=== PATIENT | male | born 1945 | race Caucasian/White ===

== ENCOUNTER 2016-06-24 14:18 | Inpatient (IN) | payer OTHER ==
[~2016-06-24] VITALS: Ht 185.4 cm; Wt 94.3 kg
[~2016-06-24 14:18] MED LIST: ACIDOPHILUS1 CAP PO; ALPRAZOLAM0.25 M1 PO; ALPRAZOLAM0.25 MG PO; ALTACE10 M2 PO; ALTACE10 MG PO; ASPIRIN EC325 M2 PO; AUGMENTIN 875 M1 TAB PO; AUGMENTIN 875875 MG PO; BENTYL 10 MG CA10 MG PO; BUSPIRONE HCL5 M1 PO; CEPHALEXIN500 M1 PO; CHOLESTYRAMINE1 POW PO; CRESTOR40 M2 PO; DUONEB 3 MG/3 ML3 ML INH; FLAG500 PO; FLAGYL 25O MG250 M1 PO; FLORASTOR250 MG PO; FOSAMAX70 M1 PO; GABAPENTIN300 MG PO; HYDRODIURIL 2525 MG PO; HYDROXYZINE HCL25 MG PO; LASIX20 M1 PO; LASIX20 MG PO; LEVOTHROID0.05 MG PO; LEVOTHYROXIN0.025 MG PO; LEVOTHYROXINE50 MCG PO; LIDODERM 5% PAT1 PAT EXT; LIDODERM1 EACH TOP; LOSARTAN POTASS50 MG PO; MORPHINE SULFAT15 M2 PO; MS CONTIN15 MG PO; MULTIPLE VITAM1 EAC2 PO; NEURONTIN300 M1 PO; PEDI-DRI 20Z60 GM; PLAVIX75 M1 PO; POTASSIUM CHLO10 ME5 PO; PREDNISONE20 M1 PO; PREVACID30 M2 PO; PRILOSEC 20MG C20 MG PO; PROAIR HFA0.09 MG/Ac INH; PROBIOTIC FORMU1 CA1 PO; PROVENTIL0.09 MG/A1 PO; REMICADE I100 MG/10 IV; SALINE NASAL SPRAY NASB; SERTRALINE HCL50 MG PO; SIMVASTATIN40 MG PO; TENORMIN25 M1 PO; TORADOL10 MG PO; TRAMADOL HCL50 MG PO; TYLENOL500 MG PO; VITAMIN B-121000 MC3 PO; XELJANZ5 MG PO
--- NOTE | 2016-06-24 14:34 | NUR ---
PT TO ED C/O COUGH, CHEST CONGESTION SINCE YESTERDAY. C/O PRODUCTIVE COUGH WITH YELLOW SPUTUM. PT TEMP 101.5.
--- NOTE | 2016-06-24 15:27 | ED DYSPNEA/ASTHMA COMPLAINT ---
History of Present Illness General Chief Complaint: Upper Respiratory Sx/Fever Stated Complaint: SORE THROAT, COUGH, CONGESTION Source: patient Exam Limitations: no limitations Vital Signs & Intake/Output Vital Signs & Intake/Output Vital Signs Date Time Temp Pulse Resp B/P Pulse O2 O2 Flow FiO2 Ox Delivery Rate 06/24 2023 100.5 105 16 133/76 91 Room Air 06/24 2001 100.0 06/24 1728 100.0 105 16 129/78 98 Room Air 06/24 1545 Room Air 06/24 1429 101.5 120 20 114/77 96 Room Air Allergies Coded Allergies: hydrocodone (From VICODIN) (Intermediate, SEVERE HALLUCINATIONS 08/16/15) hydromorphone (From DILAUDID) (Intermediate, SEVERE HALLUCINATIONS 08/16/15) morphine (Intermediate, WILD DREAMS, GI UPSET, SEVERE HALLUCINATIONS 08/16/15) oxycodone (From PERCOCET) (Intermediate, SEVERE HALLUCINATIONS 08/16/15) lactose (DIARRHEA 08/16/15) Reconcile Medications Albuterol Sulfate (Proventil Hfa) 0.09 MG/Actuation ZEESHAN 2 PUFF PO Q4 PRN SHORTNESS OF BREATH Alendronate Sodium (Fosamax) 70 MG TABLET 1 TAB PO QTHURS OSTEOPOROSIS ( Reported) in the morning, at least 30 minutes before the first food, beverage, or medication of the day Alprazolam 0.25 MG TABLET 1 TAB PO Q12H PRN ANXIETY (Reported) Aspirin E.c. (Ecotrin) 325 MG TAB 1 TAB PO DAILY HEART HEALTH (Reported) Atenolol 25 MG TABLET 1 TAB PO DAILY HTN (Reported) Atorvastatin Calcium 20 MG TABLET 1 TAB PO DAILY CHOLESTEROL (Reported) Buspirone HCl 5 MG TABLET 1 TAB PO TID ANXIETY (Reported) CLOPIDOGREL BISULFATE (Clopidogrel) 75 MG TABLET 1 TAB PO DAILY BLOOD THINNER (Reported) Cyanocobalamin (Vitamin B-12) 1,000 MCG TAB 1 TAB PO DAILY SUPPLEMENT ( Reported) Furosemide (Lasix) 20 MG TABLET 1 TAB PO DAILY DIURETIC (Reported) Gabapentin (Neurontin) 300 MG CAP 1 CAP PO TID NERVE PAIN (Reported) Lansoprazole (Prevacid) 30 MG CAP 1 CAP PO DAILY GI (Reported) Levothyroxine Sodium 50 MCG TABLET 1 TAB PO DAILY THYROID (Reported) Lidocaine (Lidoderm) 1 EACH ADH..PATCH 1 PAT TOP DAILY PAIN (Reported) may wear up to 12 hours Multivitamin (Multiple Vitamins) 1 TAB TAB 1 TAB PO DAILY SUPPLEMENT ( Reported) Potassium Chloride [address] 1 TAB PO DAILY SUPPLEMENT (Reported) Prednisone 5 MG TAB 20 MG PO DAILY RA (Reported) Ramipril (Altace) 10 MG CAPSULE 1 TAB PO DAILY HTN (Reported) Rosuvastatin Calcium (Crestor) 40 MG TAB 40 MG PO DAILY CHOLESTEROL (Reported ) SERTRALINE HCL (Sertraline Hydrochloride) 50 MG TABLET 1 TAB PO DAILY DEPRESSION (Reported) Triage Note: PT TO ED C/O COUGH, CHEST CONGESTION SINCE YESTERDAY. C/O PRODUCTIVE COUGH WITH YELLOW SPUTUM. PT TEMP 101.5. Triage Nurses Notes Reviewed? yes Onset: Abrupt Duration: day(s):, constant, getting worse Timing: recent history Severity: moderate, severe HPI: 71-year-old male comes into emergency room with complaints of fever chills body aches cough with mucus production and shortness of breath. Symptoms began going on for the past few days getting progressively worse. Denies any vomiting. Denies any other associated symptoms. History of pneumonia. (NORBERT NIETO,KIAH) Past History Travel History Traveled to [place] past 21 day No Medical History Any Pertinent Medical History? see below for history Neurological: NONE EENT: cataracts Cardiovascular: CAD (s/p ST elevation ND), hypertension, hyperlipidemia, myocardial infarction, non-ST patient [place], status post angioplasty in 2006, Respiratory: bronchitis, pneumonia, history of bronchospasm and hypercarbia Gastrointestinal: GERD, lactose intolerance, CHOLANGITIS Hepatic: NONE Renal: ACUTE RENAL FAILURE Musculoskeletal: fracture (right humerus ), osteoarthritis, rheumatoid arthritis , R hip fracture S/P ORIF R COMMUTED HUMERUS FX rheumatoid arthritis Psychiatric: anxiety, depression, insomnia Endocrine: adrenal insufficiency, hypothyroidism, obesity, elevated blood sugars Blood Disorders: anemia Cancer(s): NONE 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 SISTER ( of multiple sclerosis). Hx Contributory? No (KIAH EDWARD) Review of Systems Review of Systems Constitutional: Reports: see HPI. EENTM: Reports: no symptoms. Respiratory: Reports: see HPI. Cardiovascular: Reports: see HPI. GI: Reports: no symptoms. Genitourinary: Reports: no symptoms. Musculoskeletal: Reports: no symptoms. Skin: Reports: no symptoms. Neurological/Psychological: Reports: no symptoms. Hematologic/Endocrine: Reports: no symptoms. Immunologic/Allergic: Reports: no symptoms. All Other Systems: Reviewed and Negative (KIAH EDWARD) Physical Exam Physical Exam General Appearance: well developed/nourished, alert, awake Head: atraumatic, normal appearance Eyes: Bilateral: normal appearance, EOMI. Ears, Nose, Throat: normal pharynx, normal ENT inspection, hearing grossly normal Neck: normal inspection, full range of motion Respiratory: normal breath sounds, no respiratory distress Cardiovascular: regular rate/rhythm Extremities: normal inspection, normal range of motion Neurologic/Psych: awake, alert, oriented x 3, normal gait, normal mood/affect Skin: intact, normal color Core Measures ACS in differential dx? No Severe Sepsis Present: No Septic Shock Present: No (KIAH EDWARD) ED Sepsis Exam Date of Focused Sepsis Exam: 06/24/16 Time of Focused Sepsis Exam: 1707 Sepsis Cardiac Exam: Tachycardia Sepsis Resp Exam: CTA Sepsis Cap Refill Exam: <2 Sec Sepsis Peripheral Pulse Exam: Normal Sepsis Peripheral Pulse Location: Radial Sepsis Skin Color Exam: Normal for Ethnicity Skin Temp/Moisture Exam: Warm/Dry (KIAH EDWARD) Progress Differential Diagnosis: asthma, AMI, bronchitis, costochondritis, CHF, COPD, musculoskeletal pain, pericarditis, pulmonary embolism, pneumonia, pneumothorax, rib fracture, unstable angina Plan of Care: Orders Procedure Date/time Status EKG 06/24 2037 Active LOWER RESPIRATORY CULTURE 06/24 192 Active Code Status 06/24 1917 Active Admit to inpatient 06/24 1755 Active Patient Data 06/24 1727 Active BLOOD CULTURE 06/24 1642 Active Intake & Output 06/24 1600 Active TROPONIN LEVEL 06/24 1521 Complete COMPREHENSIVE METABOLIC PANEL 06/24 1521 Complete CBC WITHOUT DIFFERENTIAL 06/24 1521 Complete EKG 06/24 152 Active RAPID VIRAL INFLUENZA A 06/24 1454 Complete Current Medications Sig/Luis Start time Last Medication Dose Stop Time Status Admin Alprazolam 0.25 MG Q12H PRN 06/24 2044 UNVr (Xanax) 07/01 2043 Hydrocortisone 100 MG Q8 06/24 2044 UNVr Sodium Succinate (Solucortef) Sodium Chloride 1,000 ML Q13H 06/24 2044 UNVr (Normal Saline 0.9%) 06/25 943 Aspirin Buffered 325 MG DAILY 06/24 2038 UNVr (Ecotrin) Atenolol 25 MG DAILY 06/24 2038 UNVr (Tenormin) Laboratory Tests 06/24/16 1557: CBC w Diff NO MAN DIFF REQ, RBC 4.62 L, MCV 73.2 L, MCH 23.1 L, RDW 21.5 H, MPV 7.3 L, Gran % 78.4 H, Lymphocytes % 12.7 L, Monocytes % 7.1, Eosinophils % 1.5, Basophils % 0.3, Absolute Granulocytes 11.7 H, Absolute Lymphocytes 1.9, Absolute Monocytes 1.1 H, Absolute Eosinophils 0.2, Absolute Basophils 0.1, PUBS MCHC 31.5 L 06/24/16 1547: Anion Gap 7, Estimated GFR > 60, BUN/Creatinine Ratio 37.5 H, Glucose 116 H, Calcium 8.4, Total Bilirubin 0.5, AST 27, ALT 32, Alkaline Phosphatase 66, Troponin I < 0.01, Total Protein 6.2 L, Albumin 3.1 L, Globulin 3.1, Albumin/ Globulin Ratio 1.0 L Microbiology 06/24 1921 LOWER RESP: Respiratory Culture - ORD 06/24 1921 LOWER RESP: Gram Stain - ORD 06/24 1805 BLOOD: Blood Culture - RECD 06/24 1755 BLOOD: Blood Culture - RECD Diagnostic Imaging: Viewed by Me: Radiology Read. Discussed w/RAD: Radiology Read. Radiology Impression: SERVICE DATE: 06/24/16152 EXAM TYPE: RAD - XRY-CHEST XRAY, PA AND LATERAL EXAMINATION: XR CHEST CLINICAL INFORMATION: Cough and shortness of breath. COMPARISON: CT chest 01/05/2016. TECHNIQUE: PA and lateral views of the chest were obtained. FINDINGS: The lungs are hypoinflated. There are streaky airspace opacities within the bilateral lung bases which could reflect atelectasis given low lung volumes although superimposed infection cannot be excluded.. No pleural effusions or pneumothoraces are identified. Cardiomediastinal contours are stable. No overt pulmonary edema. Soft tissues are unremarkable. No acute osseous abnormality is identified. IMPRESSION: Pulmonary hypoinflation. Bibasilar airspace opacities are nonspecific and could reflect atelectasis although superimposed infection cannot be excluded in the appropriate clinical setting. DICTATED BY: SOWMYA VALLEJO MD DATE/TIME DICTATED :06/24/161631 [employer] OPERATIONS:ОЛЬГА DATE/TIME TRANSCRIBED:06/24/161631 Initial ED EKG: normal intervals, normal p-waves, normal sinus rhythm, rate (109 ), nonspecific ST T wave chg (KIAH EDWARD) Departure Departure Disposition: STILL A PATIENT Condition: Stable Clinical Impression Primary Impression: Pneumonia Referrals: JOHNY MARQUES,CLIFF Mckinney (PCP/Family) Referred to [facility] as new patient No Departure Forms: Customer Survey General Discharge Information Admission Note Spoke With: WILD AQUINO MD Documentation of Exam: Documentation of any treatments & extenuating circumstances including Concerns Regarding Discharge (functional status, medication knowledge or non-compliance, living conditions, etc.) that warrant an admission rather than observation: IV antibiotics. Gentle hydration. Repeat labs. Supplemental oxygen. High risk. Patient would do poorly as an outpatient. Multiple comorbidities (KIAH EDWARD) PA/DIRECTOR MEETINGS Co-Sign Statement Statement: ED Attending supervision documentation- [x] I saw and evaluated the patient. I have also reviewed all the pertinent lab results and diagnostic results. I agree with the findings and the plan of care as documented in the PA's/DIRECTOR MEETINGS's documentation. [] I have reviewed the ED Record and agree with the PA's/DIRECTOR MEETINGS's documentation. [] Additions or exceptions (if any) to the PAs/DIRECTOR MEETINGS's note and plan are summarized below: [] (KITA SOOD DO) Critical Care Note Critical Care Note Critical Care Time: 30-74 min (KIAH EDWARD)
[2016-06-24] MEDS ORDERED: ATORVASTATIN CA20 M1 PO (15:50)
--- NOTE | 2016-06-24 16:07 | NUR ---
PT 88% ON RA. SPEAKING IN FULL LONG SENTENCES WITH NO DIFFICULTY. PLACED ON 2LNC.
[2016-06-24 16:09] LABS: ABSOLUTE BASOPHIL COUNT 0.1 /CUMM (0.0-0.2); ABSOLUTE EOSINOPHIL COUNT 0.2 /CUMM (0.0-0.7); ABSOLUTE GRANULOCYTE CT 11.7 /CUMM (1.4-6.5); ABSOLUTE LYMPH COUNT 1.9 /CUMM (1.2-3.4); ABSOLUTE MONOCYTE COUNT 1.1 /CUMM (0.10-0.60); BASOPHIL % 0.3 % (0.0-2.0); EOSINOPHIL % 1.5 % (0-5); GRANULOCYTE % 78.4 % (42.2-75.2); HEMATOCRIT 33.8 % (42-52); MEAN CORPUSCULAR HGB 23.1 PG (27.0-31.0); MEAN CORPUSCULAR HGB CONC 31.5 G/DL (33.0-37.0); MEAN CORPUSCULAR VOLUME 73.2 FL (80.0-94.0); MEAN PLATELET VOLUME 7.3 FL (7.4-10.4); PLATELET COUNT 257 /CUMM (130-400); RBC DISTRIBUTION WIDTH 21.5 % (11.5-14.5); RED BLOOD CELL CT 4.62 /CUMM (4.70-6.10)
--- NOTE | 2016-06-24 16:23 | NUR ---
PT TO AND FROM RADIOLOGY
--- NOTE | 2016-06-24 16:36 | RADIOLOGY REPORT ---
EXAMINATION: XR CHEST CLINICAL INFORMATION: Cough and shortness of breath. COMPARISON: CT chest 01/05/2016. TECHNIQUE: PA and lateral views of the chest were obtained. FINDINGS: The lungs are hypoinflated. There are streaky airspace opacities within the bilateral lung bases which could reflect atelectasis given low lung volumes although superimposed infection cannot be excluded.. No pleural effusions or pneumothoraces are identified. Cardiomediastinal contours are stable. No overt pulmonary edema. Soft tissues are unremarkable. No acute osseous abnormality is identified. IMPRESSION: Pulmonary hypoinflation. Bibasilar airspace opacities are nonspecific and could reflect atelectasis although superimposed infection cannot be excluded in the appropriate clinical setting.
--- NOTE | 2016-06-24 19:57 | NUR ---
PT'S RM ASSIGNMENT 219 BED 1
--- NOTE | 2016-06-24 20:25 | NUR ---
VSS. 02 91% ON RA. PLACED ON 2LNC
--- NOTE | 2016-06-24 21:00 | NUR ---
PT FELT INCREASING BODY ACHES AND HEADACHE. 650MG PO TYLENOL ADMINISTERED. 30MG IV TORADOL ADMINSTERED. PT NOW FEELS MUCH BETTER AND NO LONGER HAS CHILLS/ACHES
--- NOTE | 2016-06-24 21:09 | NUR ---
EKG NOT NEEDED. UNABLE TO CANCEL EKG IN [facility]
--- NOTE | 2016-06-24 21:21 | PN- Att Addend ---
Attending Addendum Attending Brief Note 71 year old male with PMH adrenal insufficiency on chronic steroids with previous cholecystectomy (complicated by pneumonia at [facility]), Cdiff colitis, HTN on beta radha, hyperlipidemia on a statin and on asa and plavix here with fever, cough with purulent sputum, leukocytosis and bibasial pneumonia on chest xray. Alex c/s, start IV ceftriaxone and azithro, stress dose steroids today and back to usual prednisone in am. Gently hydrate, DVT prophylaxis and f/ u. Low threshold for CT chest if no clinical improvement to look at extent of disease.
--- NOTE | 2016-06-24 21:21 | Admission Certification ---
Admission Certification Certification Statement - As attending physician, I certify that at the time of - admission, based on clinical presentation, severity of - symptoms, need for further diagnostic testing and - therapeutic interventions, and risk of adverse outcomes - without in-hospital treatment, in my clinical assessment, - this patient requires an acute hospital stay for a minimum - of two nights or longer. I have also considered psychsocial - factors such as support system, advanced age, financial - issues, cognitive issues, and failed out-patient treatments, - past re-admission history, safety of patient, and lack of - compliance as applicable. Specific rationale supporting this admission is: CAP in pt on chronic prednisone, needs IV abx
--- NOTE | 2016-06-24 21:32 | NUR ---
PT'S ASSIGNMENT 217
[2016-06-24 21:55] VITALS: BP 110/60
--- NOTE | 2016-06-24 23:20 | History & Physical ---
SHANON ESTES 06/24/16 5995: General Information and HPI MD Statement: I have seen and personally examined SHAKIR KELLEY III and documented this H&P. The patient is a 71 year old M who presented with a patient stated chief complaint of [cough and shortness of breath]. Source of Information: patient History of Present Illness: 71 -year-old gentleman with past medical history of CAD, DC, angioplasty, back surgeries, adrenal insufficiency, depression, hypothyroidism,sepsis due to already section and cholecystectomy, hypertension, hyperlipidemia came with chief complaint of shortness of breath and coughing. Patient reports that he was been having cough(yellowish productive) for about 2 weeks however his shortness of breasts getting worse on exertion during this past one week with feeling feverish and some chills. Patient denies any nausea, vomiting but he has chronic abdominal pain. He denies any chest pain, changes in urinary or bowel habits. Vital signs on admission temperature 101.5, CA 105, blood pressure 122/77, O2 saturation 91% on room air,RR 20 CXR IMPRESSION: Pulmonary hypoinflation. Bibasilar airspace opacities are nonspecific and could reflect atelectasis although superimposed infection cannot be excluded in the appropriate clinical setting. Allergies/Medications Allergies: Coded Allergies: hydrocodone (From VICODIN) (Intermediate, SEVERE HALLUCINATIONS 08/16/15) hydromorphone (From DILAUDID) (Intermediate, SEVERE HALLUCINATIONS 08/16/15) morphine (Intermediate, WILD DREAMS, GI UPSET, SEVERE HALLUCINATIONS 08/16/15) oxycodone (From PERCOCET) (Intermediate, SEVERE HALLUCINATIONS 08/16/15) lactose (DIARRHEA 08/16/15) Home Med list Albuterol Sulfate (Proventil Hfa) 0.09 MG/Actuation ZEESHAN 2 PUFF PO Q4 PRN SHORTNESS OF BREATH Alendronate Sodium (Fosamax) 70 MG TABLET 1 TAB PO QTHURS OSTEOPOROSIS ( Reported) in the morning, at least 30 minutes before the first food, beverage, or medication of the day Alprazolam 0.25 MG TABLET 1 TAB PO Q12H PRN ANXIETY (Reported) Aspirin E.c. (Ecotrin) 325 MG TAB 1 TAB PO DAILY HEART HEALTH (Reported) Atenolol 25 MG TABLET 1 TAB PO DAILY HTN (Reported) Atorvastatin Calcium 20 MG TABLET 1 TAB PO DAILY CHOLESTEROL (Reported) Buspirone HCl 5 MG TABLET 1 TAB PO TID ANXIETY (Reported) CLOPIDOGREL BISULFATE (Clopidogrel) 75 MG TABLET 1 TAB PO DAILY BLOOD THINNER (Reported) Cyanocobalamin (Vitamin B-12) 1,000 MCG TAB 1 TAB PO DAILY SUPPLEMENT ( Reported) Furosemide (Lasix) 20 MG TABLET 1 TAB PO DAILY DIURETIC (Reported) Gabapentin (Neurontin) 300 MG CAP 1 CAP PO TID NERVE PAIN (Reported) Lansoprazole (Prevacid) 30 MG CAP 1 CAP PO DAILY GI (Reported) Levothyroxine Sodium 50 MCG TABLET 1 TAB PO DAILY THYROID (Reported) Lidocaine (Lidoderm) 1 EACH ADH..PATCH 1 PAT TOP DAILY PAIN (Reported) may wear up to 12 hours Multivitamin (Multiple Vitamins) 1 TAB TAB 1 TAB PO DAILY SUPPLEMENT ( Reported) Potassium Chloride [address] TAB PO DAILY SUPPLEMENT (Reported) Prednisone 5 MG TAB 20 MG PO DAILY RA (Reported) Ramipril (Altace) 10 MG CAPSULE 1 TAB PO DAILY HTN (Reported) Rosuvastatin Calcium (Crestor) 40 MG TAB 40 MG PO DAILY CHOLESTEROL (Reported ) SERTRALINE HCL (Sertraline Hydrochloride) 50 MG TABLET 1 TAB PO DAILY DEPRESSION (Reported) Past History Travel History Traveled to [place] past 21 day No Medical History Blood Transfusion Hx: No Neurological: NONE EENT: cataracts Cardiovascular: CAD (s/p ST elevation [place]), hypertension, hyperlipidemia, myocardial infarction, non-ST patient [place], status post angioplasty in 2006, Respiratory: bronchitis, pneumonia, history of bronchospasm and hypercarbia Gastrointestinal: GERD, lactose intolerance, CHOLANGITIS Hepatic: NONE Renal: ACUTE RENAL FAILURE Musculoskeletal: fracture (right humerus ), osteoarthritis, rheumatoid arthritis , R hip fracture S/P ORIF R COMMUTED HUMERUS FX rheumatoid arthritis Psychiatric: anxiety, depression, insomnia Endocrine: adrenal insufficiency, hypothyroidism, obesity, elevated blood sugars Blood Disorders: anemia Cancer(s): NONE 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 SISTER ( of multiple sclerosis). Psychosocial History Where do you live? Home Who Do You Live With? self Services at Home: Home Health Aide Smoking Status: Never Smoked ETOH Use: denies use Illicit Drug Use: denies illicit drug use Functional Ability ADLs Independent: dressing, eating, toileting, bathing. Ambulation: independent IADLs Independent: shopping, medication admin. Needs Assist: housework, finances, food prep, telephone, transportation. Review of Systems Review of Systems Constitutional: Reports: see HPI. Exam & Diagnostic Data Last 24 Hrs of Vital Signs/I&O Vital Signs Date Time Temp Pulse Resp B/P Pulse O2 O2 Flow FiO2 Ox Delivery Rate 06/24 2148 106 16 127/64 90 Room Air 06/24 2023 100.5 105 16 133/76 91 Room Air 06/24 2001 100.0 06/24 1728 100.0 105 16 129/78 98 Room Air 06/24 1545 Room Air 06/24 1429 101.5 120 20 114/77 96 Room Air Intake & Output 06/24 1600 06/24 0800 06/24 0000 Intake Total Output Total Balance Patient 208 lb Weight Physical Exam General Appearance Alert, Oriented X3, Cooperative, No Acute Distress Cardiovascular Regular Rate, Normal S1, Normal S2 Lungs mild right sided crackles Abdomen Normal Bowel Sounds, Soft, mild generalised tenderness Extremities bilateral trace edema Assessment/Plan Assessment: 71 -year-old gentleman with past medical history of CAD, DC, angioplasty, back surgeries, adrenal insufficiency, depression, hypothyroidism,sepsis due to already section and cholecystectomy, hypertension, hyperlipidemia came with chief complaint of shortness of breath and coughing. Patient reports that he was been having cough(yellowish productive) for about 2 weeks however his shortness of breasts getting worse on exertion during this past one week with feeling feverish and some chills. Patient denies any nausea, vomiting but he has chronic abdominal pain. He denies any chest pain, changes in urinary or bowel habits. Vital signs on admission temperature 101.5, CA 105, blood pressure 122/77, O2 saturation 91% on room air,RR 20 CXR IMPRESSION: Pulmonary hypoinflation. Bibasilar airspace opacities are nonspecific and could reflect atelectasis although superimposed infection cannot be excluded in the appropriate clinical setting. EKG showed tachycardia 109, PVCs, QTC 431 mL no acute ECG changes WBC is 15.9, hemoglobin 10, MCV 73 Assessment and Plan: #Multilobar pneumonia -Continue ceftriaxone and azithromycin -Blood cultures, sputum cultures, urine Legionella and strep -Give Tylenol for fever -Stress dose of the steroids hydrocortisone 100 mg every 8 -IV hydration with one bag #Adrenal insufficiency -give stress dose today and continue home dosage tomorrow #HTN,CAD,HLP -continue atenolol, aspirin, Plavix, lisinopril, statin #Hypothyroidism/depression, back pain -Continue levothyroxine, SSRI, gabapentin, Lidoderm patch,Xanax #micorocytic anemia -Check guaiac stools #DVT prophylaxis is Alps and Lovenox, heart healthy diet, Tylenol for pain,full code Core Measures/Miscellaneous Acute Coronary Syndrome ACS Diagnosis: No Cerebrovascular Accident CVA/TIA Diagnosis: No Congestive Heart Failure CHF Diagnosis: No Venous Thromboembolism VTE Risk Factors: Age > 40 VTE Prophylaxis Ordered Inpt: Mech & Pharm No Mech VTE prophylaxis d/t: No contraindications No VTE Pharm Prophylaxis d/t: No contraindications VTE Diagnosis: No VTE Type: NONE VTE Confirmed by (Test): NONE Severe Sepsis Severe Sepsis Present: No Septic Shock Septic Shock Present: No Miscellaneous Documentation Attending Case Discussed With: MILES MARQUES,WILD Peterson Primary Care Physician: CLIFF MCCLAIN MD Patient sees these Specialists NA Level of Patient Care: General Medicine MILES MARQUES,WILD 06/25/16 0750: Assessment/Plan As Ranked By This Provider Problem List: 1. Leucocytosis 2. CAD (coronary artery disease) 3. HTN (hypertension) Attending MD Review Statement Attending Statement Attending MD Statement: examined this patient, discuss w/resident/PA/URGENT CARE NURSE PRACTITIONER, agreed w/resident/PA/URGENT CARE NURSE PRACTITIONER, reviewed EMR data (avail), discussed with nursing Attending Assessment/Plan: See medical brief addendum note dated 06/24/16
--- NOTE | 2016-06-25 00:18 | NUR ---
NURSING NOTE; LATE ENTRY; PT ADMITTED TO ROOM 217-01 FROM THE ER AT 2155 VIA WHEELCHAIR. PT AMBULATED TO BED WITH SUPERVISION. PT ALERT AND ORIENTEDX3, C/O WEAKNESS BECUASE OF THE PNEUMONIA. PT VSS, DENIES CP, ON RA, EXPIRATORY WHEEZES AND NONPRODUCTIVE COUGH. PT HAS A DISTENDED ABDOMEN BUT +BOWEL SOUNDS IN ALL FOUR QUADRANTS. PT SKIN IS INTACT AND BLE HAS +4 EDEMA. PT COMPLAINING OF 5 OUT OF 10 PAIN AT THIS TIME BUT DOES NOT WANT A PRN PAIN MED. IVF RUNNING PER EMAR. PT ORIENTED TO ROOM AND CALL ORTEGA. WILL CONTINUE TO MONITOR.
[2016-06-25 08:21] VITALS: BP 125/61
[2016-06-25 09:24] LABS: ABSOLUTE BASOPHIL COUNT 0 /CUMM (0.0-0.2); ABSOLUTE EOSINOPHIL COUNT 0 /CUMM (0.0-0.7); ABSOLUTE GRANULOCYTE CT 12.3 /CUMM (1.4-6.5); ABSOLUTE LYMPH COUNT 0.7 /CUMM (1.2-3.4); ABSOLUTE MONOCYTE COUNT 0.6 /CUMM (0.10-0.60); BASOPHIL % 0 % (0.0-2.0); EOSINOPHIL % 0 % (0-5); GRANULOCYTE % 90.7 % (42.2-75.2); HEMATOCRIT 31.5 % (42-52); MEAN CORPUSCULAR HGB 23.3 PG (27.0-31.0); MEAN CORPUSCULAR HGB CONC 31.5 G/DL (33.0-37.0); MEAN CORPUSCULAR VOLUME 73.9 FL (80.0-94.0); MEAN PLATELET VOLUME 7.9 FL (7.4-10.4); PLATELET COUNT 230 /CUMM (130-400); RED BLOOD CELL CT 4.26 /CUMM (4.70-6.10); WHITE BLOOD CELL COUNT 13.6 /CUMM (4.8-10.8)
--- NOTE | 2016-06-25 10:11 | PN- Housestaff ---
SONAL MARQUES,OSMAN 06/25/16 1011: Subjective Follow-up For: Community-acquired pneumonia Complaints: persistent productive cough associated with shortness of breath and lower abdominal pain Subjective: Patient feels his shortness of breath has marginally improved but continues to have productive cough. He remains afebrile overnight. He complains of lower abdominal pain after food ingestion, crampy in nature. He denies any chest pain , nausea, vomiting, palpitation, lightheadedness, dizziness or urinary symptoms. Review of Systems Constitutional: Reports: see HPI. Objective Last 24 Hrs of Vital Signs/I&O Vital Signs Date Time Temp Pulse Resp B/P Pulse O2 O2 Flow FiO2 Ox Delivery Rate 06/25 1109 Nasal 1.0L Cannula 06/25 1008 110/68 06/25 1007 110/68 06/25 0821 98.0 95 20 125/61 92 Nasal 2.0L Cannula 06/25 0046 98.9 06/24 215 98.9 90 18 110/60 90 Room Air 06/24 2155 90 Room Air 06/24 2148 106 16 127/64 90 Room Air 06/24 2024 100.5 105 16 133/76 91 Room Air 06/24 2002 100.0 06/24 1728 100.0 105 16 129/78 98 Room Air 06/24 1545 Room Air 06/24 1429 101.5 120 20 114/77 96 Room Air Intake & Output 06/25 1600 06/25 0800 06/25 0000 Intake Total 720 275 Output Total 200 Balance 520 275 Intake, IV 600 75 Intake, Oral 120 200 Output, Urine 200 Patient 208 lb Weight Physical Exam General Appearance: Alert, Oriented X3, Cooperative, Mild Distress Skin: No Rashes HEENT: Atraumatic, PERRLA, EOMI, Mucous Membr. moist/pink Neck: Supple Cardiovascular: Regular Rate, Normal S1, Normal S2, No Murmurs Lungs: bibasilar rhonchi rt > lt with occasional wheeze Abdomen: Normal Bowel Sounds, Soft, left lower quadrant tenderness Neurological: Normal Speech, Normal Tone, Sensation Intact, Cranial Nerves 3-12 NL Extremities: No Edema Vascular: Normal Pulses, Pulses Symmetrical Current Medications: Current Medications Sig/Luis Start time Last Medication Dose Route Stop Time Status Admin Acetaminophen 650 MG ONCE ONE 06/24 2314 DC PO 06/24 2315 Acetaminophen 0 .STK-MED ONE 06/24 1956 DC PO Acetaminophen 650 MG Q4P PRN 06/24 1930 AC 06/24 PO 2002 Albuterol Sulfate 3 ML BID 06/25 1130 AC 06/25 INH 1117 Alprazolam 0.25 MG Q12H PRN 06/24 2045 AC PO 07/01 204 Aspirin Buffered 325 MG DAILY 06/25 1000 AC 06/25 PO 1008 Atenolol 25 MG DAILY 06/25 1000 AC 06/25 PO 1007 Atorvastatin Calcium 80 MG 1700 06/25 1700 AC PO Azithromycin 500 MG 1800 06/25 1800 AC Sodium Chloride 250 ML IV Azithromycin 500 MG ONCE ONE 06/24 1645 DC 06/24 Sodium Chloride 250 ML IV 06/24 1744 1847 Buspirone HCl 5 MG TID 06/24 2200 AC 06/25 PO 1008 Ceftriaxone Sodium 1,000 MG 1800 06/25 1800 AC IV Ceftriaxone Sodium 0 .STK-MED ONE 06/24 1816 DC .ROUTE Ceftriaxone Sodium 1,000 MG ONCE ONE 06/24 1645 DC 06/24 IV 06/24 1646 1820 Clopidogrel Bisulfate 75 MG DAILY 06/25 1000 AC 06/25 PO 1008 Cyanocobalamin 1,000 MCG DAILY 06/25 1000 AC 06/25 PO 1008 Enoxaparin Sodium 40 MG DAILY 06/25 1000 AC 06/25 SC 1009 Gabapentin 300 MG Q8 06/24 2200 AC 06/25 PO 0601 Guaifenesin 600 MG Q12 06/25 1000 AC 06/25 PO 1011 Hydrocortisone 100 MG Q8 06/24 2200 AC 06/25 Sodium Succinate IV 0602 Influenza Virus 0.5 ML 1000 06/25 1000 DC Vaccine IM 06/25 1001 Ketorolac 0 .STK-MED ONE 06/24 2045 DC Tromethamine .ROUTE Ketorolac 30 MG ONCE ONE 06/24 2044 DC 06/24 Tromethamine IV 06/24 Levothyroxine Sodium 0.05 MG DAILY 06/25 1000 AC 06/25 PO 1007 Lidocaine 1 PAT DAILY 06/25 1000 AC 06/25 EXT 1009 Lisinopril 10 MG DAILY 06/25 1000 AC 06/25 PO 1008 Omeprazole 40 MG DAILY AC 06/25 0700 AC 06/25 PO 0602 Pneumococcal 0.5 ML 1000 06/25 1000 DC Polyvalent Vaccine IM 06/25 1001 Potassium Chloride 10 MEQ DAILY 06/24 2039 AC 06/25 PO 1008 Sertraline HCl 50 MG DAILY 06/25 1000 AC 06/25 PO 1007 Sodium Chloride 1,000 ML Q13H 06/24 2044 DC 06/24 IV 06/25 0944 2308 Sodium Chloride 1,000 ML ONCE ONE 06/24 1645 DC 06/24 IV 06/24 2324 1820 Last 24 Hrs of Lab/Kain Results Last 24 Hrs of Labs/Mics: Laboratory Tests 06/25/16 0820: Anion Gap 9, Estimated GFR > 60, BUN/Creatinine Ratio 35.0 H, CBC w Diff MAN DIFF ORDERED, RBC 4.26 L, MCV 73.9 L, MCH 23.3 L, RDW 21.0 H, MPV 7.9, Gran % 90.7 H, Lymphocytes % 5.2 L, Monocytes % 4.1, Eosinophils % 0, Basophils % 0 L, Absolute Granulocytes 12.3 H, Segmented Neutrophils 88 H, Band Neutrophils 6 H, Absolute Lymphocytes 0.7 L, Lymphocytes 4 L, Monocytes 2, Absolute Monocytes 0.6, Absolute Eosinophils 0, Absolute Basophils 0, Platelet Estimate VERIFIED BY SMEAR, Polychromasia 1+, Hypochromic-Microcytic 1+, Poikilocytosis 1 +, Anisocytosis 1+, Microcytic Cells 1+, Ovalocytes 1+, PUBS MCHC 31.5 L 06/24/16 1557: CBC w Diff NO MAN DIFF REQ, RBC 4.62 L, MCV 73.2 L, MCH 23.1 L, RDW 21.5 H, MPV 7.3 L, Gran % 78.4 H, Lymphocytes % 12.7 L, Monocytes % 7.1, Eosinophils % 1.5, Basophils % 0.3, Absolute Granulocytes 11.7 H, Absolute Lymphocytes 1.9, Absolute Monocytes 1.1 H, Absolute Eosinophils 0.2, Absolute Basophils 0.1, PUBS MCHC 31.5 L, Virus Culture Pending 06/24/16 1547: Anion Gap 7, Estimated GFR > 60, BUN/Creatinine Ratio 37.5 H, Glucose 116 H, Calcium 8.4, Total Bilirubin 0.5, AST 27, ALT 32, Alkaline Phosphatase 66, Troponin I < 0.01, Total Protein 6.2 L, Albumin 3.1 L, Globulin 3.1, Albumin/ Globulin Ratio 1.0 L Microbiology 06/25 06 URINE ROUT: Legionella Antigen - COMP 06/25 609 URINE ROUT: Streptococcus pneumoniae Antigen (M - COMP 06/24 1921 LOWER RESP: Respiratory Culture - COLB 06/24 192 LOWER RESP: Gram Stain - COLB 06/24 1805 BLOOD: Blood Culture - RECD 06/24 1755 BLOOD: Blood Culture - RECD Assessment/Plan Assessment: #Community-acquired pneumonia -Continue ceftriaxone and azithromycin -Follow-up Blood cultures, sputum cultures, - urine Legionella and strep antigen noted negative -Give Tylenol for fever -Stress dose of the steroids hydrocortisone 100 mg every 8 -IV hydration with one bag #Left lower abdominal pain #Adrenal insufficiency -give stress dose given yesterday and will restart home dosage steroid today # rheumatoid arthritis - Continue home dose steroids #HTN,CAD,HLP -continue atenolol, aspirin, Plavix, lisinopril, statin #Hypothyroidism, back pain -Continue levothyroxine # depression Continue SSRI and Xanax #Back pain Continue gabapentin and Lidoderm patch #micorocytic anemia -Check guaiac stools Problem List: 1. Rheumatoid arthritis 2. HTN (hypertension) 3. Anemia Pain Ratin Pain Location: LLQ abd. pain Pain Goal: Pain 4 or less Pain Plan: tylenol, morphine as needed Tomorrow's Labs & Rationales: cbc bep DVT/Prophylaxis: pharmacological LUCI MARQUES,KIKA 06/25/16 1254: Attending MD Review Statement Attending Statement Attending MD Statement: examined this patient, discuss w/resident/PA/JEWEL LATHE OPERATOR, agreed w/resident/PA/JEWEL LATHE OPERATOR, reviewed EMR data (avail), discussed with nursing, discussed with case mgmt, reviewed images, amended to note Attending Assessment/Plan: Patient seen and examined, breathing is improved but continues to complain of this intermittent abdominal pain. It is mostly located in the left lower quadrant and left side of the abdomen. Patient also complains of early satiety. He claims that he had colonoscopy in 3 years ago which was normal. Denies constipation. Denies any melanotic stool or bright red blood per rectum. Vital Signs Date Time Temp Pulse Resp B/P Pulse O2 O2 Flow FiO2 Ox Delivery Rate 06/25 1109 Nasal 1.0L Cannula 06/25 1008 110/68 06/25 1007 110/68 06/25 0821 98.0 95 20 125/61 92 Nasal 2.0L Cannula 06/25 0046 98.9 06/24 2154 98.9 90 18 110/60 90 Room Air 06/24 2154 90 Room Air 06/248 106 16 127/64 90 Room Air 06/24 2023 100.5 105 16 133/76 91 Room Air 06/24 2001 100.0 06/24 1728 100.0 105 16 129/78 98 Room Air 06/24 1545 Room Air 06/24 1429 101.5 120 20 114/77 96 Room Air on exam; aox3, nad. cv; s1,s2, rrr. resp; clear. abd; soft, tender in llq, bs+ ext; no edema. Laboratory Tests 06/25 06/24 0820 1557 Chemistry Sodium (137 - 145 mmol/L) 139 Potassium (3.5 - 5.1 mmol/L) 4.2 Chloride (98 - 107 mmol/L) 99 Carbon Dioxide (22 - 30 mmol/L) 30 Anion Gap (5 - 16) 9 BUN (9 - 20 mg/dL) 28 H Creatinine (0.7 - 1.2 mg/dL) 0.8 Estimated GFR (>60 ml/min) > 60 BUN/Creatinine Ratio (7 - 25 %) 35.0 H Hematology CBC w Diff MAN DIFF ORDERED NO MAN DIFF REQ WBC (4.8 - 10.8 /CUMM) 13.6 H 15.0 H RBC (4.70 - 6.10 /CUMM) 4.26 L 4.62 L Hgb (14.0 - 18.0 G/DL) 9.9 L 10.7 L Hct (42 - 52 %) 31.5 L 33.8 L MCV (80.0 - 94.0 FL) 73.9 L 73.2 L MCH (27.0 - 31.0 PG) 23.3 L 23.1 L RDW (11.5 - 14.5 %) 21.0 H 21.5 H Plt Count (130 - 400 /CUMM) 230 257 MPV (7.4 - 10.4 FL) 7.9 7.3 L Gran % (42.2 - 75.2 %) 90.7 H 78.4 H Lymphocytes % (20.5 - 51.1 %) 5.2 L 12.7 L Monocytes % (1.7 - 9.3 %) 4.1 7.1 Eosinophils % (0 - 5 %) 0 1.5 Basophils % (0.0 - 2.0 %) 0 L 0.3 Absolute Granulocytes (1.4 - 6.5 /CUMM) 12.3 H 11.7 H Segmented Neutrophils (42.2 - 75.2 %) 88 H Band Neutrophils (0.0 - 5.0 %) 6 H Absolute Lymphocytes (1.2 - 3.4 /CUMM) 0.7 L 1.9 Lymphocytes (20.5 - 51.1 %) 4 L Monocytes (1.7 - 9.3 %) 2 Absolute Monocytes (0.10 - 0.60 /CUMM) 0.6 1.1 H Absolute Eosinophils (0.0 - 0.7 /CUMM) 0 0.2 Absolute Basophils (0.0 - 0.2 /CUMM) 0 0.1 Platelet Estimate (ADEQUATE) VERIFIED BY SMEAR Polychromasia 1+ Hypochromic-Microcytic 1+ Poikilocytosis 1+ Anisocytosis 1+ Microcytic Cells 1+ Ovalocytes 1+ PUBS MCHC (33.0 - 37.0 G/DL) 31.5 L 31.5 L Serology Virus Culture Pending 06/24 1547 Chemistry Sodium (137 - 145 mmol/L) 140 Potassium (3.5 - 5.1 mmol/L) 3.6 Chloride (98 - 107 mmol/L) 101 Carbon Dioxide (22 - 30 mmol/L) 32 H Anion Gap (5 - 16) 7 BUN (9 - 20 mg/dL) 30 H Creatinine (0.7 - 1.2 mg/dL) 0.8 Estimated GFR (>60 ml/min) > 60 BUN/Creatinine Ratio (7 - 25 %) 37.5 H Glucose (65 - 99 mg/dL) 116 H Calcium (8.4 - 10.2 mg/dL) 8.4 Total Bilirubin (0.2 - 1.3 mg/dL) 0.5 AST (17 - 59 U/L) 27 ALT (21 - 72 U/L) 32 Alkaline Phosphatase (< 127 U/L) 66 Troponin I (<0.11 ng/ml) < 0.01 Total Protein (6.3 - 8.2 g/dL) 6.2 L Albumin (3.5 - 5.0 g/dL) 3.1 L Globulin (1.9 - 4.2 gm/dL) 3.1 Albumin/Globulin Ratio (1.1 - 2.2 %) 1.0 L A/P; 71 y/o M with pmh sig for CAD, RI, angioplasty, back surgeries, adrenal insufficiency, depression, hypothyroidism, cholecystectomy, hypertension, hyperlipidemia admitted with sepsis secondary to community acquired pneumonia. Patient also has this chronic, intermittent abdominal pain with symptoms of early satiety. Patient is currently treated with IV ceftriaxone and azithromycin. Will continue that. Can switch his steroids to oral prednisone. Will obtain a CAT scan of his abdomen and pelvis for this abdominal pain and also will try to get some records about his colonoscopy. Patient has microcytic anemia. He had low iron but normal ferritin about a year ago. Please check stool for guaiac. Continue the current medications. DVT prophylaxis: Lovenox.
[2016-06-25] MEDS ORDERED: XELJANZ5 M1 PO ×2 (14:25→14:26)
--- NOTE | 2016-06-25 15:03 | NUR ---
PT CAME UP FROM CT SCAN WITH IV CONTRAST. DURING CT SCAN, PT ENDURED A SOFT TISSUE EXTRAVASATION. RADIOL[employer] NOTIFED THIS RN PRIOR TO PT'S TRANSFER BACK TO THE FLOOR. UPON ARRIVAL, PT WAS ASSESSED BY THIS RN FOR THE LEFT UPPER ARM EXTRAVASATION. PT C/O OF SOME BURNING AROUND THE SITE. MILD SWELLING NOTED. PULSES POSITIVE, SENSATION INTACT. PT IS ABLE TO MOVE HIS ARM AND FINGERS. TYLENOL GIVEN FOR PAIN RELIEF. PT ADVISED TO LET RN KNOW IF PAIN WORSENS, SWELLING INCREASES, OR IF SENSATION CHANGES TO HIS FINGERS OR ARMS. PT VERBALIZED UNDERSTANDING AND VERBALIZED HIS INJUYR. DR. SONAL BREWER NOTIFIED OF INCIDENT. WILL COME UP TO ASSESS PATIENT. FOR NOW, PATIENT VERBALIZES COMFORT. WILL CONT TO MONITOR
--- NOTE | 2016-06-25 15:10 | CT SCAN REPORT ---
EXAMINATION: CT ABDOMEN AND PELVIS WITH CONTRAST CLINICAL INFORMATION: Left lower quadrant abdominal pain. Evaluate for acute diverticulitis. COMPARISON: CT abdomen and pelvis with contrast 12/04/2015. TECHNIQUE: Multidetector volumetric imaging was performed of the abdomen and pelvis after the IV administration of 94 mL of Optiray 320 intravenous contrast. Prior to this, the patient reportedly had a contrast extravasation of approximately 75 mL of contrast within the left forearm. Sagittal and coronal reformatted images were obtained on the technologist's workstation. DLP: 940 mGy-cm. FINDINGS: LUNG BASES: Evaluation of the included lung bases is again notable for bibasilar subsegmental atelectasis. Of note, in comparison to the prior examination, there has been interval development of peribronchial thickening within the bilateral lower lobes and patchy airspace opacities within the bilateral lung bases. This could reflect an acute infectious or inflammatory bronchiolitis. There is dependent bibasilar atelectasis. LIVER, GALLBLADDER, AND BILIARY TREE: The liver is normal in size, shape, and attenuation. No focal hepatic lesions are identified. The gallbladder is surgically absent. Redemonstrated is pneumobilia, notably within the left hepatic lobe, not unexpected following cholecystectomy. PANCREAS: Unremarkable. SPLEEN: Unremarkable. ADRENAL GLANDS: Unremarkable. KIDNEYS AND URETERS: Limited evaluation of the bilateral kidney secondary to expiratory phase imaging. There are several hypoattenuating lesions within the bilateral kidneys, visualized measuring up to 1.7 cm within the lower pole of the left kidney. These are too small to further characterize but likely reflect multiple bilateral simple renal cortical cysts. No solid parenchymal lesions are identified. There is limited evaluation for renal or ureteral stones given excreted intravenous contrast within the bilateral ureters and renal collecting systems. BLADDER: Unremarkable. GASTROINTESTINAL TRACT: Normal anatomic orientation of the stomach relative to the duodenum. Normal caliber of abdominal and pelvic bowel loops, without evidence of obstruction or ileus. No circumferential bowel wall thickening with surrounding inflammatory changes to suggest an underlying infectious or inflammatory enterocolitis. Nonvisualization of the appendix. No acute inflammatory changes within the right lower quadrant of the abdomen to suggest acute appendicitis. Scattered colonic diverticulosis, without secondary signs of acute diverticulitis. Also noted are tiny diverticula along the distal ileum, without secondary signs of acute diverticulitis. Incidental note is made of rounded radiopaque densities within the right hemiabdomen, new relative to the prior examination and likely representing ingested tablets. No organizing intra-abdominal fluid collections or free intraperitoneal air. ABDOMINAL WALL: Small fat-containing bilateral inguinal hernias. LYMPH NODES: No significant abdominal or pelvic adenopathy. VASCULAR: Limited evaluation of the abdominal vasculature secondary to phase of contrast imaging. The abdominal aorta and its branching vessels are normal in course and caliber, without aneurysmal dilatation. PELVIC VISCERA: Unremarkable. OSSEOUS STRUCTURES: No acute osseous abnormality. Mechanical hardware related to prior open reduction and internal fixation of the proximal right femur. IMPRESSION: 1. No acute findings within the abdomen or pelvis to explain patient symptomatology. Scattered diverticulosis of the colon as well as the distal ileum, without secondary signs of acute diverticulitis. Radiopaque rounded densities within the right hemiabdomen likely corresponding to the ingested tablets. 2. Interval development of diffuse peribronchial thickening within the bilateral lower lobes with associated patchy airspace opacities. This could reflect an infectious or inflammatory bronchitis/bronchiolitis. Correlate with patient symptomatology.
[2016-06-25 16:42] VITALS: BP 132/72
[2016-06-25 23:30] VITALS: BP 109/74
--- NOTE | 2016-06-26 07:24 | PN- Housestaff ---
MARCYPastorLILYJAMIL 06/26/16 0723: Subjective Follow-up For: Community-acquired pneumonia Complaints: no complaints Subjective: I have seen and examined the patient today morning. Vitals stable, afebrile overnight, patient was 94% saturating on 2 L nasal cannula. Review of Systems Constitutional: Reports: see HPI. Objective Last 24 Hrs of Vital Signs/I&O Vital Signs Date Time Temp Pulse Resp B/P Pulse O2 O2 Flow FiO2 Ox Delivery Rate 06/26 0000 Nasal 1.0L Cannula 06/25 2330 98.2 78 20 109/74 92 Nasal Cannula 06/25 2105 92 Nasal 1.0L Cannula 06/25 1642 98.4 63 19 132/72 96 Nasal Cannula 06/25 1600 Room Air 06/25 1600 Room Air 06/25 1109 Nasal 1.0L Cannula 06/25 1008 110/68 06/25 1007 110/68 06/25 0821 98.0 95 20 125/61 92 Nasal 2.0L Cannula 06/25 0800 94 Nasal 1.0L Cannula Intake & Output 06/26 0800 06/26 0000 06/25 1600 Intake Total 520 1800 Output Total 300 650 Balance 220 1150 Intake, IV 280 Intake, Oral 240 1800 Output, Urine 300 650 Physical Exam General Appearance: Alert, Oriented X3, Cooperative, No Acute Distress Skin: No Rashes, No Breakdown HEENT: Atraumatic, PERRLA, EOMI Neck: Supple, No JVD Cardiovascular: Normal S1, Normal S2, No Murmurs Lungs: Clear to Auscultation, Normal Air Movement Abdomen: Normal Bowel Sounds, Soft, No Tenderness, No Hepatospenomegaly Neurological: Strength at 5/5 X4 Ext, Normal Tone, Sensation Intact, Cranial Nerves 3-12 NL Extremities: No Clubbing, No Cyanosis, No Edema, Normal Pulses Vascular: Normal Pulses Current Medications: Current Medications Sig/Luis Start time Last Medication Dose Route Stop Time Status Admin Acetaminophen 650 MG .STK-MED ONE 06/25 1423 DC PO 06/25 1424 Acetaminophen 650 MG Q4P PRN 06/24 1930 AC 06/25 PO 1426 Albuterol Sulfate 3 ML BID 06/25 1130 AC 06/25 INH 2102 Alprazolam 0.25 MG Q12H PRN 06/24 2044 AC PO 07/01 204 Aspirin Buffered 325 MG DAILY 06/25 1000 AC 06/25 PO 1008 Atenolol 25 MG DAILY 06/25 1000 AC 06/25 PO 1007 Atorvastatin Calcium 80 MG 1700 06/25 1700 AC 06/25 PO 1713 Azithromycin 500 MG 1800 06/25 1800 AC 06/25 Sodium Chloride 250 ML IV 2126 Buspirone HCl 5 MG TID 06/24 2200 AC 06/25 PO 2126 Ceftriaxone Sodium 1,000 MG 1800 06/25 1800 AC 06/25 IV 1713 Clopidogrel Bisulfate 75 MG DAILY 06/25 1000 AC 06/25 PO 1008 Cyanocobalamin 1,000 MCG DAILY 06/25 1000 AC 06/25 PO 1008 Enoxaparin Sodium 40 MG DAILY 06/25 1000 AC 06/25 SC 1009 Gabapentin 300 MG Q8 06/24 2200 AC 06/26 PO 0537 Guaifenesin 10 ML Q6P PRN 06/26 0700 UNVr PO Guaifenesin 600 MG Q12 06/25 1000 AC 06/25 PO 2126 Hydrocortisone 100 MG Q8 06/24 2200 DC 06/25 Sodium Succinate IV 0602 Influenza Virus 0.5 ML 1000 06/25 1000 DC Vaccine IM 06/25 1001 Levothyroxine Sodium 0.05 MG DAILY 06/25 1000 AC 06/25 PO 1007 Lidocaine 1 PAT DAILY 06/25 1000 AC 06/25 EXT 1009 Lisinopril 10 MG DAILY 06/25 1000 AC 06/25 PO 1008 Omeprazole 40 MG DAILY AC 06/25 0700 AC 06/26 PO 0537 Pneumococcal 0.5 ML 1000 06/25 1000 DC Polyvalent Vaccine IM 06/25 1001 Potassium Chloride 10 MEQ DAILY 06/24 2040 AC 06/25 PO 1008 Prednisone 20 MG DAILY 06/25 1150 AC 06/25 PO 1422 Sertraline HCl 50 MG DAILY 06/25 1000 AC 06/25 PO 1007 Sodium Chloride 1,000 ML Q13H 06/24 2045 DC 06/24 IV 06/25 0944 2308 Last 24 Hrs of Lab/Kain Results Last 24 Hrs of Labs/Mics: Laboratory Tests 06/26/16 0700: Sodium Pending, Potassium Pending, Chloride Pending, Carbon Dioxide Pending, Anion Gap Pending, BUN Pending, Creatinine Pending, BUN/Creatinine Ratio Pending , CBC w Diff Pending, WBC Pending, RBC Pending, Hgb Pending, Hct Pending, MCV Pending, MCH Pending, RDW Pending, Plt Count Pending, MPV Pending, PUBS MCHC Pending 06/25/16 2240: Urine Color STRAW, Urine Clarity CLEAR, Urine pH 6.0, Ur Specific [place] 1.010, Urine Protein NEG, Urine Ketones NEG, Urine Nitrite NEG, Urine Bilirubin NEG, Urine Urobilinogen 0.2, Ur Leukocyte Esterase NEG, Ur Microscopic EXAM NOT REQUIRED, Urine Hemoglobin NEG, Urine Glucose NEG 06/25/16 0820: Anion Gap 9, Estimated GFR > 60, BUN/Creatinine Ratio 35.0 H, Iron < 10 L, TIBC 345, Ferritin 61.6, Amylase < 30 L, Lipase 75, CBC w Diff MAN DIFF ORDERED , RBC 4.26 L, MCV 73.9 L, MCH 23.3 L, RDW 21.0 H, MPV 7.9, Gran % 90.7 H, Lymphocytes % 5.2 L, Monocytes % 4.1, Eosinophils % 0, Basophils % 0 L, Absolute Granulocytes 12.3 H, Segmented Neutrophils 88 H, Band Neutrophils 6 H, Absolute Lymphocytes 0.7 L, Lymphocytes 4 L, Monocytes 2, Absolute Monocytes 0.6, Absolute Eosinophils 0, Absolute Basophils 0, Platelet Estimate VERIFIED BY SMEAR, Polychromasia 1+, Hypochromic-Microcytic 1+, Poikilocytosis 1 +, Anisocytosis 1+, Microcytic Cells 1+, Ovalocytes 1+, PUBS MCHC 31.5 L Microbiology 06/25 2149 LOWER RESP: Respiratory Culture - CAN Cancelled: POOR QUALITY SPECIMEN, MODERATE EPITHELIAL CELLS OBSERVED, 06/25 2149 LOWER RESP: Gram Stain - CAN Cancelled: POOR QUALITY SPECIMEN, MODERATE EPITHELIAL CELLS OBSERVED, Lines/Diet/Fluids Restraints: none Assessment/Plan Assessment: #Community-acquired pneumonia Continue day 2 IV ceftriaxone and azithromycin. Urine Legionella and strep pneumonia antigen negative. No Growth on blood cultures 2 so far. continue to monitor white count. Patient had wheezing worsening today, and therefore an extra 20 mg of steroid was given today and we will switch to 40 mg by mouth steroids daily. #Left lower abdominal pain CT abdominal and pelvis showed scattered diverticulosis, however no evidence of diverticulitis or any other acute cause. GI consult at, recommendations awaited. Patient is allergic to hydrocodone, morphine, oxycodone, if in pain consider tramadol for pain control. #Adrenal insufficiency. Patient was given stress dose of steroid on admission. We will continue home dosage of steroid. # rheumatoid arthritis Continue home dose steroids #HTN,CAD,HLP continue atenolol, aspirin, Plavix, lisinopril, statin #Hypothyroidism, back pain Continue levothyroxine #Depression Continue SSRI and Xanax #Back pain Continue gabapentin and Lidoderm patch #Microcytic anemia guaiac all stools Problem List: 1. Back pain 2. Respiratory failure 3. HTN (hypertension) 4. HLD (hyperlipidemia) 5. Diabetes 6. GERD (gastroesophageal reflux disease) Pain Ratin Pain Location: llq Pain Goal: Remain pain free Pain Plan: tramdol if worse Tomorrow's Labs & Rationales: cbc, bep LUCI MARQUES,KIKA 06/26/16 1438: Attending MD Review Statement Attending Statement Attending MD Statement: examined this patient, discuss w/resident/PA/CYBER SECURITY SYSTEMS ENGINEER, agreed w/resident/PA/[employer] SYSTEMS ENGINEER, reviewed EMR data (avail), discussed with nursing, discussed with case mgmt, reviewed images, amended to note Attending Assessment/Plan: Patient seen and examined, breathing moyer he is doing better but continues to complain of abdominal pain in the left lower quadrant as well as left upper quadrant. CT scan yesterday did not show anything specific. We have requested a GI consult which is pending. Vital Signs Date Time Temp Pulse Resp B/P Pulse O2 O2 Flow FiO2 Ox Delivery Rate 06/26 0957 71 122/64 06/26 0956 71 122/64 06/26 0841 92 Nasal 1.0L Cannula 06/26 0800 97.4 71 20 122/64 93 Nasal 1.0L Cannula 06/26 0000 Nasal 1.0L Cannula 06/25 2330 98.2 78 20 109/74 92 Nasal Cannula 06/25 2105 92 Nasal 1.0L Cannula 06/25 1642 98.4 63 19 132/72 96 Nasal Cannula 06/25 1600 Room Air 06/25 1600 Room Air on exam; aox3, nad. cv; s1, s2, rrr. resp; clear abd; soft, tender in llq and luq, bs+ ext; trace edema. Laboratory Tests 06/26 06/25 0700 2240 Chemistry Sodium (137 - 145 mmol/L) 141 Potassium (3.5 - 5.1 mmol/L) 3.9 Chloride (98 - 107 mmol/L) 100 Carbon Dioxide (22 - 30 mmol/L) 33 H Anion Gap (5 - 16) 8 BUN (9 - 20 mg/dL) 22 H Creatinine (0.7 - 1.2 mg/dL) 0.8 Estimated GFR (>60 ml/min) > 60 BUN/Creatinine Ratio (7 - 25 %) 27.5 H Hematology CBC w Diff NO MAN DIFF REQ WBC (4.8 - 10.8 /CUMM) 12.0 H RBC (4.70 - 6.10 /CUMM) 4.02 L Hgb (14.0 - 18.0 G/DL) 9.4 L Hct (42 - 52 %) 29.6 L MCV (80.0 - 94.0 FL) 73.6 L MCH (27.0 - 31.0 PG) 23.4 L RDW (11.5 - 14.5 %) 21.5 H Plt Count (130 - 400 /CUMM) 234 MPV (7.4 - 10.4 FL) 8.1 Gran % (42.2 - 75.2 %) 80.5 H Lymphocytes % (20.5 - 51.1 %) 12.2 L Monocytes % (1.7 - 9.3 %) 6.5 Eosinophils % (0 - 5 %) 0.4 Basophils % (0.0 - 2.0 %) 0.4 Absolute Granulocytes (1.4 - 6.5 /CUMM) 9.7 H Absolute Lymphocytes (1.2 - 3.4 /CUMM) 1.5 Absolute Monocytes (0.10 - 0.60 /CUMM) 0.8 H Absolute Eosinophils (0.0 - 0.7 /CUMM) 0.1 Absolute Basophils (0.0 - 0.2 /CUMM) 0 PUBS MCHC (33.0 - 37.0 G/DL) 31.8 L Urines Urine Color (YEL,AMB,STR) STRAW Urine Clarity (CLEAR) CLEAR Urine pH (5.0 - 8.0) 6.0 Ur Specific [place] (1.001 - 1.035) 1.010 Urine Protein (NEG,<30 MG/DL) NEG Urine Ketones (NEG) NEG Urine Nitrite (NEG) NEG Urine Bilirubin (NEG) NEG Urine Urobilinogen (0.1 - 1.0 EU/dl) 0.2 Ur Leukocyte Esterase (NEG) NEG Ur Microscopic EXAM NOT REQUIRED Urine Hemoglobin (NEG) NEG Urine Glucose (N MG/DL) NEG A/P; 71 y/o M with pmh sig for CAD, NV, angioplasty, back surgeries, adrenal insufficiency, depression, hypothyroidism, cholecystectomy, hypertension, hyperlipidemia admitted with sepsis secondary to community acquired pneumonia. Patient also has this acute on chronic, intermittent abdominal pain with symptoms of early satiety. Currently patient getting treated with the IV antibiotics. We'll try to taper his oxygen. Please increase the dose of steroids to 40 mg. Awaiting GI consult. Please add lactate. Patient allergic to a lot of narcotics but Tramadoll would be one option to control the pain. Continue other current medications. DVT prophylaxis: Lovenox.
[2016-06-26 08:00] VITALS: BP 122/64
[2016-06-26 08:07] LABS: ABSOLUTE BASOPHIL COUNT 0 /CUMM (0.0-0.2); ABSOLUTE EOSINOPHIL COUNT 0.1 /CUMM (0.0-0.7); ABSOLUTE GRANULOCYTE CT 9.7 /CUMM (1.4-6.5); ABSOLUTE LYMPH COUNT 1.5 /CUMM (1.2-3.4); ABSOLUTE MONOCYTE COUNT 0.8 /CUMM (0.10-0.60); BASOPHIL % 0.4 % (0.0-2.0); EOSINOPHIL % 0.4 % (0-5); HEMATOCRIT 29.6 % (42-52); MEAN CORPUSCULAR HGB 23.4 PG (27.0-31.0); MEAN CORPUSCULAR HGB CONC 31.8 G/DL (33.0-37.0); MEAN CORPUSCULAR VOLUME 73.6 FL (80.0-94.0); MEAN PLATELET VOLUME 8.1 FL (7.4-10.4); RBC DISTRIBUTION WIDTH 21.5 % (11.5-14.5); RED BLOOD CELL CT 4.02 /CUMM (4.70-6.10)
[2016-06-26 09:10] LABS: GRANULOCYTE % 80.5 % (42.2-75.2); PLATELET COUNT 234 /CUMM (130-400)
[2016-06-26 16:49] VITALS: BP 118/58
--- NOTE | 2016-06-26 17:46 | Cons- Gastroenterology ---
General Information and HPI Consulting Request Date of Consult: 06/26/16 Requested By: KIKA GREEN MD Reason for Consult: Anemia and left-sided abdominal pain Source of Information: patient, old records Exam Limitations: no limitations History of Present Illness: 71-year-old male with multiple comorbidities, including rheumatoid arthritis, currently on Prednisone & Xeljanz (RAIZA inhibitor)- *please note, the Xeljanz was started just after 2015. He was previously on MTX, then "another biologic agent," then on Remicade, which was stopped secondary to infection, hypothyroidism on replacement, adrenal insufficiency on stress dose steroids, hypertension, DM, ASHD, post PR 2006 post three-vessel stent, hyperlipidemia, osteopenia, DJD, multiple fractures, ORIF R hip/right humerus fracture, anxiety, depression, obesity, history of community acquired pneumonia, requiring admission to [facility] in 08/2015, complicated by C. difficile then, treated with 2 weeks of Flagyl, post CCKY 06/28/2015 at [facility], with subsequent fluid collection in biliary fossa during his 08/2015 [facility] admission for PNA & C. difficile (biloma vs. hematoma vs. abscess), treated conservatively as per surgery, with subsequent CTs showing resolution, microcytic anemia dating back to 05/2015 w/o transfusion, history of cholangitis requiring antibiotics & 10/27: ERCP with papillotomy and CBD stone extraction per Dr. Maty Anthony, at which point a large duodenal polyp was seen in the duodenal bulb and left intact , with multiple diverticula in the duodenal sweep. The patient was admitted to [facility] 06/24/2016 with 2 weeks of cough productive of yellowish sputum, shortness of breath, dyspnea on exertion, fevers , and chills. Upon presentation, BP 122/77, PT 105, R 20, T101.5, O2 sat RA 91% . He mentioned chronic abdominal pain upon presentation, which has been going on for a few weeks [employer]. He was felt to have bilateral infiltrates on admission, and started on Ceftriaxone and Azithromycin, plus stress dose steroids. He was guaiac negative. There is no gross hematuria. There is no dysuria or frequency. The LUQ/LLQ pain was intermittent, but becoming more frequent and severe, "9 of 10" without radiation. His left-sided abdominal symptoms are worse with coughing and with eating. There is no change in stool caliber, diarrhea, constipation, obstipation, tenesmus, rectal bleeding, or melena. He denied any nausea or vomiting. There is minimal GERD. He has some mild early satiety and intermittent rare dysphagia to dry solids, which has been partially worked up as an outpatient by his PMD with UGI series that did not show any obstruction. He tolerates liquids and pills uneventfully. There is no hematemesis. He does have some mild left pleuritic pain, without any hemoptysis. The patient claims that when his cough was more severe, productive of brown sputum, his left-sided abdominal symptoms were worse. Now that his cough is improving and is more clear, his left-sided abdominal symptoms seem to be improving. There is no unintentional weight loss or change in appetite. There is no family history of GI disease, GI malignancy, or inherited liver disease. The patient is not on any NSAIDs. He is on Ecotrin 81 mg daily & Plavix. 06/24/2016: Admission labs- WBC 15 (on Prednisone- 78% gran, 12 gran Ab), H/H 10.7/33.8, low MCV 73.2, elevated RDW 21.5, PLT 257, glucose 116, BUN/Cr 30/0.8, GFR > 60, stable electrolytes, calcium 8.4, albumin 3.1, globulin 3.1, T bili 0.5, alk phos 66, AST 27, ALT 32, troponin < .01 06/25/2016: Fe < 10, TIBC 345, Fe sat < 2.89%, ferritin 61.6, amylase < 30, lipase 75 06/25/2016: U/A- clear straw, 1.010. 6.0, micro-negative, w/o RBC, neg nitrite, neg esterase No acute GI pathology was seen on imaging studies on admission via CT with contrast, just diverticulosis without diverticulitis, and small B/L fat- containing inguinal hernias. Please note, the patient had multiple left-sided rib fractures on 04/22/2016: Left rib series, with the left 9th rib fracture acute 04/22/2016: XRY-RIBS UNILATERAL-LEFT- Multiple left-sided rib fractures. The lateral left ninth rib fracture is likely acute. Bibasilar linear opacification likely parts representative of atelectasis or scarring *Outpatient barium studies were obtained per PMD for early satiety and questionable dysphagia. 05/22/2016: UPPER GI SERIES- 1. No evidence of gastric outlet obstruction or gastroparesis. 2. Mild gastroesophageal reflux with no evidence of esophagitis or stricture formation. There is, however, cricopharyngeal hypertrophy seen, which can be associated with chronic gastroesophageal reflux. 3. Two moderate sized duodenal diverticula are noted. 4. Reflux of contrast into the distal common bile duct, consistent with prior papillotomy. Opacified portions of common bile duct unremarkable. 5. Status post cholecystectomy. 6. Osteopenia with compression deformities and multilevel degenerative changes in the thoracolumbar spine. 06/24/2016: EKG- ST @ 109, normal axis, normal intervals, early transition, minimal ST depression laterally, occasional unifocal PVCs. 06/24/2016: CXR,PA AND LATERAL- Pulmonary hypoinflation. Bibasilar airspace opacities are nonspecific and could reflect atelectasis although superimposed infection cannot be excluded in the appropriate clinical setting. 06/25/2016: CT ABD & PELVIS W IV CONTRAST- 1. No acute findings within the abdomen or pelvis to explain patient symptomatology. Scattered diverticulosis of the colon as well as the distal ileum, without secondary signs of acute diverticulitis. Radiopaque rounded densities within the right hemiabdomen likely corresponding to the ingested tablets. 2. Interval development of diffuse peribronchial thickening within the bilateral lower lobes with associated patchy airspace opacities. This could reflect an infectious or inflammatory bronchitis/bronchiolitis. Correlate with patient symptomatology. 3. Post-CCKY with chronic pneumbilia, post ERCP with ES. *Normal gallbladder fossa. 4. Small B/L fat containing IH. 5. Post ORIF right hip. 6. Limited evaluation of abdominal vasculature, however no gross aneurysmal dilatation seen. Allergies/Medications Allergies: Coded Allergies: hydrocodone (From VICODIN) (Intermediate, SEVERE HALLUCINATIONS 08/16/15) hydromorphone (From DILAUDID) (Intermediate, SEVERE HALLUCINATIONS 08/16/15) morphine (Intermediate, WILD DREAMS, GI UPSET, SEVERE HALLUCINATIONS 08/16/15) oxycodone (From PERCOCET) (Intermediate, SEVERE HALLUCINATIONS 08/16/15) lactose (DIARRHEA 08/16/15) Home Med List: Albuterol Sulfate (Proventil Hfa) 0.09 MG/Actuation ZEESHAN 2 PUFF PO Q4 PRN SHORTNESS OF BREATH Alendronate Sodium (Fosamax) 70 MG TABLET 1 TAB PO QTHURS OSTEOPOROSIS ( Reported) in the morning, at least 30 minutes before the first food, beverage, or medication of the day Alprazolam 0.25 MG TABLET 1 TAB PO Q12H PRN ANXIETY (Reported) Aspirin E.c. (Ecotrin) 325 MG TAB 1 TAB PO DAILY HEART HEALTH (Reported) Atenolol 25 MG TABLET 1 TAB PO DAILY HTN (Reported) Atorvastatin Calcium 20 MG TABLET 1 TAB PO DAILY CHOLESTEROL (Reported) Buspirone HCl 5 MG TABLET 1 TAB PO TID ANXIETY (Reported) CLOPIDOGREL BISULFATE (Clopidogrel) 75 MG TABLET 1 TAB PO DAILY BLOOD THINNER (Reported) Cyanocobalamin (Vitamin B-12) 1,000 MCG TAB 1 TAB PO DAILY SUPPLEMENT ( Reported) Furosemide (Lasix) 20 MG TABLET 1 TAB PO DAILY DIURETIC (Reported) Gabapentin (Neurontin) 300 MG CAP 1 CAP PO TID NERVE PAIN (Reported) Lansoprazole (Prevacid) 30 MG CAP 1 CAP PO DAILY GI (Reported) Levothyroxine Sodium 50 MCG TABLET 1 TAB PO DAILY THYROID (Reported) Lidocaine (Lidoderm) 1 EACH ADH..PATCH 1 PAT TOP DAILY PAIN (Reported) may wear up to 12 hours Multivitamin (Multiple Vitamins) 1 TAB TAB 1 TAB PO DAILY SUPPLEMENT ( Reported) Potassium Chloride [address] 1 TAB PO DAILY SUPPLEMENT (Reported) Prednisone 5 MG TAB 20 MG PO DAILY RA (Reported) Ramipril (Altace) 10 MG CAPSULE 1 TAB PO DAILY HTN (Reported) Rosuvastatin Calcium (Crestor) 40 MG TAB 40 MG PO DAILY CHOLESTEROL (Reported ) SERTRALINE HCL (Sertraline Hydrochloride) 50 MG TABLET 1 TAB PO DAILY DEPRESSION (Reported) Tofacitinib Citrate (Xeljanz) 5 MG TABLET 1 TAB PO BID rheumatoid arthritis ( Reported) Current Medications: Current Medications Sig/Luis Start time Last Medication Dose Route Stop Time Status Admin Acetaminophen 650 MG Q4P PRN 06/24 1930 AC 06/25 PO 1426 Albuterol Sulfate 3 ML BID 06/25 1130 AC 06/26 INH 0836 Alprazolam 0.25 MG Q12H PRN 06/24 2045 AC PO 07/01 204 Aspirin Buffered 325 MG DAILY 06/25 1000 AC 06/26 PO 0958 Atenolol 25 MG DAILY 06/25 1000 AC 06/26 PO 0956 Atorvastatin Calcium 80 MG 1700 06/25 1700 AC 06/26 PO 1740 Azithromycin 500 MG 1800 06/25 1800 AC 06/26 Sodium Chloride 250 ML IV 1740 Buspirone HCl 5 MG TID 06/24 2200 AC 06/26 PO 1740 Ceftriaxone Sodium 1,000 MG 1800 06/25 1800 AC 06/26 IV 1740 Clopidogrel Bisulfate 75 MG DAILY 06/25 1000 AC 06/26 PO 0957 Cyanocobalamin 1,000 MCG DAILY 06/25 1000 AC 06/26 PO 0958 Enoxaparin Sodium 40 MG DAILY 06/25 1000 AC 06/26 SC 0957 Gabapentin 300 MG Q8 06/24 2200 AC 06/26 PO 1306 Guaifenesin 10 ML Q6P PRN 06/26 0700 AC PO Guaifenesin 600 MG Q12 06/25 1000 AC 06/26 PO 0958 Levothyroxine Sodium 0.05 MG DAILY 06/25 1000 AC 06/26 PO 0957 Lidocaine 1 PAT DAILY 06/25 1000 AC 06/26 EXT 1300 Lisinopril 10 MG DAILY 06/25 1000 AC 06/26 PO 0957 Omeprazole 40 MG DAILY AC 06/25 0700 AC 06/26 PO 0537 Potassium Chloride 10 MEQ DAILY 06/24 2040 AC 06/26 PO 0957 Prednisone 40 MG DAILY 06/27 1000 AC PO Prednisone 20 MG ONCE ONE 06/26 1500 DC 06/26 PO 06/26 1501 1740 Prednisone 20 MG DAILY 06/25 1150 DC 06/26 PO 0956 Sertraline HCl 50 MG DAILY 06/25 1000 AC 06/26 PO 0958 Past History Travel History Traveled to [place] past 21 day No Medical History Blood Transfusion Hx: No Neurological: NONE, peripheral neuropathy (possible) EENT: cataracts Cardiovascular: CAD (s/p ST elevation PR), hypertension, hyperlipidemia, myocardial infarction, non-ST patient PR, status post angioplasty/stent x 3 in 2006 Respiratory: bronchitis, pneumonia, history of bronchospasm and hypercarbia Gastrointestinal: GERD (minimal), lactose intolerance, 10/27/2014: ERCP WITH ES/ CBD STONE EXTRACTION FOR CHOLANGITIS, incidental duodenal polyp in bulb, seen on 10/27/14: ERCP (left intact), benign colon polyps removed via colonoscopy at [facility] approx 2012 Hepatic: NONE Renal: ACUTE RENAL FAILURE- RESOLVED Musculoskeletal: fracture (R humerus, R hip, L ribs), osteoarthritis, rheumatoid arthritis, R hip fracture S/P ORIF R COMMUTED HUMERUS FX rheumatoid arthritis Psychiatric: anxiety, depression, insomnia Endocrine: adrenal insufficiency, hypothyroidism, obesity, elevated blood sugars Blood Disorders: NONE (Fe def), anemia Cancer(s): NONE TECHNOLOGY COORDINATOR/Reproductive: NONE Surgical History Surgical History: cholecystectomy, cholecystostomy tube, ORIF R hip, back surgery Family History Relations & Conditions If Any: MOTHER, , Age 89; Cause: Old age. FH: CVA (cerebrovascular accident) SISTER, , Age 71; Cause: Multiple sclerosis. FH: brain cancer SISTER, , Age 55; Cause: Brain cancer. FATHER ( of a myocardial infarction in his 60's). , Age 63; Cause: Myocardial infarct. SISTER ( of multiple sclerosis). Psychosocial History Where Do You Live? Home Who Do You Live With? self Services at Home: Home Health Aide Primary Language: Hebrew Smoking Status: Never Smoked ETOH Use: denies use Illicit Drug Use: denies illicit drug use Living Will? no Power of [employer]/HCP? yes Name of POA/HCP: Pt's son, Dandre Leyva Other Social History: x 10 years. Was x 30 years. Lives alone. 2 sons- [employer] (son Dandre Leyva is POA). No cigarettes, drugs, or alcohol. 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 Functional Ability ADLs Independent: dressing, eating, toileting, bathing. Ambulation: independent IADLs Independent: shopping, housework, finances, food prep, telephone, transportation , medication admin. 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 Review of Systems Constitutional: Reports: fever (resolved), weakness. Denies: chills, diaphoresis, malaise, unexplained weight loss. EENTM: Denies: blurred vision, double vision, visual changes, eye pain, eye drainage, eye tearing, icterus, ear discharge, ear pain, ear redness, hearing changes, nasal congestion, epistaxis, nasal pain, throat pain, throat swelling, mouth pain, tooth pain. Cardiovascular: Reports: chest pain (L pleuritic/rib fxs/PNA), orthopena, peripheral edema ( trace). Denies: edema, palpitations, syncope. Respiratory: Reports: cough, short of breath, sputum production. Denies: hemoptysis, orthopnea, stridor, wheezing. GI: Reports: abdominal pain (LUQ/L subcostal). Denies: no symptoms (mild early satiety, rare dysph), bloating, constipation, diarrhea, distention, bowel incontinence, melena, nausea, bloody stool, changes in stool, vomiting, steatorrhea. Genitourinary: Denies: discharge, dysuria, frequency, hematuria, hesitation, nocturia, pain, urgency. Musculoskeletal: Reports: back pain, joint pain, joint swelling (RA/back surgery). Denies: gout, muscle pain, muscle stiffness, neck pain. Skin: Reports: change in skin color (chronic Prednisone), dryness. Denies: cysts, change in hair/nails, erythema, jaundice, lesions, lymphangitis, lumps, moles, rash. Neurological/Psychological: Reports: anxiety, depressed, emotional problems, weakness. Denies: ataxia, cognitive dysfunction, confusion, dementia, headache, numbness, paresthesia, pre -existing deficit, petit mal seizures, tingling, tremors, tonic-clonic seizures, unable to move lower ext, unable to move upper ext. Hematologic/Endocrine: Reports: bruising (from Prednisone & falls). Denies: bleeding, polyuria, polydipsia. Immunologic/Allergic: Denies: splenectomy, HIV/AIDS, lymphadenopathy. All Other Systems: Reviewed and Negative Exam & Diagnostic Data Vital Signs and I&O Vital Signs Date Time Temp Pulse Resp B/P Pulse O2 O2 Flow FiO2 Ox Delivery Rate 06/26 1649 97.6 58 17 118/58 94 Nasal 2.0L Cannula 06/26 0957 71 122/64 06/26 0956 71 12264 06/26 0841 92 Nasal 1.0L Cannula 06/26 0800 97.4 71 20 122/64 93 Nasal 1.0L Cannula 06/26 0000 Nasal 1.0L Cannula 06/25 2330 98.2 78 20 109/74 92 Nasal Cannula 06/25 2105 92 Nasal 1.0L Cannula Intake & Output 06/26 0400 06/25 1600 06/25 0400 06/24 1600 06/24 0400 Intake Total 653 622 9778 275 0 Output Total 600 300 850 Balance 849 900 2562 275 0 Intake, IV 300 280 600 75 Intake, Oral 246 441 9178 200 0 Output, Urine 600 300 850 Patient 208 lb 208 lb Weight Physical Exam: Well-developed, mildly ill-appearing, elderly obese male, in minimal distress. Sclera anicteric. Conjunctiva pink. Appears slightly Cushingoid. Oropharynx clear. No oral thrush. No aphthous ulcers. No stridor. There is no adenopathy, thyromegaly, JVD, or HJR. No peripheral stigmata of inflammatory bowel disease or chronic liver disease on exam. No spiders on the anterior chest wall. Mild gynecomastia B/L secondary to obesity, without masses. No CVA tenderness. Lungs: ccattered B/L rhonchi, without wheezing or rales. Decreased breath sounds at the bases B/L. Heart exam: regular rate rhythm, S1 and S2, without any murmur. Tender over left rib cage, reproducing symptoms 100%. No flail chest. Abdominal exam: normal bowel sounds, soft obese belly, nontender (* aside from just under the left subcostal region), without guarding or rebound. Small B/L reducible IH, otherwise, no mass. No organomegaly. No fluid shift. No pulsatile mass. Hematoma over lower left abdominal wall. Digital rectal exam : done by GI medical student 06/26/2016: brown, OB-negative stool. Extremities: without cyanosis or clubbing. Trace LE edema B/L. Fairly extensive RA. Scattered bruising on skin (chronic Prednisone). No palpable cords. Distal pulses 1+ bilaterally. DTRs 1+ bilaterally. Alert and oriented x 3. Motor 4/5 B/L. Results Pertinent Lab Results: Laboratory Tests 06/26 06/25 0700 2240 Chemistry Sodium (137 - 145 mmol/L) 141 Potassium (3.5 - 5.1 mmol/L) 3.9 Chloride (98 - 107 mmol/L) 100 Carbon Dioxide (22 - 30 mmol/L) 33 H Anion Gap (5 - 16) 8 BUN (9 - 20 mg/dL) 22 H Creatinine (0.7 - 1.2 mg/dL) 0.8 Estimated GFR (>60 ml/min) > 60 BUN/Creatinine Ratio (7 - 25 %) 27.5 H Lactate Dehydrogenase (313 - 618 U/L) 256 L Hematology CBC w Diff NO MAN DIFF REQ WBC (4.8 - 10.8 /CUMM) 12.0 H RBC (4.70 - 6.10 /CUMM) 4.02 L Hgb (14.0 - 18.0 G/DL) 9.4 L Hct (42 - 52 %) 29.6 L MCV (80.0 - 94.0 FL) 73.6 L MCH (27.0 - 31.0 PG) 23.4 L RDW (11.5 - 14.5 %) 21.5 H Plt Count (130 - 400 /CUMM) 234 MPV (7.4 - 10.4 FL) 8.1 Gran % (42.2 - 75.2 %) 80.5 H Lymphocytes % (20.5 - 51.1 %) 12.2 L Monocytes % (1.7 - 9.3 %) 6.5 Eosinophils % (0 - 5 %) 0.4 Basophils % (0.0 - 2.0 %) 0.4 Absolute Granulocytes (1.4 - 6.5 /CUMM) 9.7 H Absolute Lymphocytes (1.2 - 3.4 /CUMM) 1.5 Absolute Monocytes (0.10 - 0.60 /CUMM) 0.8 H Absolute Eosinophils (0.0 - 0.7 /CUMM) 0.1 Absolute Basophils (0.0 - 0.2 /CUMM) 0 PUBS MCHC (33.0 - 37.0 G/DL) 31.8 L Urines Urine Color (YEL,AMB,STR) STRAW Urine Clarity (CLEAR) CLEAR Urine pH (5.0 - 8.0) 6.0 Ur Specific [place] (1.001 - 1.035) 1.010 Urine Protein (NEG,<30 MG/DL) NEG Urine Ketones (NEG) NEG Urine Nitrite (NEG) NEG Urine Bilirubin (NEG) NEG Urine Urobilinogen (0.1 - 1.0 EU/dl) 0.2 Ur Leukocyte Esterase (NEG) NEG Ur Microscopic EXAM NOT REQUIRED Urine Hemoglobin (NEG) NEG Urine Glucose (N MG/DL) NEG 06/25 06/24 0820 1557 Chemistry Sodium (137 - 145 mmol/L) 139 Potassium (3.5 - 5.1 mmol/L) 4.2 Chloride (98 - 107 mmol/L) 99 Carbon Dioxide (22 - 30 mmol/L) 30 Anion Gap (5 - 16) 9 BUN (9 - 20 mg/dL) 28 H Creatinine (0.7 - 1.2 mg/dL) 0.8 Estimated GFR (>60 ml/min) > 60 BUN/Creatinine Ratio (7 - 25 %) 35.0 H Iron (49 - 181 ug/dL) < 10 L TIBC (261 - 462 ug/dL) 345 Ferritin (17.9 - 464 ng/mL) 61.6 Amylase (30 - 110 U/L) < 30 L Lipase (23 - 300 U/L) 75 Hematology CBC w Diff MAN DIFF ORDERED NO MAN DIFF REQ WBC (4.8 - 10.8 /CUMM) 13.6 H 15.0 H RBC (4.70 - 6.10 /CUMM) 4.26 L 4.62 L Hgb (14.0 - 18.0 G/DL) 9.9 L 10.7 L Hct (42 - 52 %) 31.5 L 33.8 L MCV (80.0 - 94.0 FL) 73.9 L 73.2 L MCH (27.0 - 31.0 PG) 23.3 L 23.1 L RDW (11.5 - 14.5 %) 21.0 H 21.5 H Plt Count (130 - 400 /CUMM) 230 257 MPV (7.4 - 10.4 FL) 7.9 7.3 L Gran % (42.2 - 75.2 %) 90.7 H 78.4 H Lymphocytes % (20.5 - 51.1 %) 5.2 L 12.7 L Monocytes % (1.7 - 9.3 %) 4.1 7.1 Eosinophils % (0 - 5 %) 0 1.5 Basophils % (0.0 - 2.0 %) 0 L 0.3 Absolute Granulocytes (1.4 - 6.5 /CUMM) 12.3 H 11.7 H Segmented Neutrophils (42.2 - 75.2 %) 88 H Band Neutrophils (0.0 - 5.0 %) 6 H Absolute Lymphocytes (1.2 - 3.4 /CUMM) 0.7 L 1.9 Lymphocytes (20.5 - 51.1 %) 4 L Monocytes (1.7 - 9.3 %) 2 Absolute Monocytes (0.10 - 0.60 /CUMM) 0.6 1.1 H Absolute Eosinophils (0.0 - 0.7 /CUMM) 0 0.2 Absolute Basophils (0.0 - 0.2 /CUMM) 0 0.1 Platelet Estimate (ADEQUATE) VERIFIED BY SMEAR Polychromasia 1+ Hypochromic-Microcytic 1+ Poikilocytosis 1+ Anisocytosis 1+ Microcytic Cells 1+ Ovalocytes 1+ PUBS MCHC (33.0 - 37.0 G/DL) 31.5 L 31.5 L Serology Virus Culture Pending 06/24 1547 Chemistry Sodium (137 - 145 mmol/L) 140 Potassium (3.5 - 5.1 mmol/L) 3.6 Chloride (98 - 107 mmol/L) 101 Carbon Dioxide (22 - 30 mmol/L) 32 H Anion Gap (5 - 16) 7 BUN (9 - 20 mg/dL) 30 H Creatinine (0.7 - 1.2 mg/dL) 0.8 Estimated GFR (>60 ml/min) > 60 BUN/Creatinine Ratio (7 - 25 %) 37.5 H Glucose (65 - 99 mg/dL) 116 H Calcium (8.4 - 10.2 mg/dL) 8.4 Total Bilirubin (0.2 - 1.3 mg/dL) 0.5 AST (17 - 59 U/L) 27 ALT (21 - 72 U/L) 32 Alkaline Phosphatase (< 127 U/L) 66 Troponin I (<0.11 ng/ml) < 0.01 Total Protein (6.3 - 8.2 g/dL) 6.2 L Albumin (3.5 - 5.0 g/dL) 3.1 L Globulin (1.9 - 4.2 gm/dL) 3.1 Albumin/Globulin Ratio (1.1 - 2.2 %) 1.0 L Imaging/Other Studies: 04/22/2016: *XRY-RIBS UNILATERAL-LEFT- *Multiple left-sided rib fractures. The lateral left ninth rib fracture is likely acute. Bibasilar linear opacification likely parts representative of atelectasis or scarring *Outpatient barium studies were obtained per PMD for early satiety and questionable dysphagia. 05/22/2016: UPPER GI SERIES- 1. No evidence of gastric outlet obstruction or gastroparesis. 2. Mild gastroesophageal reflux with no evidence of esophagitis or stricture formation. There is, however, cricopharyngeal hypertrophy seen, which can be associated with chronic gastroesophageal reflux. 3. Two moderate sized duodenal diverticula are noted. 4. Reflux of contrast into the distal common bile duct, consistent with prior papillotomy. Opacified portions of common bile duct unremarkable. 5. Status post cholecystectomy. 6. Osteopenia with compression deformities and multilevel degenerative changes in the thoracolumbar spine. 06/24/2016: EKG- ST @ 109, normal axis, normal intervals, early transition, minimal ST depression laterally, occasional unifocal PVCs. 06/24/2016: CXR,PA AND LATERAL- Pulmonary hypoinflation. Bibasilar airspace opacities are nonspecific and could reflect atelectasis although superimposed infection cannot be excluded in the appropriate clinical setting. 06/25/2016: CT ABD & PELVIS W IV CONTRAST- 1. No acute findings within the abdomen or pelvis to explain patient symptomatology. Scattered diverticulosis of the colon as well as the distal ileum, without secondary signs of acute diverticulitis. Radiopaque rounded densities within the right hemiabdomen likely corresponding to the ingested tablets. 2. Interval development of diffuse peribronchial thickening within the bilateral lower lobes with associated patchy airspace opacities. This could reflect an infectious or inflammatory bronchitis/bronchiolitis. Correlate with patient symptomatology. 3. Post-CCKY with chronic pneumbilia, post ERCP with ES. *Normal gallbladder fossa. 4. Small B/L fat containing IH. 5. Post ORIF right hip. 6. Limited evaluation of abdominal vasculature, however no gross aneurysmal dilatation seen. Assessment/Plan Assessment/Recommendations: 71-year-old male with multiple comorbidities, including rheumatoid arthritis, currently on Prednisone & Xeljanz (RAIZA inhibitor)- *please note, the Xeljanz was started just after 2015. He was previously on MTX, then "another biologic agent," then on Remicade, which was stopped secondary to infection, hypothyroidism on replacement, adrenal insufficiency on stress dose steroids, hypertension, DM, ASHD, post PR 2006 post three-vessel stent, hyperlipidemia, osteopenia, DJD, multiple fractures, ORIF R hip/right humerus fracture, anxiety, depression, obesity, history of community acquired pneumonia, requiring admission to [facility] in 08/2015, complicated by C. difficile then, treated with 2 weeks of Flagyl, post CCKY 06/28/2015 at [facility], with subsequent fluid collection in biliary fossa during his 08/2015 [facility] admission for PNA & C. difficile (biloma vs. hematoma vs. abscess), treated conservatively as per surgery, with subsequent CTs showing resolution, microcytic anemia dating back to 05/2015 w/o transfusion, history of cholangitis requiring antibiotics & 10/27: ERCP with papillotomy and CBD stone extraction per Dr. Maty Anthony, at which point a large duodenal polyp was seen in the duodenal bulb and left intact , with multiple diverticula in the duodenal sweep. The patient was admitted to [facility] 06/24/2016 with 2 weeks of cough productive of yellowish sputum, shortness of breath, dyspnea on exertion, fevers , and chills. Upon presentation, BP 122/77, PT 105, R 20, T101.5, O2 sat RA 91% . He mentioned chronic abdominal pain upon presentation, which has been going on for a few weeks [employer]. He was felt to have bilateral infiltrates on admission, and started on Ceftriaxone and Azithromycin, plus stress dose steroids. He was guaiac negative. There is no gross hematuria. There is no dysuria or frequency. The LUQ/LLQ pain was intermittent, but becoming more frequent and severe, "9 of 10" without radiation. His left-sided abdominal symptoms are worse with coughing and with eating. There is no change in stool caliber, diarrhea, constipation, obstipation, tenesmus, rectal bleeding, or melena. He denied any nausea or vomiting. There is minimal GERD. He has some mild early satiety and intermittent rare dysphagia to dry solids, which has been partially worked up as an outpatient by his PMD with UGI series that did not show any obstruction. He tolerates liquids and pills uneventfully. There is no hematemesis. He does have some mild left pleuritic pain, without any hemoptysis. The patient claims that when his cough was more severe, productive of brown sputum, his left-sided abdominal symptoms were worse. Now that his cough is improving and is more clear, his left-sided abdominal symptoms seem to be improving. There is no unintentional weight loss or change in appetite. There is no family history of GI disease, GI malignancy, or inherited liver disease. The patient is not on any NSAIDs. He is on Ecotrin 81 mg daily & Plavix. 06/24/2016: Admission labs- WBC 15 (on Prednisone- 78% gran, 12 gran Ab), H/H 10.7/33.8, low MCV 73.2, elevated RDW 21.5, PLT 257, glucose 116, BUN/Cr 30/0.8, GFR > 60, stable electrolytes, calcium 8.4, albumin 3.1, globulin 3.1, T bili 0.5, alk phos 66, AST 27, ALT 32, troponin < .01 06/25/2016: Fe < 10, TIBC 345, Fe sat < 2.89%, ferritin 61.6, amylase < 30, lipase 75 06/25/2016: U/A- clear straw, 1.010. 6.0, micro-negative, w/o RBC, neg nitrite, neg esterase No acute GI pathology was seen on imaging studies on admission via CT with contrast, just diverticulosis without diverticulitis, and small B/L fat- containing inguinal hernias. Please note, the patient had multiple left-sided rib fractures on 04/22/2016: Left rib series, with the left 9th rib fracture acute 04/22/2016: XRY-RIBS UNILATERAL-LEFT- Multiple left-sided rib fractures. The lateral left ninth rib fracture is likely acute. Bibasilar linear opacification likely parts representative of atelectasis or scarring *Outpatient barium studies were obtained per PMD for early satiety and questionable dysphagia. 05/22/2016: UPPER GI SERIES- 1. No evidence of gastric outlet obstruction or gastroparesis. 2. Mild gastroesophageal reflux with no evidence of esophagitis or stricture formation. There is, however, cricopharyngeal hypertrophy seen, which can be associated with chronic gastroesophageal reflux. 3. Two moderate sized duodenal diverticula are noted. 4. Reflux of contrast into the distal common bile duct, consistent with prior papillotomy. Opacified portions of common bile duct unremarkable. 5. Status post cholecystectomy. 6. Osteopenia with compression deformities and multilevel degenerative changes in the thoracolumbar spine. 06/24/2016: EKG- ST @ 109, normal axis, normal intervals, early transition, minimal ST depression laterally, occasional unifocal PVCs. 06/24/2016: CXR,PA AND LATERAL- Pulmonary hypoinflation. Bibasilar airspace opacities are nonspecific and could reflect atelectasis although superimposed infection cannot be excluded in the appropriate clinical setting. 06/25/2016: CT ABD & PELVIS W IV CONTRAST- 1. No acute findings within the abdomen or pelvis to explain patient symptomatology. Scattered diverticulosis of the colon as well as the distal ileum, without secondary signs of acute diverticulitis. Radiopaque rounded densities within the right hemiabdomen likely corresponding to the ingested tablets. 2. Interval development of diffuse peribronchial thickening within the bilateral lower lobes with associated patchy airspace opacities. This could reflect an infectious or inflammatory bronchitis/bronchiolitis. Correlate with patient symptomatology. 3. Post-CCKY with chronic pneumbilia, post ERCP with ES. *Normal gallbladder fossa. 4. Small B/L fat containing IH. 5. Post ORIF right hip. 6. Limited evaluation of abdominal vasculature, however no gross aneurysmal dilatation seen. *The patient's left-sided abdominal symptoms seem to be musculoskeletal nature, keeping in mind the relatively recent left-sided rib fractures (*see X-rays of 04/22/2016). The patient's symptoms are clearly reproducible by touch in the left subcostal region and in the LUQ, just under the left rib cage. It is also possible that some of his upper left discomfort could be referred pain from the pneumonia and/or costochondritis. Having stated that, he is iron deficient, albeit with OB-negative stool. He reportedly had a colonoscopy at [facility] 3-5 years ago that was "negative except for small polyps". He was told to return for repeat colonoscopy in 5-10 years. Please also note, the patient had a duodenal polyp in the duodenal bulb noted on 10/27/2014: ERCP, which was left intact. Although Xeljanx can cause anemia & GI perforation, no acute GI pathology is seen on CT, aside from incidental diverticulosis without diverticulitis and small fat-containing B/L IH. There was no abscess, free air, obstruction, or retroperitoneal hematoma. Additionally, it is possible the patient could have painful diverticular disease. Certainly there is no diverticulitis. In any event, his current symptoms seem musculoskeletal, not GI in nature. SUGGEST: Cough suppressants, analgesics, antibiotics & stress dose steroids per medical team. Eventual iron repletion. Once the pneumonia has cleared & the patient is more stable from a pulmonary perspective, suggest outpatient combined EGD/ colonoscopy to readdress the polyp in the duodenal bulb & clear the colonic mucosa of any pathology, with consideration for small bowel biopsy. Consider checking celiac panel (IgA, tTG Ab, DGP Ab), regarding iron deficiency. If EGD/ colon without significant pathology, consider outpatient PillCam. Add high-fiber diet plus FiberCon 2 tabs daily. Consider antispasmodics. Agree with prophylactic PPI, on chronic steroids. Treatment of other numerous co- morbidities as per medical team. I do not think any further GI workup is needed as an inpatient. The patient normally sees Dr. Jermaine Anthony. He has our office number. A message was left with Dr. Green and Dr. Jermaine Anthony this p.m., regarding the above. Problem List: 1. Left rib fracture 2. LUQ pain 3. Iron deficiency anemia 4. Diverticulosis of colon 5. History of colon polyps 6. Polyp of duodenum Copies To: LUCI MARQUES,KIKA; KIERA MARQUES,SHABANA Peterson; JOHNY MARQUES,CLIFF Mckinney; SHERRELL MARQUES, JUVENAL Macario; JOY MARQUES PhD,ROMERO Barron Consult Acknowledgment - Thank you for your consult request.
[2016-06-27 00:35] VITALS: BP 124/68
--- NOTE | 2016-06-27 06:42 | PN- Housestaff ---
KAUSHAL JIMENEZ 06/27/16 0642: Subjective Follow-up For: Community-acquired pneumonia chronic rib fracture Complaints: no complaints Subjective: I have seen and examined the patient today morning, he has some bruising in the left upper and left lower quadrant, it is tender to touch, this is close to where he caught his heparin shots however it is covering a significant area. Otherwise he is stable, his breathing is improved, he is saturating well on room air , lying comfortable in the bed. His vitals were stable overnight. Review of Systems Constitutional: Denies: chills, diaphoresis, fever, malaise. EENTM: Denies: blurred vision, double vision, visual changes, eye pain. Cardiovascular: Denies: chest pain, edema, orthopena, palpitations. Respiratory: Reports: cough. Denies: hemoptysis, orthopnea, short of breath. Gastrointestinal: Reports: abdominal pain. Denies: bloating, constipation, diarrhea, distention. Genitourinary: Reports: no symptoms. Musculoskeletal: Reports: no symptoms. Skin: Reports: no symptoms. Objective Last 24 Hrs of Vital Signs/I&O Vital Signs Date Time Temp Pulse Resp B/P Pulse O2 O2 Flow FiO2 Ox Delivery Rate 06/27 0521 97 Nasal 2.0L Cannula 06/27 0035 97.9 62 18 124/68 93 Nasal 2.0L Cannula 06/27 0000 Nasal 1.0L Cannula 06/26 2020 92 Room Air 06/26 1649 97.6 58 17 118/58 94 Nasal 2.0L Cannula 06/26 1600 Nasal Cannula 06/26 0957 71 122/64 06/26 0956 71 122/64 06/26 0841 92 Nasal 1.0L Cannula 06/26 0800 Room Air 06/26 0800 97.4 71 20 122/64 93 Nasal 1.0L Cannula Intake & Output 06/27 0800 06/27 0000 06/26 1600 Intake Total 593 535 0127 Output Total 625 600 Balance 216 770 5642 Intake, IV 300 0 Intake, Oral 477 677 5788 Number 0 Bowel Movements Output, Urine 625 600 Physical Exam General Appearance: Alert, Oriented X3, Cooperative, No Acute Distress Skin: bruises present in left lower quadrant and left hypochondriac area HEENT: Atraumatic, PERRLA, EOMI Neck: Supple, No JVD, No thryomegaly Lymphatic: no lad Cardiovascular: Regular Rate, Normal S1, Normal S2, No Murmurs Lungs: Clear to Auscultation, Normal Air Movement Abdomen: Normal Bowel Sounds, Soft, No Tenderness Extremities: No Clubbing, No Cyanosis, Normal Pulses Vascular: Normal Pulses Current Medications: Current Medications Sig/Luis Start time Last Medication Dose Route Stop Time Status Admin Acetaminophen 650 MG Q4P PRN 06/24 1930 AC 06/25 PO 1426 Albuterol Sulfate 3 ML BID 06/25 1130 AC 06/27 INH 0509 Alprazolam 0.25 MG Q12H PRN 06/24 2045 AC PO 07/01 204 Aspirin Buffered 325 MG DAILY 06/25 1000 AC 06/26 PO 0958 Atenolol 25 MG DAILY 06/25 1000 AC 06/26 PO 0956 Atorvastatin Calcium 80 MG 1700 06/25 1700 AC 06/26 PO 1740 Azithromycin 500 MG 1800 06/25 1800 AC 06/26 Sodium Chloride 250 ML IV 1740 Buspirone HCl 5 MG TID 06/24 2200 AC 06/26 PO 2201 Ceftriaxone Sodium 1,000 MG 1800 06/25 1800 AC 06/26 IV 1740 Clopidogrel Bisulfate 75 MG DAILY 06/25 1000 AC 06/26 PO 0957 Cyanocobalamin 1,000 MCG DAILY 06/25 1000 AC 06/26 PO 0958 Enoxaparin Sodium 40 MG DAILY 06/25 1000 AC 06/26 SC 0957 Gabapentin 300 MG Q8 06/24 2200 AC 06/27 PO 0540 Guaifenesin 10 ML Q6P PRN 06/26 0700 AC 06/27 PO 0357 Guaifenesin 600 MG Q12 06/25 1000 AC 06/26 PO 2201 Levothyroxine Sodium 0.05 MG DAILY 06/25 1000 AC 06/26 PO 0957 Lidocaine 1 PAT DAILY 06/25 1000 AC 06/26 EXT 1300 Lisinopril 10 MG DAILY 06/25 1000 AC 06/26 PO 0957 Omeprazole 40 MG DAILY AC 06/25 0700 AC 06/27 PO 0540 Potassium Chloride 10 MEQ DAILY 06/24 2040 AC 06/26 PO 0957 Prednisone 40 MG DAILY 06/27 1000 AC PO Prednisone 20 MG ONCE ONE 06/26 1500 DC 06/26 PO 06/26 1501 1740 Prednisone 20 MG DAILY 06/25 1150 DC 06/26 PO 0956 Sertraline HCl 50 MG DAILY 06/25 1000 AC 06/26 PO 0958 Last 24 Hrs of Lab/Kain Results Last 24 Hrs of Labs/Mics: Laboratory Tests 06/26/16 0700: Anion Gap 8, Estimated GFR > 60, BUN/Creatinine Ratio 27.5 H, Lactate Dehydrogenase 256 L, CBC w Diff NO MAN DIFF REQ, RBC 4.02 L, MCV 73.6 L, MCH 23.4 L, RDW 21.5 H, MPV 8.1, Gran % 80.5 H, Lymphocytes % 12.2 L, Monocytes % 6.5, Eosinophils % 0.4, Basophils % 0.4, Absolute Granulocytes 9.7 H, Absolute Lymphocytes 1.5, Absolute Monocytes 0.8 H, Absolute Eosinophils 0.1, Absolute Basophils 0, PUBS MCHC 31.8 L Microbiology 06/26 1504 LOWER RESP: Respiratory Culture - COLB 06/26 1504 LOWER RESP: Gram Stain - COLB Lines/Diet/Fluids Restraints: none Assessment/Plan Assessment: #Community-acquired pneumonia Continue day 2 IV ceftriaxone and azithromycin. Urine Legionella and strep pneumonia antigen negative. No Growth on blood cultures 2 so far. continue to monitor white count. Patient had wheezing worsening today, and therefore an extra 20 mg of steroid was given today and we will switch to 40 mg by mouth steroids daily. #Left lower abdominal pain CT abdominal and pelvis showed scattered diverticulosis, however no evidence of diverticulitis or any other acute cause. Rib xray today showed Mild contour deformities of multiple ribs as listed above. Review of prior CT demonstrates multiple subacute to chronic appearing, healing rib fractures. No active recommendation as per GI. GI Consult appreciated. Patient is allergic to hydrocodone, morphine, oxycodone, if in pain consider tramadol for pain control. #Adrenal insufficiency. Patient was given stress dose of steroid on admission. Dose of steroid was increased to 40 mg, we will continue the steroid taper, every 3 days and then keep him on his home dose of 20 mg daily on discharge. # Rheumatoid arthritis continue steroid therapy #HTN,CAD,HLP continue atenolol, aspirin, Plavix, lisinopril, statin #Hypothyroidism, back pain Continue levothyroxine #Depression Continue SSRI and Xanax #Back pain Continue gabapentin and Lidoderm patch #Microcytic anemia Guaiac all stools Problem List: 1. Iron deficiency anemia 2. Acute and chronic respiratory failure 3. HLD (hyperlipidemia) 4. HTN (hypertension) Pain Ratin Pain Location: LLQ and left illiac area. Pain Goal: Remain pain free Pain Plan: tylenol and tramdol Tomorrow's Labs & Rationales: cbc/bep DVT/Prophylaxis: pharmacological Discharge Plan Discharge Disposition: home Stable for Discharge? No Anticipated Discharge (Day): tomorrow If Discharged Today/In 24 Hrs: CMR done KIKA VERMA MD 06/27/16 1204: Attending MD Review Statement Attending Statement Attending MD Statement: examined this patient, discuss w/resident/PA/SPECIAL EDUCATOR, agreed w/resident/PA/SPECIAL EDUCATOR, reviewed EMR data (avail), discussed with nursing, discussed with case mgmt, reviewed images, amended to note Attending Assessment/Plan: Patient seen and examined, continues to have cough which is even worsening his abdominal pain. Pneumonia is improving with patient afebrile, leukocytosis improving. Now he is not running any oxygen. Seen by GI yesterday and they recommended outpatient workup. Patient underwent rib x-rays today which showed subacute to chronic appearing multiple rib fractures. This could be the cause of his abdominal pain and also the coughing itself can lead to muscle was currently pain in his abdomen. There is some bruising on the abdominal skin that this could be related to the heparin shots. Will try to control his pain with tramadol and Tylenol together. Please order some Robitussin when necessary for pain. We'll try to get the patient moving today and if things look stable by tomorrow he can be discharged home tomorrow on oral antibiotics to complete a total of 7-10 day course.
[2016-06-27 08:15] LABS: ABSOLUTE BASOPHIL COUNT 0.1 /CUMM (0.0-0.2); ABSOLUTE EOSINOPHIL COUNT 0 /CUMM (0.0-0.7); ABSOLUTE GRANULOCYTE CT 7.8 /CUMM (1.4-6.5); ABSOLUTE LYMPH COUNT 0.9 /CUMM (1.2-3.4); ABSOLUTE MONOCYTE COUNT 0.7 /CUMM (0.10-0.60); BASOPHIL % 0.9 % (0.0-2.0); EOSINOPHIL % 0.1 % (0-5); HEMATOCRIT 29.3 % (42-52); MEAN CORPUSCULAR HGB 23.5 PG (27.0-31.0); MEAN CORPUSCULAR HGB CONC 31.7 G/DL (33.0-37.0); MEAN CORPUSCULAR VOLUME 74.2 FL (80.0-94.0); PLATELET COUNT 253 /CUMM (130-400); RBC DISTRIBUTION WIDTH 21.1 % (11.5-14.5); RED BLOOD CELL CT 3.95 /CUMM (4.70-6.10); WHITE BLOOD CELL COUNT 9.5 /CUMM (4.8-10.8)
[2016-06-27 08:20] VITALS: BP 132/70
[2016-06-27] MEDS ORDERED: AUGMENTIN 875-1 EACH PO (09:44)
--- NOTE | 2016-06-27 09:53 | Patient Discharge Instructions ---
Discharge Instructions General Discharge Information You were seen/treated for: community acquired pnuemonia Special Instructions: please follow up with your PCP and GI doctor upon discharge. Please continue taking the antibiotics as prescribed. Diet Continue normal diet: No Recommended Diet: Heart Healthy Acute Coronary Syndrome Inclusion Criteria At DC or during hospital stay patient has or had the following: ACS DIAGNOSIS No Discharge Core Measures Meds if any: Prescribed or Continued at Discharge Meds if any: NOT Prescribed or Continued at Discharge Congestive Heart Failure Inclusion Criteria At DC or during hospital stay patient has or had the following: CHF DIAGNOSIS No Discharge Core Measures Meds if any: Prescribed or Continued at Discharge Meds if any: NOT Prescribed or Continued at Discharge Cerebrovascular accident Inclusion Criteria At DC or during hospital stay patient has or had the following: CVA/TIA Diagnosis No Discharge Core Measures Meds if any: Prescribed or Continued at Discharge Meds if any: NOT Prescribed or Continued at Discharge Venous thromboembolism Inclusion Criteria VTE Diagnosis No VTE Type NONE VTE Confirmed by (Test) NONE Discharge Core Measures - Per Current guidelines, there needs to be overlap - treatment for the first 5 days of Warfarin therapy. - If discharged on Warfarin prior to 5 days of - overlap therapy, the patient will need to be - assessed for post discharge needs including - *Post discharge parental anticoagulation - *Warfarin and/or parental anticoagulation education - *Follow up date to check INR post discharge At least 5 days overlap therapy as Inpatient No Meds if any: Prescribed or Continued at Discharge Note: Overlap Therapy is Warfarin and Anticoagulant Meds if any: NOT Prescribed or Continued at Discharge
[2016-06-27] MEDS ORDERED: FIBERCON625 M1 PO (09:59)
[2016-06-27] MEDS ORDERED: PREDNISONE10 M2 PO (10:04)
[2016-06-27] MEDS ORDERED: ADULT TUSS100 MG/5 M PO (10:12)
--- NOTE | 2016-06-27 11:19 | RADIOLOGY REPORT ---
EXAMINATION: XR RIGHT RIBS, LEFT RIBS CLINICAL INFORMATION: Abdominal contusion], rib fracture on CT COMPARISON: CT abdomen 06/25/2016 TECHNIQUE: AP chest. AP and oblique views of the right and left ribs. FINDINGS: Right ribs: There are mild contour deformities of multiple lateral and anterior ribs, appearing to involve at least ribs 2-10. Review of recent prior imaging demonstrates multiple subacute to chronic appearing, healing fractures. Left ribs: There are mild contour deformities of multiple lateral ribs, most prominently involving ribs 6-9. Review of recent prior imaging demonstrates multiple subacute to chronic appearing healing fractures. The lungs are hypoinflated. There is linear right basilar opacity in keeping with atelectasis. No additional consolidation is seen. No evidence of pneumothorax, pleural effusion, or pulmonary edema. There are stable prominence of the cardiomediastinal silhouette. IMPRESSION: Mild contour deformities of multiple ribs as listed above. Review of prior CT demonstrates multiple subacute to chronic appearing, healing rib fractures.
--- NOTE | 2016-06-27 15:53 | Discharge Summary ---
See Addendum Visit Information Visit Dates Admission Date: 06/24/16 Discharge Date: 06/28/16 Hospital Course Course Attending Physician: KIKA VERMA MD Primary Care Physician: JOHNY MARQUES,CLIFF Mckinney Hospital Course: This 71-year-old gentleman with past medical history of coronary artery disease, AR, angioplasty, back surgery, adrenal insufficiency, depression, hypothyroidism , sepsis status post cholecystectomy, hypertension, hyperlipidemia came in on with chief complain of worsening shortness of breath and coughing with yellowish productive sputum for 2 weeks prior to admission, associated with fever and chills. Vitals on presentation at the emergency department for temperature of 101.5, pulse of 105, blood pressure 122/75, oxygen saturation 91% on room air, respiratory rate of 20. chest x-ray on admission showed pulmonary hyperinflation, bibasilar airspace opacity. EKG on admission showed tachycardia of 109, PVCs, QTC of 431, no acute ST-T wave changes. Relevant labs white count of 15.9, hemoglobin of 10, MCV of 73. He was admitted to the general medicine floor for the treatment of following problems #1 Multilobar pneumonia. Patient was treated for community acquired pneumonia with IV ceftriaxone and azithromycin. Blood cultures and sputum cultures were sent prior to administration of the antibiotic. Urine Legionella and strep pneumonia antigen were found to be negative. Fever was managed with when necessary Tylenol. Initially on admission patient was given IV hydration, once more stable increase by mouth fluid intake was encouraged. IV antibiotics were changed to by mouth Augmentin and patient was discharged on Augmentin 875 mg every 12 to complete entire course of 10 days. He was also sent out on a prednisone taper 40 mg for 3 days, 30 mg for 3 days and 20 mg then on which is his home dose. Robitussin and Lozenges were added for cough suppression. #2 Adrenal Insufficiency He received stress dose of steroid on admission, during intubation he was continued on home dosage of steroids, day 2 of admission serial it would increase to 40 mg and he was continued on a steroid taper every 3 days for worsening SOB ( above) and then on 20 mg daily was continued. #3 Lower Abdominal Pain Patient complained of left lower abdominal pain while inpatient, CT abdominal and pelvis showed scattered diverticulosis however no evidence of diverticulitis or any other acute cause was found. GI was consult to however there were no active recommendations.Rib x-ray did show mild contour deformities of multiple ribs demonstrative treating multiple subacute to chronic healing rib fractures. Pain was managed with tramadol as this was thought to be the cause of his pain. The patient was allergic to hydrocodone, morphine and oxycodone therefore these were never given. He will follow-up with GI as outpatient.Fibercon BID was added on discharge. #4 History of hypertension. Home Medication of lisinopril 10 mg od and atenolol were continued. #5 history of hyperlipidemia. Lipitor 80 mg daily was continued. #6 history of coronary artery disease. He was continued on her home dosage of aspirin and Plavix. #7 history of hypothyroidism. levo-thyroxine was continued at home dosage. #8 history of depression. Zoloft, buspirone and Xanax for continued at home dosage. #9 History of back pain Continue home pain medications of gabapetin and lidodrem patch #10 microcytic anemia. This was thought to be secondary to iron deficiency, patient had a colonoscopy at 3 to 5 years ago that was negative except for small polyps, however no acute GI pathology was seen on the CAT scan aside from incidental diverticulosis without diverticulitis, iron supplementation was continued. And was asked to follow up GI as outpatient for EGD/colonoscopy. Allergies: Coded Allergies: hydrocodone (From VICODIN) (Intermediate, SEVERE HALLUCINATIONS 08/16/15) hydromorphone (From DILAUDID) (Intermediate, SEVERE HALLUCINATIONS 08/16/15) morphine (Intermediate, WILD DREAMS, GI UPSET, SEVERE HALLUCINATIONS 08/16/15) oxycodone (From PERCOCET) (Intermediate, SEVERE HALLUCINATIONS 08/16/15) lactose (DIARRHEA 08/16/15) Significant Procedures: SERVICE DATE: 06/24/16 EXAM TYPE: RAD - XRY-CHEST XRAY, PA AND LATERAL EXAMINATION: XR CHEST CLINICAL INFORMATION: Cough and shortness of breath. COMPARISON: CT chest 01/05/2016. TECHNIQUE: PA and lateral views of the chest were obtained. FINDINGS: The lungs are hypoinflated. There are streaky airspace opacities within the bilateral lung bases which could reflect atelectasis given low lung volumes although superimposed infection cannot be excluded.. No pleural effusions or pneumothoraces are identified. Cardiomediastinal contours are stable. No overt pulmonary edema. Soft tissues are unremarkable. No acute osseous abnormality is identified. IMPRESSION: Pulmonary hypoinflation. Bibasilar airspace opacities are nonspecific and could reflect atelectasis although superimposed infection cannot be excluded in the appropriate clinical setting. SERVICE DATE: 06/25/16- EXAM TYPE: CAT - CT ABD & PELVIS W IV CONTRAST EXAMINATION: CT ABDOMEN AND PELVIS WITH CONTRAST CLINICAL INFORMATION: Left lower quadrant abdominal pain. Evaluate for acute diverticulitis. COMPARISON: CT abdomen and pelvis with contrast 12/04/2015. TECHNIQUE: Multidetector volumetric imaging was performed of the abdomen and pelvis after the IV administration of 94 mL of Optiray 320 intravenous contrast. Prior to this, the patient reportedly had a contrast extravasation of approximately 75 mL of contrast within the left forearm. Sagittal and coronal reformatted images were obtained on the technologist's workstation. DLP: 940 mGy-cm. FINDINGS: LUNG BASES: Evaluation of the included lung bases is again notable for bibasilar subsegmental atelectasis. Of note, in comparison to the prior examination, there has been interval development of peribronchial thickening within the bilateral lower lobes and patchy airspace opacities within the bilateral lung bases. This could reflect an acute infectious or inflammatory bronchiolitis. There is dependent bibasilar atelectasis. LIVER, GALLBLADDER, AND BILIARY TREE: The liver is normal in size, shape, and attenuation. No focal hepatic lesions are identified. The gallbladder is surgically absent. Redemonstrated is pneumobilia, notably within the left hepatic lobe, not unexpected following cholecystectomy. PANCREAS: Unremarkable. SPLEEN: Unremarkable. ADRENAL GLANDS: Unremarkable. KIDNEYS AND URETERS: Limited evaluation of the bilateral kidney secondary to expiratory phase imaging. There are several hypoattenuating lesions within the bilateral kidneys, visualized measuring up to 1.7 cm within the lower pole of the left kidney. These are too small to further characterize but likely reflect multiple bilateral simple renal cortical cysts. No solid parenchymal lesions are identified. There is limited evaluation for renal or ureteral stones given excreted intravenous contrast within the bilateral ureters and renal collecting systems. BLADDER: Unremarkable. GASTROINTESTINAL TRACT: Normal anatomic orientation of the stomach relative to the duodenum. Normal caliber of abdominal and pelvic bowel loops, without evidence of obstruction or ileus. No circumferential bowel wall thickening with surrounding inflammatory changes to suggest an underlying infectious or inflammatory enterocolitis. Nonvisualization of the appendix. No acute inflammatory changes within the right lower quadrant of the abdomen to suggest acute appendicitis. Scattered colonic diverticulosis, without secondary signs of acute diverticulitis. Also noted are tiny diverticula along the distal ileum, without secondary signs of acute diverticulitis. Incidental note is made of rounded radiopaque densities within the right hemiabdomen, new relative to the prior examination and likely representing ingested tablets. No organizing intra-abdominal fluid collections or free intraperitoneal air. ABDOMINAL WALL: Small fat-containing bilateral inguinal hernias. LYMPH NODES: No significant abdominal or pelvic adenopathy. VASCULAR: Limited evaluation of the abdominal vasculature secondary to phase of contrast imaging. The abdominal aorta and its branching vessels are normal in course and caliber, without aneurysmal dilatation. PELVIC VISCERA: Unremarkable. OSSEOUS STRUCTURES: No acute osseous abnormality. Mechanical hardware related to prior open reduction and internal fixation of the proximal right femur. IMPRESSION: 1. No acute findings within the abdomen or pelvis to explain patient symptomatology. Scattered diverticulosis of the colon as well as the distal ileum, without secondary signs of acute diverticulitis. Radiopaque rounded densities within the right hemiabdomen likely corresponding to the ingested tablets. 2. Interval development of diffuse peribronchial thickening within the bilateral lower lobes with associated patchy airspace opacities. This could reflect an infectious or inflammatory bronchitis/bronchiolitis. Correlate with patient symptomatology. SERVICE DATE: 06/27/16- EXAM TYPE: RAD - XRY-RIBS UNILATERAL-LEFT; XRY-RIBS UNILATERAL-RIGHT EXAMINATION: XR RIGHT RIBS, LEFT RIBS CLINICAL INFORMATION: Abdominal contusion], rib fracture on CT COMPARISON: CT abdomen 06/25/2016 TECHNIQUE: AP chest. AP and oblique views of the right and left ribs. FINDINGS: Right ribs: There are mild contour deformities of multiple lateral and anterior ribs, appearing to involve at least ribs 2-10. Review of recent prior imaging demonstrates multiple subacute to chronic appearing, healing fractures. Left ribs: There are mild contour deformities of multiple lateral ribs, most prominently involving ribs 6-9. Review of recent prior imaging demonstrates multiple subacute to chronic appearing healing fractures. The lungs are hypoinflated. There is linear right basilar opacity in keeping with atelectasis. No additional consolidation is seen. No evidence of pneumothorax, pleural effusion, or pulmonary edema. There are stable prominence of the cardiomediastinal silhouette. IMPRESSION: Mild contour deformities of multiple ribs as listed above. Review of prior CT demonstrates multiple subacute to chronic appearing, healing rib fractures. Pertinent Lab Results: Vital Signs Result Date Time Pulse Ox 93 06/28 111 O2 Delivery Nasal Cannula 06/28 111 O2 Flow Rate 2.0L 06/28 1116 B/P 134/64 06/28 946 Temp 98.3 06/28 946 Pulse 78 06/28 946 Resp 20 06/28 931 Disposition Summary Disposition Principal Diagnosis: #Community-acquired pneumonia #Left lower abdominal pain Additional Diagnosis: #Adrenal insufficiency. # Rheumatoid arthritis #HTN,CAD,HLP #Hypothyroidism, back pain #Depression #Back pain #Microcytic anemia Discharge Disposition: home or self care Discharge Instructions General Discharge Information Code Status: Full Code Patient's Diet: heart healthy diet Patient's Activity: As tolerated Follow-Up Instructions/Appts: please follow up with your PCP and GI doctor upon discharge. Please continue taking the antibiotics as prescribed. Medications at Discharge Discharge Medications: Stop taking the following medications: Atorvastatin Calcium (Atorvastatin Calcium) 20 MG TABLET ORAL DAILY Qty = 90 Continue taking these medications: Atenolol (Atenolol) 25 MG TABLET 1 Tablet ORAL DAILY Qty = 30 Comments: LAST DOSE GIVEN 09/05/15 AT 10:00 AM Prednisone (Prednisone) 5 MG TAB 20 Milligram ORAL DAILY Qty = 360 Comments: LAST DOSE GIVEN 09/05/15 AT 10:00 AM SERTRALINE HCL (Sertraline Hydrochloride) 50 MG TABLET 1 Tablet ORAL DAILY Qty = 90 Comments: LAST DOSE GIVEN 09/05/15 AT 10:00 AM CLOPIDOGREL BISULFATE (Clopidogrel) 75 MG TABLET 1 Tablet ORAL DAILY Qty = 90 Comments: LAST DOSE GIVEN 09/05/15 AT 10:00 AM Ramipril (Altace) 10 MG CAPSULE 1 Tablet ORAL DAILY Comments: PATIENT DID NOT RECIEVE WHILE HOSPITALIZED Aspirin E.c. (Ecotrin) 325 MG TAB 1 Tablet ORAL DAILY Comments: LAST DOSE GIVEN 09/05/15 AT 10:00 AM Potassium Chloride (Potassium Chloride) [address] Tablet ORAL DAILY Qty = 90 Comments: PATIENT DID NOT RECIEVE WHILE HOSPITALIZED Albuterol Sulfate (Proventil Hfa) 0.09 MG/Actuation ZEESHAN 2 PUFF ORAL Every 4 hours as needed for SHORTNESS OF BREATH Days = 30 Comments: PER PT MED LIST Lansoprazole (Prevacid) 30 MG CAP 1 Capsule ORAL DAILY Comments: PER PT MED LIST Gabapentin (Neurontin) 300 MG CAP 1 Capsule ORAL THREE TIMES DAILY Comments: LAST DOSE GIVEN 09/05/15 AT 10:00 AM Furosemide (Lasix) 20 MG TABLET 1 Tablet ORAL DAILY Comments: NOT GIVEN IN HOSPITAL Alendronate Sodium (Fosamax) 70 MG TABLET 1 Tablet ORAL EVERY FRIDAY Instructions: in the morning, at least 30 minutes before the first food, beverage, or medication of the day Comments: NOT GIVEN IN HOSPITAL Rosuvastatin Calcium (Crestor) 40 MG TAB 40 Milligram ORAL DAILY Comments: LIPITOR GIVEN 09/04/15 AT 17:00 PM Multivitamin (Multiple Vitamins) 1 TAB TAB 1 Tablet ORAL DAILY Comments: LAST DOSE 09/05/15 AT 10:00 AM Cyanocobalamin (Vitamin B-12) 1,000 MCG TAB 1 Tablet ORAL DAILY Comments: LAST DOSE GIVEN 09/05/15 AT 10:00 AM Alprazolam (Alprazolam) 0.25 MG TABLET 1 Tablet ORAL Q12H as needed for ANXIETY Comments: NOT GIVEN IN HOSPITAL Levothyroxine Sodium (Levothyroxine Sodium) 50 MCG TABLET 1 Tablet ORAL DAILY Qty = 90 Comments: Last Taken: 06/28/16 Time: 10:00 AM Lidocaine (Lidoderm) 1 EACH ADH..PATCH 1 Patch On the skin DAILY Instructions: may wear up to 12 hours Comments: Last Taken: 06/28/16 Time: 10:00 AM Buspirone HCl (Buspirone HCl) 5 MG TABLET 1 Tablet ORAL THREE TIMES DAILY Qty = 90 Comments: Last Taken: 06/28/16 Time: 10:00 AM Tofacitinib Citrate (Xeljanz) 5 MG TABLET 1 Tablet ORAL TWICE DAILY Comments: NOT GIVEN IN HOSPITAL Start taking the following new medications: Amoxicillin/Potassium Clav (Augmentin 875-125 Tablet) 875 MG-125 MG TABLET 1 Tablet ORAL TWICE DAILY Days = 6 No Refills Comments: Last Taken: 06/28/16 Time: 10:00 AM Calcium Polycarbophil (Fibercon) 625 MG TABLET 2 Tablet ORAL DAILY Days = 14 No Refills Comments: Last Taken: 06/28/16 Time: 10:00 AM Prednisone (Prednisone) 10 MG TABLET 1 Tablet ORAL See Instructions Qty = 30 No Refills Instructions: PLEASE TAKE 4 TABLETS FROM 06/27/16 TO 06/28/2016 PLEASE TAKE 3 TABLETS FROM 06/29/2016 TO 07/01/2016 THEN ON CONTINUE TAKING 2 TABLETS DAILY ACCORDING TO YOUR ROUTINE REGIME Comments: Last Taken: 06/28/16 Time: 10:00 AM Guaifenesin (Adult Tussin Chest Congestion) 100 MG/5 ML LIQUID 10 Milliliters ORAL EVERY SIX HOURS as needed for COUGH /CONGESTION Qty = 1 Refills = 1 Comments: Last Taken: 06/28/16 Time: 6:45 AM Copies To: SHERRELL MARQUES,JUVENAL Fregoso MD Review Statement Documenting Attending: LUCI MARQUES,KIKA
[2016-06-27 16:01] VITALS: BP 132/78
[2016-06-27 16:07] VITALS: BP 132/78
[2016-06-28 00:14] VITALS: BP 138/64
--- NOTE | 2016-06-28 07:46 | NUR ---
PT SPO2 87 OVERNIGHT. PT PLACED ON 2L NC. SPO2 96
[2016-06-28 07:54] LABS: ABSOLUTE BASOPHIL COUNT 0 /CUMM (0.0-0.2); ABSOLUTE EOSINOPHIL COUNT 0.1 /CUMM (0.0-0.7); ABSOLUTE GRANULOCYTE CT 6.1 /CUMM (1.4-6.5); ABSOLUTE LYMPH COUNT 1.5 /CUMM (1.2-3.4); ABSOLUTE MONOCYTE COUNT 0.8 /CUMM (0.10-0.60); BASOPHIL % 0.2 % (0.0-2.0); EOSINOPHIL % 0.6 % (0-5); GRANULOCYTE % 71.9 % (42.2-75.2); HEMATOCRIT 30.8 % (42-52); MEAN CORPUSCULAR HGB 23.3 PG (27.0-31.0); MEAN CORPUSCULAR HGB CONC 31.5 G/DL (33.0-37.0); MEAN CORPUSCULAR VOLUME 73.9 FL (80.0-94.0); MEAN PLATELET VOLUME 7.7 FL (7.4-10.4); PLATELET COUNT 273 /CUMM (130-400); RBC DISTRIBUTION WIDTH 21.7 % (11.5-14.5); RED BLOOD CELL CT 4.17 /CUMM (4.70-6.10); WHITE BLOOD CELL COUNT 8.5 /CUMM (4.8-10.8)
--- NOTE | 2016-06-28 07:59 | PN- Housestaff ---
KAUSHAL JIMENEZ 06/28/16 0759: Subjective Follow-up For: -COMMUNITY ACQUIRED PNUEMONIA Complaints: no complaints Subjective: I have seen and examined the patient today morning.He is doing well, no new complaints, anticipated discharge today. Review of Systems Constitutional: Reports: see HPI. Objective Last 24 Hrs of Vital Signs/I&O Vital Signs Date Time Temp Pulse Resp B/P Pulse O2 O2 Flow FiO2 Ox Delivery Rate 06/28 1116 93 Nasal 2.0L Cannula 06/28 1116 87 Room Air Room Air 06/28 0947 98.3 78 134/64 06/28 0947 78 134/64 06/28 0932 20 94 Nasal 2.0L Cannula 06/28 0856 98.3 78 20 134/64 94 Room Air 06/28 0813 98 Nasal 2.0L Cannula 06/28 0800 94 Nasal 2.0L Cannula 06/28 0800 94 Nasal 2.0L Cannula 06/28 0014 97.9 70 20 138/64 96 Room Air 06/28 0000 96 Nasal 2.0L Cannula 06/28 0000 96 Nasal 2.0L Cannula 06/27 2200 96 Nasal 2.0L Cannula 06/27 2044 93 Room Air Intake & Output 06/28 1600 06 0800 06/28 0000 Intake Total 360 1260 Output Total Balance 360 1260 Intake, Oral 360 1260 Physical Exam General Appearance: Alert, Oriented X3, Cooperative, No Acute Distress Skin: No Rashes, No Breakdown, No Significant Lesion HEENT: Atraumatic, PERRLA, EOMI Cardiovascular: Regular Rate, Normal S1, Normal S2, No Murmurs Lungs: Clear to Auscultation, Normal Air Movement Abdomen: Normal Bowel Sounds, Soft, No Tenderness, No Hepatospenomegaly, No Masses Neurological: Strength at 5/5 X4 Ext, Normal Tone, Sensation Intact, Cranial Nerves 3-12 NL Extremities: No Clubbing, No Cyanosis, No Edema, Normal Pulses Vascular: Normal Pulses Current Medications: Current Medications Sig/Luis Start time Last Medication Dose Route Stop Time Status Admin Acetaminophen 650 MG .STK-MED ONE 06/28 06 DC PO 06/28 0618 Acetaminophen 650 MG .STK-MED ONE 06/27 2139 DC PO 06/27 214 Acetaminophen 650 MG Q4P PRN 06/24 1930 DCD 06/28 PO 0620 Albuterol Sulfate 3 ML BID 06/25 1130 DCD 06/28 INH 0810 Alprazolam 0.25 MG Q12H PRN 06/24 2044 DCD PO 07/01 2044 Amoxicillin/ 875 MG Q12 06/27 1000 DCD 06/28 Clavul[place]ate [place] PO 0946 Aspirin Buffered 325 MG DAILY 06/25 1000 DCD 06/28 PO 0947 Atenolol 25 MG DAILY 06/25 1000 DCD 06/28 PO 0947 Atorvastatin Calcium 80 MG 1700 06/25 1700 DCD 06/27 PO 1604 Buspirone HCl 5 MG TID 06/24 2200 DCD 06/28 PO 0947 Clopidogrel Bisulfate 75 MG DAILY 06/25 1000 DCD 06/28 PO 0947 Cyanocobalamin 1,000 MCG DAILY 06/25 1000 DCD 06/28 PO 0947 Enoxaparin Sodium 40 MG DAILY 06/25 1000 DCD 06/28 SC 0947 Gabapentin 300 MG Q8 06/24 2200 DCD 06/28 PO 1319 Guaifenesin 10 ML .STK-MED ONE 06/28 0624 DC PO 06/28 0625 Guaifenesin 10 ML .STK-MED ONE 06/27 2144 DC PO 06/27 2145 Guaifenesin 10 ML Q6P PRN 06/26 0700 DCD 06/28 PO 1319 Guaifenesin 600 MG Q12 06/25 1000 DCD 06/28 PO 0947 Levothyroxine Sodium 0.05 MG DAILY 06/25 1000 DCD 06/28 PO 0947 Lidocaine 1 PAT DAILY 06/25 1000 DCD 06/28 EXT 0947 Lisinopril 10 MG DAILY 06/25 1000 DCD 06/28 PO 0947 Omeprazole 40 MG DAILY AC 06/25 0700 DCD 06/28 PO 0618 Patient Medication 1 ED .STK-MED ONE 06/28 1336 DC Teaching ED 06/28 1337 Polycarbophil 1,250 MG DAILY 06/27 1000 DCD 06/28 PO 0946 Potassium Chloride 10 MEQ DAILY 06/24 2039 DCD 06/28 PO 0947 Prednisone 40 MG DAILY 06/27 1000 DCD 06/28 PO 0947 Sertraline HCl 50 MG DAILY 06/25 1000 DCD 06/28 PO 0947 Last 24 Hrs of Lab/Kain Results Last 24 Hrs of Labs/Mics: Laboratory Tests 06/28/16 0620: Anion Gap 10, Estimated GFR > 60, BUN/Creatinine Ratio 27.5 H, CBC w Diff NO MAN DIFF REQ, RBC 4.17 L, MCV 73.9 L, MCH 23.3 L, RDW 21.7 H, MPV 7.7, Gran % 71.9, Lymphocytes % 17.6 L, Monocytes % 9.7 H, Eosinophils % 0.6, Basophils % 0.2, Absolute Granulocytes 6.1, Absolute Lymphocytes 1.5, Absolute Monocytes 0.8 H, Absolute Eosinophils 0.1, Absolute Basophils 0, PUBS MCHC 31.5 L Lines/Diet/Fluids Restraints: none Assessment/Plan Assessment: #Community-acquired pneumonia Continue IV ceftriaxone and azithromycin. Transitioned to PO augmentin, will d/c on PO augmentin Urine Legionella and strep pneumonia antigen negative. No Growth on blood cultures 2 so far. continue to monitor white count. Leonardo ct steroid taper and stabilise on 20 mg dailt at his chroic hoe dosage. #Left lower abdominal pain CT abdominal and pelvis showed scattered diverticulosis, however no evidence of diverticulitis or any other acute cause. Rib xray today showed Mild contour deformities of multiple ribs as listed above. Review of prior CT demonstrates multiple subacute to chronic appearing, healing rib fractures. No active recommendation as per GI. GI Consult appreciated. Patient is allergic to hydrocodone, morphine, oxycodone, if in pain consider tramadol for pain control. #Adrenal insufficiency. Patient was given stress dose of steroid on admission. Dose of steroid was increased to 40 mg, we will continue the steroid taper, every 3 days and then keep him on his home dose of 20 mg daily on discharge. # Rheumatoid arthritis continue steroid therapy #HTN,CAD,HLP continue atenolol, aspirin, Plavix, lisinopril, statin #Hypothyroidism, back pain Continue levothyroxine #Depression Continue SSRI and Xanax #Back pain Continue gabapentin and Lidoderm patch #Microcytic anemia Guaiac all stools Problem List: 1. H/O heart artery stent 2. Diverticulosis of colon 3. PNA (pneumonia) Pain Ratin Pain Location: NA Pain Goal: Remain pain free Pain Plan: tramdol Tomorrow's Labs & Rationales: not needed Discharge Plan Discharge Disposition: home Stable for Discharge? Yes Anticipated Discharge (Day): today If Discharged Today/In 24 Hrs: CMR done LUCI MARQUESKIKA 06/28/16 1440: Attending MD Review Statement Attending Statement Attending MD Statement: examined this patient, discuss w/resident/PA/PRODUCTION REPAIRER, agreed w/resident/PA/PRODUCTION REPAIRER, reviewed EMR data (avail), discussed with nursing, discussed with case mgmt, amended to note Attending Assessment/Plan: Patient seen and examined, overall was feeling better except that he could not get a good night sleep last night. He is afebrile at he still requiring oxygen. Rib x-rays do not show any acute fractures. Most likely his abdominal pain was secondary to musculoskeletal reasons from coughing and from chronic to subacute rib fractures. Patient was given Robitussin which has helped with the cough. He can also take some lozenges for the cough. He is medically stable for discharge home today. He will be going home on few more day supply of antibiotics. He should follow with his primary care doctor as well as Dr. Jermaine Anthony as an outpatient.
[2016-06-28 08:56] VITALS: BP 134/64
[2016-06-28] MEDS ORDERED: AUGMENTIN 875-1 EACH PO (09:16)
[2016-06-28 09:47] VITALS: BP 134/64
--- NOTE | 2016-06-28 11:58 | NUR ---
NURSING NOTE: STABLE FOR DISCHARGE PER MD. PT GO HOME WITH O2 AND HOME HEALTH SERVICES. PRECRIPTIONS CALLED IN TO PT PHARMACY BY KAUSHAL QUINONEZ PER PT REQUEST.
== END 2016-06-28 13:37 | disposition home health service (06) | DRG 871 ==
LOC: ERH 14:18 → ERHI 17:55 → 2NB 17:55
PROVIDERS: Internal Medicine; Physician Assistant Medical; ADMIT Internal Medicine
DX: A41.9 Sepsis, unspecified organism (principal); J18.9 Pneumonia, unspecified organism; E27.40 Unspecified adrenocortical insufficiency; M06.9 Rheumatoid arthritis, unspecified; I25.10 Atherosclerotic heart disease of native coronary artery without angina pectoris; I25.2 Old myocardial infarction; E03.9 Hypothyroidism, unspecified; I10 Essential (primary) hypertension; E78.5 Hyperlipidemia, unspecified; M84.48XD Pathological fracture, other site, subsequent encounter for fracture with routine healing; F32.9 Major depressive disorder, single episode, unspecified; D50.9 Iron deficiency anemia, unspecified; K21.9 Gastro-esophageal reflux disease without esophagitis; K57.90 Diverticulosis of intestine, part unspecified, without perforation or abscess without bleeding; M54.9 Dorsalgia, unspecified; Z95.5 Presence of coronary angioplasty implant and graft
CPT/HCPCS: 2NBP; 36415; 71100-LT; 71100-RT; 74177; 81003; 82436; 87040; 87070; 87071; 87449; 87450; 87804; 87804-59; 90662; 90732; 93005; 93010; 96365; 96366; J0456; J0696; J1650; J1720; J1885; J7040

== ENCOUNTER 2016-07-05 16:00 | Emergency (ER) | payer OTHER ==
[~2016-07-05] VITALS: Ht 185.4 cm; Wt 93.4 kg
[~2016-07-05 16:00] MED LIST changes: +ADULT TUSS100 MG/5 M PO; +ATORVASTATIN CA20 M1 PO; +AUGMENTIN 875-1 EACH PO; +FIBERCON625 M1 PO; +PREDNISONE10 M2 PO; +XELJANZ5 M1 PO
--- NOTE | 2016-07-05 17:32 | ED THROAT/DENTAL COMPLAINT ---
History of Present Illness General Chief Complaint: Upper Respiratory Sx/Fever Stated Complaint: RECENT Dx OF PNEUMONIA, "STILL UNWELL",SORE THROAT Source: patient Exam Limitations: no limitations Vital Signs & Intake/Output Vital Signs & Intake/Output Vital Signs Date Time Temp Pulse Resp B/P Pulse O2 O2 Flow FiO2 Ox Delivery Rate 07/05 2109 84 18 134/79 96 Room Air 07/05 1900 98.1 69 18 139/74 93 Nasal 2.0L Cannula 07/05 1845 99 Room Air 07/05 1631 98.6 76 20 119/76 92 Room Air Allergies Coded Allergies: hydrocodone (From VICODIN) (Intermediate, SEVERE HALLUCINATIONS 07/05/16) hydromorphone (From DILAUDID) (Intermediate, SEVERE HALLUCINATIONS 07/05/16) morphine (Intermediate, WILD DREAMS, GI UPSET, SEVERE HALLUCINATIONS 07/05/16) oxycodone (From PERCOCET) (Intermediate, SEVERE HALLUCINATIONS 07/05/16) lactose (DIARRHEA 07/05/16) Reconcile Medications Albuterol Sulfate (Proventil Hfa) 0.09 MG/Actuation ZEESHAN 2 PUFF PO Q4 PRN SHORTNESS OF BREATH Alendronate Sodium (Fosamax) 70 MG TABLET 1 TAB PO QTHURS OSTEOPOROSIS ( Reported) in the morning, at least 30 minutes before the first food, beverage, or medication of the day Alprazolam 0.25 MG TABLET 1 TAB PO Q12H PRN ANXIETY (Reported) Amoxicillin 500 MG CAPSULE 1 TAB PO TID INFECTION Aspirin E.c. (Ecotrin) 325 MG TAB 1 TAB PO DAILY HEART HEALTH (Reported) Atenolol 25 MG TABLET 1 TAB PO DAILY HTN (Reported) Buspirone HCl 5 MG TABLET 1 TAB PO TID ANXIETY (Reported) Calcium Polycarbophil (Fibercon) 625 MG TABLET 2 TAB PO DAILY STOMACH CLOPIDOGREL BISULFATE (Clopidogrel) 75 MG TABLET 1 TAB PO DAILY BLOOD THINNER (Reported) Cyanocobalamin (Vitamin B-12) 1,000 MCG TAB 1 TAB PO DAILY SUPPLEMENT ( Reported) Furosemide (Lasix) 20 MG TABLET 1 TAB PO DAILY DIURETIC (Reported) Gabapentin (Neurontin) 300 MG CAP 1 CAP PO TID NERVE PAIN (Reported) Lansoprazole (Prevacid) 30 MG CAP 1 CAP PO DAILY GI (Reported) Levothyroxine Sodium 50 MCG TABLET 1 TAB PO DAILY THYROID (Reported) Lidocaine (Lidoderm) 1 EACH ADH..PATCH 1 PAT TOP DAILY PAIN (Reported) may wear up to 12 hours Multivitamin (Multiple Vitamins) 1 TAB TAB 1 TAB PO DAILY SUPPLEMENT ( Reported) Potassium Chloride [address] 1 TAB PO DAILY SUPPLEMENT (Reported) Prednisone 5 MG TAB 20 MG PO DAILY RA (Reported) Prednisone 10 MG TABLET 1 TAB PO SI SHORTNESS OF BREATH PLEASE TAKE 4 TABLETS FROM 06/27/16 TO 06/28/2016 PLEASE TAKE 3 TABLETS FROM 06/29/2016 TO 07/01/2016 THEN ON CONTINUE TAKING 2 TABLETS DAILY ACCORDING TO YOUR ROUTINE REGIME Ramipril (Altace) 10 MG CAPSULE 1 TAB PO DAILY HTN (Reported) Rosuvastatin Calcium (Crestor) 40 MG TAB 40 MG PO DAILY CHOLESTEROL (Reported ) SERTRALINE HCL (Sertraline Hydrochloride) 50 MG TABLET 1 TAB PO DAILY DEPRESSION (Reported) Tofacitinib Citrate (Xeljanz) 5 MG TABLET 1 TAB PO BID rheumatoid arthritis ( Reported) Triage Note: TRIAGE: PT TO ER C/C PAIN AND SWELLING IN THROAT SINCE LAST NIGHT, CONCERNED ABOUT "MY BREATHING PASSAGE BEING CONSTRICTED. EVERY TIME I BREATHE IT SOUNDS GURGLY." REPORTED DIFFICULTY SWALLOWING PILLS LAST NIGHT AND TODAY. PT ALSO STATES WAS DIAGNOSED WITH PNEUMONIA LAST WEEK. Triage Nurses Notes Reviewed? yes HPI: Patient presents for evaluation of swollen feeling and difficulty swallowing that began over the past few days. Patient states that he was recently admitted to [facility] for pneumonia and discharged about one week ago. After discharge he seemed to be improving. His fever and cough had resolved. He then started to feel worse again. Last night he started having a severe constricted feeling and gurgling with respirations. He also had an occasional clear phlegm production. He tried to take his medications and had some difficulty swallowing the pills. He rested for about an hour and then tried to go to sleep. However he states that with lying down the constricted feeling in his throat worsened. He states he has also had a few episodes of diarrhea with a burning rectal pain. His neck also feels sore and his voice has become hoarse. He feels that his leg swelling, although chronic, has worsened as well. (SHANNON MARQUES,WAYNE Boyd) Past History Travel History Traveled to [place] past 21 day No Medical History Any Pertinent Medical History? see below for history Neurological: peripheral neuropathy EENT: cataracts Cardiovascular: CAD (s/p ST elevation [place]), hypertension, hyperlipidemia, myocardial infarction, non-ST patient [place], status post angioplasty/stent x 3 in 2006 Respiratory: bronchitis, pneumonia, history of bronchospasm and hypercarbia Gastrointestinal: GERD (minimal), lactose intolerance, 10/27/2014: ERCP WITH ES/ CBD STONE EXTRACTION FOR CHOLANGITIS incidental duodenal polyp in bulb, seen on 10/27/14: ERCP (left intact) benign colon polyps removed via colonoscopy at [facility] approx 2012 Hepatic: NONE Renal: ACUTE RENAL FAILURE- RESOLVED Musculoskeletal: fracture (R humerus, R hip, L ribs), osteoarthritis, rheumatoid arthritis, R hip fracture S/P ORIF R COMMUTED HUMERUS FX Psychiatric: anxiety, depression, insomnia Endocrine: adrenal insufficiency, hypothyroidism, obesity, elevated blood sugars Blood Disorders: anemia Cancer(s): NONE AWAKE OVERNIGHT MONITOR/Reproductive: NONE History of MRSA: No History of VRE: Yes History of CDIFF: No Pneumonia Vaccine: 03/09/12 Tetanus Vaccine: 01/05/16 Surgical History Surgical History: cholecystectomy, cholecystostomy tube ORIF R hip back surgery Psychosocial History Who do you live with Other (see notes) Services at Home Home Health Aide What is your primary language New Zealander Tobacco Use: Never used ETOH Use: denies use Illicit Drug Use: denies illicit drug use Family History Family History, If Any: MOTHER, , Age 89; Cause: Old age. FH: CVA (cerebrovascular accident) SISTER, , Age 71; Cause: Multiple sclerosis. FH: brain cancer SISTER, , Age 55; Cause: Brain cancer. FATHER ( of a myocardial infarction in his 60's). , Age 63; Cause: Myocardial infarct. SISTER ( of multiple sclerosis). Hx Contributory? No (SHANNON MARQUES,WAYNE Boyd) Review of Systems Review of Systems Constitutional: Reports: no symptoms. EENTM: Reports: see HPI. Respiratory: Reports: see HPI. Cardiovascular: Reports: no symptoms. GI: Reports: no symptoms. Genitourinary: Reports: no symptoms. Musculoskeletal: Reports: no symptoms. Skin: Reports: no symptoms. Neurological/Psychological: Reports: no symptoms. Hematologic/Endocrine: Reports: no symptoms. Immunologic/Allergic: Reports: no symptoms. All Other Systems: Reviewed and Negative (WAYNE FAY MD) Physical Exam Physical Exam Mouth/Throat: SEE BELOW Comments: Gen.: Well-nourished, well-developed, no acute respiratory distress. Head: Normocephalic, atraumatic. Eyes: Normal inspection bilaterally Ears: Normal inspection bilaterally Nose: Normal inspection Throat/mouth : Moist mucosa, no oropharyngeal erythema or soft tissue swelling. Neck: Supple, full range of motion, no goiter, no JVD Heart: Regular rate and rhythm, no murmurs rubs or gallops Lungs: Clear to auscultation bilaterally but diminished air entry globally Chest: Nontender Back: Normal range of motion Abdomen: Soft, nontender, nondistended, normal bowel sounds Extremities: Normal range of motion grossly, equal radial pulses, no cyanosis, 1 + bilateral pitting edema of the feet and ankles Neurologic: Cranial nerves grossly intact, speech is hoarse Skin: warm and dry Psychiatric: Calm, cooperative, no apparent delusions or hallucinations (SHANNON MARQUES,WAYNE Boyd) Core Measures ACS in differential dx? No Severe Sepsis Present: No Septic Shock Present: No (CAROLYN MARQUES,ANTHONY Gonzalez) Progress Differential Diagnosis: chf, VIRAL SYNDROME, PNEUMONIA Plan of Care: Orders Procedure Date/time Status LEGIONELLA URINARY ANTIGEN 07/05 1735 Complete URINALYSIS 07/05 1735 Complete TROPONIN LEVEL 07/05 1735 Complete COMPREHENSIVE METABOLIC PANEL 07/05 173 Complete CBC WITHOUT DIFFERENTIAL 07/05 173 Complete B-TYPE NATRIURETIC PEP (BNP) 07/05 173 Complete THROAT CULTURE W/QUICK STREP 07/05 1636 Complete Laboratory Tests 07/05/16 1927: Urine Color YEL, Urine Clarity CLEAR, Urine pH 6.5, Ur Specific [place] 1.020, Urine Protein NEG, Urine Ketones NEG, Urine Nitrite NEG, Urine Bilirubin NEG, Urine Urobilinogen 0.2, Ur Leukocyte Esterase NEG, Ur Microscopic EXAM NOT REQUIRED, Urine Hemoglobin NEG, Urine Glucose NEG 07/05/16 1815: Anion Gap 11, Estimated GFR > 60, BUN/Creatinine Ratio 31.4 H, Glucose 93, Calcium 8.3 L, Total Bilirubin 0.6, AST 34, ALT 46, Alkaline Phosphatase 74, Troponin I < 0.01, Sck-G-Aauhafwqcns Pept 213 H, Total Protein 6.6, Albumin 3.5 , Globulin 3.1, Albumin/Globulin Ratio 1.1, CBC w Diff MAN DIFF ORDERED, RBC 4.71, MCV 74.2 L, MCH 23.6 L, RDW 21.6 H, MPV 7.0 L, Gran % 81.3 H, Lymphocytes % 12.2 L, Monocytes % 5.1, Eosinophils % 1.2, Basophils % 0.2, Absolute Granulocytes 13.6 H, Segmented Neutrophils 78 H, Absolute Lymphocytes 2.0, Lymphocytes 19 L, Monocytes 3, Absolute Monocytes 0.8 H, Absolute Eosinophils 0.2, Absolute Basophils 0, Platelet Estimate VERIFIED BY SMEAR, Hypochromic-Microcytic 1+, Anisocytosis 1+, Microcytic Cells 1+, PUBS MCHC 31.8 L, Fld Total RBCs Counted 100 Microbiology 07/05 1926 URINE ROUT: Legionella Antigen - COMP Diagnostic Imaging: Discussed w/RAD: Radiology Read. CXR Impression: no acute abnormality Comments: 07/05/2016 8:09:09 PM I have treated Gunnar with IV Decadron and IV acetaminophen for swelling and pain control. I have also given him a PO dose of amoxicillin to assure that he is able to manage po medications as an outpatient. Patient has been signed out to Dr. Sanford for reevaluation to assure that the patient is tolerating his medications and beginning to feel better. (SHANNON MARQUES,WAYNE Boyd) Departure Departure Disposition: HOME OR SELF CARE Condition: Stable Clinical Impression Primary Impression: Streptococcal pharyngitis Referrals: JOHNY MARQUES,CLIFF Mckinney (PCP/Family) Additional Instructions: Amoxicillin as prescribed. Maintain a good fluid intake. Follow up With your primary care physician for reevaluation on Friday. Return if any concerns or sudden worsening. Your prescriptions have been transmitted to your pharmacy. Thank you for choosing the [facility] Emergency Department for your care. It was a pleasure to serve you today. Wayne Fay M.D. [facility] Departure Forms: Customer Survey General Discharge Information Prescriptions: Current Visit Scripts Amoxicillin 1 TAB PO TID #30 TAB (SHANNON MARQUES,WAYNE Boyd) Departure Comments 07/05/16, 21:42... pt feeling well after steroids... pt tolerated po in the ED... discussed at length with patient... he feels well enough to go home. pt safe for discharge... close follow up advised. (CAROLYN MARQUES,ANTHONY Gonzalez)
[2016-07-05 18:32] LABS: ABSOLUTE BASOPHIL COUNT 0 /CUMM (0.0-0.2); ABSOLUTE EOSINOPHIL COUNT 0.2 /CUMM (0.0-0.7); ABSOLUTE GRANULOCYTE CT 13.6 /CUMM (1.4-6.5); ABSOLUTE MONOCYTE COUNT 0.8 /CUMM (0.10-0.60); BASOPHIL % 0.2 % (0.0-2.0); EOSINOPHIL % 1.2 % (0-5); GRANULOCYTE % 81.3 % (42.2-75.2); MEAN CORPUSCULAR HGB 23.6 PG (27.0-31.0); MEAN CORPUSCULAR HGB CONC 31.8 G/DL (33.0-37.0); MEAN CORPUSCULAR VOLUME 74.2 FL (80.0-94.0); PLATELET COUNT 361 /CUMM (130-400); RBC DISTRIBUTION WIDTH 21.6 % (11.5-14.5); RED BLOOD CELL CT 4.71 /CUMM (4.70-6.10); WHITE BLOOD CELL COUNT 16.7 /CUMM (4.8-10.8)
--- NOTE | 2016-07-05 18:33 | RADIOLOGY REPORT ---
EXAMINATION: XR CHEST CLINICAL INFORMATION: Throat tightness with gurgling respiration. COMPARISON: Chest x-ray 06/24/2016. TECHNIQUE: 2 views of chest. FINDINGS: Linear subsegmental atelectasis/scarring at both lung bases with low inspiratory effort. No pulmonary vascular congestion. No focal consolidation. No pleural effusion or pneumothorax. Multilevel degenerative spondylosis of dorsal spine. Slight anterior wedge compression deformity of vertebrae at the lower thoracic vertebrae which are stable since prior exam. Compared to prior chest x-ray there is no change. IMPRESSION: No acute abnormality of the chest.
[2016-07-05] MEDS ORDERED: AMOXICILLIN500 M2 PO ×2 (20:11→21:16)
[2016-07-05 21:09] VITALS: BP 134/79
== END 2016-07-05 21:53 ==
LOC: ERH 16:00
PROVIDERS: Emergency Medicine
DX: J02.0 Streptococcal pharyngitis (principal)
CPT/HCPCS: 81003; 87449; 96374; 96375; J0131; J1100

== ENCOUNTER 2016-07-26 15:45 | Emergency (ER) | payer OTHER ==
[~2016-07-26] VITALS: Ht 182.9 cm; Wt 93.4 kg
[~2016-07-26 15:45] MED LIST changes: +AMOXICILLIN500 M2 PO
--- NOTE | 2016-07-26 19:09 | ULTRASOUND REPORT ---
EXAMINATION: DUPLEX DOPPLER UPPER EXTREMITY, left CLINICAL INFORMATION: Swelling. Pain. Post IV puncture COMPARISON: None. TECHNIQUE: Duplex Doppler performed of left upper extremity deep veins with grayscale, color Doppler and spectral Doppler examination. FINDINGS: There is no evidence of deep vein thrombosis. Normal vascular flow is seen in the internal jugular vein, subclavian vein, axillary vein, brachial vein, basilic vein, cephalic vein and antecubital vein. There is a mildly complex fluid collection in the anterior lentiform measuring 2.2 x 0.6 x 1.7 cm just deep to the skin line. This is by history the site of prior IV puncture. Could be small hematoma therefore. IMPRESSION: 1. No evidence of deep vein thrombosis. 2. Subcutaneous fluid collection at site of prior IV puncture, probable hematoma.
[2016-07-26] MEDS ORDERED: AMOXICILLIN500 M3 PO (19:29)
[2016-07-26] MEDS ORDERED: BACTRIM DS TAB1 EACH PO (19:29)
--- NOTE | 2016-07-26 19:29 | ED UPPER/LOWER EXTREMITY COMPL ---
History of Present Illness General Chief Complaint: Skin Rash/ Abcess Stated Complaint: L ARM/ELBOW ?INFECTION Source: patient Exam Limitations: no limitations Vital Signs & Intake/Output Vital Signs & Intake/Output Vital Signs Date Time Temp Pulse Resp B/P Pulse O2 O2 Flow FiO2 Ox Delivery Rate 07/26 1943 98.9 96 18 130/78 96 Room Air 07/26 1704 Room Air Room Air 07/26 1553 99.1 111 18 170/99 96 Room Air ED Intake and Output 07/27 0000 07/26 1200 Intake Total 30 Output Total Balance 30 Intake, Oral 30 Patient 206 lb Weight Allergies Coded Allergies: hydrocodone (From VICODIN) (Intermediate, SEVERE HALLUCINATIONS 07/05/16) hydromorphone (From DILAUDID) (Intermediate, SEVERE HALLUCINATIONS 07/05/16) morphine (Intermediate, WILD DREAMS, GI UPSET, SEVERE HALLUCINATIONS 07/05/16) oxycodone (From PERCOCET) (Intermediate, SEVERE HALLUCINATIONS 07/05/16) lactose (DIARRHEA 07/05/16) Reconcile Medications Albuterol Sulfate (Proventil Hfa) 0.09 MG/Actuation ZEESHAN 2 PUFF PO Q4 PRN SHORTNESS OF BREATH Alendronate Sodium (Fosamax) 70 MG TABLET 1 TAB PO QTHURS OSTEOPOROSIS ( Reported) in the morning, at least 30 minutes before the first food, beverage, or medication of the day Alprazolam 0.25 MG TABLET 1 TAB PO Q12H PRN ANXIETY (Reported) Amoxicillin 500 MG TABLET 1 TAB PO TID CELLULITIS Amoxicillin 500 MG CAPSULE 1 TAB PO TID INFECTION Aspirin E.c. (Ecotrin) 325 MG TAB 1 TAB PO DAILY HEART HEALTH (Reported) Atenolol 25 MG TABLET 1 TAB PO DAILY HTN (Reported) Buspirone HCl 5 MG TABLET 1 TAB PO TID ANXIETY (Reported) Calcium Polycarbophil (Fibercon) 625 MG TABLET 2 TAB PO DAILY STOMACH CLOPIDOGREL BISULFATE (Clopidogrel) 75 MG TABLET 1 TAB PO DAILY BLOOD THINNER (Reported) Cyanocobalamin (Vitamin B-12) 1,000 MCG TAB 1 TAB PO DAILY SUPPLEMENT ( Reported) Furosemide (Lasix) 20 MG TABLET 1 TAB PO DAILY DIURETIC (Reported) Gabapentin (Neurontin) 300 MG CAP 1 CAP PO TID NERVE PAIN (Reported) Lansoprazole (Prevacid) 30 MG CAP 1 CAP PO DAILY GI (Reported) Levothyroxine Sodium 50 MCG TABLET 1 TAB PO DAILY THYROID (Reported) Lidocaine (Lidoderm) 1 EACH ADH..PATCH 1 PAT TOP DAILY PAIN (Reported) may wear up to 12 hours Multivitamin (Multiple Vitamins) 1 TAB TAB 1 TAB PO DAILY SUPPLEMENT ( Reported) Potassium Chloride [address] TAB PO DAILY SUPPLEMENT (Reported) Prednisone 5 MG TAB 20 MG PO DAILY RA (Reported) Prednisone 10 MG TABLET 1 TAB PO SI SHORTNESS OF BREATH PLEASE TAKE 4 TABLETS FROM 06/27/16 TO 06/28/2016 PLEASE TAKE 3 TABLETS FROM 06/29/2016 TO 07/01/2016 THEN ON CONTINUE TAKING 2 TABLETS DAILY ACCORDING TO YOUR ROUTINE REGIME Ramipril (Altace) 10 MG CAPSULE 1 TAB PO DAILY HTN (Reported) Rosuvastatin Calcium (Crestor) 40 MG TAB 40 MG PO DAILY CHOLESTEROL (Reported ) SERTRALINE HCL (Sertraline Hydrochloride) 50 MG TABLET 1 TAB PO DAILY DEPRESSION (Reported) Sulfamethoxazole/Trimethoprim (Bactrim Ds Tablet) 800 MG-160 MG TABLET 1 TAB PO BID CELLULITIS Tofacitinib Citrate (Xeljanz) 5 MG TABLET 1 TAB PO BID rheumatoid arthritis ( Reported) Triage Note: 71 Y/O MALE C/O PAIN TO L ARM; ONSET FRIDAY. STATES HE HAD A TEST IN JUNE WITH IV ? CONTRAST AND HAD IMMEDIATE PAIN UPON PUSHING THE MED THOUGHT NOTHING OF IT. STATES THE ARM HAS BEEN SORE BUT FRIDAY HE NOTICED WORSENING TENDERNESS TO ENTIRE L ARM. DARK RAISED AREA NOTED WITH BLACK CENTER - PT STATES THAT IS WHERE IV WAS PLACED AND STATES SWELLING HAS IMPROVED THOUGH PERSISTS. Triage Nurses Notes Reviewed? yes Onset: Abrupt Duration: day(s): (4), constant, continues in ED Timing: recent history Severity: moderate, severe Pain/Injury Location: Left: Elbow, Forearm. No Modifying Factors: none HPI: 71-year-old male comes into emergency room with complaints of redness and swelling to his left arm. Patient reports that this past Friday he had gotten an IV in that arm for a contrast study scan. Patient reports that since then hes had some increased swelling and then redness that developed. Denies any fever chills vomiting. Denies any flulike symptoms. Denies any other associated symptoms. Throbbing pain. (NORBERT NIETO,KIAH) Past History Travel History Traveled to [place] past 21 day No Medical History Any Pertinent Medical History? see below for history Neurological: peripheral neuropathy EENT: cataracts Cardiovascular: CAD (s/p ST elevation [place]), hypertension, hyperlipidemia, myocardial infarction, non-ST patient [place], status post angioplasty/stent x 3 in 2006 Respiratory: bronchitis, pneumonia, history of bronchospasm and hypercarbia Gastrointestinal: GERD (minimal), lactose intolerance, 10/27/2014: ERCP WITH ES/ CBD STONE EXTRACTION FOR CHOLANGITIS incidental duodenal polyp in bulb, seen on 10/27/14: ERCP (left intact) benign colon polyps removed via colonoscopy [facility] approx 2012 Hepatic: NONE Renal: ACUTE RENAL FAILURE- RESOLVED Musculoskeletal: fracture (R humerus, R hip, L ribs), osteoarthritis, rheumatoid arthritis, R hip fracture S/P ORIF R COMMUTED HUMERUS FX Psychiatric: anxiety, depression, insomnia Endocrine: adrenal insufficiency, hypothyroidism, obesity, elevated blood sugars Blood Disorders: anemia Cancer(s): NONE 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 FH: CVA (cerebrovascular accident) SISTER, , Age 71; Cause: Multiple sclerosis. FH: brain cancer SISTER, , Age 55; Cause: Brain cancer. FATHER ( of a myocardial infarction in his 60's). , Age 63; Cause: Myocardial infarct. SISTER ( of multiple sclerosis). Hx Contributory? No (KIAH EDWARD) Review of Systems Review of Systems Constitutional: Reports: no symptoms. EENTM: Reports: no symptoms. Respiratory: Reports: no symptoms. Cardiovascular: Reports: no symptoms. Gastrointestinal/Abdominal: Reports: no symptoms. Genitourinary: Reports: no symptoms. Musculoskeletal: Reports: see HPI. Skin: Reports: see HPI. Neurological/Psychological: Reports: no symptoms. Hematologic/Endocrine: Reports: no symptoms. Immunological: Reports: no symptoms. All Other Systems: Reviewed and Negative (KIAH EDWARD) Physical Exam Physical Exam General Appearance: well developed/nourished, mild distress Head: atraumatic Eyes: Bilateral: normal appearance. Ears, Nose, Throat: normal ENT inspection, hearing grossly normal Neck: normal inspection Cardiovascular/Respiratory: no respiratory distress Back: normal inspection Elbow Left: ERYTHEMA, WARMTH,, ERYTHEMA AND WARMTH OF LEFT FOREARM, SMALL HEMATOMA, AT SITE OF iv, RADIAL PULSE INTACT, strength intact, Skin: intact, normal color, warm/dry Lymphatic: no anterior cervical august (KIAH EDWARD) Progress Differential Diagnosis: arterial insufficiency, cellulitis, DVT, fracture, gout, septic arthritis, sprain, tendon injury Plan of Care: Current Medications Sig/Luis Start time Last Medication Dose Stop Time Status Admin Trimethoprim/ 1 TAB ONCE ONE 07/26 1929 UNVr Sulfamethoxazole 07/26 1930 (Bactrim DS) Diagnostic Imaging: Viewed by Me: Ultrasound. Discussed w/RAD: Ultrasound. Radiology Impression: SERVICE DATE: 07/26/16 EXAM TYPE: US - US-DUPLEX VENOUS EXTREM UNI EXAMINATION: DUPLEX DOPPLER UPPER EXTREMITY, left CLINICAL INFORMATION: Swelling. Pain. Post IV puncture COMPARISON: None. TECHNIQUE: Duplex Doppler performed of left upper extremity deep veins with grayscale, color Doppler and spectral Doppler examination. FINDINGS: There is no evidence of deep vein thrombosis. Normal vascular flow is seen in the internal jugular vein, subclavian vein, axillary vein, brachial vein, basilic vein, cephalic vein and antecubital vein. There is a mildly complex fluid collection in the anterior lentiform measuring 2.2 x 0.6 x 1.7 cm just deep to the skin line. This is by history the site of prior IV puncture. Could be small hematoma therefore. IMPRESSION: 1. No evidence of deep vein thrombosis. 2. Subcutaneous fluid collection at site of prior IV puncture, probable hematoma. DICTATED BY: LORE ESCUDERO MD DATE/TIME DICTATED:07/26/161903 CONFLICT RESOLUTION PROFESSIONAL:ОЛЬГА DATE/ TIME TRANSCRIBED:07/26/161903 Comments: 07/26/2016 At this time I feel the patient has an infected small hematoma that is causing a secondary cellulitis. Patient clinically looks well and is nontoxic-appearing. There is no evidence of DVT. Patient started on oral antibiotics and told to return for a wound check in 3 days. Return sooner if any other concerns worsening symptoms. Return sooner if any spreading of redness. Long conversation with patient about plan of care. Patient understands and agrees with plan of care. (KIAH EDWARD) Departure Departure Disposition: HOME OR SELF CARE Condition: Stable Clinical Impression Primary Impression: Cellulitis of left arm Referrals: JOHNY MARQUES,CLIFF Mckinney (PCP/Family) Additional Instructions: Take Bactrim and amoxicillin as prescribed. Return in 3 days (FRIDAY) for wound check. Return if any other concerns worsening symptoms. Please go over all results of today's visit with your primary care doctor. Contact your primary care doctor to let them know you were here in the emergency room. There may be nonspecific findings which may not be related to your visit today here in the emergency room but may require further evaluation and chronic monitoring by your primary care doctor. If you had a laceration today the chance of foreign body always remains. You should follow-up with your primary care doctor for recheck in 3-5 days for a wound check. If you had an x-ray done there is a chance that a fracture could have been missed on initial read and you should follow-up with your primary care doctor for repeat x-rays if symptoms persist. If your blood pressure was elevated here in the emergency room please have rechecked by her primary care doctor within the next 48 hours by your primary care doctor. If you were prescribed a narcotic here in the emergency room or any type of controlled substances you're not allowed to drive while taking this medication or operate any type of heavy machinery. Narcotics can make you feel lightheaded dizziness nausea and can cause constipation. You may need to machine pecan picker a stool softener. Thank you for choosing [facility] emergency room. Please return to the emergency room immediately if you have any other concerns worsening of symptoms. Departure Forms: Customer Survey General Discharge Information Prescriptions: Current Visit Scripts Amoxicillin 1 TAB PO TID #30 TAB Sulfamethoxazole/Trimethoprim (Bactrim Ds Tablet) 1 TAB PO BID #20 TAB (KIAH EDWARD) PA/BRAND LEAD Co-Sign Statement Statement: ED Attending supervision documentation- [] I saw and evaluated the patient. I have also reviewed all the pertinent lab results and diagnostic results. I agree with the findings and the plan of care as documented in the PA's/BRAND LEAD's documentation. [x] I have reviewed the ED Record and agree with the PA's/BRAND LEAD's documentation. [] Additions or exceptions (if any) to the PAs/BRAND LEAD's note and plan are summarized below: [] (CAROLYN MARQUES,ANTHONY Gonzalez)
[2016-07-26 19:43] VITALS: BP 130/78
== END 2016-07-26 19:48 ==
LOC: ERH 15:45
DX: L03.114 Cellulitis of left upper limb (principal)

== ENCOUNTER 2016-09-15 14:41 | Inpatient (IN) | payer OTHER ==
[~2016-09-15] VITALS: Ht 185.4 cm; Wt 99.8 kg
[~2016-09-15 14:41] MED LIST changes: +AMOXICILLIN500 M3 PO; +BACTRIM DS TAB1 EACH PO
[2016-09-15 15:29] LABS: ABSOLUTE BASOPHIL COUNT 0 /CUMM (0.0-0.2); ABSOLUTE EOSINOPHIL COUNT 0.3 /CUMM (0.0-0.7); ABSOLUTE GRANULOCYTE CT 5.5 /CUMM (1.4-6.5); ABSOLUTE LYMPH COUNT 1.3 /CUMM (1.2-3.4); ABSOLUTE MONOCYTE COUNT 0.8 /CUMM (0.10-0.60); BASOPHIL % 0.3 % (0.0-2.0); EOSINOPHIL % 3.3 % (0-5); GRANULOCYTE % 70.4 % (42.2-75.2); HEMATOCRIT 36.4 % (42-52); MEAN CORPUSCULAR HGB 23.9 PG (27.0-31.0); MEAN CORPUSCULAR HGB CONC 30.4 G/DL (33.0-37.0); MEAN CORPUSCULAR VOLUME 78.4 FL (80.0-94.0); PLATELET COUNT 265 /CUMM (130-400); RBC DISTRIBUTION WIDTH 21.5 % (11.5-14.5); RED BLOOD CELL CT 4.64 /CUMM (4.70-6.10); WHITE BLOOD CELL COUNT 7.8 /CUMM (4.8-10.8)
--- NOTE | 2016-09-15 15:55 | RADIOLOGY REPORT ---
EXAMINATION: XR CHEST CLINICAL INFORMATION: Wheezing. Evaluate for pneumonia. COMPARISON: Chest x-ray 07/05/2016. TECHNIQUE: PA and lateral views of the chest were obtained. FINDINGS: The lungs are hypoinflated. There is bibasilar dependent atelectasis. No focal airspace consolidation is identified. No pleural effusions or pneumothoraces are identified. Cardiomediastinal contours are stable. Soft tissues are unremarkable. No acute osseous abnormality is identified. IMPRESSION: Pulmonary hypoinflation and bronchovascular crowding. Minimal dependent bibasilar atelectasis. Otherwise, no acute pulmonary process.
--- NOTE | 2016-09-15 16:03 | ED DYSPNEA/ASTHMA COMPLAINT ---
History of Present Illness General Chief Complaint: Upper Respiratory Sx/Fever Stated Complaint: URI X 3DYS Source: patient Exam Limitations: no limitations Vital Signs & Intake/Output Vital Signs & Intake/Output Vital Signs Date Time Temp Pulse Resp B/P Pulse O2 O2 Flow FiO2 Ox Delivery Rate 09/15 1750 97 Nasal 2.0L Cannula 09/15 1712 97.2 97 24 160/80 91 Nasal 2.0L Cannula 09/15 1500 98.9 102 20 153/79 91 Room Air Allergies Coded Allergies: hydrocodone (From VICODIN) (Intermediate, SEVERE HALLUCINATIONS 07/05/16) hydromorphone (From DILAUDID) (Intermediate, SEVERE HALLUCINATIONS 07/05/16) morphine (Intermediate, WILD DREAMS, GI UPSET, SEVERE HALLUCINATIONS 07/05/16) oxycodone (From PERCOCET) (Intermediate, SEVERE HALLUCINATIONS 07/05/16) lactose (DIARRHEA 07/05/16) Reconcile Medications Albuterol Sulfate (Proair Hfa) 90 MCG HFA.AER.AD 2 PUF INH Q4H PRN RESPIRATORY (Reported) Alendronate Sodium (Fosamax) 70 MG TABLET 1 TAB PO QTHURS OSTEOPOROSIS ( Reported) in the morning, at least 30 minutes before the first food, beverage, or medication of the day Alprazolam 0.25 MG TABLET 1 TAB PO Q12H PRN ANXIETY (Reported) Aspirin (Ecotrin*) 325 MG TABLET.DR 1 TAB PO DAILY HEART/BLOOD (Reported) Atenolol (Tenormin) 25 MG TABLET 1 TAB PO DAILY BP (Reported) Buspirone HCl 5 MG TABLET 1 TAB PO TID ANXIETY (Reported) Calcium Polycarbophil (Fibercon) 625 MG TABLET 2 TAB PO DAILY STOMACH Clopidogrel Bisulfate (Plavix) 75 MG TABLET 1 TAB PO DAILY BLOOD THINNER ( Reported) Cyanocobalamin (Vitamin B-12) 1,000 MCG TABLET 1 TAB PO DAILY SUPPLEMENT ( Reported) Cyclobenzaprine HCl 5 MG TABLET 1 TAB PO DAILY MUSCLE SPASMS (Reported) Furosemide (Lasix) 20 MG TABLET 1 TAB PO DAILY DIURETIC (Reported) Gabapentin (Neurontin) 300 MG CAPSULE 1 CAP PO TID NERVE PAIN (Reported) Lansoprazole (Prevacid) 30 MG TAB.RAP.DR 1 TAB PO DAILY GI (Reported) Levothyroxine Sodium 50 MCG TABLET 1 TAB PO DAILY THYROID (Reported) Lidocaine (Lidoderm) 1 EACH ADH..PATCH 1 PAT TOP DAILY PAIN (Reported) may wear up to 12 hours Multivitamin (Multiple Vitamins) 1 EACH TABLET 1 TAB PO DAILY SUPPLEMENT ( Reported) Potassium Chloride 10 MEQ TAB.ER.PRT 1 TAB PO DAILY SUPPLEMENT (Reported) Prednisone 20 MG TABLET 1 TAB PO DAILY RA (Reported) Ramipril (Altace) 10 MG CAPSULE 1 CAP PO DAILY BP (Reported) Rosuvastatin Calcium (Crestor) 40 MG TABLET 1 TAB PO QPM CHOLESTEROL ( Reported) Sertraline HCl 50 MG TABLET 1 TAB PO DAILY MENTAL HEALTH (Reported) Sulfamethoxazole/Trimethoprim (Bactrim Ds Tablet) 800 MG-160 MG TABLET 1 TAB PO BID CELLULITIS Tofacitinib Citrate (Xeljanz) 5 MG TABLET 1 TAB PO BID rheumatoid arthritis ( Reported) Triage Note: PT TO ED FOR ONE DAY OF COUGH, WHEEZING, SOB AND WEAKNESS WITH LOWER RQ ABD PAIN. PT REPORTING PRODUCTIVE COUGH WITH WHITE SPUTUM, SPEAKING IN FULL SENTENCES IN TRIAGE, AUDIBLE WHEEZE. PT REPORTING HIS NORMAL 02 SAT IS BETWEEN 89-92%. Triage Nurses Notes Reviewed? yes Onset: Gradual Duration: constant Timing: recent history Severity: moderate Prior Episodes/Possible Cause: chronic episodes HPI: This 71-year-old gentleman with past medical history of coronary artery disease, DE, angioplasty, back surgery, adrenal insufficiency, COPD ON HOME PRN O2 (NOT DEPENDENT)depression, hypothyroidism, sepsis status post cholecystectomy, hypertension, hyperlipidemia, JUN 2016 MULTILOBAR PNA, who presents emergency room with a 2 day history of gradual onset of wheezing shortness of breath productive cough fever chills body aches and generalized not feeling well. Denies any similar sick contacts. Denies any smoking history. Denies any chest pain arm pain jaw pain. Patient states that due to multiple since the coughing he has right-sided abdominal wall point tenderness Patient's had decreased by mouth intake however no nausea or vomiting has occurred. Denies any leg swelling. Denies any hemoptysis. Patient states that symptoms are very similar to previous admissions due to pneumonia. (ELSIE NIETO,PARRISH) Past History Travel History Traveled to [place] past 21 day No Medical History Any Pertinent Medical History? see below for history Neurological: peripheral neuropathy EENT: cataracts Cardiovascular: CAD (s/p ST elevation DE), hypertension, hyperlipidemia, myocardial infarction, non-ST patient DE, status post angioplasty/stent x 3 in 2006 Respiratory: bronchitis, pneumonia, history of bronchospasm and hypercarbia Gastrointestinal: GERD (minimal), lactose intolerance, 10/27/2014: ERCP WITH ES/ CBD STONE EXTRACTION FOR CHOLANGITIS incidental duodenal polyp in bulb, seen on 10/27/14: ERCP (left intact) benign colon polyps removed via colonoscopy at [facility] approx 2012 Hepatic: NONE Renal: ACUTE RENAL FAILURE- RESOLVED Musculoskeletal: fracture (R humerus, R hip, L ribs), osteoarthritis, rheumatoid arthritis, R hip fracture S/P ORIF R COMMUTED HUMERUS FX Psychiatric: anxiety, depression, insomnia Endocrine: adrenal insufficiency, hypothyroidism, obesity, elevated blood sugars Blood Disorders: anemia Cancer(s): 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 FH: CVA (cerebrovascular accident) SISTER, , Age 71; Cause: Multiple sclerosis. FH: brain cancer SISTER, , Age 55; Cause: Brain cancer. FATHER ( of a myocardial infarction in his 60's). , Age 63; Cause: Myocardial infarct. SISTER ( of multiple sclerosis). Hx Contributory? No (PARRISH BROOKS) Review of Systems Review of Systems Constitutional: Reports: see HPI. EENTM: Reports: no symptoms. Respiratory: Reports: see HPI, cough, short of breath, wheezing. Cardiovascular: Reports: no symptoms. GI: Reports: see HPI, abdominal pain. Genitourinary: Reports: no symptoms. Musculoskeletal: Reports: no symptoms. Skin: Reports: no symptoms. Neurological/Psychological: Reports: no symptoms. Hematologic/Endocrine: Reports: no symptoms. Immunologic/Allergic: Reports: no symptoms. All Other Systems: Reviewed and Negative (PARRISH BROOKS) Physical Exam Physical Exam General Appearance: alert, awake Respiratory: chest non-tender, crackles, respiratory distress, MILD RESPIRATORY DISTRESS Gastrointestinal: normal bowel sounds, soft, RIGHT-SIDED GENERALIZED ABDOMINAL POINT TENDERNESS NOTED, NO REBOUND TENDERNESS NO PERITONEAL SIGNS NO LEFT-SIDED ABDOMINAL POINT TENDERNESS Comments: HEENT: Normal EENT exam, Neck: Supple, no lymphadenopathy, normal range of motion without pain or tenderness Back: Nontender, no CVA tenderness. Cardiovascular: Regular rate and rhythms no murmurs rubs or gallops, normal JVP Extremity: No edema, no calf tenderness to palpation, normal and equal pulses. Neuro: Alert oriented x3, motor sensory normal, Skin: No appreciable rash on exposed skin, skin is warm and dry. Psych: Mood and affect is normal, memory and judgment is normal. Core Measures ACS in differential dx? Yes Severe Sepsis Present: No Septic Shock Present: No (ELSIE NIETO,PARRISH) Progress Differential Diagnosis: asthma, AMI, bronchitis, costochondritis, CHF, COPD, musculoskeletal pain, pericarditis, pulmonary embolism, pneumonia, pneumothorax, unstable angina, KIDNEY STONE Plan of Care: Orders Procedure Date/time Status Patient Data 09/15 1831 Active Admit to inpatient 09/15 1816 Active URINALYSIS 09/15 1814 Active ARTERIAL BLOOD GAS (GEN) 09/15 1612 Complete Add-on Test (ER Only) 09/15 1611 Active RAPID VIRAL INFLUENZA A 09/15 1610 Complete LOWER RESPIRATORY CULTURE 09/15 1610 Active BLOOD CULTURE 09/15 1610 Active THYROID STIMULATING HORMONE 09/15 1517 Complete TROPONIN LEVEL 09/15 1517 Complete THYROXINE 09/15 1517 Complete MAGNESIUM 09/15 1517 Complete LACTIC ACID 09/15 1517 Complete B-TYPE NATRIURETIC PEP (BNP) 09/15 1517 Complete EKG 09/15 1503 Active COMPREHENSIVE METABOLIC PANEL 09/15 1501 Complete CBC WITHOUT DIFFERENTIAL 09/15 1501 Complete Current Medications Sig/Luis Start time Last Medication Dose Stop Time Status Admin Azithromycin 500 MG ONCE ONE 09/15 1800 AC (Zithromax) 09/15 1859 Sodium Chloride 250 ML (Normal Saline 0.9%) Laboratory Tests 09/15/16 1630: pH 7.34 L, pCO2 69 *H, pO2 57 L, HCO3 36 H, ABG O2 Sat (Measured) 87.0 L, P- 50 (Temp Corrected) N, Carboxyhemoglobin 0.5 L, O2 Concentration % R/A, Temperature 98.9, Phlebotomy Draw Site RIGHT RADIAL 09/15/16 1517: Anion Gap 7, Estimated GFR > 60, BUN/Creatinine Ratio 30.0 H, Glucose 125 H, Lactic Acid 1.3, Calcium 8.2 L, Magnesium 1.8, Total Bilirubin 0.4, AST 36, ALT 47, Alkaline Phosphatase 86, Troponin I < 0.01, Ppp-Y-Rhieluzkqfl Pept 204 H, Total Protein 6.3, Albumin 3.3 L, Globulin 3.0, Albumin/Globulin Ratio 1.1, TSH 10.200 H, Thyroxine (T4) 7.2, CBC w Diff NO MAN DIFF REQ, RBC 4.64 L, MCV 78.4 L, MCH 23.9 L, RDW 21.5 H, MPV 7.0 L, Gran % 70.4, Lymphocytes % 16.2 L, Monocytes % 9.8 H, Eosinophils % 3.3, Basophils % 0.3, Absolute Granulocytes 5.5, Absolute Lymphocytes 1.3, Absolute Monocytes 0.8 H, Absolute Eosinophils 0.3, Absolute Basophils 0, PUBS MCHC 30.4 L Microbiology 09/15 1752 BLOOD: Blood Culture - RECD 09/15 1645 BLOOD: Blood Culture - RECD 09/15 1616 NASOPHARYN: Influenza Virus A & B Rapid Smear - COMP 09/15 1610 LOWER RESP: Respiratory Culture - ORD 09/15 1610 LOWER RESP: Gram Stain - ORD Patient on initial examination showed mild mastoid distress in which she was administered 3 L of nasal cannula oxygen supplementation. Patient does have concerns of ABG of hypoxia and CO2 retention however he was alert and oriented. Patient will be admitted for concerns of COPD exacerbation. Patient also has an incidental finding of left-sided proximal ureter kidney stone however no signs of obstruction. Patient was complaining of right-sided abdominal wall pain He was offered ibuprofen by mouth. Patient was at 1 L of nasal cannula oxygen supplementation and no to be 92%. (ELSIE NIETO,PARRISH) Diagnostic Imaging: Viewed by Me: Radiology Read, CT Scan. Radiology Impression: SEE COMMENTS Initial ED EK BPM, NSR Comments: PATIENT: SHAKIR KELLEY III PRESENT AGE: 71 PATIENT ACCOUNT NO: [id number] : 43 LOCATION: [facility] ORDERING PHYSICIAN: PARRISH NIETO SERVICE DATE: 09/15/16 EXAM TYPE: CAT - CT ABD & PELVIS W/O IV CONTRAS; CT CHEST WO IV CONTRAST EXAMINATION: CT CHEST, ABDOMEN AND PELVIS WITHOUT CONTRAST CLINICAL INFORMATION: Cough, shortness of breath and wheezing. Right-sided abdominal wall pain. COMPARISON: CT abdomen and pelvis with contrast 06/25/2016. TECHNIQUE: Multidetector volumetric CT imaging of the chest, abdomen and pelvis was performed without intravenous contrast. Additional 2-D coronal and sagittal reformatted images and axial 3-D maximum intensity projection MIP images of the chest were generated on the acquisition workstation. DLP: 1262 mGy-cm. FINDINGS: CHEST: LUNGS/AIRWAYS: Evaluation of the lung parenchyma demonstrates dependent bibasilar atelectasis. No focal airspace consolidation is identified and there are no suspicious pulmonary nodules or masses. The central airways are patent, without endobronchial obstructing lesions. HEART/VESSELS: The heart is normal in size, without pericardial effusion. The thoracic aorta and main pulmonary artery are normal in caliber. There is bovine configuration of the aortic arch, characterized by common origin of the brachiocephalic and left common carotid arteries. Scattered coronary artery calcifications are identified. MEDIASTINUM/LYMPHATICS: There is no significant mediastinal, hilar or axillary adenopathy. The visualized portions of the thyroid gland appear unremarkable. PLEURA: No pleural effusions or pneumothoraces. CHEST WALL: Unremarkable. ABDOMEN AND PELVIS: LIVER, GALLBLADDER, AND BILIARY TREE: The liver is lobular in contour but otherwise normal in size, shape and attenuation. No contour deforming liver lesions are identified and there is no appreciable biliary ductal dilatation. The gallbladder is surgically absent. No intrahepatic or extrahepatic biliary ductal dilatation is identified. PANCREAS: Unremarkable. SPLEEN: Unremarkable. ADRENAL GLANDS: Unremarkable. KIDNEYS AND URETERS: Evaluation of the bilateral kidneys and renal collecting systems is notable for a 5 mm stone within the proximal left ureter, less than 1 cm from the left ureteral pelvic junction. There is no appreciable hydroureteronephrosis of the left kidney or left renal collecting system. No right-sided renal stones or ureteral stones are identified. Mild bilateral perinephric stranding is entirely nonspecific and may reflect senescent changes. No contour deforming renal lesions are visualized. BLADDER: Redemonstrated are multiple bladder wall diverticula. GASTROINTESTINAL TRACT: Normal anatomic orientation of the stomach relative to the duodenum. Normal caliber of abdominal and pelvic bowel loops, without evidence of obstruction or ileus. No circumferential bowel wall thickening with surrounding inflammatory changes to suggest an underlying infectious or inflammatory enterocolitis. Nonvisualization of the appendix. No acute inflammatory changes within the right lower quadrant of the abdomen. No organizing intra-abdominal fluid collections or free intraperitoneal air. ABDOMINAL WALL: Small fat-containing bilateral inguinal hernias. LYMPH NODES: No significant abdominal or pelvic adenopathy. VASCULAR: Scattered atherosclerosis of the abdominal aorta and its branching vessels, without aneurysmal dilatation. Limited evaluation for vascular patency given lack of intravenous contrast. PELVIC VISCERA: Unremarkable. OSSEOUS STRUCTURES: No acute osseous abnormality. Moderate to severe multilevel degenerative disc disease and facet arthrosis of the imaged thoracolumbar spine with chronic appearing compression deformities involving several thoracic vertebral bodies. Specifically, there are chronic compression deformities involving the T9-T12 vertebral bodies with approximately 50% disc height loss centrally. There are also chronic compression deformities of the L3, L4 and L5 vertebral bodies with less than 25% disc height loss centrally. No destructive osseous lesions are identified. IMPRESSION: 1. Bibasilar subsegmental atelectasis. No focal airspace consolidation to suggest infection. 2. Incidental 0.5 cm stone within the proximal left ureter, less than 1 cm from the left ureteral pelvic junction. No appreciable hydroureteronephrosis of the left kidney or left renal collecting system. No appreciable nephrolithiasis of the right kidney. No right-sided ureteral stones and no hydronephrosis of the right kidney. (PARRISH BROOKS) Departure Departure Disposition: STILL A PATIENT Condition: Guarded Clinical Impression Primary Impression: COPD (chronic obstructive pulmonary disease) Secondary Impressions: Kidney stone on left side, Respiratory failure Referrals: JOHNY MARQUES,CLIFF Mckinney (PCP/Family) Departure Forms: Customer Survey General Discharge Information Admission Note Spoke With: NURIA RODRIGEZ MD Documentation of Exam: Documentation of any treatments & extenuating circumstances including Concerns Regarding Discharge (functional status, medication knowledge or non-compliance, living conditions, etc.) that warrant an admission rather than observation: [ Discussed patient with Dr. GONZALEZ who agrees with general medicine admission for concerns of COPD. Patient requires IV steroids, IV azithromycin, repeat nebulizer treatments, pulmonary consultation and neurology consultation for kidney stone. Outpatient treatment at this time due to concerns of respiratory failure would be medically harmful] (PARRISH BROOKS) PA/CANDY DECORATOR Co-Sign Statement Statement: ED Attending supervision documentation- [X] I saw and evaluated the patient. I have also reviewed all the pertinent lab results and diagnostic results. I agree with the findings and the plan of care as documented in the PA's/CANDY DECORATOR's documentation. [X] I have reviewed the ED Record and agree with the PA's/CANDY DECORATOR's documentation. [] Additions or exceptions (if any) to the PAs/CANDY DECORATOR's note and plan are summarized below: [] (FIDENCIO MARQUES,VOLODYMYR Stone) Critical Care Note Critical Care Note Critical Care Time: 30-74 min (ELSIE NIETO,PARRISH)
--- NOTE | 2016-09-15 17:36 | CT SCAN REPORT ---
EXAMINATION: CT CHEST, ABDOMEN AND PELVIS WITHOUT CONTRAST CLINICAL INFORMATION: Cough, shortness of breath and wheezing. Right-sided abdominal wall pain. COMPARISON: CT abdomen and pelvis with contrast 06/25/2016. TECHNIQUE: Multidetector volumetric CT imaging of the chest, abdomen and pelvis was performed without intravenous contrast. Additional 2-D coronal and sagittal reformatted images and axial 3-D maximum intensity projection MIP images of the chest were generated on the acquisition workstation. DLP: 1262 mGy-cm. FINDINGS: CHEST: LUNGS/AIRWAYS: Evaluation of the lung parenchyma demonstrates dependent bibasilar atelectasis. No focal airspace consolidation is identified and there are no suspicious pulmonary nodules or masses. The central airways are patent, without endobronchial obstructing lesions. HEART/VESSELS: The heart is normal in size, without pericardial effusion. The thoracic aorta and main pulmonary artery are normal in caliber. There is bovine configuration of the aortic arch, characterized by common origin of the brachiocephalic and left common carotid arteries. Scattered coronary artery calcifications are identified. MEDIASTINUM/LYMPHATICS: There is no significant mediastinal, hilar or axillary adenopathy. The visualized portions of the thyroid gland appear unremarkable. PLEURA: No pleural effusions or pneumothoraces. CHEST WALL: Unremarkable. ABDOMEN AND PELVIS: LIVER, GALLBLADDER, AND BILIARY TREE: The liver is lobular in contour but otherwise normal in size, shape and attenuation. No contour deforming liver lesions are identified and there is no appreciable biliary ductal dilatation. The gallbladder is surgically absent. No intrahepatic or extrahepatic biliary ductal dilatation is identified. PANCREAS: Unremarkable. SPLEEN: Unremarkable. ADRENAL GLANDS: Unremarkable. KIDNEYS AND URETERS: Evaluation of the bilateral kidneys and renal collecting systems is notable for a 5 mm stone within the proximal left ureter, less than 1 cm from the left ureteral pelvic junction. There is no appreciable hydroureteronephrosis of the left kidney or left renal collecting system. No right-sided renal stones or ureteral stones are identified. Mild bilateral perinephric stranding is entirely nonspecific and may reflect senescent changes. No contour deforming renal lesions are visualized. BLADDER: Redemonstrated are multiple bladder wall diverticula. GASTROINTESTINAL TRACT: Normal anatomic orientation of the stomach relative to the duodenum. Normal caliber of abdominal and pelvic bowel loops, without evidence of obstruction or ileus. No circumferential bowel wall thickening with surrounding inflammatory changes to suggest an underlying infectious or inflammatory enterocolitis. Nonvisualization of the appendix. No acute inflammatory changes within the right lower quadrant of the abdomen. No organizing intra-abdominal fluid collections or free intraperitoneal air. ABDOMINAL WALL: Small fat-containing bilateral inguinal hernias. LYMPH NODES: No significant abdominal or pelvic adenopathy. VASCULAR: Scattered atherosclerosis of the abdominal aorta and its branching vessels, without aneurysmal dilatation. Limited evaluation for vascular patency given lack of intravenous contrast. PELVIC VISCERA: Unremarkable. OSSEOUS STRUCTURES: No acute osseous abnormality. Moderate to severe multilevel degenerative disc disease and facet arthrosis of the imaged thoracolumbar spine with chronic appearing compression deformities involving several thoracic vertebral bodies. Specifically, there are chronic compression deformities involving the T9-T12 vertebral bodies with approximately 50% disc height loss centrally. There are also chronic compression deformities of the L3, L4 and L5 vertebral bodies with less than 25% disc height loss centrally. No destructive osseous lesions are identified. IMPRESSION: 1. Bibasilar subsegmental atelectasis. No focal airspace consolidation to suggest infection. 2. Incidental 0.5 cm stone within the proximal left ureter, less than 1 cm from the left ureteral pelvic junction. No appreciable hydroureteronephrosis of the left kidney or left renal collecting system. No appreciable nephrolithiasis of the right kidney. No right-sided ureteral stones and no hydronephrosis of the right kidney.
[2016-09-15] MEDS ORDERED: PROAIR HFA8.5 GM INH (18:26)
[2016-09-15] MEDS ORDERED: CYCLOBENZAPRINE5 M2 PO (18:33)
[2016-09-15 21:30] VITALS: BP 163/103
--- NOTE | 2016-09-15 23:09 | History & Physical ---
MILLICENT MARQUES,CHUY 09/15/16 1272: General Information and HPI MD Statement: I have seen and personally examined SHAKIR KELLEY III and documented this H&P. The patient is a 71 year old M who presented with a patient stated chief complaint of [sob, cough]. Source of Information: patient, old records Exam Limitations: no limitations History of Present Illness: This is a 71-year-old male with past medical history significant for CAD status post STEMI and angioplasty, RA on DMARD, adrenal insufficiency 2/2 chronic steroid, hypothyroidism, hypertension, COPD-no history of smoking, had last admission to [facility] on 06/2016 for multilobar pneumonia, who comes in with chief complaint of shortness of breath and cough. Cough is not productive. Patient states that he noted symptoms for the past 3 days. In addition, he endorses chills, malaise, and an increase in lower extremity edema. Denies any fevers but endorses chest pain in the epigastrium that is worse with exertion. He states he felt similarly when he got pneumonia and decided to come to hospital before symptoms worsened. In addition, he endorses right lower quadrant abdominal pain that is worsened with cough. Denies any change in bladder or bowel movement, dizziness, headache, recent sick contacts or travel. Allergies/Medications Allergies: Coded Allergies: hydrocodone (From VICODIN) (Intermediate, SEVERE HALLUCINATIONS 07/05/16) hydromorphone (From DILAUDID) (Intermediate, SEVERE HALLUCINATIONS 07/05/16) morphine (Intermediate, WILD DREAMS, GI UPSET, SEVERE HALLUCINATIONS 07/05/16) oxycodone (From PERCOCET) (Intermediate, SEVERE HALLUCINATIONS 07/05/16) lactose (DIARRHEA 07/05/16) Home Med list Albuterol Sulfate (Proair Hfa) 90 MCG HFA.AER.AD 2 PUF INH Q4H PRN RESPIRATORY (Reported) Alendronate Sodium (Fosamax) 70 MG TABLET 1 TAB PO Q FRIDAY OSTEOPOROSIS ( Reported) in the morning, at least 30 minutes before the first food, beverage, or medication of the day Alprazolam 0.25 MG TABLET 1 TAB PO Q12H PRN ANXIETY (Reported) Aspirin (Ecotrin*) 325 MG TABLET.DR 1 TAB PO DAILY HEART/BLOOD (Reported) Atenolol (Tenormin) 25 MG TABLET 1 TAB PO DAILY BP (Reported) Buspirone HCl 5 MG TABLET 1 TAB PO TID ANXIETY (Reported) Clopidogrel Bisulfate (Plavix) 75 MG TABLET 1 TAB PO DAILY BLOOD THINNER ( Reported) Cyanocobalamin (Vitamin B-12) 1,000 MCG TABLET 1 TAB PO DAILY SUPPLEMENT ( Reported) Cyclobenzaprine HCl 5 MG TABLET 1 TAB PO DAILY MUSCLE SPASMS (Reported) Furosemide (Lasix) 20 MG TABLET 1 TAB PO DAILY DIURETIC (Reported) Gabapentin (Neurontin) 300 MG CAPSULE 1 CAP PO TID NERVE PAIN (Reported) Lansoprazole (Prevacid) 30 MG TAB.RAP.DR 1 TAB PO DAILY GI (Reported) Levothyroxine Sodium 50 MCG TABLET 1 TAB PO DAILY THYROID (Reported) Multivitamin (Multiple Vitamins) 1 EACH TABLET 1 TAB PO DAILY SUPPLEMENT ( Reported) Potassium Chloride 10 MEQ TAB.ER.PRT 1 TAB PO DAILY SUPPLEMENT (Reported) Prednisone 20 MG TABLET 1 TAB PO DAILY RA (Reported) Ramipril (Altace) 10 MG CAPSULE 1 CAP PO DAILY BP (Reported) Rosuvastatin Calcium (Crestor) 40 MG TABLET 1 TAB PO QPM CHOLESTEROL ( Reported) Sertraline HCl 50 MG TABLET 1 TAB PO DAILY MENTAL HEALTH (Reported) Tofacitinib Citrate (Xeljanz) 5 MG TABLET 1 TAB PO BID rheumatoid arthritis ( Reported) Compliance With Home Meds: UNKNOWN Past History Travel History Traveled to [place] past 21 day No Medical History Neurological: peripheral neuropathy EENT: cataracts Cardiovascular: CAD (s/p ST elevation [place]), hypertension, hyperlipidemia, myocardial infarction, non-ST patient [place], status post angioplasty/stent x 3 in 2006 Respiratory: bronchitis, pneumonia, history of bronchospasm and hypercarbia Gastrointestinal: GERD (minimal), lactose intolerance, 10/27/2014: ERCP WITH ES/ CBD STONE EXTRACTION FOR CHOLANGITIS incidental duodenal polyp in bulb, seen on 10/27/14: ERCP (left intact) benign colon polyps removed via colonoscopy at [facility] approx 2012 Hepatic: NONE Renal: ACUTE RENAL FAILURE- RESOLVED Musculoskeletal: fracture (R humerus, R hip, L ribs), osteoarthritis, rheumatoid arthritis, R hip fracture S/P ORIF R COMMUTED HUMERUS FX Psychiatric: anxiety, depression, insomnia Endocrine: adrenal insufficiency, hypothyroidism, obesity, elevated blood sugars Blood Disorders: anemia Cancer(s): NONE FRY COOK/Reproductive: NONE History of MRSA: No History of VRE: Yes History of CDIFF: No Isolation History: Contact Tetanus Vaccine: 01/05/16 Surgical History Surgical History: cholecystectomy, cholecystostomy tube ORIF R hip back surgery Past Family/Social History Family History Relations & Conditions if any MOTHER, , Age 89; Cause: Old age. FH: CVA (cerebrovascular accident) SISTER, , Age 71; Cause: Multiple sclerosis. FH: brain cancer SISTER, , Age 55; Cause: Brain cancer. FATHER ( of a myocardial infarction in his 60's). , Age 63; Cause: Myocardial infarct. SISTER ( of multiple sclerosis). Psychosocial History Who Do You Live With? self Services at Home: Home Health Aide Primary Language: Belarusian Smoking Status: Unknown If Ever Smoked ETOH Use: denies use Illicit Drug Use: denies illicit drug use Living Will? no Power of Director Of Pupil Personnel Program/HCP? yes Name of POA/HCP: Pt's sonDandre Functional Ability ADLs Independent: dressing, eating, toileting, bathing. Ambulation: independent IADLs Independent: shopping, housework, finances, food prep, telephone, transportation , medication admin. Review of Systems Review of Systems Constitutional: Reports: chills, malaise. Denies: diaphoresis, fever, weakness. EENTM: Reports: no symptoms. Cardiovascular: Reports: chest pain, peripheral edema. Denies: palpitations. Respiratory: Reports: cough, short of breath. Denies: hemoptysis, sputum production. GI: Reports: no symptoms. Genitourinary: Reports: no symptoms. Musculoskeletal: Reports: no symptoms. Skin: Reports: no symptoms. Exam & Diagnostic Data Last 24 Hrs of Vital Signs/I&O Vital Signs Date Time Temp Pulse Resp B/P Pulse O2 O2 Flow FiO2 Ox Delivery Rate 09/15 2129 98.2 111 21 163/103 95 Nasal 2.0L Cannula 09/16 2043 98.5 110 20 166/86 85 Nasal 1.0L Cannula 09/15 1910 98.2 112 24 150/100 93 Nasal 2.0L Cannula 09/15 1851 Nasal 1.0L Cannula 09/15 1750 97 Nasal 2.0L Cannula 09/15 171 97.2 97 24 160/80 91 Nasal 2.0L Cannula 09/15 1500 98.9 102 20 153/79 91 Room Air Intake & Output 09/16 0800 09/16 0000 09/15 1600 Intake Total Output Total 200 Balance -200 Output, Urine 200 Patient 99.79 kg Weight Physical Exam General Appearance Alert, Oriented X3, Cooperative, No Acute Distress Skin No Rashes, No Breakdown, No Significant Lesion HEENT PERRLA, EOMI, Mucous Membr. moist/pink Neck Supple Cardiovascular Regular Rate, Normal S1, Normal S2, No Murmurs Lungs diffuse wheezes through all lung zabala, crackles present; some rhonchi. Abdomen Soft, No Tenderness Neurological Normal Speech, Strength at 5/5 X4 Ext, Normal Tone Extremities 1+ edema in bilat LE Last 24 Hrs of Labs/Kain: Laboratory Tests 09/15/16 1900: Urine Color YEL, Urine Clarity CLEAR, Urine pH 6.0, Ur Specific [place] 1.020, Urine Protein NEG, Urine Ketones NEG, Urine Nitrite NEG, Urine Bilirubin NEG, Urine Urobilinogen 0.2, Ur Leukocyte Esterase NEG, Ur Microscopic EXAM NOT REQUIRED, Urine Hemoglobin NEG, Urine Glucose NEG 09/15/16 1630: pH 7.34 L, pCO2 69 *H, pO2 57 L, HCO3 36 H, ABG O2 Sat (Measured) 87.0 L, P- 50 (Temp Corrected) N, Carboxyhemoglobin 0.5 L, O2 Concentration % R/A, Temperature 98.9, Phlebotomy Draw Site RIGHT RADIAL 09/15/16 1517: Anion Gap 7, Estimated GFR > 60, BUN/Creatinine Ratio 30.0 H, Glucose 125 H, Lactic Acid 1.3, Calcium 8.2 L, Magnesium 1.8, Total Bilirubin 0.4, AST 36, ALT 47, Alkaline Phosphatase 86, Troponin I < 0.01, Hlu-N-Culyjsarxsn Pept 204 H, Total Protein 6.3, Albumin 3.3 L, Globulin 3.0, Albumin/Globulin Ratio 1.1, TSH 10.200 H, Thyroxine (T4) 7.2, CBC w Diff NO MAN DIFF REQ, RBC 4.64 L, MCV 78.4 L, MCH 23.9 L, RDW 21.5 H, MPV 7.0 L, Gran % 70.4, Lymphocytes % 16.2 L, Monocytes % 9.8 H, Eosinophils % 3.3, Basophils % 0.3, Absolute Granulocytes 5.5, Absolute Lymphocytes 1.3, Absolute Monocytes 0.8 H, Absolute Eosinophils 0.3, Absolute Basophils 0, PUBS MCHC 30.4 L Microbiology 09/15 1752 BLOOD: Blood Culture - RECD 09/15 1645 BLOOD: Blood Culture - RECD 09/15 1616 NASOPHARYN: Influenza Virus A & B Rapid Smear - COMP 09/15 1610 LOWER RESP: Respiratory Culture - ORD 09/15 161 LOWER RESP: Gram Stain - ORD Assessment/Plan Assessment: This is a 71-year-old male with past history significant for STEMI status post angioplasty, are a on DMARD, adrenal insufficiency on chronic prednisone, comes in with chief complaint of chills, cough, shortness of breath. Pt also noted to have some epigastric and RLQ pain. ED workup shows: 98.2, 112, 24, 160/80, 91. Negative UA. AB.34/69/36 CBC shows white count 7.8, hemoglobin 11.1, hematocrit 36.4. BEP: BUN 24, creatinine 0.8. TSH 10. BNP 204. CT of abdomen and chest show subsegmental atelectasis and some nonobstructing nephrolithiasis. Plan: 1. Hypercarbic respiratory failure:Suspect a viral upper respiratory syndrome possibly precipitating bronchospasm and exacerbating existing lung disease. Note that patient has questionable hx of COPD without history of smoking and no PFTs on record. However, he is on Rituxan and Tofacitinib with of which can increase risk for infection, and cough. In addition, Rituxan is known to cause bronchospasm and dyspnea. Patient has no white count, has been afebrile in ED. However he was satting low 90s with heart rate 112. His ABG shows pH 7.34, CO2 69 and bicarbonate 36 adjusting compensated after acidosis. Note BNP 204 and patient has trace lower extremity edema. * Urine toxicology * TRC * IV Solu-Medrol 40 mg every 8 hours * Consider pulmonary consult * Azithromycin * Flu swab * Lactic acid * Recent worsens consider repeating ABG * Currently holding off any other antibiotic * supplemental o2 2. Hypothyroidism: Patient has TSH 10, but with nml T3 and T4. Repeat labs in a.m. Note the patient is already on thyroid supplementation. * Continue current thyroid supplementation * Repeat thyroid function tests in a.m. * If continues to be abnormal consider calling endocrinology 3. CAD/HTN: Chronic and stable * Continue home regimen: Atenolol, aspirin, Plavix, Lipitor, lisinopril 4. Depression: Stable * Continue home regimen: buspar, xanax 5. Abdominal pain/ epigastric pain: no etiology visualized on CT. Pain assoc with coughing. Pt has had cholecystectomy. Con't monitor Will code Regular diet Chemical DVT prophylaxis As Ranked By This Provider Problem List: 1. Kidney stone on left side 2. COPD (chronic obstructive pulmonary disease) Core Measures/Miscellaneous Acute Coronary Syndrome ACS Diagnosis: No Cerebrovascular Accident CVA/TIA Diagnosis: No Congestive Heart Failure CHF Diagnosis: No Venous Thromboembolism VTE Risk Factors: Acute medical illness, Age > 40 No Mech VTE prophylaxis d/t: No contraindications No VTE Pharm Prophylaxis d/t: No contraindications VTE Diagnosis: No VTE Type: NONE VTE Confirmed by (Test): NONE Severe Sepsis Severe Sepsis Present: No Septic Shock Septic Shock Present: No Miscellaneous Documentation Attending Case Discussed With: NURIA RODRIGEZ MD Primary Care Physician: JOHNY MARQUES,CLIFF Mckinney Patient sees these Specialists UNKNOWN Level of Patient Care: General Medicine LUIS ALFREDO MARQUES,DENAE 09/15/16 2340: Resident Review Statement Resident Statement: examined this patient, discussed with international banker, agreed with international banker, discussed with family, reviewed EMR data (avail), discussed with nursing , discussed with case mgmt, reviewed images, amended to note Other Findings: Shakir is a 71-year-old man with medical history of coronary artery disease status post ST elevation myocardial infarction and angioplasty, rheumatoid arthritis adrenal insufficiency, hypothyroidism hypertension dyslipidemia hospitalization for multilobar pneumonia presents with three-day history of subjective chills malaise cough, mild increase in dependent edema in his legs. RA was tx with MTX, Rituxan in the past. He is on chronic prednisione (20mg/d). Is afebrile heart rate ranges 97 - 112 bpm, blood pressure 150/100 mmHg, he is 93% on 2 L. Examination notable for diffuse fine crackles, significant wheeze, rhonchorous breath sounds audible in all lung zabala. Labs unremarkable. ABG demonstrates compensated respiratory acidosis. EKG normal sinus rhythm. Chest x-ray demonstrates hyperinflation, bronchovascular crowding. CT chest abdomen pelvis demonstrate bibasilar sent subsegmental atelectasis without focal airspace consolidation. Incidental 0.5 cm stone within the proximal left ureter without appreciable hydroureteronephrosis. Right kidney is normal. Suspect viral upper respiratory tract infection precipitating bronchospasm in a patient with no history documented of COPD. He is a nonsmoker. Presently is afebrile without a white count and no focus of infection on chest x-ray or chest CT making pneumonia less likely. Of note, the patient is on a RAIZA inhibitor ( Tofacitinib), and has received rituxan infusions in the past. ?ILD, pulmonary fibrosis, CT findings not consistent with either conditions. - Problems - Hypercapneic Respiratory failure Bronchospasm CAD Rheumatoid arthritis Hypertension - Plan - Solumedrol 40mg q8 Albuterol inhalers q4 prn Supplemental O2 Cont. Azithromycin for now Pulmonary consultation Continue cardiac meds (aspirin, plavix, atenolol, statin) DVT ppx - lovenox FULL code NURIA RODRIGEZ 09/16/16 0408: Attending MD Review Statement Attending Statement Attending MD Statement: examined this patient, discuss w/resident/PA/INTERNAL INVESTIGATOR, agreed w/resident/PA/INTERNAL INVESTIGATOR, reviewed EMR data (avail), reviewed images, amended to note Attending Assessment/Plan: CC: cough and SOB PMH: CAD S/P [place] S/P 3 stents, adrenal insufficiency, hypothyroidism, HTN, HLD, RA, chronic respiratory failure, back surgery, osteopenia, anxiety and depression, severe sepsis at the time of cholecystectomy, requiring intubation, using nighttime oxygen at 1.5-2 L. Patient came to ER with a 2 day history of gradual onset of wheezing, shortness of breath, productive cough, subjective fever and chills, body aches. He denies any sick contacts, any smoking history, any chest pain arm pain jaw pain, no N/ V. Due to multiple coughing spells, he complains of right-sided abdominal wall point tenderness. He has decreased PO intake and generalized weakness. however no nausea or vomiting has occurred. He endorses on and off leg swelling, improving with leg elevation, he stopped taking Lasix because of frequent urination. Vital: Afebrile, tachycardic, tachypneic, BPH presentation 153/79, increased up to 163/103, saturating 93% on 2 L NC dropped up to 85% on 1 L. On examination: A O 3, mild respiratory distress, no accessory muscles of respiration in use, no JVD, no lymphadenopathy, mucosa moist, neck supple, no focal neurological deficit, +3 dependent edema bilateral lower extremity, lipoma /cyst occipital area . CVS: S1-S2, RRR. RS: Diffuse wheezing bilaterally, no crackles. Abdomen: Soft, right upper quadrant tenderness, bowel sounds present, no fluid thrill. Labs: WBC 7.8, neutrophils 70%, lymphocytes 16%, hemoglobin 11.1, bicarbonate 36 , lactate 1.3, otherwise BMP, LFT unremarkable, proBNP 204, troponin T less than 0.01, albumin 3.3, TSH 10.2, UA unremarkable, influenza negative CXR: Pulmonary hypoinflation, bronchovascular crowding CT abdomen and pelvis and chest without IV contrast: 1. Bibasilar subsegmental atelectasis. No focal airspace consolidation to suggest infection. 2. Incidental 0.5 cm stone within the proximal left ureter, less than 1 cm from the left ureteral pelvic junction. No appreciable hydroureteronephrosis of the left kidney or left renal collecting system. No appreciable nephrolithiasis of the right kidney. No right-sided ureteral stones and no hydronephrosis of the right kidney. A and P #1 acute on chronic hypercapnic respiratory failure: Denies smoking, patient has chronic lung disease with restrictive and obstructive pattern along with obesity hypoventilation syndrome (according to pulmonary note), intermittent oxygen and nighttime oxygen at home. Worsening of symptoms with productive cough, dyspnea, chills since 3 days. No evidence of pneumonia on CT Chest, no significant fever or leukocytosis. Diffuse wheezing throughout lung zabala, improved after IV Solu -Medrol, antibiotics, nebulizations in ER. ?Bronchitis. ABG showed hypercapnic respiratory failure, repeat four-hour after previous ABG, if persistently short of breath or decreased level of sensorium. Admit general medicine floor, patient on prednisone and biologic for RA, immunocompromised, Continue TRC, scheduled and when necessary nebulization albuterol and ipratropium, continue IV methylprednisolone 40 mg every 8 hours, continue IV azithromycin for now to my reassess need of antibiotics in a.m., Mucinex 600 mg by mouth twice a day, continue O2 by nasal cannula, tapered down gradually, sputum cultures, blood culture. Pulmonology consult in a.m. #2 bilateral lower extremity pitting edema: Patient was prescribed Lasix but currently not taking secondary to frequent urination, proBNP is normal, CT chest does not show any signs of vascular congestion. No JVD, Continue to hold Lasix #3 0.5 cm stone in the left ureter, no evidence of hydronephrosis, no evidence of UTI, no CVA tenderness, no pain on the left side of abdomen, conservative management #4 right upper quadrant pain : And tenderness, CT abdomen no evidence of CBD dilatation or stone, history of cholecystectomy. Liver enzymes and alkaline phosphatase normal, right upper quadrant ultrasound in a.m., rule out any CBD stones/ dilatation. #5 hypothyroidism: TSH is 10, repeat TSH T3-T4 in a.m., currently on 50 g levothyroxine, may need to increase dose to 75 if persistently elevated TSH, consult endocrine after repeating TSH tomorrow. #6 chronic stable conditions CAD, adrenal insufficiency, anxiety, depression, HTN, HLD, RA : Continue alendronate, alprazolam, aspirin, atenolol, buspirone, Plavix, Flexeril, gabapentin, Prevacid, ramipril, Crestor, sertraline and Tofacitinib.
[2016-09-16 01:00] VITALS: BP 140/97
--- NOTE | 2016-09-16 04:10 | Admission Certification ---
Admission Certification Certification Statement - As attending physician, I certify that at the time of - admission, based on clinical presentation, severity of - symptoms, need for further diagnostic testing and - therapeutic interventions, and risk of adverse outcomes - without in-hospital treatment, in my clinical assessment, - this patient requires an acute hospital stay for a minimum - of two nights or longer. I have also considered psychsocial - factors such as support system, advanced age, financial - issues, cognitive issues, and failed out-patient treatments, - past re-admission history, safety of patient, and lack of - compliance as applicable. Specific rationale supporting this admission is: Acute on chronic hypercapnic respiratory failure
[2016-09-16 06:20] VITALS: BP 170/90
--- NOTE | 2016-09-16 07:54 | PN- Housestaff ---
MIGUELANGEL ALAS 09/16/16 0754: Subjective Follow-up For: COPD exacerbation acute hypoxic hypercarbic respiratory failure Right upper quadrant abdominal pain Subjective: Patient seen and examined this morning he reports that his shortness of breath has improved however he still has expiratory wheezes. Patient also reports that he has this chronic right upper quadrant abdominal pain. He is status post cholecystectomy but he reports that the pain has never gone away. Labs and vitals reviewed. Patient has a TSH of 10.2, but T4 is 7.2. Review of Systems Constitutional: Reports: see HPI. Objective Last 24 Hrs of Vital Signs/I&O Vital Signs Date Time Temp Pulse Resp B/P Pulse O2 O2 Flow FiO2 Ox Delivery Rate 09/16 0929 90 170/90 09/16 0800 Nasal 1.0L Cannula 09/16 0634 90 170/90 09/16 0620 98.1 90 18 170/90 95 Nasal 1.0L Cannula 09/16 0100 108 140/97 09/16 0000 Nasal 1.0L Cannula 09/15 2130 98.2 111 21 163/103 95 Nasal 2.0L Cannula 09/15 2044 98.5 110 20 166/86 85 Nasal 1.0L Cannula 09/15 1911 98.2 112 24 150/100 93 Nasal 2.0L Cannula 09/15 1851 Nasal 1.0L Cannula 09/15 1750 97 Nasal 2.0L Cannula 09/15 1712 97.2 97 24 160/80 91 Nasal 2.0L Cannula 09/15 1500 98.9 102 20 153/79 91 Room Air Intake & Output 09/16 1600 09/16 0800 09/16 0000 Intake Total 120 240 Output Total 600 800 Balance -480 -560 Intake, Oral 120 240 Output, Urine 600 800 Patient 99.79 kg Weight Physical Exam General Appearance: Alert, Oriented X3, Cooperative, No Acute Distress Skin: No Rashes, No Breakdown HEENT: Atraumatic Neck: Supple Cardiovascular: Normal S1, Normal S2 Lungs: expiratry wheezes ntd n b/l lung exam Abdomen: tenderness to palpation in left upper quadrant Neurological: Normal Speech, Normal Tone Extremities: No Edema Current Medications: Current Medications Sig/Luis Start time Last Medication Dose Route Stop Time Status Admin Acetaminophen 650 MG Q6P PRN 09/15 2145 AC PO Albuterol Sulfate 2 PUF Q4P PRN 09/15 2230 AC INH Albuterol Sulfate 3 ML Q4P PRN 09/15 2215 AC INH Albuterol Sulfate 3 ML ONCE ONE 09/15 1800 DC 09/15 INH 09/15 1801 1848 Albuterol Sulfate 3 ML ONCE ONE 09/15 1615 DC 09/15 INH 09/15 1616 1635 Alendronate Sodium 70 MG QSAT 09/21 0700 AC PO Alprazolam 0.25 MG Q12P PRN 09/15 2245 AC PO 09/22 2244 Aspirin Buffered 325 MG DAILY 09/16 1000 AC 09/16 PO 0929 Atenolol 25 MG DAILY 09/16 1000 AC 09/16 PO 0929 Atorvastatin Calcium 80 MG 1700 09/16 1700 AC PO Azithromycin 500 MG 1900 09/16 1900 AC Sodium Chloride 250 ML IV Azithromycin 500 MG ONCE ONE 09/15 1800 DC 09/15 Sodium Chloride 250 ML IV 09/15 1859 1905 Buspirone HCl 5 MG TID 09/15 2231 AC 09/16 PO 0929 Clopidogrel Bisulfate 75 MG DAILY 09/16 1000 AC 09/16 PO 0929 Cyclobenzaprine HCl 5 MG DAILY 09/16 1043 AC PO Enoxaparin Sodium 40 MG DAILY 09/16 1000 AC 09/16 SC 0929 Gabapentin 300 MG TID 09/16 1043 AC PO Guaifenesin 0 .STK-MED ONE 09/15 1624 DC PO Guaifenesin 600 MG ONCE ONE 09/15 1615 DC 09/15 PO 09/15 1616 1624 Ibuprofen 0 .STK-MED ONE 09/15 1856 DC PO Ibuprofen 600 MG ONCE ONE 09/15 1830 DC 09/15 PO 09/15 1831 1905 Ipratropium [place] 2.5 ML ONCE ONE 09/15 1615 DC 09/15 INH 09/15 1616 1635 Ketorolac 15 MG Q6P PRN 09/15 2145 DC Tromethamine IV Levothyroxine Sodium 0.05 MG DAILY AC 09/16 0700 AC 09/16 PO 0618 Lisinopril 10 MG DAILY 09/16 1000 AC 09/16 PO 0634 Methylprednisolone 40 MG Q8 09/16 0600 AC 09/16 IV 0616 Methylprednisolone 0 .STK-MED ONE 09/15 1625 DC .ROUTE Methylprednisolone 125 MG ONCE ONE 09/15 1615 DC 09/15 IV 09/15 1616 1823 Non-Formulary 0 SEE ADMIN CRITERIA 09/15 2245 CAN Medication ANY Omeprazole 20 MG DAILY AC 09/16 0700 AC 09/16 PO 0618 Potassium Chloride 20 MEQ DAILY 09/16 1044 AC PO Sertraline HCl 50 MG DAILY 09/16 1000 AC 09/16 PO 0929 Last 24 Hrs of Lab/Kain Results Last 24 Hrs of Labs/Mics: Laboratory Tests 09/16/16 0730: Anion Gap 2 L, Estimated GFR > 60, BUN/Creatinine Ratio 27.1 H, CBC w Diff NO MAN DIFF REQ, RBC 4.64 L, MCV 78.7 L, MCH 23.9 L, RDW 21.2 H, MPV 7.4, Gran % 85.8 H, Lymphocytes % 9.0 L, Monocytes % 5.1, Eosinophils % 0.1, Basophils % 0 L, Absolute Granulocytes 8.3 H, Absolute Lymphocytes 0.9 L, Absolute Monocytes 0.5, Absolute Eosinophils 0, Absolute Basophils 0, PUBS MCHC 30.3 L 09/15/16 1900: Urine Color YEL, Urine Clarity CLEAR, Urine pH 6.0, Ur Specific [place] 1.020, Urine Protein NEG, Urine Ketones NEG, Urine Nitrite NEG, Urine Bilirubin NEG, Urine Urobilinogen 0.2, Ur Leukocyte Esterase NEG, Ur Microscopic EXAM NOT REQUIRED, Urine Hemoglobin NEG, Urine Glucose NEG 09/15/16 1630: pH 7.34 L, pCO2 69 *H, pO2 57 L, HCO3 36 H, ABG O2 Sat (Measured) 87.0 L, P- 50 (Temp Corrected) N, Carboxyhemoglobin 0.5 L, O2 Concentration % R/A, Temperature 98.9, Phlebotomy Draw Site RIGHT RADIAL 09/15/16 1517: Anion Gap 7, Estimated GFR > 60, BUN/Creatinine Ratio 30.0 H, Glucose 125 H, Lactic Acid 1.3, Calcium 8.2 L, Magnesium 1.8, Total Bilirubin 0.4, AST 36, ALT 47, Alkaline Phosphatase 86, Troponin I < 0.01, [id number] Pept 204 H, Total Protein 6.3, Albumin 3.3 L, Globulin 3.0, Albumin/Globulin Ratio 1.1, TSH 10.200 H, Thyroxine (T4) 7.2, CBC w Diff NO MAN DIFF REQ, RBC 4.64 L, MCV 78.4 L, MCH 23.9 L, RDW 21.5 H, MPV 7.0 L, Gran % 70.4, Lymphocytes % 16.2 L, Monocytes % 9.8 H, Eosinophils % 3.3, Basophils % 0.3, Absolute Granulocytes 5.5, Absolute Lymphocytes 1.3, Absolute Monocytes 0.8 H, Absolute Eosinophils 0.3, Absolute Basophils 0, PUBS MCHC 30.4 L Microbiology 09/15 1752 BLOOD: Blood Culture - RES 09/15 1645 BLOOD: Blood Culture - RES 09/15 161 NASOPHARYN: Influenza Virus A & B Rapid Smear - COMP 09/15 161 LOWER RESP: Respiratory Culture - CAN Cancelled: SPECIMEN NOT RECEIVED IN LABORATORY 09/15 1609 LOWER RESP: Gram Stain - CAN Cancelled: SPECIMEN NOT RECEIVED IN LABORATORY Assessment/Plan Assessment: Patient is 71-year-old male with past medical history of CAD status post MS and status post 3 stents on aspirin and Plavix, and renal insufficiency, hypothyroidism, HTN, HLD, RA, chronic respiratory failure, back surgery, osteopenia, anxiety and depression, severe sepsis at the time of cholecystectomy , requiring intubation, using nighttime oxygen at 1.5-2 L came to ER with 2 day history of gradual onset of wheezing, shortness of breath, productive cough, subjective fever and chills, body aches. He denies any sick contacts, any smoking history, any chest pain arm pain jaw pain, no N/V. Due to multiple coughing spells, he complains of right-sided abdominal wall point tenderness. He has decreased PO intake and generalized weakness. however no nausea or vomiting has occurred. He endorses on and off leg swelling, improving with leg elevation, he stopped taking Lasix because of frequent urination. Imaging done as inpatient Chest x-ray Pulmonary hypoinflation, bronchovascular crowding CT abdomen and pelvis and chest without IV contrast: 1. Bibasilar subsegmental atelectasis. No focal airspace consolidation to suggest infection. 2. Incidental 0.5 cm stone within the proximal left ureter, less than 1 cm from the left ureteral pelvic junction. No appreciable hydroureteronephrosis of the left kidney or left renal collecting system. No appreciable nephrolithiasis of the right kidney. No right-sided ureteral stones and no hydronephrosis of the right kidney. Ultrasound abdomen 09/16/16 - Status post cholecystectomy. - No sonographic evidence of choledocholithiasis or biliary tract obstruction. - Mild hepatic steatosis. Problem list 1. COPD exacerbation 2. Acute hypoxic and hypercarbic respiratory failure 3. Right upper quadrant abdominal pain 4. Hypothyroidism 5. Chronic stable conditions CAD, adrenal insufficiency, anxiety, depression, HTN, HLD, RA Acute hypoxic and hypercarbic restrictive failure probably due to COPD exacerbation Patient has chronic lung disease with mixed restrictive and obstructive pattern with an underlying obesity hypoventilation syndrome. Patient is on intermittent and nocturnal oxygen 1.5-2 L as needed. CAT scan of chest is negative for any acute pulmonary process. She got a loading dose of some intermittent ER will continue with 40 IV every 8. We will continue the patient on azithromycin. TRC nebs as needed. Dr. Rincon is on board. We'll continue Mucinex 600 twice a day Blood cultures and rapid flu negative Will resend his respiratory culture Right upper quadrant pain Ultrasound abdomen obtained is not significant for any common bile duct dilation or choledocholithiasis. Was seen for similar complain in June 2016 at that time the abdominal pain was attributed to diverticulosis. Patient is planned to get coloscopy and endoscopy as an outpatient by Dr. Anthony. Hypothyroidism Patient takes 50 MCG of levothyroxine however his TSH was elevated on admission. However patient's free T4 level was normal. We will follow-up TSH from this morning. And continue to monitor Non-obstructing left ureter stone No evidence of any hydronephrosis on CAT, will continue to monitor. Patient might need an outpatient follow-up with urology. Patient will be continued on his home meds for his stable chronic conditions including aspirin and Plavix, atenolol for blood pressure, Buspirone for anxiety , gabapentin, Flexeril,ramipril, Crestor, sertraline and Tofacitinib. DVT prophylaxis subcutaneous Lovenox Patient is full code Problem List: 1. COPD (chronic obstructive pulmonary disease) Pain Ratin Pain Location: Right upper quadrant Pain Goal: Pain 4 or less Pain Plan: Tylenol when necessary for pain Tomorrow's Labs & Rationales: CBC/BEP WILD AQUINO MD 09/16/16 1423: Attending MD Review Statement Attending Statement Attending MD Statement: examined this patient, discuss w/resident/PA/COIN MACHINE OPERATOR, agreed w/resident/PA/COIN MACHINE OPERATOR, reviewed EMR data (avail), discussed with nursing, discussed with case mgmt Attending Assessment/Plan: 71-year-old male with past medical history of coronary artery disease on aspirin and Plavix with stents in the past, chronic adrenal insufficiency and underlying COPD who is here with what appears to be a COPD exacerbation with cough and shortness of breath. We are treating him with IV steroids, he had a CT chest abdomen and pelvis which was negative for any acute pneumonic process or any intra-abdominal process. Because of his persistent right upper quadrant discomfort an ultrasound was also done. He is status post cholecystectomy and there is no CBD dilatation. He has some chronic GI issue and is scheduled for endoscopy and a colonoscopy later this month. Will have Jorden Rincon MD see him from pulmonary for the COPD, he has acute hypoxemic and hypercapnic respiratory failure and will need to titrate his meds and O2 accordingly.
[2016-09-16 09:07] LABS: ABSOLUTE BASOPHIL COUNT 0 /CUMM (0.0-0.2); ABSOLUTE EOSINOPHIL COUNT 0 /CUMM (0.0-0.7); ABSOLUTE GRANULOCYTE CT 8.3 /CUMM (1.4-6.5); ABSOLUTE LYMPH COUNT 0.9 /CUMM (1.2-3.4); ABSOLUTE MONOCYTE COUNT 0.5 /CUMM (0.10-0.60); BASOPHIL % 0 % (0.0-2.0); EOSINOPHIL % 0.1 % (0-5); GRANULOCYTE % 85.8 % (42.2-75.2); HEMATOCRIT 36.5 % (42-52); MEAN CORPUSCULAR HGB 23.9 PG (27.0-31.0); MEAN CORPUSCULAR HGB CONC 30.3 G/DL (33.0-37.0); MEAN CORPUSCULAR VOLUME 78.7 FL (80.0-94.0); MEAN PLATELET VOLUME 7.4 FL (7.4-10.4); PLATELET COUNT 265 /CUMM (130-400); RBC DISTRIBUTION WIDTH 21.2 % (11.5-14.5); RED BLOOD CELL CT 4.64 /CUMM (4.70-6.10); WHITE BLOOD CELL COUNT 9.7 /CUMM (4.8-10.8)
--- NOTE | 2016-09-16 12:49 | ULTRASOUND REPORT ---
EXAMINATION: US ABDOMEN LIMITED CLINICAL INFORMATION: Right-sided abdominal pain. Evaluate for common duct stones or duct dilatation.. COMPARISON: CT of the abdomen from 08/31/2015 and 09/15/2016. TECHNIQUE: Real-time imaging of the right upper quadrant abdominal viscera. FINDINGS: PANCREAS: The pancreas is obscured by bowel gas and, therefore, is poorly evaluated. AORTA/IVC: Obscured by bowel gas. LIVER: Liver is suboptimally visualized due to patient body habitus. Liver parenchyma appears diffusely hyperechoic, suggestive of mild steatosis. No focal hepatic lesion or intrahepatic bile duct dilatation. GALLBLADDER: Surgically absent. There is no residual fluid collection within the gallbladder fossa. A structure measured by the distribution engineering technologist --when correlated with the recent CT exam of 09/15/2016 --probably represents a segment of the normal duodenum. COMMON BILE DUCT: Normal in caliber measuring 4-5 mm in diameter. There are no stones identified in the visualized portion of the common duct. RIGHT KIDNEY: Normal. No hydronephrosis. No renal calculi or focal parenchymal lesions. The kidney measures 10 cm in maximum dimension. FREE FLUID: None. IMPRESSION: - Status post cholecystectomy. - No sonographic evidence of choledocholithiasis or biliary tract obstruction. - Mild hepatic steatosis.
[2016-09-16 15:33] VITALS: BP 132/70
--- NOTE | 2016-09-16 19:00 | Cons- Pulmonary ---
General Information and HPI Consulting Request Date of Consult: 09/16/16 Requested By: koffi ordaz History of Present Illness: This is a 71-year-old male with past medical history significant for CAD status post STEMI and angioplasty, RA on DMARD, adrenal insufficiency 2/2 chronic steroid, hypothyroidism, hypertension, COPD-no history of smoking, had last admission to [facility] on 06/2016 for multilobar pneumonia, who comes in with chief complaint of shortness of breath and cough. Cough is not productive. Patient states that he noted symptoms for the past 3 days. In addition, he endorses chills, malaise, and an increase in lower extremity edema. Denies any fevers but endorses chest pain in the epigastrium that is worse with exertion. He states he felt similarly when he got pneumonia and decided to come to hospital before symptoms worsened. In addition, he endorses right lower quadrant abdominal pain that is worsened with cough. Denies any change in bladder or bowel movement, dizziness, headache, recent sick contacts or travel. Review of Systems Review of Systems Constitutional: Reports: chills, malaise. Denies: diaphoresis, fever, weakness. EENTM: Reports: no symptoms. Cardiovascular: Reports: chest pain, peripheral edema. Denies: palpitations. Respiratory: Reports: cough, short of breath. Denies: hemoptysis, sputum production. GI: Reports: no symptoms. Genitourinary: Reports: no symptoms. Musculoskeletal: Reports: no symptoms. Skin: Reports: no symptoms. Allergies/Medications Allergies: Coded Allergies: hydrocodone (From VICODIN) (Intermediate, SEVERE HALLUCINATIONS 07/05/16) hydromorphone (From DILAUDID) (Intermediate, SEVERE HALLUCINATIONS 07/05/16) morphine (Intermediate, WILD DREAMS, GI UPSET, SEVERE HALLUCINATIONS 07/05/16) oxycodone (From PERCOCET) (Intermediate, SEVERE HALLUCINATIONS 07/05/16) lactose (DIARRHEA 07/05/16) Home Med List: Albuterol Sulfate (Proair Hfa) 90 MCG HFA.AER.AD 2 PUF INH Q4H PRN RESPIRATORY (Reported) Alendronate Sodium (Fosamax) 70 MG TABLET 1 TAB PO Q FRIDAY OSTEOPOROSIS ( Reported) in the morning, at least 30 minutes before the first food, beverage, or medication of the day Alprazolam 0.25 MG TABLET 1 TAB PO Q12H PRN ANXIETY (Reported) Aspirin (Ecotrin*) 325 MG TABLET.DR 1 TAB PO DAILY HEART/BLOOD (Reported) Atenolol (Tenormin) 25 MG TABLET 1 TAB PO DAILY BP (Reported) Buspirone HCl 5 MG TABLET 1 TAB PO TID ANXIETY (Reported) Clopidogrel Bisulfate (Plavix) 75 MG TABLET 1 TAB PO DAILY BLOOD THINNER ( Reported) Cyanocobalamin (Vitamin B-12) 1,000 MCG TABLET 1 TAB PO DAILY SUPPLEMENT ( Reported) Cyclobenzaprine HCl 5 MG TABLET 1 TAB PO DAILY MUSCLE SPASMS (Reported) Furosemide (Lasix) 20 MG TABLET 1 TAB PO DAILY DIURETIC (Reported) Gabapentin (Neurontin) 300 MG CAPSULE 1 CAP PO TID NERVE PAIN (Reported) Lansoprazole (Prevacid) 30 MG TAB.RAP.DR 1 TAB PO DAILY GI (Reported) Levothyroxine Sodium 50 MCG TABLET 1 TAB PO DAILY THYROID (Reported) Multivitamin (Multiple Vitamins) 1 EACH TABLET 1 TAB PO DAILY SUPPLEMENT ( Reported) Potassium Chloride 10 MEQ TAB.ER.PRT 1 TAB PO DAILY SUPPLEMENT (Reported) Prednisone 20 MG TABLET 1 TAB PO DAILY RA (Reported) Ramipril (Altace) 10 MG CAPSULE 1 CAP PO DAILY BP (Reported) Rosuvastatin Calcium (Crestor) 40 MG TABLET 1 TAB PO QPM CHOLESTEROL ( Reported) Sertraline HCl 50 MG TABLET 1 TAB PO DAILY MENTAL HEALTH (Reported) Tofacitinib Citrate (Xeljanz) 5 MG TABLET 1 TAB PO BID rheumatoid arthritis ( Reported) Current Medications: Current Medications Sig/Luis Start time Last Medication Dose Route Stop Time Status Admin Acetaminophen 650 MG Q6P PRN 09/15 2145 AC PO Albuterol Sulfate 3 ML Q6-PRN PRN 09/16 1400 AC 09/16 INH 1359 Albuterol Sulfate 2 PUF Q4P PRN 09/15 2230 AC INH Albuterol Sulfate 3 ML Q4P PRN 09/15 2215 AC 09/16 INH 1715 Alendronate Sodium 70 MG QSAT 09/21 0700 AC PO Alprazolam 0.25 MG Q12P PRN 09/15 2245 AC PO 09/22 2244 Aspirin Buffered 325 MG DAILY 09/16 1000 AC 09/16 PO 0929 Atenolol 25 MG DAILY 09/16 1000 AC 09/16 PO 0929 Atorvastatin Calcium 80 MG 1700 09/16 1700 AC 09/16 PO 1822 Azithromycin 500 MG 1900 09/16 1900 AC 09/16 Sodium Chloride 250 ML IV 1822 Azithromycin 500 MG ONCE ONE 09/15 1800 DC 09/15 Sodium Chloride 250 ML IV 09/15 1859 1905 Buspirone HCl 5 MG TID 09/15 2231 AC 09/16 PO 1822 Clopidogrel Bisulfate 75 MG DAILY 09/16 1000 AC 09/16 PO 0929 Cyclobenzaprine HCl 5 MG DAILY 09/16 1043 AC 09/16 PO 1457 Enoxaparin Sodium 40 MG DAILY 09/16 1000 AC 09/16 SC 0929 Gabapentin 300 MG TID 09/16 1043 AC 09/16 PO 1457 Ketorolac 15 MG Q6P PRN 09/15 2145 DC Tromethamine IV Levothyroxine Sodium 0.05 MG DAILY AC 09/16 0700 AC 09/16 PO 0618 Lisinopril 10 MG DAILY 09/16 1000 AC 09/16 PO 0634 Methylprednisolone 40 MG Q8 09/16 0600 AC 09/16 IV 1457 Non-Formulary 0 SEE ADMIN CRITERIA 09/15 2245 CAN Medication ANY Omeprazole 20 MG DAILY AC 09/16 0700 AC 09/16 PO 0618 Patient Medication 1 ED .STK-MED ONE 09/16 1356 DC Teaching ED 09/16 1357 Potassium Chloride 20 MEQ DAILY 09/16 1044 AC 09/16 PO 1457 Sertraline HCl 50 MG DAILY 09/16 1000 AC 09/16 PO 0929 Review of Systems Review of Systems Constitutional: Reports: see HPI. Past History Travel History Traveled to [place] past 21 day No Medical History Blood Transfusion Hx: No Neurological: NONE EENT: CATARACTS REMOVED Cardiovascular: CAD (s/p ST elevation [place]), hypertension, hyperlipidemia, myocardial infarction, non-ST patient [place], status post angioplasty/stent x 3 in 2006 Respiratory: bronchitis, COPD, pneumonia Gastrointestinal: GERD (minimal), lactose intolerance, 10/27/2014: ERCP WITH ES/ CBD STONE EXTRACTION Hepatic: NONE Renal: ACUTE RENAL FAILURE- RESOLVED. INCONTINENT AT TIMES- PT USES DEPENDS AT HOME. Musculoskeletal: osteoarthritis, rheumatoid arthritis, R hip fracture S/P ORIF R COMMUTED HUMERUS FX Psychiatric: anxiety, depression Endocrine: adrenal insufficiency, hypothyroidism, obesity Blood Disorders: anemia Cancer(s): NONE ONCOLOGY NAVIGATOR/Reproductive: NONE Surgical History Surgical History: cholecystectomy, cholecystostomy tube ORIF R hip back surgery Family History Relations & Conditions If Any: MOTHER, , Age 89; Cause: Old age. FH: CVA (cerebrovascular accident) SISTER, , Age 71; Cause: Multiple sclerosis. FH: brain cancer SISTER, , Age 55; Cause: Brain cancer. FATHER ( of a myocardial infarction in his 60's). , Age 63; Cause: Myocardial infarct. SISTER ( of multiple sclerosis). Psychosocial History Where Do You Live? Home Who Do You Live With? self Services at Home: Home Health Aide Primary Language: Russian Smoking Status: Never Smoked ETOH Use: denies use Illicit Drug Use: denies illicit drug use Living Will? no Power of Cnc Lathe Machine Operator/HCP? yes Name of POA/HCP: Pt's sonDandre Functional Ability ADLs Independent: dressing, eating, toileting, bathing. Ambulation: independent IADLs Independent: shopping, housework, finances, food prep, telephone, transportation , medication admin. Exam & Diagnostic Data Last 24 Hrs of Vital Signs/I&O Vital Signs Date Time Temp Pulse Resp B/P Pulse O2 O2 Flow FiO2 Ox Delivery Rate 09/16 1715 91 Room Air 09/16 1533 98.0 86 18 132/70 94 Nasal 2.0L Cannula 09/16 1522 Nasal 1.0L Cannula 09/16 1518 94 Nasal 1.0L Cannula 09/16 0929 90 170/90 09/16 0800 Nasal 1.0L Cannula 09/16 0634 90 170/90 09/16 0620 98.1 90 18 170/90 95 Nasal 1.0L Cannula 09/16 0100 108 140/97 09/16 0000 Nasal 1.0L Cannula 09/15 2130 98.2 111 21 163/103 95 Nasal 2.0L Cannula 09/15 2044 98.5 110 20 166/86 85 Nasal 1.0L Cannula 09/15 1911 98.2 112 24 150/100 93 Nasal 2.0L Cannula 09/15 1851 Nasal 1.0L Cannula Intake & Output 09/16 1600 09/16 0800 09/16 0000 Intake Total 900 120 240 Output Total 400 600 800 Balance 500 -480 -560 Intake, Oral 900 120 240 Output, Urine 400 600 800 Patient 220 lb Weight Last 48 Hrs of Labs/Kain: Laboratory Tests 09/16/16 0730: Anion Gap 2 L, Estimated GFR > 60, BUN/Creatinine Ratio 27.1 H, TSH 1.630, Thyroxine (T4) 6.8, CBC w Diff NO MAN DIFF REQ, RBC 4.64 L, MCV 78.7 L, MCH 23.9 L, RDW 21.2 H, MPV 7.4, Gran % 85.8 H, Lymphocytes % 9.0 L, Monocytes % 5.1, Eosinophils % 0.1, Basophils % 0 L, Absolute Granulocytes 8.3 H, Absolute Lymphocytes 0.9 L, Absolute Monocytes 0.5, Absolute Eosinophils 0, Absolute Basophils 0, PUBS MCHC 30.3 L 09/15/16 1900: Urine Color YEL, Urine Clarity CLEAR, Urine pH 6.0, Ur Specific [place] 1.020, Urine Protein NEG, Urine Ketones NEG, Urine Nitrite NEG, Urine Bilirubin NEG, Urine Urobilinogen 0.2, Ur Leukocyte Esterase NEG, Ur Microscopic EXAM NOT REQUIRED, Urine Hemoglobin NEG, Urine Glucose NEG 09/15/16 1630: pH 7.34 L, pCO2 69 *H, pO2 57 L, HCO3 36 H, ABG O2 Sat (Measured) 87.0 L, P- 50 (Temp Corrected) N, Carboxyhemoglobin 0.5 L, O2 Concentration % R/A, Temperature 98.9, Phlebotomy Draw Site RIGHT RADIAL 09/15/16 1517: Anion Gap 7, Estimated GFR > 60, BUN/Creatinine Ratio 30.0 H, Glucose 125 H, Lactic Acid 1.3, Calcium 8.2 L, Magnesium 1.8, Total Bilirubin 0.4, AST 36, ALT 47, Alkaline Phosphatase 86, Troponin I < 0.01, Sas-Y-Hgdzgbhgayz Pept 204 H, Total Protein 6.3, Albumin 3.3 L, Globulin 3.0, Albumin/Globulin Ratio 1.1, TSH 10.200 H, Thyroxine (T4) 7.2, CBC w Diff NO MAN DIFF REQ, RBC 4.64 L, MCV 78.4 L, MCH 23.9 L, RDW 21.5 H, MPV 7.0 L, Gran % 70.4, Lymphocytes % 16.2 L, Monocytes % 9.8 H, Eosinophils % 3.3, Basophils % 0.3, Absolute Granulocytes 5.5, Absolute Lymphocytes 1.3, Absolute Monocytes 0.8 H, Absolute Eosinophils 0.3, Absolute Basophils 0, PUBS MCHC 30.4 L Microbiology 09/15 1616 NASOPHARYN: Influenza Virus A & B Rapid Smear - COMP Assessment/Plan Impression/Plan: SIGNIFICANT DATA CT chest reviewed no pneumonia incidental 0.5 cm stone within the left ureter less than 1 cm from the left UP junction no hydronephrosis BUN/creatinine stable [place] bicarbonate is 35-40 White count 9.7 hemoglobin 11.1 platelets 265 734/69/57 ABG Previous sputum culture had grown Acetobacter Previous echocardiogram that showed normal ejection fraction with moderate pulmonary hypertension IMPRESSION This is a gentleman with multiple medical problems including severe rheumatoid on disease modifying agent in the past, osteoporosis, multiple compression fractures, chronic respiratory failure with hypercarbia related to obesity hypoventilation syndrome, hypothyroidism, coronary artery disease, morbid obesity, previous biliary sepsis with cholecystotomy tube and subsequent cholecystectomy with complications the patient had CPR and mechanical ventilation per patient, now comes in with * Acute on chronic hypercarbic respiratory failure related to recent chronic bronchitis with acute exacerbation with worsening obesity hypoventilation syndrome. Patient says he is much better after is come to the hospital. He also does have hypothyroidism on adequate replacement therapy * Significant rheumatoid arthritis with osteoporosis with multiple compression fractures with significant back pain on multiple medications with significant restrictive lung disease * Lower extremity edema with cor pulmonale with pulmonary hypertension. * Clinical evidence suggestive tracheobronchomalacia * Previous history of adrenal insufficiency on multiple medications. * Coronary artery disease, morbid obesity, recent abdominal surgery with cardiopulmonary arrest per patient, relatively stable RECOMMENDATION Cont current medications Sputum culture Switch him to by mouth Ceftin Continue other medications Follow renal function Change atenolol to metoprolol Switch iv steroids to prednisone 40 mg by mouth from tomorrow Consult Acknowledgment - Thank you for your consult request.
[2016-09-16 21:59] VITALS: BP 128/70
[2016-09-17 06:45] VITALS: BP 128/80
--- NOTE | 2016-09-17 07:30 | PN- Housestaff ---
MIGUELANGEL ALAS 09/17/16 0730: Subjective Follow-up For: Acute hypoxic and hypercarbic respiratory failure due to underlying restrictive lung disease Subjective: Patient seen and examined today. Patient feels well no new complaints. He reports that his breathing has improved. Plan is for discharge today with home health services. Review of Systems Constitutional: Reports: see HPI. Objective Last 24 Hrs of Vital Signs/I&O Vital Signs Date Time Temp Pulse Resp B/P Pulse O2 O2 Flow FiO2 Ox Delivery Rate 09/17 1036 70 126/78 09/17 0922 72 128/80 09/17 0901 92 Nasal 1.0L Cannula 09/17 0800 91 Nasal 1.0L Cannula 09/17 0645 97.5 72 22 128/80 91 Room Air 09/17 0000 Nasal 1.0L Cannula 09/16 2159 98.0 86 18 128/70 90 Room Air 09/16 1715 91 Room Air 09/16 1533 98.0 86 18 132/70 94 Nasal 2.0L Cannula 09/16 1522 Nasal 1.0L Cannula 09/16 1518 94 Nasal 1.0L Cannula Intake & Output 09/17 1600 09/17 0800 09/17 0000 Intake Total 800 Output Total 550 700 700 Balance 250 -700 -700 Intake, Oral 800 Output, Urine 550 700 700 Physical Exam General Appearance: Alert, Oriented X3, Cooperative, No Acute Distress Skin: No Rashes HEENT: Atraumatic Neck: Supple Cardiovascular: Normal S1, Normal S2 Lungs: Clear to Auscultation, Normal Air Movement Abdomen: Soft, No Tenderness Neurological: Normal Tone Extremities: No Edema Current Medications: Current Medications Sig/Luis Start time Last Medication Dose Route Stop Time Status Admin Acetaminophen 650 MG Q6P PRN 09/15 2145 DCD PO Albuterol Sulfate 3 ML TID 09/16 2200 DCD 09/17 INH 0859 Albuterol Sulfate 3 ML Q6-PRN PRN 09/16 1400 DC 09/16 INH 1359 Albuterol Sulfate 2 PUF Q4P PRN 09/15 2230 DCD INH Albuterol Sulfate 3 ML Q4P PRN 09/15 2215 DCD 09/16 INH 1715 Alendronate Sodium 70 MG QSAT 09/21 0700 DCD PO Alprazolam 0.25 MG Q12P PRN 09/155 DCD PO 09/22 2244 Aspirin Buffered 325 MG DAILY 09/16 1000 DCD 09/17 PO 0922 Atenolol 25 MG DAILY 09/16 1000 DC 09/16 PO 0929 Atorvastatin Calcium 80 MG 1700 09/16 1700 DCD 09/16 PO 1822 Azithromycin 500 MG 1900 09/16 1900 DC 09/16 Sodium Chloride 250 ML IV 1822 Buspirone HCl 5 MG TID 09/15 2231 DCD 09/17 PO 0922 Cefuroxime Sodium 250 MG Q12 09/17 1000 DCD 09/17 PO 1036 Clopidogrel Bisulfate 75 MG DAILY 09/16 1000 DCD 09/17 PO 0922 Cyclobenzaprine HCl 5 MG DAILY 09/16 1043 DCD 09/17 PO 0922 Enoxaparin Sodium 40 MG DAILY 09/16 1000 DCD 09/17 SC 0923 Gabapentin 300 MG TID 09/16 1043 DCD 09/17 PO 0922 Levothyroxine Sodium 0.05 MG DAILY AC 09/16 0700 DCD 09/17 PO 0551 Lisinopril 10 MG DAILY 09/16 1000 DCD 09/17 PO 0922 Methylprednisolone 40 MG Q8 09/16 0600 DC 09/16 IV 2225 Metoprolol Succinate 25 MG DAILY 09/17 1000 DCD 09/17 PO 1036 Omeprazole 20 MG DAILY AC 09/16 0700 DCD 09/17 PO 0550 Potassium Chloride 20 MEQ DAILY 09/16 1044 DCD 09/17 PO 0922 Prednisone 40 MG ONCE ONE 09/17 1000 DC PO 09/17 1001 Prednisone 40 MG DAILY 09/17 1000 DCD 09/17 PO 0922 Sertraline HCl 50 MG DAILY 09/16 1000 DCD 09/17 PO 0923 Last 24 Hrs of Lab/Kain Results Last 24 Hrs of Labs/Mics: Microbiology 09/16 2314 LOWER RESP: Respiratory Culture - CAN Cancelled: SPECIMEN NOT RECEIVED IN LABORATORY 09/16 2314 LOWER RESP: Gram Stain - CAN Cancelled: SPECIMEN NOT RECEIVED IN LABORATORY Assessment/Plan Assessment: Patient is 71-year-old male with past medical history of CAD status post AL and status post 3 stents on aspirin and Plavix, and renal insufficiency, hypothyroidism, HTN, HLD, RA, chronic respiratory failure, back surgery, osteopenia, anxiety and depression, severe sepsis at the time of cholecystectomy , requiring intubation, using nighttime oxygen at 1.5-2 L came to ER with 2 day history of gradual onset of wheezing, shortness of breath, productive cough, subjective fever and chills, body aches. He denies any sick contacts, any smoking history, any chest pain arm pain jaw pain, no N/V. Due to multiple coughing spells, he complains of right-sided abdominal wall point tenderness. He has decreased PO intake and generalized weakness. however no nausea or vomiting has occurred. He endorses on and off leg swelling, improving with leg elevation, he stopped taking Lasix because of frequent urination. Imaging done as inpatient Chest x-ray Pulmonary hypoinflation, bronchovascular crowding CT abdomen and pelvis and chest without IV contrast: 1. Bibasilar subsegmental atelectasis. No focal airspace consolidation to suggest infection. 2. Incidental 0.5 cm stone within the proximal left ureter, less than 1 cm from the left ureteral pelvic junction. No appreciable hydroureteronephrosis of the left kidney or left renal collecting system. No appreciable nephrolithiasis of the right kidney. No right-sided ureteral stones and no hydronephrosis of the right kidney. Ultrasound abdomen 09/16/16 - Status post cholecystectomy. - No sonographic evidence of choledocholithiasis or biliary tract obstruction. - Mild hepatic steatosis. Problem list 1. COPD exacerbation 2. Acute hypoxic and hypercarbic respiratory failure 3. Right upper quadrant abdominal pain 4. Hypothyroidism 5. Chronic stable conditions CAD, adrenal insufficiency, anxiety, depression, HTN, HLD, RA Acute hypoxic and hypercarbic respiratory failure Patient has chronic lung disease with mixed restrictive and obstructive pattern with an underlying obesity hypoventilation syndrome. Patient's symptoms are unlikely due to COPD exacerbation as he has never smoked. Per Dr. Rincon it could be secondary to the restrictive lung disease. Patient is on intermittent and nocturnal oxygen 1.5-2 L as needed. CAT scan of chest is negative for any acute pulmonary process. She got a loading dose of some intermittent ER and continued on Solu-Medrol at 40 every 8 hours. Patient was switched to by mouth prednisone today with a slow taper 40 mg for 3 days, 30 mg for 3 days and then continued on 20 mg for adrenal insufficiency. Patient was initially started on azithromycin now switched to Ceftin for a total of 5 days. TRC nebs as needed. Dr. Rincon is on board. We'll continue Mucinex 600 twice a day Blood cultures and rapid flu negative Right upper quadrant pain Ultrasound abdomen obtained is not significant for any common bile duct dilation or choledocholithiasis. Was seen for similar complain in June 2016 at that time the abdominal pain was attributed to diverticulosis. Patient is planned to get coloscopy and endoscopy as an outpatient by Dr. Anthony. Patient had cholecystectomy done at [facility], his surgery got complicated and he had to be intubated. Dr. Rincon thinks his abdominal pain could be secondary to adhesions that the patient might have from the surgery. Hypothyroidism Patient takes 50 MCG of levothyroxine. Continued on the same dose Non-obstructing left ureter stone No evidence of any hydronephrosis on CAT, will continue to monitor. Patient might need an outpatient follow-up with urology. Patient was continued on his home meds for his stable chronic conditions including aspirin and Plavix, atenolol for blood pressure, Buspirone for anxiety , gabapentin, Flexeril,ramipril, Crestor, sertraline and Tofacitinib. DVT prophylaxis subcutaneous Lovenox Patient is full code Problem List: 1. Acute and chronic respiratory failure Pain Ratin Pain Location: Not applicable Pain Goal: Pain 4 or less Pain Plan: Tylenol when necessary for pain Tomorrow's Labs & Rationales: None WILD AQUINO MD 09/17/16 0934: Attending MD Review Statement Attending Statement Attending MD Statement: examined this patient, discuss w/resident/PA/CONCESSION CASHIER, agreed w/resident/PA/CONCESSION CASHIER, reviewed EMR data (avail), discussed with nursing, discussed with case mgmt Attending Assessment/Plan: Overall patient feels better and he is eager to be discharged. He understands that we treated him for a bronchitis with steroids and antibiotics. He has never smoked, we clarified with Dr. 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 Plan is to discharge him with visiting nurse service. He'll go on a prednisone taper of 40 for 3 days, 30 for 3 days and back to his usual 20 mg a day which she takes for his chronic adrenal insufficiency. He is going on a short course of by mouth Ceftin for a bacterial bronchitis. Dr. Ying wants to switch his atenolol to metoprolol as he feels metoprolol is more cardioselective. And the plan is close outpatient follow-up. Jorden Rincon MD feels that his right upper quadrant discomfort is from all his adhesions from his extensive biliary surgery which was complicated at [facility]. However he does have microcytic anemia and is scheduled to see GI later in the month for an outpatient follow-up.
[2016-09-17] MEDS ORDERED: TOPROL XL25 M1 PO (08:32)
[2016-09-17] MEDS ORDERED: PREDNISONE10 M2 PO (09:09)
[2016-09-17] MEDS ORDERED: CEFUROXIME250 M1 PO (09:09)
--- NOTE | 2016-09-17 09:10 | Patient Discharge Instructions ---
Discharge Instructions General Discharge Information Special Instructions: Please follow up with PCP and Dr. Rincon the swimming pool serviceperson within 7 days of discharge. Acute Coronary Syndrome Inclusion Criteria At DC or during hospital stay patient has or had the following: ACS DIAGNOSIS No Discharge Core Measures Meds if any: Prescribed or Continued at Discharge Meds if any: NOT Prescribed or Continued at Discharge Congestive Heart Failure Inclusion Criteria At DC or during hospital stay patient has or had the following: CHF DIAGNOSIS No Discharge Core Measures Meds if any: Prescribed or Continued at Discharge Meds if any: NOT Prescribed or Continued at Discharge Cerebrovascular accident Inclusion Criteria At DC or during hospital stay patient has or had the following: CVA/TIA Diagnosis No Discharge Core Measures Meds if any: Prescribed or Continued at Discharge Meds if any: NOT Prescribed or Continued at Discharge Venous thromboembolism Inclusion Criteria VTE Diagnosis No VTE Type NONE VTE Confirmed by (Test) NONE Discharge Core Measures - Per Current guidelines, there needs to be overlap - treatment for the first 5 days of Warfarin therapy. - If discharged on Warfarin prior to 5 days of - overlap therapy, the patient will need to be - assessed for post discharge needs including - *Post discharge parental anticoagulation - *Warfarin and/or parental anticoagulation education - *Follow up date to check INR post discharge At least 5 days overlap therapy as Inpatient No Meds if any: Prescribed or Continued at Discharge Note: Overlap Therapy is Warfarin and Anticoagulant Meds if any: NOT Prescribed or Continued at Discharge
--- NOTE | 2016-09-17 09:31 | Discharge Summary ---
Visit Information Visit Dates Admission Date: 09/15/16 Hospital Course Course Attending Physician: ELIA MARQUES,[facility] Course: mention about previous elective laproscopic cholecystectomy. Patient got intubated. Dr. Rincon thinks that his chronic abdominal pain could be secondary to his adhesions. Allergies: Coded Allergies: hydrocodone (From VICODIN) (Intermediate, SEVERE HALLUCINATIONS 07/05/16) hydromorphone (From DILAUDID) (Intermediate, SEVERE HALLUCINATIONS 07/05/16) morphine (Intermediate, WILD DREAMS, GI UPSET, SEVERE HALLUCINATIONS 07/05/16) oxycodone (From PERCOCET) (Intermediate, SEVERE HALLUCINATIONS 07/05/16) lactose (DIARRHEA 07/05/16) Discharge Instructions Medications at Discharge Discharge Medications: Stop taking the following medications: Atenolol (Tenormin) 25 MG TABLET ORAL DAILY Continue taking these medications: Prednisone (Prednisone) 20 MG TABLET 1 Tablet ORAL DAILY Instructions: START FROM 09/23/16 THEN CONTINUE DAILY Comments: NOT GIVEN IN HOSPITAL Sertraline HCl (Sertraline HCl) 50 MG TABLET 1 Tablet ORAL DAILY Comments: Last Taken: 09/17/16 Time: 9:30 AM Clopidogrel Bisulfate (Plavix) 75 MG TABLET 1 Tablet ORAL DAILY Comments: Last Taken: 09/17/16 Time: 9:30 AM Ramipril (Altace) 10 MG CAPSULE 1 Capsule ORAL DAILY Comments: NOT GIVEN IN HOSPITAL Aspirin (Ecotrin*) 325 MG TABLET.DR 1 Tablet ORAL DAILY Comments: Last Taken: 09/17/16 Time: 9:30 AM Potassium Chloride (Potassium Chloride) 10 MEQ TAB.ER.PRT 1 Tablet ORAL DAILY Comments: Last Taken: 09/17/16 Time: 9:30 AM Lansoprazole (Prevacid) 30 MG TAB.RAP.DR 1 Tablet ORAL DAILY Comments: NOT GIVEN IN HOSPTIAL Gabapentin (Neurontin) 300 MG CAPSULE 1 Capsule ORAL THREE TIMES DAILY Comments: Last Taken: 09/17/16 Time: 9:30 AM Furosemide (Lasix) 20 MG TABLET 1 Tablet ORAL DAILY Comments: NOT GIVEN IN HOSPITAL Alendronate Sodium (Fosamax) 70 MG TABLET 1 Tablet ORAL Q FRIDAY Instructions: in the morning, at least 30 minutes before the first food, beverage, or medication of the day Comments: NOT GIVEN IN HOSPITAL Rosuvastatin Calcium (Crestor) 40 MG TABLET 1 Tablet ORAL Every night Comments: NOT GIVEN IN HOSPITAL Multivitamin (Multiple Vitamins) 1 EACH TABLET 1 Tablet ORAL DAILY Comments: NOT GIVEN IN HOSPITAL Cyanocobalamin (Vitamin B-12) 1,000 MCG TABLET 1 Tablet ORAL DAILY Comments: [facility] Alprazolam (Alprazolam) 0.25 MG TABLET 1 Tablet ORAL Q12H as needed for ANXIETY Comments: NOT GIVEN IN HOSPITAL Levothyroxine Sodium (Levothyroxine Sodium) 50 MCG TABLET 1 Tablet ORAL DAILY Qty = 90 Comments: Last Taken: 09/17/16 Time: 6:00 AM Buspirone HCl (Buspirone HCl) 5 MG TABLET 1 Tablet ORAL THREE TIMES DAILY Qty = 90 Comments: Last Taken: 09/17/16 Time: 9:30 AM Tofacitinib Citrate (Xeljanz) 5 MG TABLET 1 Tablet ORAL TWICE DAILY Comments: Last Taken: 09/17/16 Time: 9:30 AM Albuterol Sulfate (Proair Hfa) 90 MCG HFA.AER.AD 2 Puff Inhale through mouth Q4H as needed for RESPIRATORY Comments: NOT GIVEN IN HOSPITAL Cyclobenzaprine HCl (Cyclobenzaprine HCl) 5 MG TABLET 1 Tablet ORAL DAILY Qty = 90 Comments: Last Taken: 09/17/16 Time: 9:30 AM Start taking the following new medications: Metoprolol Succ XL (Toprol XL) 25 MG TAB 25 Milligram ORAL DAILY Qty = 60 No Refills Comments: Last Taken: 09/17/16 Time: 11:00 AM Cefuroxime Axetil (Cefuroxime) 250 MG TABLET 1 Tablet ORAL TWICE DAILY Qty = 7 No Refills Comments: Last Taken: 09/17/16 Time: 11:00 AM Prednisone (Prednisone) 10 MG TABLET 1 Tablet ORAL DAILY Qty = 5 No Refills Instructions: TAKE 4 TABS FROM 09/17/16 TO 09/19/16 TAKE 3 TABS FROM 09/20/16 TO 09/22/16 THEN CONTINUE ON HOME DOES OF 20 MG PREDNISONE DAILY Comments: Last Taken: 09/17/16 Time: 9:30 AM
--- NOTE | 2016-09-17 09:35 | PN- Pulmonary ---
Subjective HPI/Critical Care Issues: Doing well afebrile Much improved Objective Current Medications: Current Medications Sig/Luis Start time Last Medication Dose Route Stop Time Status Admin Acetaminophen 650 MG Q6P PRN 09/15 2145 AC PO Albuterol Sulfate 3 ML TID 09/16 2200 AC 09/17 INH 0859 Albuterol Sulfate 3 ML Q6-PRN PRN 09/16 1400 DC 09/16 INH 1359 Albuterol Sulfate 2 PUF Q4P PRN 09/15 2230 AC INH Albuterol Sulfate 3 ML Q4P PRN 09/15 2215 AC 09/16 INH 1715 Alendronate Sodium 70 MG QSAT 09/21 0700 AC PO Alprazolam 0.25 MG Q12P PRN 09/15 2245 AC PO 09/22 2244 Aspirin Buffered 325 MG DAILY 09/16 1000 AC 09/17 PO 0922 Atenolol 25 MG DAILY 09/16 1000 DC 09/16 PO 0929 Atorvastatin Calcium 80 MG 1700 09/16 1700 AC 09/16 PO 1822 Azithromycin 500 MG 1900 09/16 1900 DC 09/16 Sodium Chloride 250 ML IV 1822 Buspirone HCl 5 MG TID 09/15 2231 AC 09/17 PO 0922 Cefuroxime Sodium 250 MG Q12 09/17 1000 AC PO Clopidogrel Bisulfate 75 MG DAILY 09/16 1000 AC 09/17 PO 0922 Cyclobenzaprine HCl 5 MG DAILY 09/16 1043 AC 09/17 PO 0922 Enoxaparin Sodium 40 MG DAILY 09/16 1000 AC 09/17 SC 0923 Gabapentin 300 MG TID 09/16 1043 AC 09/17 PO 0922 Levothyroxine Sodium 0.05 MG DAILY AC 09/16 0700 AC 09/17 PO 0551 Lisinopril 10 MG DAILY 09/16 1000 AC 09/17 PO 0922 Methylprednisolone 40 MG Q8 09/16 0600 DC 09/16 IV 2225 Metoprolol Succinate 25 MG DAILY 09/17 1000 AC PO Omeprazole 20 MG DAILY AC 09/16 0700 AC 09/17 PO 0550 Patient Medication 1 ED .STK-MED ONE 09/16 1356 DC Teaching ED 09/16 1357 Potassium Chloride 20 MEQ DAILY 09/16 1044 AC 09/17 PO 0922 Prednisone 40 MG ONCE ONE 09/17 1000 DC PO 09/17 1001 Prednisone 40 MG DAILY 09/17 1000 AC 09/17 PO 0922 Sertraline HCl 50 MG DAILY 09/16 1000 AC 09/17 PO 0923 Vital Signs & I&O Last 24 Hrs of Vitals and I&O: Vital Signs Date Time Temp Pulse Resp B/P Pulse O2 O2 Flow FiO2 Ox Delivery Rate 09/17 0922 72 128/80 09/17 0901 92 Nasal 1.0L Cannula 09/17 0645 97.5 72 22 128/80 91 Room Air 09/17 0000 Nasal 1.0L Cannula 09/16 2159 98.0 86 18 128/70 90 Room Air 09/16 1715 91 Room Air 09/16 1533 98.0 86 18 132/70 94 Nasal 2.0L Cannula 09/16 1522 Nasal 1.0L Cannula 09/16 1518 94 Nasal 1.0L Cannula Intake & Output 09/17 1600 09/17 0800 09/17 0000 Intake Total Output Total 700 700 Balance -700 -700 Output, Urine 700 700 Impression/Plan Impression/Plan Impression/Plan: SIGNIFICANT DATA CT chest reviewed no pneumonia incidental 0.5 cm stone within the left ureter less than 1 cm from the left UP junction no hydronephrosis BUN/creatinine stable Council bicarbonate is 35-40 White count 9.7 hemoglobin 11.1 platelets 265 734/69/57 ABG Previous sputum culture had grown Acetobacter Previous echocardiogram that showed normal ejection fraction with moderate pulmonary hypertension IMPRESSION This is a gentleman with multiple medical problems including severe rheumatoid on disease modifying agent in the past, osteoporosis, multiple compression fractures, chronic respiratory failure with hypercarbia related to obesity hypoventilation syndrome, hypothyroidism, coronary artery disease, morbid obesity, previous biliary sepsis with cholecystotomy tube and subsequent cholecystectomy with complications the patient had CPR and mechanical ventilation per patient, now comes in with * Resolved Acute on chronic hypercarbic respiratory failure related to recent chronic bronchitis with acute exacerbation with worsening obesity hypoventilation syndrome. Patient says he is much better after is come to the hospital. He also does have hypothyroidism on adequate replacement therapy * Significant rheumatoid arthritis with osteoporosis with multiple compression fractures with significant back pain on multiple medications with significant restrictive lung disease * Lower extremity edema with cor pulmonale with pulmonary hypertension. * Clinical evidence suggestive tracheobronchomalacia * Previous history of adrenal insufficiency on multiple medications. * Coronary artery disease, morbid obesity, recent abdominal surgery with cardiopulmonary arrest per patient, relatively stable RECOMMENDATION Cont current medications Five days of ceftin Wean steroids to 20 Chronic abd pain to be worked up Can keep on atenolol upon dc instead of metoprolol (diff could be minimal)
[2016-09-17 10:36] VITALS: BP 126/78
--- NOTE | 2016-09-17 15:07 | Discharge Summary ---
Visit Information Visit Dates Admission Date: 09/15/16 Discharge Date: 09/17/16 Hospital Course Course Attending Physician: NURIA RODRIGEZ MD Primary Care Physician: JOHNY MARQUES,CLIFF Mckinney Hospital Course: Patient is 71-year-old male with past medical history of CAD status post PR and status post 3 stents on aspirin and Plavix, and renal insufficiency, hypothyroidism, HTN, HLD, RA, chronic respiratory failure, back surgery, osteopenia, anxiety and depression, severe sepsis at the time of cholecystectomy , requiring intubation, using nighttime oxygen at 1.5-2 L came to ER with 2 day history of gradual onset of wheezing, shortness of breath, productive cough, subjective fever and chills, body aches. He denies any sick contacts, any smoking history, any chest pain arm pain jaw pain, no N/V. Due to multiple coughing spells, he complains of right-sided abdominal wall point tenderness. He has decreased PO intake and generalized weakness. however no nausea or vomiting has occurred. He endorses on and off leg swelling, improving with leg elevation, he stopped taking Lasix because of frequent urination. Imaging done as inpatient Chest x-ray Pulmonary hypoinflation, bronchovascular crowding CT abdomen and pelvis and chest without IV contrast: 1. Bibasilar subsegmental atelectasis. No focal airspace consolidation to suggest infection. 2. Incidental 0.5 cm stone within the proximal left ureter, less than 1 cm from the left ureteral pelvic junction. No appreciable hydroureteronephrosis of the left kidney or left renal collecting system. No appreciable nephrolithiasis of the right kidney. No right-sided ureteral stones and no hydronephrosis of the right kidney. Ultrasound abdomen 09/16/16 - Status post cholecystectomy. - No sonographic evidence of choledocholithiasis or biliary tract obstruction. - Mild hepatic steatosis. Problem list 1. COPD exacerbation 2. Acute hypoxic and hypercarbic respiratory failure 3. Right upper quadrant abdominal pain 4. Hypothyroidism 5. 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 Patient's symptoms were unlikely due to COPD exacerbation as he has never smoked. Per Dr. Rincon it could be secondary to the restrictive lung disease which could be a systemic manifestation of his rheumatoid arthritis. Patient is on intermittent and nocturnal oxygen 1.5-2 L as needed at home. CAT scan of chest is negative for any acute pulmonary process. He got a loading dose of solumedrol in ER and continued on Solu-Medrol at 40 every 8 hours. Patient was switched to by mouth prednisone on discharge with a slow taper 40 mg for 3 days, 30 mg for 3 days and then continued on 20 mg for adrenal insufficiency. Patient was initially started on azithromycin now switched to Ceftin for a total of 5 days. TRC nebs as needed. Dr. Rincon is on board. Blood cultures and rapid flu negative Right upper quadrant pain Ultrasound abdomen obtained is not significant for any common bile duct dilation or choledocholithiasis. Was seen for similar complain in June 2016 at that time the abdominal pain was attributed to diverticulosis. Patient is planned to get coloscopy and endoscopy as an outpatient by Dr. Anthony. Patient had cholecystectomy done at [facility], his surgery got complicated and he had to be intubated. Dr. Rincon thinks his abdominal pain could be secondary to adhesions that the patient might have from the surgery. Hypothyroidism Patient takes 50 MCG of levothyroxine. Continued on the same dose Non-obstructing left ureter stone No evidence of any hydronephrosis on CAT, will continue to monitor. Patient might need an outpatient follow-up with urology. Patient was continued on his home meds for his stable chronic conditions including aspirin and Plavix, atenolol for blood pressure, Buspirone for anxiety , gabapentin, Flexeril,ramipril, Crestor, sertraline and Tofacitinib. DVT prophylaxis provided by Lovenox Patient was kept full code. Allergies: Coded Allergies: hydrocodone (From VICODIN) (Intermediate, SEVERE HALLUCINATIONS 07/05/16) hydromorphone (From DILAUDID) (Intermediate, SEVERE HALLUCINATIONS 07/05/16) morphine (Intermediate, WILD DREAMS, GI UPSET, SEVERE HALLUCINATIONS 07/05/16) oxycodone (From PERCOCET) (Intermediate, SEVERE HALLUCINATIONS 07/05/16) lactose (DIARRHEA 07/05/16) Disposition Summary Disposition Principal Diagnosis: Restrictive pattern of lung disease causing acute hypoxic and hypercarbic restrictive failure Additional Diagnosis: Abdominal pain could be secondary to a decision Discharge Disposition: home or self care Discharge Instructions General Discharge Information Code Status: Full Code Patient's Diet: Heart healthy/regular Patient's Activity: As tolerated Follow-Up Instructions/Appts: Please follow with primary care physician and 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 Medications at Discharge Discharge Medications: Stop taking the following medications: Atenolol (Tenormin) 25 MG TABLET ORAL DAILY Continue taking these medications: Prednisone (Prednisone) 20 MG TABLET 1 Tablet ORAL DAILY Instructions: START FROM 09/23/16 THEN CONTINUE DAILY Comments: NOT GIVEN IN HOSPITAL Sertraline HCl (Sertraline HCl) 50 MG TABLET 1 Tablet ORAL DAILY Comments: Last Taken: 09/17/16 Time: 9:30 AM Clopidogrel Bisulfate (Plavix) 75 MG TABLET 1 Tablet ORAL DAILY Comments: Last Taken: 09/17/16 Time: 9:30 AM Ramipril (Altace) 10 MG CAPSULE 1 Capsule ORAL DAILY Comments: NOT GIVEN IN HOSPITAL Aspirin (Ecotrin*) 325 MG TABLET.DR 1 Tablet ORAL DAILY Comments: Last Taken: 09/17/16 Time: 9:30 AM Potassium Chloride (Potassium Chloride) 10 MEQ TAB.ER.PRT 1 Tablet ORAL DAILY Comments: Last Taken: 09/17/16 Time: 9:30 AM Lansoprazole (Prevacid) 30 MG TAB.RAP.DR 1 Tablet ORAL DAILY Comments: NOT GIVEN IN HOSPTIAL Gabapentin (Neurontin) 300 MG CAPSULE 1 Capsule ORAL THREE TIMES DAILY Comments: Last Taken: 09/17/16 Time: 9:30 AM Furosemide (Lasix) 20 MG TABLET 1 Tablet ORAL DAILY Comments: NOT GIVEN IN HOSPITAL Alendronate Sodium (Fosamax) 70 MG TABLET 1 Tablet ORAL Q FRIDAY Instructions: in the morning, at least 30 minutes before the first food, beverage, or medication of the day Comments: NOT GIVEN IN HOSPITAL Rosuvastatin Calcium (Crestor) 40 MG TABLET 1 Tablet ORAL Every night Comments: NOT GIVEN IN HOSPITAL Multivitamin (Multiple Vitamins) 1 EACH TABLET 1 Tablet ORAL DAILY Comments: NOT GIVEN IN HOSPITAL Cyanocobalamin (Vitamin B-12) 1,000 MCG TABLET 1 Tablet ORAL DAILY Comments: NOT GIVEN IN HOSPTIAL Alprazolam (Alprazolam) 0.25 MG TABLET 1 Tablet ORAL Q12H as needed for ANXIETY Comments: NOT GIVEN IN HOSPITAL Levothyroxine Sodium (Levothyroxine Sodium) 50 MCG TABLET 1 Tablet ORAL DAILY Qty = 90 Comments: Last Taken: 09/17/16 Time: 6:00 AM Buspirone HCl (Buspirone HCl) 5 MG TABLET 1 Tablet ORAL THREE TIMES DAILY Qty = 90 Comments: Last Taken: 09/17/16 Time: 9:30 AM Tofacitinib Citrate (Xeljanz) 5 MG TABLET 1 Tablet ORAL TWICE DAILY Comments: Last Taken: 09/17/16 Time: 9:30 AM Albuterol Sulfate (Proair Hfa) 90 MCG HFA.AER.AD 2 Puff Inhale through mouth Q4H as needed for RESPIRATORY Comments: NOT GIVEN IN HOSPITAL Cyclobenzaprine HCl (Cyclobenzaprine HCl) 5 MG TABLET 1 Tablet ORAL DAILY Qty = 90 Comments: Last Taken: 09/17/16 Time: 9:30 AM Start taking the following new medications: Metoprolol Succ XL (Toprol XL) 25 MG TAB 25 Milligram ORAL DAILY Qty = 60 No Refills Comments: Last Taken: 09/17/16 Time: 11:00 AM Cefuroxime Axetil (Cefuroxime) 250 MG TABLET 1 Tablet ORAL TWICE DAILY Qty = 7 No Refills Comments: Last Taken: 09/17/16 Time: 11:00 AM Prednisone (Prednisone) 10 MG TABLET 1 Tablet ORAL DAILY Qty = 5 No Refills Instructions: TAKE 4 TABS FROM 09/17/16 TO 09/19/16 TAKE 3 TABS FROM 09/20/16 TO 09/22/16 THEN CONTINUE ON HOME DOES OF 20 MG PREDNISONE DAILY Comments: Last Taken: 09/17/16 Time: 9:30 AM Copies To: MILES MARQUES,WILD Peterson; REINALDO MARQUES,ANTONI Barron; JOHNY MARQUES,CLIFF Mckinney; SHERRELL MARQUES,JUVENAL Macario
[2016-09-18] MEDS ORDERED: RAMIPRIL10 M1 PO (18:48)
== END 2016-09-17 13:25 | disposition home health service (06) | DRG 189 ==
LOC: ENRESERVTM → ENRESERVDT → ERH 14:41 → ERHI 18:16 → 2NB 18:16 → ENPENDDIS 18:16 → 2NB 21:12
PROVIDERS: Emergency Medicine; Internal Medicine Hematology & Oncology; ADMIT Internal Medicine
DX: J96.22 Acute and chronic respiratory failure with hypercapnia (principal); I27.2 Other secondary pulmonary hypertension; E27.40 Unspecified adrenocortical insufficiency; I27.81 Cor pulmonale (chronic); E66.2 Morbid (severe) obesity with alveolar hypoventilation; J44.1 Chronic obstructive pulmonary disease with (acute) exacerbation; N20.1 Calculus of ureter; M06.9 Rheumatoid arthritis, unspecified; J96.01 Acute respiratory failure with hypoxia; E03.9 Hypothyroidism, unspecified; J20.9 Acute bronchitis, unspecified; M81.0 Age-related osteoporosis without current pathological fracture; Z68.29 Body mass index [BMI] 29.0-29.9, adult; I25.10 Atherosclerotic heart disease of native coronary artery without angina pectoris; I10 Essential (primary) hypertension; Z95.5 Presence of coronary angioplasty implant and graft; E78.5 Hyperlipidemia, unspecified; K21.9 Gastro-esophageal reflux disease without esophagitis; M19.90 Unspecified osteoarthritis, unspecified site
CPT/HCPCS: 2NBSP; 74176; 81003; 82436; 87040; 87070; 87804; 87804-59; 93005; 93010; 99291; J0456; J1650; J2920; J2930; J7040

== ENCOUNTER 2016-09-18 16:52 | Inpatient (IN) | payer OTHER ==
[~2016-09-18] VITALS: Ht 185.4 cm; Wt 99.8 kg
[~2016-09-18 16:52] MED LIST changes: +CEFUROXIME250 M1 PO; +CYCLOBENZAPRINE5 M2 PO; +PROAIR HFA8.5 GM INH; +TOPROL XL25 M1 PO
--- NOTE | 2016-09-18 17:03 | NUR ---
PT WAS SEEN BY VISITING NURSE TODAY. PT WAS DISCHARGED FROM YESTERDAY. SON STATES HIS 02 SAT IS LOW AND THE VISITING NURSE DIDN'T LIKE HIS OTHER VS. PT STATES LAST NIGHT HE SNEEZED VERY HARD LAST NIGHT AND PT HAS BRUISING ON HIS SIDE. PT BROUGHT BACK TO ROOM FOR LOW BP AND 02 SAT
--- NOTE | 2016-09-18 17:10 | NUR ---
PT EVALUTED BY EMILIA TOUSSAINT
--- NOTE | 2016-09-18 17:17 | ED DYSPNEA/ASTHMA COMPLAINT ---
History of Present Illness General Chief Complaint: Dyspnea (COPD, CHF, Other) Stated Complaint: SOB Source: patient, family, old records, EMS Exam Limitations: no limitations Vital Signs & Intake/Output Vital Signs & Intake/Output Vital Signs Date Time Temp Pulse Resp B/P Pulse O2 O2 Flow FiO2 Ox Delivery Rate 09/18 2146 100.1 124 20 121/69 93 Nasal 2.0L Cannula 09/18 1914 100.3 114 21 138/61 94 Nasal 1.0L Cannula 09/18 1806 99 Nasal 1.0L Cannula 09/18 1740 78 17 112/76 99 Nasal 1.0L Cannula 09/18 1720 92 Nasal 2.0L Cannula 09/18 1700 100.6 131 20 88/60 76 Room Air Allergies Coded Allergies: hydrocodone (From VICODIN) (Intermediate, SEVERE HALLUCINATIONS 07/05/16) hydromorphone (From DILAUDID) (Intermediate, SEVERE HALLUCINATIONS 07/05/16) morphine (Intermediate, WILD DREAMS, GI UPSET, SEVERE HALLUCINATIONS 07/05/16) oxycodone (From PERCOCET) (Intermediate, SEVERE HALLUCINATIONS 07/05/16) lactose (DIARRHEA 07/05/16) Reconcile Medications Albuterol Sulfate (Proair Hfa) 90 MCG HFA.AER.AD 2 PUF INH Q4H PRN RESPIRATORY (Reported) Alendronate Sodium (Fosamax) 70 MG TABLET 1 TAB PO Q FRIDAY OSTEOPOROSIS ( Reported) in the morning, at least 30 minutes before the first food, beverage, or medication of the day Alprazolam 0.25 MG TABLET 1 TAB PO Q12H PRN ANXIETY (Reported) Aspirin (Ecotrin*) 325 MG TABLET.DR 1 TAB PO DAILY HEART/BLOOD (Reported) Buspirone HCl 5 MG TABLET 1 TAB PO TID ANXIETY (Reported) Cefuroxime Axetil (Cefuroxime) 250 MG TABLET 1 TAB PO BID ANTIBIOTICS Clopidogrel Bisulfate (Plavix) 75 MG TABLET 1 TAB PO DAILY BLOOD THINNER ( Reported) Cyanocobalamin (Vitamin B-12) 1,000 MCG TABLET 1 TAB PO DAILY SUPPLEMENT ( Reported) Cyclobenzaprine HCl 5 MG TABLET 1 TAB PO DAILY MUSCLE SPASMS (Reported) Furosemide (Lasix) 20 MG TABLET 1 TAB PO DAILY DIURETIC (Reported) Gabapentin (Neurontin) 300 MG CAPSULE 1 CAP PO TID NERVE PAIN (Reported) Lansoprazole (Prevacid) 30 MG TAB.RAP.DR 1 TAB PO DAILY GI (Reported) Levothyroxine Sodium 50 MCG TABLET 1 TAB PO DAILY THYROID (Reported) Metoprolol Succ XL (Toprol XL) 25 MG TAB 25 MG PO DAILY BLOOD PRESSURE Multivitamin (Multiple Vitamins) 1 EACH TABLET 1 TAB PO DAILY SUPPLEMENT ( Reported) Potassium Chloride 10 MEQ TAB.ER.PRT 1 TAB PO DAILY SUPPLEMENT (Reported) Prednisone 20 MG TABLET 1 TAB PO DAILY RA (Reported) START FROM 09/23/16 THEN CONTINUE DAILY Prednisone 10 MG TABLET 1 TAB PO DAILY ACUTE BRONCHITIS TAKE 4 TABS FROM 09/17/16 TO 09/19/16 TAKE 3 TABS FROM 09/20/16 TO 09/22/16 THEN CONTINUE ON HOME DOES OF 20 MG PREDNISONE DAILY Ramipril (Altace) 10 MG CAPSULE 1 CAP PO DAILY BP (Reported) Ramipril 10 MG CAPSULE 1 CAP PO DAILY HTN (Reported) Rosuvastatin Calcium (Crestor) 40 MG TABLET 1 TAB PO QPM CHOLESTEROL ( Reported) Sertraline HCl 50 MG TABLET 1 TAB PO DAILY MENTAL HEALTH (Reported) Tofacitinib Citrate (Xeljanz) 5 MG TABLET 1 TAB PO BID rheumatoid arthritis ( Reported) Triage Note: PT WAS SEEN BY VISITING NURSE TODAY. PT WAS DISCHARGED FROM YESTERDAY. SON STATES HIS 02 SAT IS LOW AND THE VISITING NURSE DIDN'T LIKE HIS OTHER VS. PT STATES LAST NIGHT HE SNEEZED VERY HARD LAST NIGHT AND PT HAS BRUISING ON HIS SIDE. Triage Nurses Notes Reviewed? yes Onset: Abrupt Duration: day(s): Timing: recent history Severity: moderate, severe HPI: 71-year-old male comes into emergency room for further evaluation after being discharged yesterday from hospital with shortness of breath and cough. Denies any chest pain. Patient was discharged with home oxygen. Patient had a visiting nurse that came in and his blood pressure was low and his heart rate and temperature were high. Patient also complains of right-sided abdominal pain and has a large bruise to the area. Symptoms severe. Patient's O2 saturation 76% upon arrival. (KIAH EDWARD) Past History Travel History Traveled to [place] past 21 day No Medical History Any Pertinent Medical History? see below for history Neurological: NONE EENT: CATARACTS REMOVED Cardiovascular: CAD (s/p ST elevation MD), hypertension, hyperlipidemia, myocardial infarction, non-ST patient MD, status post angioplasty/stent x 3 in 2006 Respiratory: bronchitis, COPD, pneumonia Gastrointestinal: GERD (minimal), lactose intolerance, 10/27/2014: ERCP WITH ES/ CBD STONE EXTRACTION Hepatic: NONE Renal: ACUTE RENAL FAILURE- RESOLVED. INCONTINENT AT TIMES- PT USES DEPENDS AT HOME. Musculoskeletal: osteoarthritis, rheumatoid arthritis, R hip fracture S/P ORIF R COMMUTED HUMERUS FX Psychiatric: anxiety, depression Endocrine: adrenal insufficiency, hypothyroidism, obesity Blood Disorders: anemia Cancer(s): NONE [employer]IST/Reproductive: NONE History of MRSA: No History of VRE: No History of CDIFF: No Influenza Vaccine: 04/23/16 Tetanus Vaccine: 01/05/16 Surgical History Surgical History: cholecystectomy, cholecystostomy tube ORIF R hip back surgery Psychosocial History Who do you live with Family Services at Home Home Health Aide What is your primary language Marshallese Tobacco Use: Never used ETOH Use: denies use Illicit Drug Use: denies illicit drug use Family History Family History, If Any: MOTHER, , Age 89; Cause: Old age. FH: CVA (cerebrovascular accident) SISTER, , Age 71; Cause: Multiple sclerosis. FH: brain cancer SISTER, , Age 55; Cause: Brain cancer. FATHER ( of a myocardial infarction in his 60's). , Age 63; Cause: Myocardial infarct. SISTER ( of multiple sclerosis). Hx Contributory? No (KIAH EDWARD) Review of Systems Review of Systems Constitutional: Reports: see HPI. EENTM: Reports: no symptoms. Respiratory: Reports: see HPI. Cardiovascular: Reports: no symptoms. GI: Reports: see HPI. Genitourinary: Reports: no symptoms. Musculoskeletal: Reports: no symptoms. Skin: Reports: no symptoms. Neurological/Psychological: Reports: no symptoms. Hematologic/Endocrine: Reports: no symptoms. Immunologic/Allergic: Reports: no symptoms. All Other Systems: Reviewed and Negative (KIAH EDWARD) Physical Exam Physical Exam General Appearance: moderate distress Head: atraumatic Eyes: Bilateral: normal appearance. Ears, Nose, Throat: normal ENT inspection, hearing grossly normal Neck: normal inspection Respiratory: decreased breath sounds, rhonchi, wheezing, respiratory distress ( moderate) Cardiovascular: regular rate/rhythm, tachycardia Gastrointestinal: large ecchymosis right side of abdomen running to flank area Extremities: normal inspection Neurologic/Psych: awake, alert, oriented x 3 Skin: ecchymosis (see above) Core Measures ACS in differential dx? No Severe Sepsis Present: No Septic Shock Present: No (KIAH EDWARD) ED Sepsis Exam Date of Focused Sepsis Exam: 09/18/16 Time of Focused Sepsis Exam: 1700 Sepsis Cardiac Exam: Tachycardia Sepsis Resp Exam: Ronchi Sepsis Cap Refill Exam: <2 Sec Sepsis Peripheral Pulse Exam: Bounding Sepsis Peripheral Pulse Location: Radial Sepsis Skin Color Exam: Pale Skin Temp/Moisture Exam: Cool/Dry (KIAH EDWARD) Progress Differential Diagnosis: asthma, AMI, bronchitis, costochondritis, CHF, COPD, musculoskeletal pain, pericarditis, pulmonary embolism, pneumonia, pneumothorax, rib fracture, unstable angina, peritoneal/retroperitoneal bleed Plan of Care: Orders Procedure Date/time Status Heart Healthy Diet 09/19 B Active CBC WITHOUT DIFFERENTIAL 09/19 0600 Active BASIC ELECTROLYTES PLUS BUN&CR 09/19 0600 Active TROPONIN LEVEL 09/19 0000 Active EKG 09/19 0000 Active AMMONIA 09/18 2202 Active CBC WITHOUT DIFFERENTIAL 09/18 2200 Active ARTERIAL BLOOD GAS (GEN) 09/18 2154 Active Add-on Test (ER Only) 09/[address] HEAD WO IV CONTRAST 09/18 2154 Active C.DIFFICILE 09/19 2135 Active OXYGEN SETUP (GEN) 09/18 2118 Active Saline Lock 09/18 2118 Active Misc Message 09/18 2118 Active ED Holding Orders 09/18 2118 Active Activity/Ambulation 09/18 2118 Active TRC EVALUATION (GEN) 09/18 2117 Active OXYGEN SETUP (GEN) 09/18 2117 Active PT Evaluate & Treat 09/18 2117 Active Saline Lock 09/18 2117 Active Pathway - chart 09/18 2117 Active House Staff 09/18 2117 Active Code Status 09/18 2117 Active Patient Data 09/19 2023 Active LACTIC ACID 09/18 2014 Complete Admit to inpatient 09/19 2011 Active Add-on Test (ER Only) 09/18 195 Active Davison, Insertion/Removal/Asses 09/18 191 Active CULTURE,URINE 09/18 191 Active Intake & Output 09/18 1804 Active Add-on Test (ER Only) 09/18 1748 Active PARTIAL THROMBOPLASTIN TIME 09/18 1727 Complete PROTHROMBIN TIME 09/18 172 Complete TYPE & SCREEN (NOT X-MATCH) 09/18 172 Complete MIXED VENOUS BLOOD GAS (GEN) 09/19 1715 Active BLOOD CULTURE 09/18 1714 Active URINALYSIS 09/18 1714 Complete TROPONIN LEVEL 09/18 1714 Complete MAGNESIUM 09/18 171 Complete LACTIC ACID 09/18 1714 Complete COMPREHENSIVE METABOLIC PANEL 09/18 1714 Complete CBC WITHOUT DIFFERENTIAL 09/18 1714 Complete B-TYPE NATRIURETIC PEP (BNP) 09/18 1714 Complete EKG 09/18 170 Active VTE Mechanical Prophylaxis 09/18 UNK Active Vital Signs 09/18 UNK Active Intake & Output 09/18 UNK Active Hemoccult 09/18 UNK Active Current Medications Sig/Luis Start time Last Medication Dose Stop Time Status Admin Atorvastatin Calcium 80 MG 1700 09/19 1700 AC (Lipitor) Buspirone HCl 5 MG TID 09/19 1000 AC (Buspar) Cyclobenzaprine HCl 5 MG DAILY 09/19 1000 AC (Flexeril 5MG Tab) Gabapentin 300 MG TID 09/19 1000 AC (Neurontin) Sertraline HCl 50 MG DAILY 09/19 1000 AC (Zoloft) Vancomycin HCl 1,000 MG DAILY 09/19 1000 AC Sodium Chloride 250 ML (Normal Saline 0.9%) Levothyroxine Sodium 0.05 MG DAILY AC 09/19 0700 AC (Synthroid) Acetaminophen 650 MG Q6P PRN 09/18 2115 AC (Tylenol) Acetaminophen 1,000 MG Q8P PRN 09/18 2115 AC (Ofirmev) Laboratory Tests 09/18/162039: Lactic Acid 1.6 09/18/161929: Urine Color YEL, Urine Clarity CLEAR, Urine pH 6.0, Ur Specific Foster 1.025, Urine Protein TRACE H, Urine Ketones TRACE H, Urine Nitrite NEG, Urine Bilirubin NEG@ICTO, Urine Urobilinogen 0.2, Ur Leukocyte Esterase NEG, Ur Microscopic SEDIMENT EXAMINED, Urine RBC RARE, Urine WBC RARE, Ur Epithelial Cells FEW, Urine Bacteria MOD H, Hyaline Casts 5-10 H, Urine Hemoglobin NEG, Urine Glucose NEG 09/18/16 172: Anion Gap 7, Estimated GFR 54 L, BUN/Creatinine Ratio 38.5 H, Glucose 188 H, Lactic Acid 2.4 H, Calcium 7.7 L, Magnesium 1.8, Total Bilirubin 0.5, AST 32, ALT 49, Alkaline Phosphatase 69, Troponin I < 0.01, Zhc-B-Jugwbvyxfhi Pept 132 H, Total Protein 5.4 L, Albumin 2.8 L, Globulin 2.6, Albumin/Globulin Ratio 1.1, PT 11.0, INR 1.05, APTT 24 L, CBC w Diff NO MAN DIFF REQ, RBC 3.45 L, MCV 77.0 L, MCH 24.3 L, RDW 21.7 H, MPV 7.7, Gran % 80.6 H, Lymphocytes % 11.2 L, Monocytes % 7.6, Eosinophils % 0.4, Basophils % 0.2, Absolute Granulocytes 13.9 H, Absolute Lymphocytes 1.9, Absolute Monocytes 1.3 H, Absolute Eosinophils 0.1, Absolute Basophils 0, PUBS MCHC 31.5 L Microbiology 09/19 2135 STOOL: Clostridium difficile Toxin A & B - ORD 09/18 193 URINE ROUT: Urine Culture - RECD 09/18 175 BLOOD: Blood Culture - RECD 09/18 172 BLOOD: Blood Culture - RECD Diagnostic Imaging: Viewed by Me: CT Scan. Discussed w/RAD: CT Scan. Radiology Impression: SERVICE DATE: 09/18/16 EXAM TYPE: CAT - CT ABD & PELVIS W/O IV CONTRAS; CT CHEST WO IV CONTRAST EXAMINATION: CT CHEST WITHOUT CONTRAST CT ABDOMEN AND PELVIS WITHOUT CONTRAST CLINICAL INFORMATION: Cough. Shortness of breath. Fever. Large bruising over the right side of the abdomen. COMPARISON: Noncontrast CT chest, abdomen and pelvis of 09/15/2016, 01/05/2016. TECHNIQUE: Multidetector volumetric CT imaging of the chest, abdomen and pelvis was acquired without intravenous contrast administration. Post processing was performed at a dedicated workstation. Reformatted coronal and sagittal images are submitted. DLP: 1500.48 mGy-cm FINDINGS: CHEST: Lungs: Mild dependent atelectasis is noted, greater at the lung bases. No evidence of pneumothorax. No discrete pulmonary nodules are identified. Lower Neck and Mediastinum: The thyroid gland is unremarkable. The cardiac size is normal. There are moderate coronary calcifications. No pericardial effusion. Mild narrowing of the AP diameter of the mainstem bronchi is noted which may suggest underlying bronchomalacia. Small hiatal hernia. No mediastinal or hilar adenopathy. Pleura: No evidence of effusion, mass or thickening. Axillae and Chest Wall Soft Tissues : Unremarkable. ABDOMEN AND PELVIS: Liver, Gallbladder and Biliary Tree: The liver is normal in size, shape and attenuation. No focal liver lesion or biliary ductal dilatation. The patient is status post cholecystectomy. Intrahepatic and extrahepatic pneumobilia is noted, a similar finding was seen on the previous study of 2016 and is related to sphincterotomy. Pancreas: Unremarkable. Adrenal Glands: Unremarkable. Spleen: Unremarkable. Kidneys: Normal in size, shape and attenuation. A 0.5 cm calculus at the left UVJ is a stable finding compared to the last CT of 09/15/2016, however, is a new finding compared to the CT scan of 2016. No evidence of hydroureteronephrosis. Mild bilateral perinephric stranding is a stable chronic finding suggesting physiologic change. Gastrointestinal Tract: The stomach is partially distended and unremarkable. The small and large bowel loops are grossly unremarkable. An appendix is not clearly identified, however, there are no inflammatory changes in the expected location of the appendix. There is mild diverticulosis of the sigmoid colon without acute diverticulitis. Abdominal Wall: There is a new finding of a right rectus sheath/ rectus muscle hematoma measuring at least approximately 18.1 x 4.1 x 10.8 cm in craniocaudal, AP and transverse dimensions respectively. Additionally, a large amount of ill-defined soft tissue is noted in the subcutaneous tissue of the right lateral abdominal wall, most likely reflecting soft tissue hematoma as well; it also approximately measures 18 cm in craniocaudal dimension. Mild skin thickening is noted in the left flank with a small amount of ill-defined soft tissue in the left flank subcutaneous tissue. Reticulation of the mid to lower anterior abdominal wall subcutaneous tissue is noted, right greater than left. Peritoneal Cavity: No evidence of free intraperitoneal air or fluid. Lymphovascular Structures: No evidence of pathologically enlarged lymph nodes. Mild scattered calcific atherosclerosis of the aortoiliac vessels which are normal in caliber. Pelvic Viscera: There is mild nonspecific stranding in the prevesical space which is also a new finding compared to the last CT. A small diverticulum arising from the right posterolateral bladder wall is again noted measuring 1.3 cm. The prostate and seminal vesicles are unremarkable. OSSEOUS STRUCTURES: There is diffuse osseous demineralization. Multiple vertebral compression deformities are similar to those seen on the previous study of 2016. No acute osseous abnormality. Right proximal femoral hardware is in place transfixing the femoral neck fracture. Multiple bilateral healing/healed rib fractures are redemonstrated. IMPRESSION: 1. Large right rectus abdominis muscle /rectus sheath hematoma is a new finding compared to the last CT of 09/15/2016. A large amount of ill-defined, somewhat dense appearing soft tissue in the right lateral abdominal wall subcutaneous tissue is also new compared to the last CT and most likely reflects soft tissue hematoma. 2. No acute intrathoracic abnormality. Mild dependent atelectasis. 3. A 0.5 cm calculus in the left ureteropelvic junction without associated hydronephrosis. 4. Bladder diverticula. Nonspecific stranding in the prevesical space is new compared to the last CT. The findings were discussed with the referring provider, Kiah Garza, physician assistant site manager at 7:50 PM on 09/18/2016. DICTATED BY: PRATIMA PRUITT MD Initial ED EKG: normal intervals, normal p-waves, normal QRS complex, normal sinus rhythm, rate (124) (KIAH EDWARD) Departure Departure Disposition: STILL A PATIENT Condition: Stable Clinical Impression Primary Impression: Sepsis Secondary Impressions: Acute blood loss anemia, Respiratory failure, Traumatic hematoma of abdominal wall with infection Referrals: JOHNY MARQUES,CLIFF Mckinney (PCP/Family) Departure Forms: Customer Survey General Discharge Information Admission Note Spoke With: NURIA RODRIGEZ MD Documentation of Exam: Documentation of any treatments & extenuating circumstances including Concerns Regarding Discharge (functional status, medication knowledge or non-compliance, living conditions, etc.) that warrant an admission rather than observation: Patient has an increasing white blood cell count. Patient has acute blood loss. Patient is febrile and was hypotensive and hypoxic when he came in to the emergency room. Patient required emergent antibiotics. Aggressive IV fluid resuscitation. Serial blood work. Patient would do poorly as an outpatient. (KIAH EDWARD) PA/LABOR DELIVERY RN Co-Sign Statement Statement: ED Attending supervision documentation- [X] I saw and evaluated the patient. I have also reviewed all the pertinent lab results and diagnostic results. I agree with the findings and the plan of care as documented in the PA's/LABOR DELIVERY RN's documentation. [X] I have reviewed the ED Record and agree with the PA's/LABOR DELIVERY RN's documentation. [] Additions or exceptions (if any) to the PAs/LABOR DELIVERY RN's note and plan are summarized below: [Patient discharged from the hospital just yesterday but it comes back to the emergency room today with low-grade temperature, ecchymosis to his right flank and right abdominal wall that started after a "very big sneeze." Patient found to be tachycardic. Patient was hypotensive upon arrival but that responded with IV fluids. Patient's white count one from 9000 20,000. Patient is chronically on steroids and he received a stress dose of steroids here in the emergency department. Patient's lungs sounds were also wheezing and he received a DuoNeb. Patient is is receiving broad-spectrum antibiotics. The ecchymosis is very warm to touch on his anterior abdominal wall consistent with an infected hematoma.] (FIDENCIO MARQUES,VOLODYMYR Stone) Critical Care Note Critical Care Note Critical Care Time: 30-74 min (40 minutes) (KIAH EDWARD) Critical Care Note Critical Care Time: 30-74 min (40 minutes) (KIAH EDWARD)
--- NOTE | 2016-09-18 17:31 | NUR ---
BLOOD AND 1ST SET OF CULTURES SENT TO LAB. SST,LAV,BLUE,FLOWERS,PINK.
--- NOTE | 2016-09-18 17:33 | NUR ---
RT AT BEDSIDE WITH PT AND MD NICOLAS AT BEDSIDE ALSO
[2016-09-18 17:46] LABS: ABSOLUTE BASOPHIL COUNT 0 /CUMM (0.0-0.2); ABSOLUTE EOSINOPHIL COUNT 0.1 /CUMM (0.0-0.7); ABSOLUTE GRANULOCYTE CT 13.9 /CUMM (1.4-6.5); ABSOLUTE LYMPH COUNT 1.9 /CUMM (1.2-3.4); ABSOLUTE MONOCYTE COUNT 1.3 /CUMM (0.10-0.60); BASOPHIL % 0.2 % (0.0-2.0); EOSINOPHIL % 0.4 % (0-5); GRANULOCYTE % 80.6 % (42.2-75.2); MEAN CORPUSCULAR HGB 24.3 PG (27.0-31.0); MEAN CORPUSCULAR HGB CONC 31.5 G/DL (33.0-37.0); MEAN PLATELET VOLUME 7.7 FL (7.4-10.4); RBC DISTRIBUTION WIDTH 21.7 % (11.5-14.5)
[2016-09-18 17:52] LABS: WHITE BLOOD CELL COUNT 17.2 /CUMM (4.8-10.8)
[2016-09-18 17:53] LABS: HEMATOCRIT 26.6 % (42-52); RED BLOOD CELL CT 3.45 /CUMM (4.70-6.10)
[2016-09-18 17:54] LABS: PLATELET COUNT 296 /CUMM (130-400)
--- NOTE | 2016-09-18 18:02 | NUR ---
CRITICAL TEST RESULTS [id number] SHAKIR KELLEY III 71 M TESTS AND RESULTS: LACTIC 2.4 Results received and read back by: DOTTIE SHARIF Results received date and time: 09/18/161802 The following provider was notified of the results, and read the results back: SHERIDAN NICOLAS Notified date and time: 09/18/16 at 1803
--- NOTE | 2016-09-18 18:02 | NUR ---
PT MEDICATED ORDERED
[2016-09-18 18:15] LABS: PTT 24 SEC (25-37)
[2016-09-18] MEDS ORDERED: RAMIPRIL10 M1 PO (18:48)
--- NOTE | 2016-09-18 18:49 | NUR ---
PT LEFT FOR CAT SCAN
--- NOTE | 2016-09-18 19:13 | NUR ---
PT BACK FROM CAT SCAN AND COMPLETED IV FORTAZ AND VITALS COMPLETED
--- NOTE | 2016-09-18 19:43 | NUR ---
ASSUKED PRIMARY CARE ZULETA INSERTED WITHOUT DIFF URINE TRIO SENT. PO INTAKE 120CCS H2O. 2ND LITER INFUSING WELL
--- NOTE | 2016-09-18 19:51 | NUR ---
PT DENIES CP BUT IS SOB AT REST, PT NOTED TO HAVE LARGE 3X4 AREA OF OLD ECCHYMOSIS TO RLQ PAINFUL WITH TURNING TO RT SIDE, DENIES FALL PT WAS ON HEPARIN LAST ADMIT AND STATES WAS INJECTED THERE. LUNGS WITH SCATTERED RHONCHI.
--- NOTE | 2016-09-18 20:21 | NUR ---
LAB IN FOR ABO AND LACTIC DRAW, 3RD LITER INFUSED.
--- NOTE | 2016-09-18 20:37 | History & Physical ---
DYLAN MARQUES,AYAH 09/18/162034: General Information and HPI MD Statement: I have seen and personally examined SHAKIR KELLEY III and documented this H&P. The patient is a 71 year old M who presented with a patient stated chief complaint of [right sided abdominal pain]. Source of Information: patient, family, old records Exam Limitations: no limitations History of Present Illness: Patient is a 75-year-old gentleman was brought in by his son from home due to new onset right-sided abdominal pain. Patient was found to have low oxygen level, fever, low blood pressure, increased heart rate by the visiting nurse, he also reported very low urine output and decided to come back to the ED. He has a PMH significant for CAD S/P stent, RA, adrenal insufficiency, COPD on 1.5-2L oxygen at night, cholecystectomy and ERCP with CBD stone removed in 2014, hypothyroidism, hypertension, hyperlipidemia, back pain, osteopenia, anxiety and depression. He was admitted to [facility] for acute hypoxic/hypercapnic respiratory failure and COPD exacerbation and was discharged yesterday. Patient reports that he was feeling fine after discharge but last night he started to have 'tremendous sneezing', followed by a sharp pain in the abdomen on the right side. He felt like he had 'blown a gut' or had hernia. Pain progressively worsened to the severity of 8-9/10, without radiation. Pain was accompanied by nausea but no vomiting. Patient denied any fall, trauma or injury to the site. He reported severe diarrhea starting yesterday, stool was sticky and watery, non bloody, with intensely painful defecation. Diarrhea got worse when patient took bowel regimen including Colace and Beryl Grandy. Pain was comparable in severity to the pain he had for cholecystitis in 2015. Did not notice any bruising himself and the visiting nurse did not mention to him either. Of note, patient was found to have a small area of bruising on the right flank in the previous admission. Patient also reports dizziness, shortness of breath and chest tightness only on exertion, which has been present from the past. Reports coughing with some phlegm, improved since previous admission. Reports chills that started since yesterday, also has had very low urine output yesterday and almost no urine today. Denies dysuria but reports he has swelling in the scrotum which has caused him difficulty urinating. Allergies/Medications Allergies: Coded Allergies: hydrocodone (From VICODIN) (Intermediate, SEVERE HALLUCINATIONS 07/05/16) hydromorphone (From DILAUDID) (Intermediate, SEVERE HALLUCINATIONS 07/05/16) morphine (Intermediate, WILD DREAMS, GI UPSET, SEVERE HALLUCINATIONS 07/05/16) oxycodone (From PERCOCET) (Intermediate, SEVERE HALLUCINATIONS 07/05/16) lactose (DIARRHEA 07/05/16) Home Med list Albuterol Sulfate (Proair Hfa) 90 MCG HFA.AER.AD 2 PUF INH Q4H PRN RESPIRATORY (Reported) Alendronate Sodium (Fosamax) 70 MG TABLET 1 TAB PO Q FRIDAY OSTEOPOROSIS ( Reported) in the morning, at least 30 minutes before the first food, beverage, or medication of the day Alprazolam 0.25 MG TABLET 1 TAB PO Q12H PRN ANXIETY (Reported) Aspirin (Ecotrin*) 325 MG TABLET.DR 1 TAB PO DAILY HEART/BLOOD (Reported) Buspirone HCl 5 MG TABLET 1 TAB PO TID ANXIETY (Reported) Cefuroxime Axetil (Cefuroxime) 250 MG TABLET 1 TAB PO BID ANTIBIOTICS Clopidogrel Bisulfate (Plavix) 75 MG TABLET 1 TAB PO DAILY BLOOD THINNER ( Reported) Cyanocobalamin (Vitamin B-12) 1,000 MCG TABLET 1 TAB PO DAILY SUPPLEMENT ( Reported) Cyclobenzaprine HCl 5 MG TABLET 1 TAB PO DAILY MUSCLE SPASMS (Reported) Furosemide (Lasix) 20 MG TABLET 1 TAB PO DAILY DIURETIC (Reported) Gabapentin (Neurontin) 300 MG CAPSULE 1 CAP PO TID NERVE PAIN (Reported) Lansoprazole (Prevacid) 30 MG TAB.RAP.DR 1 TAB PO DAILY GI (Reported) Levothyroxine Sodium 50 MCG TABLET 1 TAB PO DAILY THYROID (Reported) Metoprolol Succ XL (Toprol XL) 25 MG TAB 25 MG PO DAILY BLOOD PRESSURE Multivitamin (Multiple Vitamins) 1 EACH TABLET 1 TAB PO DAILY SUPPLEMENT ( Reported) Potassium Chloride 10 MEQ TAB.ER.PRT 1 TAB PO DAILY SUPPLEMENT (Reported) Prednisone 20 MG TABLET 1 TAB PO DAILY RA (Reported) START FROM 09/23/16 THEN CONTINUE DAILY Prednisone 10 MG TABLET 1 TAB PO DAILY ACUTE BRONCHITIS TAKE 4 TABS FROM 09/17/16 TO 09/19/16 TAKE 3 TABS FROM 09/20/16 TO 09/22/16 THEN CONTINUE ON HOME DOES OF 20 MG PREDNISONE DAILY Ramipril (Altace) 10 MG CAPSULE 1 CAP PO DAILY BP (Reported) Ramipril 10 MG CAPSULE 1 CAP PO DAILY HTN (Reported) Rosuvastatin Calcium (Crestor) 40 MG TABLET 1 TAB PO QPM CHOLESTEROL ( Reported) Sertraline HCl 50 MG TABLET 1 TAB PO DAILY MENTAL HEALTH (Reported) Tofacitinib Citrate (Xeljanz) 5 MG TABLET 1 TAB PO BID rheumatoid arthritis ( Reported) Past History Travel History Traveled to [place] past 21 day No Medical History Neurological: NONE EENT: CATARACTS REMOVED Cardiovascular: CAD (s/p ST elevation [place]), hypertension, hyperlipidemia, myocardial infarction, non-ST patient [place], status post angioplasty/stent x 3 in 2006 Respiratory: bronchitis, COPD, pneumonia Gastrointestinal: GERD (minimal), lactose intolerance, 10/27/2014: ERCP WITH ES/ CBD STONE EXTRACTION Hepatic: NONE Renal: ACUTE RENAL FAILURE- RESOLVED. INCONTINENT AT TIMES- PT USES DEPENDS AT HOME. 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 FH: CVA (cerebrovascular accident) SISTER, , Age 71; Cause: Multiple sclerosis. FH: brain cancer SISTER, , Age 55; Cause: Brain cancer. FATHER ( of a myocardial infarction in his 60's). , Age 63; Cause: Myocardial infarct. SISTER ( of multiple sclerosis). Psychosocial History Who Do You Live With? self Services at Home: Home Health Aide Primary Language: Azeri ETOH Use: denies use Illicit Drug Use: denies illicit drug use Living Will? no Power of Asl Interpreter/HCP? yes Name of POA/HCP: Pt's sonDandre Functional Ability ADLs Independent: dressing, eating, toileting, bathing. Ambulation: independent IADLs Independent: shopping, housework, finances, food prep, telephone, transportation , medication admin. Review of Systems Review of Systems Constitutional: Reports: chills, fever, weakness. EENTM: Reports: blurred vision (not new), throat pain (chronic). Denies: visual changes. Cardiovascular: Reports: palpitations (on exertion). Denies: chest pain. Respiratory: Reports: cough, short of breath (on exertion), sputum production (improving). GI: Reports: abdominal pain, diarrhea, nausea, changes in stool. Denies: vomiting. Genitourinary: Denies: dysuria, hematuria. Musculoskeletal: Reports: back pain, muscle pain. Skin: Reports: lumps (on the right occiput). Neurological/Psychological: Reports: anxiety, weakness. Denies: ataxia, headache, numbness. Hematologic/Endocrine: Reports: bruising. Immunologic/Allergic: Reports: no symptoms. Exam & Diagnostic Data Last 24 Hrs of Vital Signs/I&O Vital Signs Date Time Temp Pulse Resp B/P Pulse O2 O2 Flow FiO2 Ox Delivery Rate 09/18 2235 99.7 125 20 130/60 82 Nasal 2.0L Cannula 09/18 2147 100.1 124 20 121/69 93 Nasal 2.0L Cannula 09/18 1914 100.3 114 21 138/61 94 Nasal 1.0L Cannula 09/18 1806 99 Nasal 1.0L Cannula 09/18 1740 78 17 112/76 99 Nasal 1.0L Cannula 09/18 1720 92 Nasal 2.0L Cannula 09/18 1700 100.6 131 20 88/60 76 Room Air Physical Exam General Appearance Alert, Cooperative, No Acute Distress, oriented to place and person but not time Skin there is a large bruising area in the right flank and RUQ extending from below the rib cage in the back and front down to the right hip. There are echymoses on both upper extremities. HEENT Atraumatic, EOMI, pale conjunctiva, dry mucous membranes. Neck Supple, No JVD Cardiovascular Regular Rate, Normal S1, Normal S2, No Murmurs Lungs decreased breath sounds, with diffuse wheezing and rhonchi on both sides Abdomen generalized tenderness more prominent on the RLQ and LLQ , no CVA tenderness Neurological Normal Speech, Strength at 5/5 X4 Ext, Normal Tone, Sensation Intact, Cranial Nerves 3-12 NL Extremities 3+ pitting edema, more on the right side than the left. Vascular Pulses Symmetrical Reproductive (MALE) there is scrotal swelling penis is invisible and retracted into the scrotum, paiz catheter is placed in the ED Rectal there is fissure and a skin tag on the posterior wall of the rectum, rectal tone mildly increased, there is skin erythema around the anus. no tenderness in the exam, Guaiac +, no gross blood precent in the rectal vault. Last 24 Hrs of Labs/Kain: Laboratory Tests 09/19/16 004: Troponin I < 0.01 09/19/1644: Ammonia < 9 L, CBC w Diff MAN DIFF ORDERED, RBC 3.24 L, MCV 76.5 L, MCH 24.4 L, RDW 20.5 H, MPV 7.7, Gran % 93.4 H, Lymphocytes % 3.2 L, Monocytes % 3.4, Eosinophils % 0, Basophils % 0 L, Absolute Granulocytes 13.8 H, Segmented Neutrophils 92 H, Band Neutrophils 1, Absolute Lymphocytes 0.5 L, Lymphocytes 2 L, Monocytes 5, Absolute Monocytes 0.5, Absolute Eosinophils 0, Absolute Basophils 0, Platelet Estimate ADEQUATE, Polychromasia 1+, Hypochromic- Microcytic 1+, Poikilocytosis 1+, Basophilic Stippling 1+, Anisocytosis 1+, Microcytic Cells 1+, Ovalocytes 1+, Elliptocytes FEW, PUBS MCHC 31.9 L, Fld Total RBCs Counted 100 09/18/162039: Lactic Acid 1.6 09/18/16 193: Urine Color YEL, Urine Clarity CLEAR, Urine pH 6.0, Ur Specific [place] 1.025, Urine Protein TRACE H, Urine Ketones TRACE H, Urine Nitrite NEG, Urine Bilirubin NEG@ICTO, Urine Urobilinogen 0.2, Ur Leukocyte Esterase NEG, Ur Microscopic SEDIMENT EXAMINED, Urine RBC RARE, Urine WBC RARE, Ur Epithelial Cells FEW, Urine Bacteria MOD H, Hyaline Casts 5-10 H, Urine Hemoglobin NEG, Urine Glucose NEG 09/18/16 1727: Anion Gap 7, Estimated GFR 54 L, BUN/Creatinine Ratio 38.5 H, Glucose 188 H, Lactic Acid 2.4 H, Calcium 7.7 L, Magnesium 1.8, Total Bilirubin 0.5, AST 32, ALT 49, Alkaline Phosphatase 69, Troponin I < 0.01, Tqs-X-Zlscqxwzmtc Pept 132 H, Total Protein 5.4 L, Albumin 2.8 L, Globulin 2.6, Albumin/Globulin Ratio 1.1, PT 11.0, INR 1.05, APTT 24 L, CBC w Diff NO MAN DIFF REQ, RBC 3.45 L, MCV 77.0 L, MCH 24.3 L, RDW 21.7 H, MPV 7.7, Gran % 80.6 H, Lymphocytes % 11.2 L, Monocytes % 7.6, Eosinophils % 0.4, Basophils % 0.2, Absolute Granulocytes 13.9 H, Absolute Lymphocytes 1.9, Absolute Monocytes 1.3 H, Absolute Eosinophils 0.1, Absolute Basophils 0, PUBS MCHC 31.5 L Microbiology 09/19 2135 STOOL: Clostridium difficile Toxin A & B - ORD 09/18 1929 URINE ROUT: Urine Culture - RECD 09/18 175 BLOOD: Blood Culture - RECD 09/18 172 BLOOD: Blood Culture - RECD Assessment/Plan Assessment: Patient is a 71-year-old gentleman with PMH of CAD S/P stent, RA, adrenal insufficiency, COPD on 1.5-2L oxygen at night, cholecystectomy and ERCP with CBD stone removed in 2014, hypothyroidism, hypertension, hyperlipidemia, back pain, osteopenia, anxiety and depression, who came to the ED due to right-sided abdominal and flank pain that started from last night. Patient was also found to have hypotension, tachycardia, fever, and low oxygen levels. In the ED CT scan of the abdominal pelvis revealed a large right rectus sheath/rectus muscle hematoma. Problem list and plan: Acute blood loss anemia in the setting of chronic anemia Patient has a large hematoma in the rectus abdominis muscle, most likely developed after discharge, accompanied by severe pain. Reports sneezing vigorously before the pain started. Also, patient was on Lovenox during the previous admission and received subcutaneous shots on the same area in the abdomen as the hematoma has developed. Hypotensive (BP: 88/60) on arrival. H/H dropped from 11.1/36.5 to 8.4/26.6 MCV 77, guaiac positive, possibly DIANE in the setting chronic GI loss Lactic acid 2.4 on arrival which came down to 1.6 after fluid resuscitation. * Continue IV fluids * CBC every 4 h * Type and screen * Will transfuse if hemoglobin < 7 Sepsis Mild alteration in mentation (patient is not oriented to time, does not remember medications although reportedly was very accurate about medications in the previous admission). Maximum temperature 100.6, tachycardic, leukocytosis (WBC 17.2), impaired kidney function, elevated lactic acid, diarrhea, perivesicular stranding in the CT. Chest CT unremarkable, UA negative, urine culture pending. Symptoms could be due to infected hematoma, considering the immunocompromised state (on prednisone chronically as well as Tofacitinib for RA) * Continue IV fluids * Repeat CBC in a.m. * Check stool for C. difficile toxin * Check ammonia level for AMS * IV vancomycin 1 g daily, reassess need for antibiotics in am * Follow up UC and BC LANCE elevated BUN and creatinine, BUN/Cr>20, suggesting prerenal in the setting of dehydration (diarrhea, 8 episodes of watery, nonbloody) * Continue IV fluids * Repeat BEP in a.m. History of COPD Was hospitalized recently for COPD exacerbation, and acute hypoxic/hypercapnic respiratory failure. Reports improvement in the coughing, reports shortness of breath only on exertion. * O2 supplementation as needed Guaiac positive stool most likely due to the presence of fissure with possible irritation due to recent episodes of diarrhea. no kaylie blood noted in rectal exam. There is skin irritation and ereythema around the anus, fissure noted with skin tag. Exam was not painful. * will monitor H/H Left ureter stone Reported in CT scan, no CVA tenderness, no hydronephrosis. * continue IV fluids * repeat BEP in AM LE edema, scrotal edema Chronic and stable. No JVD, no evidence of volume overload in chest CT. possibly dependent edema. Paiz catheter is placed due to scrotal edema and difficulty urinating * consider restarting lasix when BP stabilizes * consider urology evaluation History of cholelithiasis LFT within normal limits. History of RUQ pain (had cholecystectomy and CBD stone removal in 2014) Recent right upper quadrant ultrasound unremarkable * Repeat LFT in a.m. History of hypertension, hyperlipidemia, RA, hypothyroidism * Continue statin, continue levothyroxine, BP medications on hold due to hypotension, tofacitinib on hold fever and leukocytosis History of anxiety and depression * Continue sertraline, cyclobenzaprine, gabapentin, buspirone Diet Heart healthy DVT prophylaxis Pharmacologic px on hold due to bleeding, ALPS only Pain Mild pain pathway with Tylenol Full code As Ranked By This Provider Problem List: 1. Acute blood loss anemia 2. Traumatic hematoma of abdominal wall with infection 3. COPD (chronic obstructive pulmonary disease) 4. Diarrhea 5. Sepsis 6. LANCE (acute kidney injury) 7. HLD (hyperlipidemia) 8. HTN (hypertension) Core Measures/Miscellaneous Acute Coronary Syndrome ACS Diagnosis: No Cerebrovascular Accident CVA/TIA Diagnosis: No Congestive Heart Failure CHF Diagnosis: No Venous Thromboembolism VTE Risk Factors: Acute medical illness, Age > 40 No [facility] VTE prophylaxis d/t: No contraindications No VTE Pharm Prophylaxis d/t: No contraindications VTE Diagnosis: No VTE Type: NONE VTE Confirmed by (Test): NONE Severe Sepsis Severe Sepsis Present: Yes BC x2: Yes Lactic Acid x2: Yes IV ABX Broad Spectrum: Yes NS/LR Started: Yes Septic Shock Septic Shock Present: No Miscellaneous Documentation Attending Case Discussed With: NURIA RODRIGEZ MD Primary Care Physician: CLIFF MCCLAIN MD Patient sees these Specialists Dr. Rincon, Dr. Andrez Anthony Level of Patient Care: Telemetry NURIA RODRIGEZ 09/19/16 0135: Attending MD Review Statement Attending Statement Attending MD Statement: examined this patient, discuss w/resident/PA/MERCANTILE REPORTER, agreed w/resident/PA/MERCANTILE REPORTER, reviewed EMR data (avail), reviewed images, amended to note Attending Assessment/Plan: CC: sent by visiting nurse for high HR and low BP PMH: CAD S/P [place] S/P 3 stents, adrenal insufficiency, hypothyroidism, HTN, HLD, RA, chronic respiratory failure, back surgery, osteopenia, anxiety and depression, severe sepsis at the time of cholecystectomy, requiring intubation, using nighttime oxygen at 1.5-2 L. Patient was admitted in [facility] for acute on chronic respiratory failure secondary to bronchitis, was discharged on tapering dose of steroids, cefuroxime on September 17. Patient was sent by visiting nurse for low oxygen, low blood pressure, increased heart rate. Patient states that he had a big sneeze yesterday and felt like something popped open, felt sharp needlelike pain on right side of the abdomen. He also endorses 8 watery bowel movements, chills, nausea. Respiratory symptoms improved. He was feeling much better after discharge but all of a sudden deteriorated as mentioned above. Vital: T max 100.6, HR 131 at presentation, RR 20, blood pressure 88/60, saturating 76% ? On 2 L at presentation. After receiving 3 L normal saline bolus , HR improved to 114, blood pressure 138/61, saturating 94% on 1 L. On exam: Lethargic at presentation, eventually improved with IV fluids. A O 3, mild respiratory distress, no accessory muscles of respiration in use, no JVD, no lymphadenopathy, mucosa moist, neck supple, no focal neurological deficit, +3 dependent edema bilateral lower extremity and scrotum, lipoma /cyst occipital area . CVS: S1-S2, RRR. RS: Much clearer to auscultated as compared to previous hospitalization, still mild wheeze present. Abdomen: Soft, right abdominal wall tenderness with bruise extending from the right flank midline to up to anteriorly crossing midline, bowel sounds present, no fluid thrill. Labs: WBC 17.2 increased from 9.7 on September 16, neutrophils 80%, hemoglobin 8.4 dropped from 11.1 on September 16, bicarbonate 34, BUN 50, increased from 19, creatinine 1.3, lactate 2.4, decreased to 1.6., LFT unremarkable, albumin 2.8, proBNP 134, troponin T less than 0.01, UA unremarkable, influenza negative CT abdomen and pelvis and chest without IV contrast: 1. Large right rectus abdominis muscle/rectus sheath hematoma is a new finding compared to the last CT of 09/15/2016. A large amount of ill-defined, somewhat dense appearing soft tissue in the right lateral abdominal wall subcutaneous tissue is also new compared to the last CT and most likely reflects soft tissue hematoma. 2. No acute intrathoracic abnormality. Mild dependent atelectasis. 3. A 0.5 cm calculus in the left ureteropelvic junction without associated hydronephrosis. 4. Bladder diverticula. Nonspecific stranding in the prevesical space is new compared to the last CT. A and P #1 abdominal wall hematoma: Unclear etiology, patient received Lovenox in hospital, no other trauma other than "big sneeze", significant drop in H&H, hypotensive at presentation, tachycardic. Trend H&H every 4 hours 2, if H&H dropping then repeat CT abdomen with IV contrast, continue IV fluid normal saline at 75 mL per hour for 1 more liter total 5 L, watch blood pressure closely, admit on telemetry for persistent tachycardia and hypotension, type and screen 2 units, transfuse if H&H drops less than 7. Hold Plavix and aspirin, DVT prophylaxis with Alps only. Secondary infection of this hematoma is possible given recent hospitalization and patient is having low-grade fever with leukocytosis, continue renally adjusted vancomycin at this time, reassess in a.m. for need of antibiotics. Obtain Urine culture, blood culture. Patient had history of severe sepsis in the past, currently immunocompromised because of biologic for RA #2 low-grade fever, hypotension at presentation, elevated creatinine, leukocytosis lactic acidosis, anemia: MAY be possible secondary to acute blood loss and abdominal hematoma. Patient's BUN is also significantly increased as compared to creatinine, had 8 bowel movements, check for rectal exam for acute blood loss, guaiac stools, check for C. difficile. MCV is 77 , ? Additional anemia secondary to chronic disease plus or minus chronic blood loss. UA is unremarkable, CT chest and abdomen is unremarkable any other infection, lactate trending down after hydration. # 3 bilateral lower extremity pitting edema: Patient is prescribed Lasix but currently not taking it, has chronic leg edema and scrotal edema. # 4 0.5 cm stone in the left ureter, no evidence of hydronephrosis, no evidence of UTI, no CVA tenderness, no pain on the left side of abdomen, conservative management # 5 right upper quadrant pain : And tenderness, this appears chronic in nature, Liver enzymes and alkaline phosphatase normal, right upper quadrant ultrasound obtained on previous hospitalization was unremarkable. Repeat CT scan with current admission is unremarkable. # 6 hypothyroidism: TSH was 10, he was discharged on 50 g levothyroxine, ? Outpatient follow-up #7 chronic respiratory failure, stable on 1-2 L NC # 8 chronic stable conditions CAD, adrenal insufficiency, anxiety, depression, HTN, HLD, RA : Continue alendronate, alprazolam, aspirin, atenolol, buspirone, Plavix, Flexeril, gabapentin, Prevacid, ramipril, Crestor, sertraline and Tofacitinib. NIKKI LOPEZ 09/19/16 0328: Resident Review Statement Resident Statement: examined this patient, discussed with architecture intern, agreed with architecture intern, discussed with family, reviewed EMR data (avail), reviewed images, amended to note Other Findings: This is 75 year-old male with PMH significant for CAD S/P stent, RA, adrenal insufficiency, COPD on 1.5-2L oxygen at night, cholecystectomy and ERCP with CBD stone removed in 2014, hypothyroidism, hypertension, hyperlipidemia, back pain, osteopenia, anxiety and depression. He was admitted to [facility] for acute hypoxic/hypercapnic respiratory failure and COPD exacerbation and was discharged yesterday. Patient presented to the ED department with her son due to new onset right-sided abdominal pain, patient stated that the visiting nurse checked his oxygen saturation at home that was in the 70s also it was associated with low blood pressure and fever. Patient reports multiple past of diarrhea that was watery, despite diarrhea patient reports taking his oral laxative. Patient also reports low urine output, patient feeling that due to retracted penis secondary to the edema around. Patient had a history of C. difficile on 2016. Physical examination, imaging and lab as above. Problem list: -Right side abdominal wall hematoma, Unclear etiology -Hypotension with reflex tachycardia most likely secondary to bleeding -Acute kidney injury that could be due to hypotension vs postrenal due to difficulty voiding. -Sepsis, Low-grade fever, leukocytosis and lactic acidosis. That could be secondary to hematoma versus infection process giving the patient recent hospitalization. Plan: -Admit patient to telemetry floor -Vitals every shift, -Check CBC every 4 hours if stable check it every 8 -If H&H drop or patient complaining of worsening abdominal pain we'll obtain imaging of the abdomen to assess the size of the hematoma, hold aspirin and Plavix for now. -Continue IV fluid resuscitation, hold the patient antihypertensive medication for now, will restart in the morning if his blood pressure allow. -Continue the patient IV vancomycin -Follow-up blood and urine culture, obtain C. difficile -Check ammonia level, check 1 set of troponin and EKG -Continue the rest of the patient home medication including Xanax, statin, levothyroxine and Zoloft -Repeat basic electrolyte in morning for further evaluation. -Pain pathway -DVT prophylaxis:Alps -Full code
--- NOTE | 2016-09-18 20:40 | NUR ---
LAB UNSUCESSFUL FOR LABS ONLY ABLE TO GET ABO SCANT AMT.
--- NOTE | 2016-09-18 20:41 | NUR ---
PT IS CURRENTLY REFUSING ANY MORE LAB ATTEMPTS.
--- NOTE | 2016-09-18 20:44 | CT SCAN REPORT ---
EXAMINATION: CT CHEST WITHOUT CONTRAST CT ABDOMEN AND PELVIS WITHOUT CONTRAST CLINICAL INFORMATION: Cough. Shortness of breath. Fever. Large bruising over the right side of the abdomen. COMPARISON: Noncontrast CT chest, abdomen and pelvis of 09/15/2016, 01/05/2016. TECHNIQUE: Multidetector volumetric CT imaging of the chest, abdomen and pelvis was acquired without intravenous contrast administration. Post processing was performed at a dedicated workstation. Reformatted coronal and sagittal images are submitted. DLP: 1500.48 mGy-cm FINDINGS: CHEST: Lungs: Mild dependent atelectasis is noted, greater at the lung bases. No evidence of pneumothorax. No discrete pulmonary nodules are identified. Lower Neck and Mediastinum: The thyroid gland is unremarkable. The cardiac size is normal. There are moderate coronary calcifications. No pericardial effusion. Mild narrowing of the AP diameter of the mainstem bronchi is noted which may suggest underlying bronchomalacia. Small hiatal hernia. No mediastinal or hilar adenopathy. Pleura: No evidence of effusion, mass or thickening. Axillae and Chest Wall Soft Tissues: Unremarkable. ABDOMEN AND PELVIS: Liver, Gallbladder and Biliary Tree: The liver is normal in size, shape and attenuation. No focal liver lesion or biliary ductal dilatation. The patient is status post cholecystectomy. Intrahepatic and extrahepatic pneumobilia is noted, a similar finding was seen on the previous study of 2015 and is related to sphincterotomy. Pancreas: Unremarkable. Adrenal Glands: Unremarkable. Spleen: Unremarkable. Kidneys: Normal in size, shape and attenuation. A 0.5 cm calculus at the left UVJ is a stable finding compared to the last CT of 09/15/2016, however, is a new finding compared to the CT scan of 2016. No evidence of hydroureteronephrosis. Mild bilateral perinephric stranding is a stable chronic finding suggesting physiologic change. Gastrointestinal Tract: The stomach is partially distended and unremarkable. The small and large bowel loops are grossly unremarkable. An appendix is not clearly identified, however, there are no inflammatory changes in the expected location of the appendix. There is mild diverticulosis of the sigmoid colon without acute diverticulitis. Abdominal Wall: There is a new finding of a right rectus sheath/rectus muscle hematoma measuring at least approximately 18.1 x 4.1 x 10.8 cm in craniocaudal, AP and transverse dimensions respectively. Additionally, a large amount of ill-defined soft tissue is noted in the subcutaneous tissue of the right lateral abdominal wall, most likely reflecting soft tissue hematoma as well; it also approximately measures 18 cm in craniocaudal dimension. Mild skin thickening is noted in the left flank with a small amount of ill-defined soft tissue in the left flank subcutaneous tissue. Reticulation of the mid to lower anterior abdominal wall subcutaneous tissue is noted, right greater than left. Peritoneal Cavity: No evidence of free intraperitoneal air or fluid. Lymphovascular Structures: No evidence of pathologically enlarged lymph nodes. Mild scattered calcific atherosclerosis of the aortoiliac vessels which are normal in caliber. Pelvic Viscera: There is mild nonspecific stranding in the prevesical space which is also a new finding compared to the last CT. A small diverticulum arising from the right posterolateral bladder wall is again noted measuring 1.3 cm. The prostate and seminal vesicles are unremarkable. OSSEOUS STRUCTURES: There is diffuse osseous demineralization. Multiple vertebral compression deformities are similar to those seen on the previous study of 2016. No acute osseous abnormality. Right proximal femoral hardware is in place transfixing the femoral neck fracture. Multiple bilateral healing/healed rib fractures are redemonstrated. IMPRESSION: 1. Large right rectus abdominis muscle/rectus sheath hematoma is a new finding compared to the last CT of 09/15/2016. A large amount of ill-defined, somewhat dense appearing soft tissue in the right lateral abdominal wall subcutaneous tissue is also new compared to the last CT and most likely reflects soft tissue hematoma. 2. No acute intrathoracic abnormality. Mild dependent atelectasis. 3. A 0.5 cm calculus in the left ureteropelvic junction without associated hydronephrosis. 4. Bladder diverticula. Nonspecific stranding in the prevesical space is new compared to the last CT. The findings were discussed with the referring provider, Livan Garza physician retail assistant at 7:50 PM on 09/18/2016.
--- NOTE | 2016-09-18 20:58 | NUR ---
HOUSESTAFF AT BEDSIDE.
--- NOTE | 2016-09-18 21:17 | NUR ---
[facility] ASSIGNMENT [phone]
--- NOTE | 2016-09-18 21:45 | NUR ---
REPORT GIVEN TO FAYE. MESSAGE LEFT W DISTRIBUTION
--- NOTE | 2016-09-18 22:25 | NUR ---
DR. JORDAN AWARE PT REFUSED CT OF HEAD. PT IN THIS RNS PRESENCE EXPLAINED TO HOUSESTAFF DURING EVAL HE WAS VERY TIRED AND JUST WANTED TO GO TO HIS BED. THEY ASSURED HIM THIS WOULD OCCUR SOON THEN ORDERED CT.
[2016-09-18 22:35] VITALS: BP 130/60
[2016-09-19 01:17] LABS: ABSOLUTE BASOPHIL COUNT 0 /CUMM (0.0-0.2); ABSOLUTE EOSINOPHIL COUNT 0 /CUMM (0.0-0.7); ABSOLUTE GRANULOCYTE CT 13.8 /CUMM (1.4-6.5); ABSOLUTE LYMPH COUNT 0.5 /CUMM (1.2-3.4); ABSOLUTE MONOCYTE COUNT 0.5 /CUMM (0.10-0.60); BASOPHIL % 0 % (0.0-2.0); EOSINOPHIL % 0 % (0-5); GRANULOCYTE % 93.4 % (42.2-75.2); HEMATOCRIT 24.7 % (42-52); MEAN CORPUSCULAR HGB 24.4 PG (27.0-31.0); MEAN CORPUSCULAR HGB CONC 31.9 G/DL (33.0-37.0); MEAN CORPUSCULAR VOLUME 76.5 FL (80.0-94.0); MEAN PLATELET VOLUME 7.7 FL (7.4-10.4); PLATELET COUNT 223 /CUMM (130-400); RBC DISTRIBUTION WIDTH 20.5 % (11.5-14.5); RED BLOOD CELL CT 3.24 /CUMM (4.70-6.10); WHITE BLOOD CELL COUNT 14.8 /CUMM (4.8-10.8)
--- NOTE | 2016-09-19 01:37 | Admission Certification ---
Admission Certification Certification Statement - As attending physician, I certify that at the time of - admission, based on clinical presentation, severity of - symptoms, need for further diagnostic testing and - therapeutic interventions, and risk of adverse outcomes - without in-hospital treatment, in my clinical assessment, - this patient requires an acute hospital stay for a minimum - of two nights or longer. I have also considered psychsocial - factors such as support system, advanced age, financial - issues, cognitive issues, and failed out-patient treatments, - past re-admission history, safety of patient, and lack of - compliance as applicable. Specific rationale supporting this admission is: Abdominal wall hematoma, acute blood loss anemia
--- NOTE | 2016-09-19 07:53 | PN- Housestaff ---
SHRUTHI MARQUES,KHADAR 09/19/16 0753: Subjective Follow-up For: Acute blood loss anemia Rectus abdominal muscle hematoma Tele-Events Since Last Visit: Sinus tachycardia with heart rate ranging from 100 to 1:30. occasional PVCs. Subjective: Patient appears very frustrated today. Complains of pain on the right side of the abdomen. He is not in any discomfort. Denies overnight events. Review of Systems Constitutional: Reports: see HPI. Objective Last 24 Hrs of Vital Signs/I&O Vital Signs Date Time Temp Pulse Resp B/P Pulse O2 O2 Flow FiO2 Ox Delivery Rate 09/19 1240 98 118/80 09/19 1025 Nasal 2.0L Cannula 09/19 1002 95 Nasal 2.0L Cannula 09/19 1000 98.1 100 22 130/78 09/19 0820 98.4 102 20 148/86 96 Nasal 2.0L Cannula 09/19 0800 Nasal 2.0L Cannula 09/19 0000 Nasal 2.0L Cannula 09/18 2300 Nasal 2.0L Cannula 09/18 2235 99.7 125 20 130/60 82 Nasal 2.0L Cannula 09/18 2147 100.1 124 20 121/69 93 Nasal 2.0L Cannula 09/18 1914 100.3 114 21 138/61 94 Nasal 1.0L Cannula 09/18 1806 99 Nasal 1.0L Cannula 09/18 1740 78 17 112/76 99 Nasal 1.0L Cannula 09/18 1720 92 Nasal 2.0L Cannula 09/18 1700 100.6 131 20 88/60 76 Room Air Intake & Output 09/19 1600 09/19 0800 09/19 0000 Intake Total 750 1440 1100 Output Total 200 600 200 Balance 550 840 900 Intake, IV 450 1200 1100 Intake, Oral 300 240 Output, Urine 200 600 200 Patient 220 lb Weight Physical Exam General Appearance: Alert, Oriented X3, Cooperative, No Acute Distress Skin: hematoma present in the anterior abdominal wall extending to the back HEENT: Atraumatic, PERRLA, EOMI Cardiovascular: Regular Rate, Normal S1, Normal S2, No Murmurs Lungs: b/l diffuse wheezing present Abdomen: Normal Bowel Sounds, Soft, No Tenderness Extremities: b/l pitting edema Current Medications: Current Medications Sig/Luis Start time Last Medication Dose Route Stop Time Status Admin Acetaminophen 650 MG Q6P PRN 09/18 2114 AC 09/19 PO 1024 Acetaminophen 1,000 MG Q8P PRN 09/18 2115 AC IV Albuterol Sulfate 3 ML BID 09/19 1000 AC 09/19 INH 0957 Albuterol Sulfate 3 ML ONCE ONE 09/18 1715 DC 09/18 INH 09/18 1716 1728 Alprazolam 0.25 MG Q12H PRN 09/19 1100 AC PO 09/26 1059 Alprazolam 0.25 MG BID PRN 09/19 0400 AC 09/19 PO 09/26 0359 0356 Atorvastatin Calcium 80 MG 1700 09/19 1700 AC PO Buspirone HCl 5 MG TID 09/19 1000 AC 09/19 PO 1024 Ceftazidime 0 .STK-MED ONE 09/18 1819 DC .ROUTE Ceftazidime 1,000 MG ONCE ONE 09/18 1800 DC 09/18 IV 09/18 1801 1820 Cyclobenzaprine HCl 5 MG DAILY 09/19 1000 AC 09/19 PO 1024 Gabapentin 300 MG TID 09/19 1000 AC 09/19 PO 1024 Ipratropium [place] 2.5 ML ONCE ONE 09/18 1730 DC 09/18 INH 09/18 1731 1729 Levothyroxine Sodium 0.05 MG DAILY AC 09/19 0700 AC 09/19 PO 0626 Lidocaine 0 .STK-MED ONE 09/18 1925 DC TOP Methylprednisolone 0 .STK-MED ONE 09/18 1737 DC .ROUTE Methylprednisolone 125 MG ONCE ONE 09/18 1730 DC 09/18 IV 09/18 1731 1802 Metoprolol Tartrate 25 MG BID 09/19 1054 AC 09/19 PO 1240 Non-Formulary 0 SEE ADMIN CRITERIA 09/19 1100 CAN Medication ANY Omeprazole 20 MG DAILY AC 09/20 0700 AC PO Prednisone 20 MG DAILY 09/19 1049 AC 09/19 PO 1240 Sertraline HCl 50 MG DAILY 09/19 1000 AC 09/19 PO 1025 Sodium Chloride 1,000 ML .Q10H 09/18 2130 AC 09/19 IV 0338 Sodium Chloride 1,000 ML BOLUS ONE 09/18 1800 DC 09/18 IV 09/18 1859 1945 Sodium Chloride 1,000 ML BOLUS ONE 09/18 1800 DC 09/18 IV 09/18 1859 1945 Sodium Chloride 1,000 ML BOLUS ONE 09/18 1730 DC 09/18 IV 09/18 1829 1802 Vancomycin HCl 1,000 MG DAILY 09/19 1000 DC Sodium Chloride 250 ML IV Vancomycin HCl 0 .STK-MED ONE 09/18 1950 DC .ROUTE Vancomycin HCl 1,000 MG ONCE ONE 09/18 1800 DC 09/18 Sodium Chloride 250 ML IV 09/18 [id number] Last 24 Hrs of Lab/Kain Results Last 24 Hrs of Labs/Mics: Laboratory Tests 09/19/16 0700: Anion Gap 5, Estimated GFR > 60, BUN/Creatinine Ratio 38.9 H, CBC w Diff MAN DIFF ORDERED, RBC 2.93 L, MCV 77.0 L, MCH 24.2 L, RDW 20.7 H, MPV 7.8, Gran % 88.2 H, Lymphocytes % 4.0 L, Monocytes % 7.6, Eosinophils % 0.1, Basophils % 0.1, Absolute Granulocytes 10.2 H, Absolute Lymphocytes 0.5 L, Absolute Monocytes 0.9 H, Absolute Eosinophils 0, Absolute Basophils 0, Platelet Estimate VERIFIED BY SMEAR, Polychromasia 1+, Hypochromic-Microcytic 2+, Poikilocytosis 1+, Basophilic Stippling 1+, Anisocytosis 2+, Microcytic Cells 2+ , Ovalocytes 1+, PUBS MCHC 31.4 L 09/19/16 0045: Troponin I < 0.01 09/19/16 0045: Ammonia < 9 L, CBC w Diff MAN DIFF ORDERED, RBC 3.24 L, MCV 76.5 L, MCH 24.4 L, RDW 20.5 H, MPV 7.7, Gran % 93.4 H, Lymphocytes % 3.2 L, Monocytes % 3.4, Eosinophils % 0, Basophils % 0 L, Absolute Granulocytes 13.8 H, Segmented Neutrophils 92 H, Band Neutrophils 1, Absolute Lymphocytes 0.5 L, Lymphocytes 2 L, Monocytes 5, Absolute Monocytes 0.5, Absolute Eosinophils 0, Absolute Basophils 0, Platelet Estimate ADEQUATE, Polychromasia 1+, Hypochromic- Microcytic 1+, Poikilocytosis 1+, Basophilic Stippling 1+, Anisocytosis 1+, Microcytic Cells 1+, Ovalocytes 1+, Elliptocytes FEW, PUBS MCHC 31.9 L, Fld Total RBCs Counted 100 09/18/162039: Lactic Acid 1.6 09/18/161929: Urine Color YEL, Urine Clarity CLEAR, Urine pH 6.0, Ur Specific [place] 1.025, Urine Protein TRACE H, Urine Ketones TRACE H, Urine Nitrite NEG, Urine Bilirubin NEG@ICTO, Urine Urobilinogen 0.2, Ur Leukocyte Esterase NEG, Ur Microscopic SEDIMENT EXAMINED, Urine RBC RARE, Urine WBC RARE, Ur Epithelial Cells FEW, Urine Bacteria MOD H, Hyaline Casts 5-10 H, Urine Hemoglobin NEG, Urine Glucose NEG 09/18/161726: Anion Gap 7, Estimated GFR 54 L, BUN/Creatinine Ratio 38.5 H, Glucose 188 H, Lactic Acid 2.4 H, Calcium 7.7 L, Magnesium 1.8, Total Bilirubin 0.5, AST 32, ALT 49, Alkaline Phosphatase 69, Troponin I < 0.01, [id number]-P-[id number] Pept 132 H, Total Protein 5.4 L, Albumin 2.8 L, Globulin 2.6, Albumin/Globulin Ratio 1.1, PT 11.0, INR 1.05, APTT 24 L, CBC w Diff NO MAN DIFF REQ, RBC 3.45 L, MCV 77.0 L, MCH 24.3 L, RDW 21.7 H, MPV 7.7, Gran % 80.6 H, Lymphocytes % 11.2 L, Monocytes % 7.6, Eosinophils % 0.4, Basophils % 0.2, Absolute Granulocytes 13.9 H, Absolute Lymphocytes 1.9, Absolute Monocytes 1.3 H, Absolute Eosinophils 0.1, Absolute Basophils 0, PUBS MCHC 31.5 L Microbiology 09/19 2135 STOOL: Clostridium difficile Toxin A & B - COLB 09/18 1929 URINE ROUT: Urine Culture - RES 09/18 1754 BLOOD: Blood Culture - [facility] 09/18 1726 BLOOD: Blood Culture - [facility] Assessment/Plan Assessment: 71-year-old gentleman with PMH of CAD S/P stent, RA, adrenal insufficiency, COPD on 1.5-2L oxygen at night, cholecystectomy and ERCP with CBD stone removed in 2014, hypothyroidism, hypertension, hyperlipidemia, back pain, osteopenia, anxiety and depression, who came to the ED due to right-sided abdominal and flank pain. CTscan done in the ED showed extensive hematoma of the rectus abdominis muscle. 1. Acute blood loss anemia secondary to hepatoma of the rectus abdominal muscle most likely due to previous Lovenox shots received during previous admissions. - We'll continue to monitor H&H -Transfused 1 unit of packed RBC as hemoglobin dropped below 8 (patient has history of CAD with stents) - Stool guaiac reports pending - Continue to hold antiplatelets 2. Sinus tachycardia: Secondary to decreased intravascular volume/acute blood loss anemia - We'll continue to monitor in telemetry -We'll consider obtaining cardiology consult given his known history of CAD/ stents -We'll restart his home dose of metoprolol. Will start metoprolol tartrate started off succinate as it is short-acting -Initial troponins were negative. Patient remains a symptomatic. 3. CAD/stents: - Stents placed in 2006. Patient currently on aspirin and Plavix which is held since admission -We'll await cardiology recommendation on holding off aspirin and Plavix 4. Leukocytosis: - MAXIMUM TEMPERATURE of 100.6 - White count has come down this morning. Blood cultures pending. -We will hold off on antibiotics for now pending above 5. Chronic respiratory failure stable on 1-2 L oxygen through nasal cannula - She was discharged on prednisone on the day of admission -We will restart his home dose of prednisone 20 mg daily 6. Rheumatoid arthritis - We will continue his Tofacitinib Full code ALPS for DVT ppx Problem List: 1. Acute blood loss anemia 2. COPD (chronic obstructive pulmonary disease) Pain Ratin Pain Location: As mentioned above Pain Goal: Remain pain free Pain Plan: As mentioned in meds plan Tomorrow's Labs & Rationales: Yes PETERCATHERINEKAYLYN 09/19/16 1438: Attending MD Review Statement Attending Statement Attending MD Statement: examined this patient, discuss w/resident/PA/TABLE GAMES DUAL RATE SUPERVISOR, agreed w/resident/PA/TABLE GAMES DUAL RATE SUPERVISOR, discussed with family, reviewed EMR data (avail), discussed with nursing, discussed with case mgmt, reviewed images Attending Assessment/Plan: PMH: CAD S/P [place] S/P 3 stents, adrenal insufficiency, hypothyroidism, HTN, HLD, RA, chronic respiratory failure, back surgery, osteopenia, anxiety and depression, severe sepsis at the time of cholecystectomy, requiring intubation, using nighttime oxygen at 1.5-2 L. Patient was admitted in [facility] for acute on chronic respiratory failure secondary to bronchitis, was discharged on tapering dose of steroids, cefuroxime on September 17. Patient was sent by visiting nurse for low oxygen, low blood pressure, increased heart rate. Patient states that he had a big sneeze yesterday and felt like something popped open, felt sharp needlelike pain on right side of the abdomen CT abdomen and pelvis and chest without IV contrast: 1. Large right rectus abdominis muscle/rectus sheath hematoma is a new finding compared to the last CT of 09/15/2016. A large amount of ill-defined, somewhat dense appearing soft tissue in the right lateral abdominal wall subcutaneous tissue is also new compared to the last CT and most likely reflects soft tissue hematoma. 2. No acute intrathoracic abnormality. Mild dependent atelectasis. 3. A 0.5 cm calculus in the left ureteropelvic junction without associated hydronephrosis. 4. Bladder diverticula. Nonspecific stranding in the prevesical space is new compared to the last CT. ASSESSMENT AND PLAN 1. Abdominal wall hematoma: watch blood pressure closely, admit on telemetry for persistent tachycardia and hypotension. Hold Plavix and aspirin, consult cardiology for a/c therapy in this setting. 2 SIRS: 2/2 to acute blood loss and abdominal hematoma, lactate trending down after hydration. 3 bilateral lower extremity pitting edema: non compliant with Lasix. 4 Nephrolithiasis 0.5 cm stone in the left ureter, no evidence of hydronephrosis , no evidence of UTI, no CVA tenderness, no pain on the left side of abdomen, conservative management. 5 hypothyroidism: TSH was 10, he was discharged on 50 g levothyroxine, ? Outpatient follow-up 6 chronic respiratory failure, stable on 1-2 L NC resume home meds.
[2016-09-19 08:20] VITALS: BP 148/86
[2016-09-19 08:31] LABS: ABSOLUTE BASOPHIL COUNT 0 /CUMM (0.0-0.2); ABSOLUTE EOSINOPHIL COUNT 0 /CUMM (0.0-0.7); ABSOLUTE GRANULOCYTE CT 10.2 /CUMM (1.4-6.5); ABSOLUTE LYMPH COUNT 0.5 /CUMM (1.2-3.4); ABSOLUTE MONOCYTE COUNT 0.9 /CUMM (0.10-0.60); BASOPHIL % 0.1 % (0.0-2.0); EOSINOPHIL % 0.1 % (0-5); GRANULOCYTE % 88.2 % (42.2-75.2); HEMATOCRIT 22.5 % (42-52); MEAN CORPUSCULAR HGB 24.2 PG (27.0-31.0); MEAN CORPUSCULAR HGB CONC 31.4 G/DL (33.0-37.0); MEAN PLATELET VOLUME 7.8 FL (7.4-10.4); PLATELET COUNT 205 /CUMM (130-400); RBC DISTRIBUTION WIDTH 20.7 % (11.5-14.5); RED BLOOD CELL CT 2.93 /CUMM (4.70-6.10); WHITE BLOOD CELL COUNT 11.6 /CUMM (4.8-10.8)
--- NOTE | 2016-09-19 09:59 | CT SCAN REPORT ---
EXAMINATION: CT HEAD WITHOUT CONTRAST CLINICAL INFORMATION: Bleeding. COMPARISON: None TECHNIQUE: Contiguous axial imaging was performed from the skull base to vertex without intravenous administration of contrast. DLP: 672 mGy-cm FINDINGS CT brain 10/13/2014.: There is no evidence of acute intracranial hemorrhage or territorial infarction. No abnormal mass effect or midline shift is seen. Sebastian to white matter differentiation is well preserved. No extra-axial fluid collections are identified. The lateral ventricles are enlarged and so are the cortical sulci. There is mild periventricular hypodensity in both cerebral hemispheres without mass effect. This hypodense area in the right anterior limb internal capsule suggestive of lacunar infarct. The osseous structures and soft tissues are normal. The mastoid air cells and visualized portions of the paranasal sinuses are well aerated. IMPRESSION: No acute intracranial process seen. Age-related mild cerebral atrophy with chronic small vessel ischemic changes in both cerebral hemispheres. Small lacunar infarct anterior limb right internal capsule. No major change from previous study
[2016-09-19 10:00] VITALS: BP 130/78
[2016-09-19] MEDS ORDERED: XELJANZ5 M1 PO (10:46)
--- NOTE | 2016-09-19 11:59 | Event Note ---
Event Note Event Note: Updated the son regarding blood transfusion to the son as per patients request
[2016-09-19 16:29] VITALS: BP 118/78
[2016-09-19 17:54] LABS: ABSOLUTE BASOPHIL COUNT 0 /CUMM (0.0-0.2); ABSOLUTE EOSINOPHIL COUNT 0 /CUMM (0.0-0.7); ABSOLUTE GRANULOCYTE CT 12.4 /CUMM (1.4-6.5); ABSOLUTE LYMPH COUNT 0.5 /CUMM (1.2-3.4); ABSOLUTE MONOCYTE COUNT 1.1 /CUMM (0.10-0.60); BASOPHIL % 0 % (0.0-2.0); EOSINOPHIL % 0.1 % (0-5); HEMATOCRIT 24.4 % (42-52); MEAN CORPUSCULAR HGB 24.9 PG (27.0-31.0); MEAN CORPUSCULAR HGB CONC 31.2 G/DL (33.0-37.0); MEAN PLATELET VOLUME 7.6 FL (7.4-10.4); PLATELET COUNT 207 /CUMM (130-400); RBC DISTRIBUTION WIDTH 21.8 % (11.5-14.5); RED BLOOD CELL CT 3.05 /CUMM (4.70-6.10)
[2016-09-19 17:56] LABS: GRANULOCYTE % 88.7 % (42.2-75.2)
--- NOTE | 2016-09-19 18:51 | Cons- Cardiology ---
General Information and HPI Consulting Request Date of Consult: 09/19/16 Requested By: NURIA RODRIGEZ MD Reason for Consult: Management of antiplatelet therapy. Source of Information: patient, old records Exam Limitations: no limitations History of Present Illness: Mr. Gunnar Leyva is a 70-year-old male with history of HTN, HLD, RA on Xeljanz ( tofactinib), adrenal insufficiency secondary to chronic steroid therapy, CKD, anemia, hypothyroidism, osteopenia s/p back surgery, anxiety/depression, CAD s/p STEMI with PCI/USHA (Taxus) LCx 04/2007 and subsequent PCI/USHA (Taxus) LAD who was recently hospitalized here (09/15-09/17/2016) for an exacerbation of his chronic lung disease with mixed restrictive and obstructive pattern and underlying obesity hypoventilation syndrome that improved with standard measures who again presented with right lower quadrant pain and a large ecchymotic area with the subsequent discovery by CT of the abdomen/pelvis (09/18/2016) of a large rectus sheath hematoma who we are asked to evaluate and help manage in regard to his antiplatelet therapy. He recalls feeling much improved following discharge, but does remember having two violent sneezes that evening and feeling as though he "broke a blood vessel or something". Allergies/Medications Allergies: Coded Allergies: hydrocodone (From VICODIN) (Intermediate, SEVERE HALLUCINATIONS 07/05/16) hydromorphone (From DILAUDID) (Intermediate, SEVERE HALLUCINATIONS 07/05/16) morphine (Intermediate, WILD DREAMS, GI UPSET, SEVERE HALLUCINATIONS 07/05/16) oxycodone (From PERCOCET) (Intermediate, SEVERE HALLUCINATIONS 07/05/16) lactose (DIARRHEA 07/05/16) Home Med List: Albuterol Sulfate (Proair Hfa) 90 MCG HFA.AER.AD 2 PUF INH Q4H PRN RESPIRATORY (Reported) Alendronate Sodium (Fosamax) 70 MG TABLET 1 TAB PO Q FRIDAY OSTEOPOROSIS ( Reported) in the morning, at least 30 minutes before the first food, beverage, or medication of the day Alprazolam 0.25 MG TABLET 1 TAB PO Q12H PRN ANXIETY (Reported) Aspirin (Ecotrin*) 325 MG TABLET.DR 1 TAB PO DAILY HEART/BLOOD (Reported) Buspirone HCl 5 MG TABLET 1 TAB PO TID ANXIETY (Reported) Cefuroxime Axetil (Cefuroxime) 250 MG TABLET 1 TAB PO BID ANTIBIOTICS Clopidogrel Bisulfate (Plavix) 75 MG TABLET 1 TAB PO DAILY BLOOD THINNER ( Reported) Cyanocobalamin (Vitamin B-12) 1,000 MCG TABLET 1 TAB PO DAILY SUPPLEMENT ( Reported) Cyclobenzaprine HCl 5 MG TABLET 1 TAB PO DAILY MUSCLE SPASMS (Reported) Furosemide (Lasix) 20 MG TABLET 1 TAB PO DAILY DIURETIC (Reported) Gabapentin (Neurontin) 300 MG CAPSULE 1 CAP PO TID NERVE PAIN (Reported) Lansoprazole (Prevacid) 30 MG TAB.RAP.DR 1 TAB PO DAILY GI (Reported) Levothyroxine Sodium 50 MCG TABLET 1 TAB PO DAILY THYROID (Reported) Metoprolol Succ XL (Toprol XL) 25 MG TAB 25 MG PO DAILY BLOOD PRESSURE Multivitamin (Multiple Vitamins) 1 EACH TABLET 1 TAB PO DAILY SUPPLEMENT ( Reported) Potassium Chloride 10 MEQ TAB.ER.PRT 1 TAB PO DAILY SUPPLEMENT (Reported) Prednisone 20 MG TABLET 1 TAB PO DAILY RA (Reported) START FROM 09/23/16 THEN CONTINUE DAILY Prednisone 10 MG TABLET 1 TAB PO DAILY ACUTE BRONCHITIS TAKE 4 TABS FROM 09/17/16 TO 09/19/16 TAKE 3 TABS FROM 09/20/16 TO 09/22/16 THEN CONTINUE ON HOME DOES OF 20 MG PREDNISONE DAILY Ramipril 10 MG CAPSULE 1 CAP PO DAILY HTN (Reported) Rosuvastatin Calcium (Crestor) 40 MG TABLET 1 TAB PO QPM CHOLESTEROL ( Reported) Sertraline HCl 50 MG TABLET 1 TAB PO DAILY MENTAL HEALTH (Reported) Tofacitinib Citrate (Xeljanz) 5 MG TABLET 1 TAB PO BID rheumatoid arthritis ( Reported) Review of Systems Review of Systems: A 14 point system review was obtained and was noncontributory, other than as above. Past History Travel History Traveled to [place] past 21 day No Medical History Blood Transfusion Hx: No Neurological: peripheral neuropathy EENT: CATARACTS REMOVED Cardiovascular: CAD (s/p ST elevation [place]), hypertension, hyperlipidemia, myocardial infarction, non-ST patient [place], status post angioplasty/stent x 3 in 2006 Respiratory: bronchitis, COPD, pneumonia Gastrointestinal: GERD (minimal), lactose intolerance, 10/27/2014: ERCP WITH ES/ CBD STONE EXTRACTION Hepatic: NONE Renal: ACUTE RENAL FAILURE- RESOLVED. Musculoskeletal: osteoarthritis, rheumatoid arthritis, R hip fracture S/P ORIF R COMMUTED HUMERUS FX Psychiatric: anxiety, depression Endocrine: adrenal insufficiency, hypothyroidism, obesity Blood Disorders: anemia Cancer(s): NONE CLIENT EXECUTIVE/Reproductive: NONE Surgical History Surgical History: cholecystectomy, cholecystostomy tube ORIF R hip back surgery Family History Relations & Conditions If Any: MOTHER, , Age 89; Cause: Old age. FH: CVA (cerebrovascular accident) SISTER, , Age 71; Cause: Multiple sclerosis. FH: brain cancer SISTER, , Age 55; Cause: Brain cancer. FATHER ( of a myocardial infarction in his 60's). , Age 63; Cause: Myocardial infarct. SISTER ( of multiple sclerosis). Psychosocial History Where Do You Live? Home Who Do You Live With? self Services at Home: Home Health Aide, Oxygen Primary Language: Panamanian Smoking Status: Never Smoked ETOH Use: denies use Illicit Drug Use: denies illicit drug use Living Will? no Power of Sales Service Rep/HCP? yes Name of POA/HCP: Pt's sonDandre Functional Ability ADLs Independent: dressing, eating, toileting, bathing. Ambulation: independent IADLs Independent: shopping, housework, finances, food prep, telephone, transportation , medication admin. Exam & Diagnostic Data Vital Signs and I&O Vital Signs Date Time Temp Pulse Resp B/P Pulse O2 O2 Flow FiO2 Ox Delivery Rate 09/19 1629 98.1 82 20 118/78 97 Nasal 2.0L Cannula 09/19 1600 97 Nasal 2.0L Cannula 09/19 1240 98 118/80 09/19 1025 Nasal 2.0L Cannula 09/19 1002 95 Nasal 2.0L Cannula 09/19 1000 98.1 100 22 130/78 09/19 0820 98.4 102 20 148/86 96 Nasal 2.0L Cannula 09/19 0800 Nasal 2.0L Cannula 09/19 0000 Nasal 2.0L Cannula 09/18 2300 Nasal 2.0L Cannula 09/18 2235 99.7 125 20 130/60 82 Nasal 2.0L Cannula 09/18 2147 100.1 124 20 121/69 93 Nasal 2.0L Cannula 09/18 1914 100.3 114 21 138/61 94 Nasal 1.0L Cannula Intake & Output 09/19 1600 09/19 0800 09/19 0000 09/18 1600 09/18 0809/18 0000 Intake Total 1230 1440 1100 Output Total 250 600 200 Balance 980 840 900 Intake, IV 450 1200 1100 Intake, Oral 780 240 Output, Urine 250 600 200 Patient 220 lb Weight Physical Exam: Well-developed, morbidly obese elderly male in no acute distress with nasal oxygen in place. Vital signs: See above. HEENT: Normocephalic, atraumatic, EOMI, moist mucous membranes. Neck: No JVD, no bruits. Lungs: Decreased breath sounds bilaterally, occasional rhonchi, mild bilateral expiratory wheeze. Heart: S1, S2 (both distant). Abdomen: Soft, positive bowel sounds, with tenderness to palpation right flank/ right lower quadrant. Extremities: Bilateral lower extremity 1-2+ edema. Labs/Kain Results: Laboratory Tests 09/19 09/19 1708 0700 Chemistry Sodium (137 - 145 mmol/L) 139 Potassium (3.5 - 5.1 mmol/L) 4.2 Chloride (98 - 107 mmol/L) 100 Carbon Dioxide (22 - 30 mmol/L) 34 H Anion Gap (5 - 16) 5 BUN (9 - 20 mg/dL) 35 H Creatinine (0.7 - 1.2 mg/dL) 0.9 Estimated GFR (>60 ml/min) > 60 BUN/Creatinine Ratio (7 - 25 %) 38.9 H Hematology CBC w Diff NO MAN DIFF REQ MAN DIFF ORDERED WBC (4.8 - 10.8 /CUMM) 14.0 H 11.6 H RBC (4.70 - 6.10 /CUMM) 3.05 L 2.93 L Hgb (14.0 - 18.0 G/DL) 7.6 L 7.1 *L Hct (42 - 52 %) 24.4 L 22.5 L MCV (80.0 - 94.0 FL) 80.0 77.0 L MCH (27.0 - 31.0 PG) 24.9 L 24.2 L RDW (11.5 - 14.5 %) 21.8 H 20.7 H Plt Count (130 - 400 /CUMM) 207 205 MPV (7.4 - 10.4 FL) 7.6 7.8 Gran % (42.2 - 75.2 %) 88.7 H 88.2 H Lymphocytes % (20.5 - 51.1 %) 3.7 L 4.0 L Monocytes % (1.7 - 9.3 %) 7.5 7.6 Eosinophils % (0 - 5 %) 0.1 0.1 Basophils % (0.0 - 2.0 %) 0 L 0.1 Absolute Granulocytes (1.4 - 6.5 /CUMM) 12.4 H 10.2 H Absolute Lymphocytes (1.2 - 3.4 /CUMM) 0.5 L 0.5 L Absolute Monocytes (0.10 - 0.60 /CUMM) 1.1 H 0.9 H Absolute Eosinophils (0.0 - 0.7 /CUMM) 0 0 Absolute Basophils (0.0 - 0.2 /CUMM) 0 0 Platelet Estimate (ADEQUATE) VERIFIED BY SMEAR Polychromasia 1+ Hypochromic-Microcytic 2+ Poikilocytosis 1+ Basophilic Stippling 1+ Anisocytosis 2+ Microcytic Cells 2+ Ovalocytes 1+ PUBS MCHC (33.0 - 37.0 G/DL) 31.2 L 31.4 L 09/195 5 2039 Chemistry Lactic Acid (0.7 - 2.1 mmol/L) 1.6 Ammonia (9 - 30 umol/L) < 9 L Troponin I (<0.11 ng/ml) < 0.01 Hematology CBC w Diff MAN DIFF ORDERED WBC (4.8 - 10.8 /CUMM) 14.8 H RBC (4.70 - 6.10 /CUMM) 3.24 L Hgb (14.0 - 18.0 G/DL) 7.9 L Hct (42 - 52 %) 24.7 L MCV (80.0 - 94.0 FL) 76.5 L MCH (27.0 - 31.0 PG) 24.4 L RDW (11.5 - 14.5 %) 20.5 H Plt Count (130 - 400 /CUMM) 223 MPV (7.4 - 10.4 FL) 7.7 Gran % (42.2 - 75.2 %) 93.4 H Lymphocytes % (20.5 - 51.1 %) 3.2 L Monocytes % (1.7 - 9.3 %) 3.4 Eosinophils % (0 - 5 %) 0 Basophils % (0.0 - 2.0 %) 0 L Absolute Granulocytes (1.4 - 6.5 /CUMM) 13.8 H Segmented Neutrophils (42.2 - 75.2 %) 92 H Band Neutrophils (0.0 - 5.0 %) 1 Absolute Lymphocytes (1.2 - 3.4 /CUMM) 0.5 L Lymphocytes (20.5 - 51.1 %) 2 L Monocytes (1.7 - 9.3 %) 5 Absolute Monocytes (0.10 - 0.60 /CUMM) 0.5 Absolute Eosinophils (0.0 - 0.7 /CUMM) 0 Absolute Basophils (0.0 - 0.2 /CUMM) 0 Platelet Estimate (ADEQUATE) ADEQUATE Polychromasia 1+ Hypochromic-Microcytic 1+ Poikilocytosis 1+ Basophilic Stippling 1+ Anisocytosis 1+ Microcytic Cells 1+ Ovalocytes 1+ Elliptocytes FEW PUBS MCHC (33.0 - 37.0 G/DL) 31.9 L Other Body Source Fld Total RBCs Counted (%) 100 09/18 09/18 1930 1727 Chemistry Sodium (137 - 145 mmol/L) 137 Potassium (3.5 - 5.1 mmol/L) 4.1 Chloride (98 - 107 mmol/L) 96 L Carbon Dioxide (22 - 30 mmol/L) 34 H Anion Gap (5 - 16) 7 BUN (9 - 20 mg/dL) 50 H Creatinine (0.7 - 1.2 mg/dL) 1.3 H Estimated GFR (>60 ml/min) 54 L BUN/Creatinine Ratio (7 - 25 %) 38.5 H Glucose (65 - 99 mg/dL) 188 H Lactic Acid (0.7 - 2.1 mmol/L) 2.4 H Calcium (8.4 - 10.2 mg/dL) 7.7 L Magnesium (1.6 - 2.3 mg/dL) 1.8 Total Bilirubin (0.2 - 1.3 mg/dL) 0.5 AST (17 - 59 U/L) 32 ALT (21 - 72 U/L) 49 Alkaline Phosphatase (< 127 U/L) 69 Troponin I (<0.11 ng/ml) < 0.01 [id number] Pept (<125 pg/mL) 132 H Total Protein (6.3 - 8.2 g/dL) 5.4 L Albumin (3.5 - 5.0 g/dL) 2.8 L Globulin (1.9 - 4.2 gm/dL) 2.6 Albumin/Globulin Ratio (1.1 - 2.2 %) 1.1 Coagulation PT (9.4 - 12.5 SEC) 11.0 INR (0.90 - 1.17) 1.05 APTT (25 - 37 SEC) 24 L Hematology CBC w Diff NO MAN DIFF REQ WBC (4.8 - 10.8 /CUMM) 17.2 H RBC (4.70 - 6.10 /CUMM) 3.45 L Hgb (14.0 - 18.0 G/DL) 8.4 L Hct (42 - 52 %) 26.6 L MCV (80.0 - 94.0 FL) 77.0 L MCH (27.0 - 31.0 PG) 24.3 L RDW (11.5 - 14.5 %) 21.7 H Plt Count (130 - 400 /CUMM) 296 MPV (7.4 - 10.4 FL) 7.7 Gran % (42.2 - 75.2 %) 80.6 H Lymphocytes % (20.5 - 51.1 %) 11.2 L Monocytes % (1.7 - 9.3 %) 7.6 Eosinophils % (0 - 5 %) 0.4 Basophils % (0.0 - 2.0 %) 0.2 Absolute Granulocytes (1.4 - 6.5 /CUMM) 13.9 H Absolute Lymphocytes (1.2 - 3.4 /CUMM) 1.9 Absolute Monocytes (0.10 - 0.60 /CUMM) 1.3 H Absolute Eosinophils (0.0 - 0.7 /CUMM) 0.1 Absolute Basophils (0.0 - 0.2 /CUMM) 0 PUBS MCHC (33.0 - 37.0 G/DL) 31.5 L Urines Urine Color (YEL,AMB,STR) YEL Urine Clarity (CLEAR) CLEAR Urine pH (5.0 - 8.0) 6.0 Ur Specific [place] (1.001 - 1.035) 1.025 Urine Protein (NEG,<30 MG/DL) TRACE H Urine Ketones (NEG) TRACE H Urine Nitrite (NEG) NEG Urine Bilirubin (NEG) NEG@ICTO Urine Urobilinogen (0.1 - 1.0 EU/dl) 0.2 Ur Leukocyte Esterase (NEG) NEG Ur Microscopic SEDIMENT EXAMINED Urine RBC (0 - 5 /HPF) RARE Urine WBC (0 - 2 /HPF) RARE Ur Epithelial Cells (NONE,FEW) FEW Urine Bacteria (NEG/NONE) MOD H Hyaline Casts (0/LPF) 5-10 H Urine Hemoglobin (NEG) NEG Urine Glucose (N MG/DL) NEG Diagnostic Data EKG Results (09/18/2016) sinus tachycardia at 1 24 bpm, prominent anterior forces, and minor nonspecific ST depression. Slightly faster rate when compared to prior tracing from 09/15/2016. Other Results Head CT (09/19/2016)No acute intracranial process seen. Age-related mild cerebral atrophy with chronic small vessel ischemic changes in both cerebral hemispheres. Small lacunar infarct anterior limb right internal capsule. No major change from previous study CT abdomen/pelvis pelvis; chest (09/18/2016): 1. Large right rectus abdominis muscle/rectus sheath hematoma is a new finding compared to the last CT of 09/15/2016. A large amount of ill-defined, somewhat dense appearing soft tissue in the right lateral abdominal wall subcutaneous tissue is also new compared to the last CT and most likely reflects soft tissue hematoma. 2. No acute intrathoracic abnormality. Mild dependent atelectasis. 3. A 0.5 cm calculus in the left ureteropelvic junction without associated hydronephrosis. 4. Bladder diverticula. Nonspecific stranding in the prevesical space is new compared to the last CT. Assessment/Plan Assessment/Plan 70-year-old male with history of HTN, HLD, RA on Xeljanz, adrenal insufficiency secondary to chronic steroid therapy, CKD, anemia, hypothyroidism, osteopenia s/ p back surgery, anxiety/depression, CAD s/p STEMI with PCI/USHA (Taxus) LCx 2006 and subsequent PCI/USHA (Taxus) LAD who was recently hospitalized here (-09/17/2016) for an exacerbation of his chronic lung disease with mixed restrictive and obstructive pattern and underlying obesity hypoventilation syndrome who presented with right lower quadrant pain and a large ecchymotic area with the subsequent discovery by CT of the abdomen/pelvis (09/18/2016) of a large rectus sheath hematoma who we are asked to evaluate and help manage in regard to his antiplatelet therapy. Given the length of time that he has been on antiplatelet therapy, think that we can safely hold these agents for the short-term. Recommendations: * Continue on telemetry, follow-up ECG in a.m. * Follow up H/H this p.m. * Continue to hold antiplatelets (aspirin, clopidogrel) for the short-term. * Continue to hold diuretic for the short-term. * Continue the rest of his cardiac regimen (statin, JOHN inhibitor, beta radha) . * Consider echocardiogram to reassess left ventricular function given need for fine with packed red cell transfusions. * Continue oxygen, TRC, steroids, etc. * Mechanical DVT prophylaxis. Further recommendations to follow, Thank you. Consult Acknowledgment - Thank you for your consult request.
--- NOTE | 2016-09-19 22:19 | NUR ---
NURSING NOTE; PT VOIDED SINCE ZULETA REMOVAL. PVBS DONE SHOWING 21 ML. WILL CONTINUE TO MONITOR.
[2016-09-19 23:01] VITALS: BP 144/78
[2016-09-20 08:20] LABS: ABSOLUTE BASOPHIL COUNT 0 /CUMM (0.0-0.2); ABSOLUTE EOSINOPHIL COUNT 0 /CUMM (0.0-0.7); ABSOLUTE GRANULOCYTE CT 9.5 /CUMM (1.4-6.5); ABSOLUTE LYMPH COUNT 1.3 /CUMM (1.2-3.4); ABSOLUTE MONOCYTE COUNT 0.8 /CUMM (0.10-0.60); BASOPHIL % 0.1 % (0.0-2.0); EOSINOPHIL % 0.4 % (0-5); GRANULOCYTE % 81.4 % (42.2-75.2); MEAN CORPUSCULAR HGB 25.3 PG (27.0-31.0); MEAN CORPUSCULAR HGB CONC 31.3 G/DL (33.0-37.0); MEAN CORPUSCULAR VOLUME 80.8 FL (80.0-94.0); MEAN PLATELET VOLUME 7.7 FL (7.4-10.4); PLATELET COUNT 205 /CUMM (130-400); RBC DISTRIBUTION WIDTH 21.7 % (11.5-14.5); WHITE BLOOD CELL COUNT 11.6 /CUMM (4.8-10.8)
[2016-09-20 08:46] VITALS: BP 140/84
--- NOTE | 2016-09-20 09:13 | PN- Housestaff ---
SHRUTHI MARQUES,KHADAR 09/20/16 0913: Subjective Follow-up For: Acute blood loss anemia secondary to rectus muscle hematoma Subjective: Patient appears comfortable in bed today. Reports feeling better today as compared to the day of admission. He is alert and oriented 3. Denies chest pain, palpitations, shortness of breath, abdominal pain Review of Systems Constitutional: Reports: see HPI. Objective Last 24 Hrs of Vital Signs/I&O Vital Signs Date Time Temp Pulse Resp B/P Pulse O2 O2 Flow FiO2 Ox Delivery Rate 09/20 926 98.3 109 24 130/80 09/20 0926 100 130/80 09/20 0846 98.3 100 24 140/84 92 Nasal 2.0L Cannula 09/20 0800 94 Nasal 1.0L Cannula 09/20 0014 144/86 09/20 0000 94 Nasal 1.0L Cannula 09/19 2301 98.0 90 20 144/78 98 Nasal Cannula 09/19 2025 93 144/78 09/19 1850 96 Nasal 2.0L Cannula 09/19 1629 98.1 82 20 118/78 97 Nasal 2.0L Cannula 09/19 1600 97 Nasal 2.0L Cannula Intake & Output 09/20 1600 09/20 0800 09/20 0000 Intake Total 850 1370 Output Total 500 300 Balance 350 1070 Intake, Blood 350 Product Intake, IV 750 500 Intake, Oral 100 520 Number 0 Bowel Movements Output, Urine 500 300 Physical Exam General Appearance: Alert, Oriented X3, Cooperative, No Acute Distress Skin: hematoma which has improved compared to admission present on the right side of the abdomen, nontender, non-blanchable HEENT: Atraumatic, Mucous Membr. moist/pink Cardiovascular: Regular Rate, Normal S1, Normal S2, No Murmurs Lungs: bilateral expiratory wheezing present Abdomen: Normal Bowel Sounds, Soft, No Tenderness Extremities: bilateral pitting pedal edema present Current Medications: Current Medications Sig/Luis Start time Last Medication Dose Route Stop Time Status Admin Acetaminophen 650 MG .STK-MED ONE 09/19 171 DC PO 09/19 171 Acetaminophen 650 MG Q6P PRN 09/18 2114 AC 09/20 PO 1020 Acetaminophen 1,000 MG Q8P PRN 09/18 2114 AC IV Albuterol Sulfate 3 ML BID 09/19 1000 AC 09/20 INH 1103 Alprazolam 0.25 MG Q12H PRN 09/19 1100 AC PO 09/26 1059 Alprazolam 0.25 MG BID PRN 09/19 0400 AC 09/19 PO 09/26 0359 0356 Atorvastatin Calcium 80 MG 1700 09/19 1700 AC 09/19 PO 1713 Buspirone HCl 5 MG TID 09/19 1000 AC 09/20 PO 0925 Cyclobenzaprine HCl 5 MG DAILY 09/19 1000 AC 09/20 PO 0925 Gabapentin 300 MG TID 09/19 1000 AC 09/20 PO 0925 Levothyroxine Sodium 0.05 MG DAILY AC 09/19 0700 AC 09/20 PO 0553 Lisinopril 40 MG DAILY 09/19 2200 AC 09/20 PO 0926 Metoprolol Tartrate 25 MG BID 09/19 1054 AC 09/20 PO 0927 Omeprazole 20 MG DAILY AC 09/20 0700 AC 09/20 PO 0553 Patient Medication 1 ED .[facility]-MED ONE 09/19 1353 UT Teaching ED 09/19 1354 Prednisone 20 MG DAILY 09/19 1049 AC 09/20 PO 0925 Sertraline HCl 50 MG DAILY 09/19 1000 AC 09/20 PO 0925 Sodium Chloride 1,000 ML .Q10H 09/18 2130 AC 09/20 IV 0554 Last 24 Hrs of Lab/Kain Results Last 24 Hrs of Labs/Mics: Laboratory Tests 09/20/16 0725: Anion Gap 4 L, Estimated GFR > 60, BUN/Creatinine Ratio 36.3 H, CBC w Diff NO MAN DIFF REQ, RBC 3.10 L, MCV 80.8, MCH 25.3 L, RDW 21.7 H, MPV 7.7, Gran % 81.4 H, Lymphocytes % 11.5 L, Monocytes % 6.6, Eosinophils % 0.4, Basophils % 0.1, Absolute Granulocytes 9.5 H, Absolute Lymphocytes 1.3, Absolute Monocytes 0.8 H, Absolute Eosinophils 0, Absolute Basophils 0, PUBS MCHC 31.3 L 09/19/16 1708: CBC w Diff NO MAN DIFF REQ, RBC 3.05 L, MCV 80.0, MCH 24.9 L, RDW 21.8 H, MPV 7.6, Gran % 88.7 H, Lymphocytes % 3.7 L, Monocytes % 7.5, Eosinophils % 0.1, Basophils % 0 L, Absolute Granulocytes 12.4 H, Absolute Lymphocytes 0.5 L, Absolute Monocytes 1.1 H, Absolute Eosinophils 0, Absolute Basophils 0, PUBS MCHC 31.2 L Assessment/Plan Assessment: 71-year-old gentleman with PMH of CAD S/P stent, RA, adrenal insufficiency, COPD on 1.5-2L oxygen at night, cholecystectomy and ERCP with CBD stone removed in 2014, hypothyroidism, hypertension, hyperlipidemia, back pain, osteopenia, anxiety and depression, who came to the ED due to right-sided abdominal and flank pain. CTscan done in the ED showed extensive hematoma of the rectus abdominis muscle. 1. Acute blood loss anemia secondary to hepatoma of the rectus abdominal muscle most likely due to previous Lovenox shots received during previous admissions. -H&H stable after 1 unit of blood transfusion) - Stool guaiac reports pending - Continue to hold antiplatelets - If he continues to remain stable we can consider discharging him over the weekend. -We will get recommendation from cardiology about restarting antiplatelets. 2. Sinus tachycardia with occasional PVCs: - Overnight heart rate has been within acceptable range - We'll continue to monitor in telemetry -We'll continue metoprolol. -We will await further recommendation from cardiology to continue with telemetry monitoring 3. CAD/stents: - Stents placed in 2006. Patient currently on aspirin and Plavix which is held since admission - Aspirin and Plavix held 4. Leukocytosis: -Improving -Has been afebrile over the last 24 hours -Blood cultures and urine cultures negative so far -We'll continue to hold antibiotics 5. Chronic respiratory failure stable on 1-2 L oxygen through nasal cannula - He was discharged on prednisone on the day of admission -We will restart his home dose of prednisone 20 mg daily 6. Rheumatoid arthritis - We will continue his Tofacitinib Full code ALPS for DVT ppx Problem List: 1. Acute blood loss anemia 2. Traumatic hematoma of abdominal wall with infection Pain Ratin Pain Location: abdomen Pain Goal: Remain pain free Pain Plan: as mentioned in medications Tomorrow's Labs & Rationales: will need to follow up CBC ORLIN GREEN 09/20/16 1346: Attending MD Review Statement Attending Statement Attending MD Statement: examined this patient, discuss w/resident/PA/LEGAL ENTITY CONTROLLER, agreed w/resident/PA/LEGAL ENTITY CONTROLLER, discussed with family, reviewed EMR data (avail), discussed with nursing, discussed with case mgmt, reviewed images Attending Assessment/Plan: PMH: CAD S/P AR S/P 3 stents, adrenal insufficiency, hypothyroidism, HTN, HLD, RA, chronic respiratory failure, back surgery, osteopenia, anxiety and depression, severe sepsis at the time of cholecystectomy, requiring intubation, using nighttime oxygen at 1.5-2 L. Patient was admitted in [facility] for acute on chronic respiratory failure secondary to bronchitis, was discharged on tapering dose of steroids, cefuroxime on September 17. Patient was sent by visiting nurse for low oxygen, low blood pressure, increased heart rate. Patient states that he had a big sneeze yesterday and felt like something popped open, felt sharp needlelike pain on right side of the abdomen CT abdomen and pelvis and chest without IV contrast: 1. Large right rectus abdominis muscle/rectus sheath hematoma is a new finding compared to the last CT of 09/15/2016. A large amount of ill-defined, somewhat dense appearing soft tissue in the right lateral abdominal wall subcutaneous tissue is also new compared to the last CT and most likely reflects soft tissue hematoma. 2. No acute intrathoracic abnormality. Mild dependent atelectasis. 3. A 0.5 cm calculus in the left ureteropelvic junction without associated hydronephrosis. 4. Bladder diverticula. Nonspecific stranding in the prevesical space is new compared to the last CT. ASSESSMENT AND PLAN 1. Abdominal wall hematoma: admit on telemetry for persistent tachycardia and hypotension. Hold Plavix and aspirin, consulted cardiology for a/c therapy in this setting. recommend to HOLD for short-term. 2 SIRS: 2/2 to acute blood loss and abdominal hematoma, lactate trending down after hydration. d/c fluids. 3 bilateral lower extremity pitting edema: non compliant with Lasix. hold lasix as per cards 4 Nephrolithiasis 0.5 cm stone in the left ureter, no evidence of hydronephrosis , no evidence of UTI, no CVA tenderness, no pain on the left side of abdomen, conservative management. 5 hypothyroidism: TSH was 10, he was discharged on 50 g levothyroxine, ? Outpatient follow-up 6 chronic respiratory failure, stable on 1-2 L NC 7.General physical deconsitioning PT eval.
--- NOTE | 2016-09-20 16:36 | Patient Discharge Instructions ---
Discharge Instructions General Discharge Information You were seen/treated for: Abdominal wall hematoma Special Instructions: 1. Follow-up with primary care physician a week upon discharge 2. Follow-up with Dr. Rincon. Please call his office to make a follow-up appointment 3. FOllow up CBC on 09/27/16 4. Follow up with Dr. Sifuentes in 2 weeks to discuss about restarting Plavix Diet Recommended Diet: Heart Healthy Activity Activity Self Limited: Yes Acute Coronary Syndrome Inclusion Criteria At DC or during hospital stay patient has or had the following: ACS DIAGNOSIS No Discharge Core Measures Meds if any: Prescribed or Continued at Discharge Meds if any: NOT Prescribed or Continued at Discharge Congestive Heart Failure Inclusion Criteria At DC or during hospital stay patient has or had the following: CHF DIAGNOSIS No Discharge Core Measures Meds if any: Prescribed or Continued at Discharge Meds if any: NOT Prescribed or Continued at Discharge Cerebrovascular accident Inclusion Criteria At DC or during hospital stay patient has or had the following: CVA/TIA Diagnosis No Discharge Core Measures Meds if any: Prescribed or Continued at Discharge Meds if any: NOT Prescribed or Continued at Discharge Venous thromboembolism Inclusion Criteria VTE Diagnosis No VTE Type NONE VTE Confirmed by (Test) NONE Discharge Core Measures - Per Current guidelines, there needs to be overlap - treatment for the first 5 days of Warfarin therapy. - If discharged on Warfarin prior to 5 days of - overlap therapy, the patient will need to be - assessed for post discharge needs including - *Post discharge parental anticoagulation - *Warfarin and/or parental anticoagulation education - *Follow up date to check INR post discharge At least 5 days overlap therapy as Inpatient No Meds if any: Prescribed or Continued at Discharge Note: Overlap Therapy is Warfarin and Anticoagulant Meds if any: NOT Prescribed or Continued at Discharge
[2016-09-20 17:46] VITALS: BP 130/74
--- NOTE | 2016-09-20 20:05 | PN- Cardiology ---
Subjective Subjective: No complaints, but concerned about the dosing of his steroids. Objective Vital Signs and I&Os Vital Signs Date Time Temp Pulse Resp B/P Pulse O2 O2 Flow FiO2 Ox Delivery Rate 09/20 1857 89 Room Air Room Air 09/20 1746 98.1 87 20 130/74 97 Room Air 09/20 1600 96 Nasal 1.0L Cannula 09/20 0927 98.3 109 24 130/80 09/20 0926 100 130/80 09/20 0846 98.3 100 24 140/84 92 Nasal 2.0L Cannula 09/20 0800 94 Nasal 1.0L Cannula 09/20 0014 144/86 09/20 0000 94 Nasal 1.0L Cannula 09/19 2301 98.0 90 20 144/78 98 Nasal Cannula 09/19 2025 93 144/78 Intake & Output 09/20 1600 09/20 0800 09/20 0000 09/19 1600 09/19 0800 09/19 0000 Intake Total 7180 531 4849 1230 1440 1100 Output Total 200 500 300 250 600 200 Balance 237 290 9003 980 840 900 Intake, Blood 350 Product Intake, IV 600 750 251 668 5630 1100 Intake, Oral 480 100 520 780 240 Number 1 0 Bowel Movements Output, Urine 200 500 300 250 600 200 Patient 220 lb Weight Physical Exam: Well-developed, morbidly obese elderly male in no acute distress with nasal oxygen in place. Vital signs: See above. HEENT: Normocephalic, atraumatic, EOMI, moist mucous membranes. Neck: No JVD, no bruits. Lungs: Decreased breath sounds bilaterally, occasional rhonchi, mild bilateral expiratory wheeze. Heart: S1, S2 (both distant). Abdomen: Soft, positive bowel sounds, with tenderness to palpation right flank/ right lower quadrant. Extremities: Bilateral lower extremity 1-2+ edema. Current Medications: Current Medications Sig/Luis Start time Last Medication Dose Route Stop Time Status Admin Acetaminophen 650 MG .STK-MED ONE 09/20 1015 DC PO 09/20 1016 Acetaminophen 650 MG Q6P PRN 09/18 2114 AC 09/20 PO 1712 Acetaminophen 1,000 MG Q8P PRN 09/18 2114 AC IV Albuterol Sulfate 3 ML BID 09/19 1000 AC 09/20 INH 1856 Alprazolam 0.25 MG Q12H PRN 09/19 1100 AC PO 09/26 1059 Alprazolam 0.25 MG BID PRN 09/19 0400 AC 09/19 PO 09/26 0359 0356 Atorvastatin Calcium 80 MG 1700 09/19 1700 AC 09/20 PO 1712 Buspirone HCl 5 MG TID 09/19 1000 AC 09/20 PO 1712 Cyclobenzaprine HCl 5 MG DAILY 09/19 1000 AC 09/20 PO 0925 Gabapentin 300 MG TID 09/19 1000 AC 09/20 PO 1712 Levothyroxine Sodium 0.05 MG DAILY AC 09/19 0700 AC 09/20 PO 0553 Lisinopril 40 MG DAILY 09/19 2200 AC 09/20 PO 0926 Metoprolol Tartrate 25 MG BID 09/19 1054 AC 09/20 PO 0927 Omeprazole 20 MG DAILY AC 09/20 0700 AC 09/20 PO 0553 Prednisone 20 MG DAILY 09/19 1049 AC 09/20 PO 0925 Sertraline HCl 50 MG DAILY 09/19 1000 AC 09/20 PO 0925 Sodium Chloride 1,000 ML .Q10H 09/18 2130 DC 09/20 IV 0554 Results Last 48 Hrs of Labs/Mics: Laboratory Tests 09/20/16 0725: Anion Gap 4 L, Estimated GFR > 60, BUN/Creatinine Ratio 36.3 H, CBC w Diff NO MAN DIFF REQ, RBC 3.10 L, MCV 80.8, MCH 25.3 L, RDW 21.7 H, MPV 7.7, Gran % 81.4 H, Lymphocytes % 11.5 L, Monocytes % 6.6, Eosinophils % 0.4, Basophils % 0.1, Absolute Granulocytes 9.5 H, Absolute Lymphocytes 1.3, Absolute Monocytes 0.8 H, Absolute Eosinophils 0, Absolute Basophils 0, PUBS MCHC 31.3 L 09/19/16 1708: CBC w Diff NO MAN DIFF REQ, RBC 3.05 L, MCV 80.0, MCH 24.9 L, RDW 21.8 H, MPV 7.6, Gran % 88.7 H, Lymphocytes % 3.7 L, Monocytes % 7.5, Eosinophils % 0.1, Basophils % 0 L, Absolute Granulocytes 12.4 H, Absolute Lymphocytes 0.5 L, Absolute Monocytes 1.1 H, Absolute Eosinophils 0, Absolute Basophils 0, PUBS MCHC 31.2 L 09/19/16 0700: Anion Gap 5, Estimated GFR > 60, BUN/Creatinine Ratio 38.9 H, CBC w Diff MAN DIFF ORDERED, RBC 2.93 L, MCV 77.0 L, MCH 24.2 L, RDW 20.7 H, MPV 7.8, Gran % 88.2 H, Lymphocytes % 4.0 L, Monocytes % 7.6, Eosinophils % 0.1, Basophils % 0.1, Absolute Granulocytes 10.2 H, Absolute Lymphocytes 0.5 L, Absolute Monocytes 0.9 H, Absolute Eosinophils 0, Absolute Basophils 0, Platelet Estimate VERIFIED BY SMEAR, Polychromasia 1+, Hypochromic-Microcytic 2+, Poikilocytosis 1+, Basophilic Stippling 1+, Anisocytosis 2+, Microcytic Cells 2+ , Ovalocytes 1+, PUBS MCHC 31.4 L 09/19/16 0045: Troponin I < 0.01 09/19/16 0045: Ammonia < 9 L, CBC w Diff MAN DIFF ORDERED, RBC 3.24 L, MCV 76.5 L, MCH 24.4 L, RDW 20.5 H, MPV 7.7, Gran % 93.4 H, Lymphocytes % 3.2 L, Monocytes % 3.4, Eosinophils % 0, Basophils % 0 L, Absolute Granulocytes 13.8 H, Segmented Neutrophils 92 H, Band Neutrophils 1, Absolute Lymphocytes 0.5 L, Lymphocytes 2 L, Monocytes 5, Absolute Monocytes 0.5, Absolute Eosinophils 0, Absolute Basophils 0, Platelet Estimate ADEQUATE, Polychromasia 1+, Hypochromic- Microcytic 1+, Poikilocytosis 1+, Basophilic Stippling 1+, Anisocytosis 1+, Microcytic Cells 1+, Ovalocytes 1+, Elliptocytes FEW, PUBS MCHC 31.9 L, Fld Total RBCs Counted 100 09/18/162039: Lactic Acid 1.6 Assessment/Plan Assessment/Plan 70-year-old male with history of HTN, HLD, RA on Xeljanz, adrenal insufficiency secondary to chronic steroid therapy, CKD, anemia, hypothyroidism, osteopenia s/ p back surgery, anxiety/depression, CAD s/p STEMI with PCI/USHA (Taxus) LCx 2006 and subsequent PCI/USHA (Taxus) LAD who presented with right lower quadrant pain and a large ecchymotic area with the subsequent discovery by CT (09/18/2016 ) of a large rectus sheath hematoma. Given the length of time that he has been on antiplatelet therapy for his drug- eluting Taxus stents, I think that we can safely hold these agents for the short -term. Recommendations: * Continue on telemetry. * Follow up H/H this p.m. and maintain hemoglobin at or above 8.0 g/dl, given his known CAD * Restart antiplatelets (aspirin, clopidogrel) when H/H stable. * Continue to hold diuretic for the short-term. * Continue the rest of his cardiac regimen (statin, JOHN inhibitor, beta radha) . * Consider echocardiogram to reassess left ventricular function given need for fine with packed red cell transfusions. * Continue oxygen, TRC, steroids, etc. Also discuss steroid dosing with rheumatology given his long-standing RA. * Continue mechanical DVT prophylaxis. Continue telemetry? Yes
[2016-09-20 23:10] VITALS: BP 136/70
[2016-09-21 08:16] LABS: ABSOLUTE BASOPHIL COUNT 0 /CUMM (0.0-0.2); ABSOLUTE EOSINOPHIL COUNT 0.1 /CUMM (0.0-0.7); ABSOLUTE GRANULOCYTE CT 7.9 /CUMM (1.4-6.5); ABSOLUTE LYMPH COUNT 1.4 /CUMM (1.2-3.4); ABSOLUTE MONOCYTE COUNT 0.7 /CUMM (0.10-0.60); BASOPHIL % 0.2 % (0.0-2.0); EOSINOPHIL % 0.6 % (0-5); GRANULOCYTE % 78.3 % (42.2-75.2); MEAN CORPUSCULAR HGB 25.3 PG (27.0-31.0); MEAN CORPUSCULAR VOLUME 81.6 FL (80.0-94.0); MEAN PLATELET VOLUME 7.5 FL (7.4-10.4); PLATELET COUNT 219 /CUMM (130-400); RBC DISTRIBUTION WIDTH 22.1 % (11.5-14.5); RED BLOOD CELL CT 3.07 /CUMM (4.70-6.10); WHITE BLOOD CELL COUNT 10.1 /CUMM (4.8-10.8)
[2016-09-21 08:23] VITALS: BP 132/72
--- NOTE | 2016-09-21 08:51 | PN- Housestaff ---
LOUIE MARTIN 09/21/16 0849: Subjective Follow-up For: Acute blood loss anemia secondary to abdominal wall hematoma Complaints: no complaints Tele-Events Since Last Visit: Normal sinus rhythm, heart rate 75-94, multiple PVCs were noted. Subjective: The patient was comfortable this morning. Did not have any complaints. No abdominal pain, nausea or vomiting. Complained of occasional cough. vitals remained stable overnight. He remained afebrile. Currently on 2 L oxygen with oxygen saturation above 96%. Review of Systems Constitutional: Reports: see HPI. Objective Last 24 Hrs of Vital Signs/I&O Vital Signs Date Time Temp Pulse Resp B/P Pulse O2 O2 Flow FiO2 Ox Delivery Rate 09/21 0823 97.7 80 20 132/72 94 Nasal 1.0L Cannula 09/21 0000 Nasal 1.0L Cannula 09/20 2310 98.0 90 18 136/70 94 Nasal Cannula 09/20 1857 89 Room Air Room Air 09/20 1746 98.1 87 20 130/74 97 Room Air 09/20 1600 96 Nasal 1.0L Cannula 09/20 0927 98.3 109 24 130/80 09/20 0926 100 130/80 Intake & Output 09/21 1600 09/21 0800 09/21 0000 Intake Total 100 730 Output Total 400 3 Balance -300 727 Intake, IV 10 Intake, Oral 100 720 Output, Other 3 Output, Urine 400 Physical Exam General Appearance: No Acute Distress Other Physical Findings: General Exam: AAOx2, No acute distress, Skin: Ecchymosis, extending from a umbilical region to back on the right side. HEENT: PERRLA, EOMI Neck: Supple, No JVD No cervical lymphadenopathy CVS: Reg Rate, Normal S1,S2, No MGR Resp: Normal air entry, no ronchi/rales Abdomen: Soft, No tenderness, Normal Bowel Sounds Neuro: Normal Speech, Strength 5/5 b/l x 4 extremities, Sensation intact, CN III -XII NL, Reflexes 2+ Extremities: No cyanosis, pedal edema Current Medications: Current Medications Sig/Luis Start time Last Medication Dose Route Stop Time Status Admin Acetaminophen 650 MG .STK-MED ONE 09/20 1707 DC PO 09/20 1708 Acetaminophen 650 MG .STK-MED ONE 09/20 1015 DC PO 09/20 1016 Acetaminophen 650 MG Q6P PRN 09/18 2115 AC 09/20 PO 1712 Acetaminophen 1,000 MG Q8P PRN 09/18 2115 AC IV Albuterol Sulfate 3 ML BID 09/19 1000 AC 09/20 INH 1856 Alprazolam 0.25 MG Q12H PRN 09/19 1100 AC PO 09/26 1059 Alprazolam 0.25 MG BID PRN 09/19 0400 AC 09/19 PO 09/26 0359 0356 Atorvastatin Calcium 80 MG 1700 09/19 1700 AC 09/20 PO 1712 Buspirone HCl 5 MG TID 09/19 1000 AC 09/20 PO 2047 Cyclobenzaprine HCl 5 MG DAILY 09/19 1000 AC 09/20 PO 0925 Gabapentin 300 MG TID 09/19 1000 AC 09/20 PO 2047 Levothyroxine Sodium 0.05 MG DAILY AC 09/19 0700 AC 09/21 PO 0611 Lisinopril 40 MG DAILY 09/19 2200 AC 09/20 PO 0926 Metoprolol Tartrate 25 MG BID 09/19 1054 AC 09/20 PO 2047 Omeprazole 20 MG DAILY AC 09/20 0700 AC 09/21 PO 0611 Prednisone 20 MG DAILY 09/19 1049 AC 09/20 PO 0925 Sertraline HCl 50 MG DAILY 09/19 1000 AC 09/20 PO 0925 Sodium Chloride 1,000 ML .Q10H 09/18 2130 DC 09/20 IV 0554 Last 24 Hrs of Lab/Kain Results Last 24 Hrs of Labs/Mics: Laboratory Tests 09/21/16 0645: CBC w Diff Pending, WBC Pending, RBC Pending, Hgb Pending, Hct Pending, MCV Pending, MCH Pending, RDW Pending, Plt Count Pending, MPV Pending, PUBS MCHC Pending Assessment/Plan Assessment: 71-year-old gentleman with PMH of CAD S/P stent, RA, adrenal insufficiency, COPD on 1.5-2L oxygen at night, cholecystectomy and ERCP with CBD stone removed in 2014, hypothyroidism, hypertension, hyperlipidemia, back pain, osteopenia, anxiety and depression, who came to the ED due to right-sided abdominal and flank pain. CTscan done in the ED showed extensive hematoma of the rectus abdominis muscle. 1. Acute blood loss anemia secondary to hepatoma of the rectus abdominal muscle most likely due to previous Lovenox shots received during previous admissions. -H&H stable after 1 unit of blood transfusion) - Stool guaiac reports pending - Continue to hold antiplatelets -We will get recommendation from cardiology about restarting antiplatelets. 2. Sinus tachycardia with occasional PVCs: - Overnight heart rate has been within acceptable range - We'll continue to monitor in telemetry -We'll continue metoprolol. -Discontinue telemetry monitoring. 3. CAD/stents: - Stents placed in 2006. Patient currently on aspirin and Plavix which is held since admission - Aspirin and Plavix held 4. Leukocytosis: -Improving -Has been afebrile -Blood cultures and urine cultures negative so far -We'll continue to hold antibiotics 5. Chronic respiratory failure stable on 1-2 L oxygen through nasal cannula - He was discharged on prednisone on the day of admission -We will restart his home dose of prednisone 20 mg daily 6. Rheumatoid arthritis - We will continue his Tofacitinib Full code ALPS for DVT ppx Problem List: 1. CAD (coronary artery disease) 2. HTN (hypertension) 3. Respiratory failure 4. HTN (hypertension) 5. HLD (hyperlipidemia) 6. Diabetes 7. GERD (gastroesophageal reflux disease) 8. DVT prophylaxis 9. Full code status 10. LANCE (acute kidney injury) 11. Choledocholithiasis 12. Sepsis 13. Cellulitis of scrotum 14. Epididymal cyst 15. Hydrocele sac 16. History of adrenal insufficiency 17. Cholecystostomy care 18. Cellulitis 19. Low back strain 20. Intractable back pain 21. Acute and chronic respiratory failure 22. PNA (pneumonia) 23. Diarrhea 24. C. difficile diarrhea 25. Skin tear 26. Rib contusion 27. Abdominal contusion 28. Left rib fracture 29. LUQ pain 30. Iron deficiency anemia 31. Diverticulosis of colon 32. History of colon polyps 33. Polyp of duodenum 34. Streptococcal pharyngitis 35. Cellulitis of left arm 36. COPD (chronic obstructive pulmonary disease) 37. Kidney stone on left side 38. Traumatic hematoma of abdominal wall with infection 39. Acute blood loss anemia Pain Ratin Pain Location: tylenol prn Pain Goal: Pain 4 or less Pain Plan: tylenol prn Tomorrow's Labs & Rationales: cbc JUSTO MCCLAIN MD 09/21/16 1608: Attending MD Review Statement Attending Statement Attending MD Statement: examined this patient, discuss w/resident/PA/MATERIALS PLANNING MANAGER, agreed w/resident/PA/MATERIALS PLANNING MANAGER, reviewed EMR data (avail) Attending Assessment/Plan: 71M PMH HTN, HLD, RA on Xeljanz, adrenal insufficiency secondary to chronic steroid therapy, CKD, anemia, hypothyroidism, osteopenia s/p back surgery, anxiety/depression, CAD s/p STEMI with PCI/USHA (Taxus) LCx 04/2007 and subsequent PCI/USHA ([facility]) LAD admitted for rectus sheath hematoma and acute blood loss anemia. Patient has no complaints today, feels well, stable vitals, Hgb stable. Plan - Continue to monitor on telemetry - Continue to hold ASA/Plavix - Monitor CBC, transfuse to Hgb >8 - Continue home medications - Follow cardiology recommendations - ALPS for DVT PPx
[2016-09-21 15:55] VITALS: BP 130/80
--- NOTE | 2016-09-21 16:36 | PN- Cardiology ---
Subjective Subjective: The patient is feeling generally well. Having a little flank pain only. He is stable hemodynamically. There've been no arrhythmias. His H&H is stable. Troponins are negative 2. Objective Vital Signs and I&Os Vital Signs Date Time Temp Pulse Resp B/P Pulse O2 O2 Flow FiO2 Ox Delivery Rate 09/21 1555 98.9 91 20 130/80 93 09/21 1045 88 Room Air 09/21 0954 97.7 80 20 132/72 04 0954 97.7 80 20 132/72 09/21 0823 97.7 80 20 132/72 94 Nasal 1.0L Cannula 09/21 0800 92 Nasal 1.0L Cannula 09/21 0000 Nasal 1.0L Cannula 09/20 2310 98.0 90 18 136/70 94 Nasal Cannula 09/20 1857 89 Room Air Room Air 09/20 1746 98.1 87 20 130/74 97 Room Air Intake & Output 09/21 1600 09/21 0800 09/21 0000 09/20 1600 09/20 0800 09/20 0000 Intake Total 600 794 488 4567 850 1370 Output Total 400 3 200 500 300 Balance 600 -300 727 399 423 6712 Intake, Blood 350 Product Intake, IV 10 600 750 500 Intake, Oral 600 100 720 480 100 520 Number 1 0 Bowel Movements Output, Other 3 Output, Urine 400 200 500 300 Physical Exam: He is in no distress HEENT exam is normal Chest reveals some mild wheezing Heart reveals regular rhythm and no murmurs Extremities reveal no edema. Current Medications: Current Medications Sig/Luis Start time Last Medication Dose Route Stop Time Status Admin Acetaminophen 650 MG .STK-MED ONE 09/21 1629 DC PO 09/21 1630 Acetaminophen 650 MG Q6P PRN 09/185 AC 09/21 PO 1636 Acetaminophen 1,000 MG Q8P PRN 09/18 2115 AC IV Albuterol Sulfate 3 ML BID 09/19 1000 AC 09/22 INH 0854 Alprazolam 0.25 MG Q12H PRN 09/19 1100 AC PO 09/26 1059 Alprazolam 0.25 MG BID PRN 09/19 0400 AC 09/19 PO 09/26 0359 0356 Atorvastatin Calcium 80 MG 1700 09/19 1700 AC 09/21 PO 1636 Buspirone HCl 5 MG TID 09/19 1000 AC 09/22 PO 0956 Cyclobenzaprine HCl 5 MG DAILY 09/19 1000 AC 09/22 PO 0956 Gabapentin 300 MG TID 09/19 1000 AC 09/22 PO 0955 Levothyroxine Sodium 0.05 MG DAILY AC 09/19 0700 AC 09/22 PO 07 Lisinopril 40 MG DAILY 09/19 2200 AC 09/22 PO 0955 Metoprolol Tartrate 25 MG BID 09/19 1054 AC 09/22 PO 0955 Omeprazole 20 MG DAILY AC 09/20 0700 AC 09/22 PO 07 Prednisone 20 MG DAILY 09/19 1049 AC 09/22 PO 0956 Sertraline HCl 50 MG DAILY 09/19 1000 AC 09/22 PO 0955 Results Last 48 Hrs of Labs/Mics: Laboratory Tests 09/21/16 0645: CBC w Diff NO MAN DIFF REQ, RBC 3.07 L, MCV 81.6, MCH 25.3 L, RDW 22.1 H, MPV 7.5, Gran % 78.3 H, Lymphocytes % 13.6 L, Monocytes % 7.3, Eosinophils % 0.6, Basophils % 0.2, Absolute Granulocytes 7.9 H, Absolute Lymphocytes 1.4, Absolute Monocytes 0.7 H, Absolute Eosinophils 0.1, Absolute Basophils 0, PUBS MCHC 31.0 L 09/20/16 0725: Anion Gap 4 L, Estimated GFR > 60, BUN/Creatinine Ratio 36.3 H, CBC w Diff NO MAN DIFF REQ, RBC 3.10 L, MCV 80.8, MCH 25.3 L, RDW 21.7 H, MPV 7.7, Gran % 81.4 H, Lymphocytes % 11.5 L, Monocytes % 6.6, Eosinophils % 0.4, Basophils % 0.1, Absolute Granulocytes 9.5 H, Absolute Lymphocytes 1.3, Absolute Monocytes 0.8 H, Absolute Eosinophils 0, Absolute Basophils 0, PUBS MCHC 31.3 L 09/19/16 1708: CBC w Diff NO MAN DIFF REQ, RBC 3.05 L, MCV 80.0, MCH 24.9 L, RDW 21.8 H, MPV 7.6, Gran % 88.7 H, Lymphocytes % 3.7 L, Monocytes % 7.5, Eosinophils % 0.1, Basophils % 0 L, Absolute Granulocytes 12.4 H, Absolute Lymphocytes 0.5 L, Absolute Monocytes 1.1 H, Absolute Eosinophils 0, Absolute Basophils 0, PUBS MCHC 31.2 L Assessment/Plan Assessment/Plan The patient is hemodynamically stable at this time. Telemetry can be discontinued as there are no acute cardiac issues. Continue telemetry? No
[2016-09-21 21:45] VITALS: BP 136/74
[2016-09-22 01:07] VITALS: BP 122/74
[2016-09-22 08:27] LABS: ABSOLUTE BASOPHIL COUNT 0 /CUMM (0.0-0.2); ABSOLUTE EOSINOPHIL COUNT 0.1 /CUMM (0.0-0.7); ABSOLUTE GRANULOCYTE CT 8.6 /CUMM (1.4-6.5); ABSOLUTE MONOCYTE COUNT 0.8 /CUMM (0.10-0.60); BASOPHIL % 0.3 % (0.0-2.0); EOSINOPHIL % 1.1 % (0-5); GRANULOCYTE % 74.2 % (42.2-75.2); HEMATOCRIT 24.1 % (42-52); MEAN CORPUSCULAR HGB 25.6 PG (27.0-31.0); MEAN CORPUSCULAR HGB CONC 31.5 G/DL (33.0-37.0); MEAN CORPUSCULAR VOLUME 81.2 FL (80.0-94.0); MEAN PLATELET VOLUME 7.4 FL (7.4-10.4); PLATELET COUNT 248 /CUMM (130-400); RBC DISTRIBUTION WIDTH 21.7 % (11.5-14.5); RED BLOOD CELL CT 2.98 /CUMM (4.70-6.10); WHITE BLOOD CELL COUNT 11.6 /CUMM (4.8-10.8)
[2016-09-22 08:52] VITALS: BP 165/92
--- NOTE | 2016-09-22 09:59 | PN- Housestaff ---
RICHAR MARQUES,ROD 09/22/16 0959: Subjective Follow-up For: Acute blood loss anemia secondary to abdominal wall hematoma Tele-Events Since Last Visit: gen med hold Subjective: I saw the patient today morning He offers no complaints. Doing well. Review of Systems Constitutional: Reports: see HPI. Comments: ROS negative except the above. Objective Last 24 Hrs of Vital Signs/I&O Vital Signs Date Time Temp Pulse Resp B/P Pulse O2 O2 Flow FiO2 Ox Delivery Rate 09/22 0855 95 Nasal 2.0L Cannula 09/22 0852 98.7 101 20 165/92 95 Nasal 2.0L Cannula 09/22 0800 95 Nasal 1.0L Cannula 09/22 0107 98.6 85 20 122/74 95 Nasal 2.0L Cannula 09/22 0000 Nasal 1.0L Cannula 09/21 2146 95 136/74 09/21 2145 98.6 95 20 136/74 95 Nasal 1.0L Cannula 09/21 1825 96 Nasal 2.0L Cannula 09/21 1600 Nasal 1.0L Cannula 09/21 1555 98.9 91 20 130/80 93 09/21 1045 88 Room Air Intake & Output 09/22 1600 09/22 0800 09/22 0000 Intake Total 600 Output Total 500 2 Balance -500 598 Intake, Oral 600 Output, Other 2 Output, Urine 500 Physical Exam General Appearance: Alert, Oriented X3, Cooperative, No Acute Distress Skin: No Rashes HEENT: Atraumatic, PERRLA Neck: Supple, No JVD Cardiovascular: Normal S1, Normal S2 Lungs: Clear to Auscultation, Normal Air Movement Abdomen: Normal Bowel Sounds, Soft, No Tenderness Current Medications: Current Medications Sig/Luis Start time Last Medication Dose Route Stop Time Status Admin Acetaminophen 650 MG Q6P PRN 09/18 2114 AC 09/21 PO 1636 Acetaminophen 1,000 MG Q8P PRN 09/18 2114 AC IV Albuterol Sulfate 3 ML BID 09/19 1000 AC 09/22 INH 2210 Alprazolam 0.25 MG Q12H PRN 09/19 1100 AC PO 09/26 1059 Alprazolam 0.25 MG BID PRN 09/19 0400 AC 09/19 PO 09/26 0359 0356 Atorvastatin Calcium 80 MG 1700 09/19 1700 AC 09/22 PO 1716 Buspirone HCl 5 MG TID 09/19 1000 AC 09/22 PO 2130 Cyclobenzaprine HCl 5 MG DAILY 09/19 1000 AC 09/22 PO 0956 Gabapentin 300 MG TID 09/19 1000 AC 09/22 PO 2130 Guaifenesin 600 MG Q12 09/22 2200 AC 09/22 PO 2130 Levothyroxine Sodium 0.05 MG DAILY AC 09/19 0700 AC 09/22 PO 0705 Lisinopril 40 MG DAILY 09/19 2200 AC 09/22 PO 0955 Metoprolol Tartrate 25 MG BID 09/19 1054 AC 09/22 PO 2130 Omeprazole 20 MG DAILY AC 09/20 0700 AC 09/22 PO 0705 Prednisone 20 MG DAILY 09/19 1049 AC 09/22 PO 0956 Sertraline HCl 50 MG DAILY 09/19 1000 AC 09/22 PO 0955 Last 24 Hrs of Lab/Kain Results Last 24 Hrs of Labs/Mics: Laboratory Tests 09/22/16 0710: CBC w Diff NO MAN DIFF REQ, RBC 2.98 L, MCV 81.2, MCH 25.6 L, RDW 21.7 H, MPV 7.4, Gran % 74.2, Lymphocytes % 17.1 L, Monocytes % 7.3, Eosinophils % 1.1, Basophils % 0.3, Absolute Granulocytes 8.6 H, Absolute Lymphocytes 2.0, Absolute Monocytes 0.8 H, Absolute Eosinophils 0.1, Absolute Basophils 0, PUBS MCHC 31.5 L Assessment/Plan Assessment: 71-year-old gentleman with PMH of CAD S/P stent, RA, adrenal insufficiency, COPD on 1.5-2L oxygen at night, cholecystectomy and ERCP with CBD stone removed in 2014, hypothyroidism, hypertension, hyperlipidemia, back pain, osteopenia, anxiety and depression, who came to the ED due to right-sided abdominal and flank pain. CTscan done in the ED showed extensive hematoma of the rectus abdominis muscle. 1. Acute blood loss anemia secondary to hepatoma of the rectus abdominal muscle most likely due to previous Lovenox shots received during previous admissions. -H&H stable after 1 unit of blood transfusion) - Continue to hold antiplatelets -We will get recommendation from cardiology about restarting antiplatelets. 2. Sinus tachycardia with occasional PVCs: - Overnight heart rate has been within acceptable range - Discontinued telemetry monitoring today. -We'll continue metoprolol. -Discontinue telemetry monitoring. 3. CAD/stents: - Stents placed in 2006. Patient currently on aspirin and Plavix which is held since admission - Aspirin and Plavix held 4. Leukocytosis: -Improving -Has been afebrile -Blood cultures and urine cultures negative so far -We'll continue to hold antibiotics 5. Chronic respiratory failure stable on 1-2 L oxygen through nasal cannula - He was discharged on prednisone on the day of admission -We will restart his home dose of prednisone 20 mg daily 6. Rheumatoid arthritis - We will continue his Tofacitinib Full code ALPS for DVT ppx Problem List: 1. Anemia 2. Kidney stone on left side 3. Traumatic hematoma of abdominal wall with infection 4. Acute blood loss anemia 5. H/O heart artery stent 6. Abdominal contusion 7. CAD (coronary artery disease) 8. Rheumatoid arthritis Pain Ratin Pain Location: chest pain Pain Goal: Pain 4 or less Pain Plan: tylenol prn Tomorrow's Labs & Rationales: cbc JUSTO MCCLAIN MD 09/22/16 1428: Attending MD Review Statement Attending Statement Attending MD Statement: examined this patient, discuss w/resident/PA/ROLLED GLASS CROSSCUTTER, agreed w/resident/PA/ROLLED GLASS CROSSCUTTER, reviewed EMR data (avail) Attending Assessment/Plan: 71M PMH HTN, HLD, RA on Xeljanz, adrenal insufficiency secondary to chronic steroid therapy, CKD, anemia, hypothyroidism, osteopenia s/p back surgery, anxiety/depression, CAD s/p STEMI with PCI/USHA ([facility]) LCx 04/2007 and subsequent PCI/USHA ([facility]) LAD admitted for rectus sheath hematoma and acute blood loss anemia. Patient has no complaints today, feels well, stable vitals, Hgb stable. Plan - Please start Mucinex - Continue to monitor on telemetry - Continue to hold ASA/Plavix - Monitor CBC, transfuse to Hgb >8 - Continue home medications - Follow cardiology recommendations - ALPS for DVT PPx
[2016-09-22 13:00] VITALS: BP 150/90
[2016-09-22 16:49] VITALS: BP 144/85
[2016-09-23 08:05] VITALS: BP 176/84
[2016-09-23 08:19] LABS: ABSOLUTE BASOPHIL COUNT 0 /CUMM (0.0-0.2); ABSOLUTE EOSINOPHIL COUNT 0.2 /CUMM (0.0-0.7); ABSOLUTE LYMPH COUNT 1.8 /CUMM (1.2-3.4); ABSOLUTE MONOCYTE COUNT 0.9 /CUMM (0.10-0.60); BASOPHIL % 0.3 % (0.0-2.0); EOSINOPHIL % 1.4 % (0-5); GRANULOCYTE % 75.7 % (42.2-75.2); MEAN CORPUSCULAR HGB 25.6 PG (27.0-31.0); MEAN CORPUSCULAR HGB CONC 31.5 G/DL (33.0-37.0); MEAN CORPUSCULAR VOLUME 81.5 FL (80.0-94.0); MEAN PLATELET VOLUME 7.5 FL (7.4-10.4); PLATELET COUNT 264 /CUMM (130-400); RBC DISTRIBUTION WIDTH 21.9 % (11.5-14.5); RED BLOOD CELL CT 3.07 /CUMM (4.70-6.10); WHITE BLOOD CELL COUNT 11.8 /CUMM (4.8-10.8)
--- NOTE | 2016-09-23 09:16 | PN- Housestaff ---
SHRUTHI MARQUES,KHADAR 09/23/16 0915: Subjective Follow-up For: Abdominal wall hematoma Subjective: Patient today appears comfortable on bed. Has some productive cough. Has remained afebrile overnight. Patient off of telemetry. He desaturated to 85% this morning and abolition with physical therapy while on 2 L oxygen which is his baseline. Review of Systems Constitutional: Reports: see HPI. Objective Last 24 Hrs of Vital Signs/I&O Vital Signs Date Time Temp Pulse Resp B/P Pulse O2 O2 Flow FiO2 Ox Delivery Rate 09/23 0923 94 Nasal 2.0L Cannula 09/23 0805 97.8 79 17 176/84 96 Nasal 2.0L Cannula 09/23 0800 Nasal 1.0L Cannula 09/23 0758 12 174/84 09/23 0757 122 174/84 09/23 0000 Nasal 1.0L Cannula 09/22 2211 95 Nasal 2.0L Cannula 09/22 2130 120/86 09/22 1649 99.2 81 18 144/85 95 Nasal 2.0L Cannula 09/22 1600 Nasal 1.0L Cannula 09/22 1300 150/90 Intake & Output 09/23 1600 09/23 0800 09/23 0000 Intake Total 100 600 Output Total 450 450 Balance -350 150 Intake, Oral 100 600 Output, Urine 450 450 Physical Exam General Appearance: Alert, Oriented X3, Cooperative, No Acute Distress Skin: right-sided abdominal wall hematoma clearing up HEENT: Mucous Membr. moist/pink Cardiovascular: Regular Rate, Normal S1, Normal S2, No Murmurs Lungs: bilateral decreased breath sounds, no wheezes appreciated, bilateral basal crackles present Abdomen: Normal Bowel Sounds, Soft, measurement tenderness present on deep palpation on the right side of the abdomen. Bluish discolored position of the hematoma seen which probably is clearing up. Neurological: Normal Speech, Normal Tone Extremities: bilateral pitting pedal edema present Current Medications: Current Medications Sig/Luis Start time Last Medication Dose Route Stop Time Status Admin Acetaminophen 650 MG Q6P PRN 09/18 2114 AC 09/21 PO 1636 Acetaminophen 1,000 MG Q8P PRN 09/18 2114 AC IV Albuterol Sulfate 3 ML BID 09/19 1000 AC 09/23 INH 0922 Alprazolam 0.25 MG Q12H PRN 09/19 1100 AC PO 09/26 1059 Alprazolam 0.25 MG BID PRN 09/19 0400 AC 09/19 PO 09/26 0359 0356 Atorvastatin Calcium 80 MG 1700 09/19 1700 AC 09/22 PO 1716 Buspirone HCl 5 MG TID 09/19 1000 AC 09/23 PO 0757 Cyclobenzaprine HCl 5 MG DAILY 09/19 1000 AC 09/23 PO 0757 Furosemide 20 MG DAILY 09/23 1055 AC PO Gabapentin 300 MG TID 09/19 1000 AC 09/23 PO 0757 Guaifenesin 600 MG Q12 09/22 2200 AC 09/23 PO 0757 Levothyroxine Sodium 0.05 MG DAILY AC 09/19 0700 AC 09/23 PO 0611 Lisinopril 10 MG DAILY 09/23 1100 AC PO Lisinopril 40 MG DAILY 09/19 2200 DC 09/23 PO 0758 Metoprolol Tartrate 25 MG BID 09/19 1054 AC 09/23 PO 0757 Omeprazole 20 MG DAILY AC 09/20 0700 AC 09/23 PO 0611 Patient Medication 1 UNIT ONE NR 09/23 1115 [facility] ED 09/23 1715 Patient Medication 1 UNIT ONE NR 09/23 1115 [facility] ED 09/23 1715 Prednisone 20 MG DAILY 09/19 1049 AC 09/23 PO 0758 Sertraline HCl 50 MG DAILY 09/19 1000 AC 09/23 PO 0758 Last 24 Hrs of Lab/Kain Results Last 24 Hrs of Labs/Mics: Laboratory Tests 09/23/16 0710: CBC w Diff NO MAN DIFF REQ, RBC 3.07 L, MCV 81.5, MCH 25.6 L, RDW 21.9 H, MPV 7.5, Gran % 75.7 H, Lymphocytes % 14.9 L, Monocytes % 7.7, Eosinophils % 1.4, Basophils % 0.3, Absolute Granulocytes 9.0 H, Absolute Lymphocytes 1.8, Absolute Monocytes 0.9 H, Absolute Eosinophils 0.2, Absolute Basophils 0, PUBS MCHC 31.5 L Assessment/Plan Assessment: 71-year-old gentleman with PMH of CAD S/P stent, RA, adrenal insufficiency, COPD on 1.5-2L oxygen at night, cholecystectomy and ERCP with CBD stone removed in 2014, hypothyroidism, hypertension, hyperlipidemia, back pain, osteopenia, anxiety and depression, who came to the ED due to right-sided abdominal and flank pain. CTscan done in the ED showed extensive hematoma of the rectus abdominis muscle. 1. Acute blood loss anemia secondary to hepatoma of the rectus abdominal muscle most likely due to previous Lovenox shots received during previous admissions. - H&H stable after 1 unit of blood transfusion) - Continue to hold antiplatelets. Confirm with cardiology about restarting his antiplatelets upon discharge 2. Sinus tachycardia with occasional PVCs: - Overnight heart rate has been within acceptable range - HR within acceptable range. - Off telemetry. 3. Acute on chronic hypoxic respiratory failure: - Patient desaturated 85 %this morning. -Has been off of Lasix since admission secondary to hypotension on admission - We'll obtain a chest x-ray and additional dose of 20 Lasix IV -We'll restart his home dose of Lasix 20 from tomorrow. 4. CAD/stents: - Stents placed in 2006. Patient currently on aspirin and Plavix which is held since admission - Aspirin and Plavix held 5. Leukocytosis: -Improving -Has been afebrile -Blood cultures and urine cultures negative so far -We'll continue to hold antibiotics 5. Chronic respiratory failure stable on 1-2 L oxygen through nasal cannula - He was discharged on prednisone on the day of admission -We will restart his home dose of prednisone 20 mg daily 6. Rheumatoid arthritis - We will continue his Tofacitinib Full code ALPS for DVT ppx Problem List: 1. Acute blood loss anemia 2. COPD (chronic obstructive pulmonary disease) Pain Ratin Pain Location: Abdomen Pain Goal: Remain pain free Pain Plan: As mentioned Tomorrow's Labs & Rationales: Patient to be discharged JUSTO MCCLAIN MD 09/23/16 1245: Attending MD Review Statement Attending Statement Attending MD Statement: examined this patient, discuss w/resident/PA/RESOURCE FORESTER, agreed w/resident/PA/RESOURCE FORESTER, reviewed EMR data (avail) Attending Assessment/Plan: 71M PMH HTN, HLD, RA on Xeljanz, adrenal insufficiency secondary to chronic steroid therapy, CKD, anemia, hypothyroidism, osteopenia s/p back surgery, anxiety/depression, CAD s/p STEMI with PCI/USHA ([facility]) LCx 04/2007 and subsequent PCI/USHA ([facility]) LAD admitted for rectus sheath hematoma and acute blood loss anemia. Patient has no complaints today, feels well, stable vitals, Hgb stable. Plan - Stable for discharge to STR - Continue Mucinex - Will speak with cardiology regarding restarting ASA, will likely no longer require Plavix as his last stent placement was 2006 - Hgb stable - Continue home medications
--- NOTE | 2016-09-23 10:18 | Discharge Summary ---
See Addendum Visit Information Visit Dates Admission Date: 09/18/16 Discharge Date: 09/23/16 Hospital Course Course Attending Physician: JUSTO MCCLAIN MD Primary Care Physician: CLIFF MCCLAIN MD Hospital Course: 71-year-old gentleman with past medical history of CAD status post stent, tinnitus, adrenal insufficiency, COPD on 1.5-2 L oxygen at night, cholecystectomy, hypertension, back pain presents to the ED with complaints of right-sided abdominal pain that started 1 day prior to admission. Patient was discharged 1 day prior to admission after being treated for bronchitis. Vitals and admission: Blood pressure 88/60 which improved to 121/67, discussion 20, pulse 124, temperature 101.1, saturating 90% on 2 L nasal cannula Labs and admission: W7.2, troponin 8.4, hematocrit 26.6, platelets 296, sodium 137, potassium 4.1, chloride 96, bicarbonate 34, BUN 50, creatinine 1.3, lactic acid 2.4. Hospital course 1. Acute blood loss anemia secondary to Abdominal wall hematoma most likely due to heparin shot he received during previous admission: She was admitted to telemetry floor given not tachycardia. He received 1 unit of packed red blood cell transfusion as H&H dropped significantly compared to previous discharge. Patient had Improvement in abdominal wall hematoma and pain. His H&H remained stable. He was maintained on Alps for DVT prophylaxis. He was on aspirin and Plavix for history of CAD which were held after consulting with cardiology. Asa was restarted upon discharge.He should follow up with Dr. Sifuentes about restarting plavix 2. Sinus tachycardia due to intervascular volume loss/acute blood loss anemia: Patient's heart rate improved after 1 unit of packed RBCs. He was maintained on telemetry was uneventful. His jet wiper was DC'd after 72 hours. He was continued on his home dose of metoprolol initial troponins came back negative. 3. Leukocytosis most likely due to prednisone: He remained afebrile. Blood and urine cultures were negative. Patient was followed off of antibiotics. 4. Bilateral lower extremity pitting edema due to diastolic congestive heart failure. Lasix was held on admission secondary to low blood pressure. His Lasix will need to received once blood pressure stabilized. 5. Rheumatoid arthritis. He was restarted on his home medications Tofacitinib. 6. Chronic respiratory failure at baseline oxygen: Patient is on prednisone 20 daily which we will continue. He should follow-up with Dr. Rincon upon discharge. 7. CAD/Stents: ASa and plavix was held on admission secondary to hematoma. His stents were placed in 2006. Aspirin was restrated upon discharge and he should follow up with Dr. Sifuentes about restarting plavix Full CODE STATUS DVT prophylaxis with Alps. He will need a follow up CBC on 09/27/16 Allergies: Coded Allergies: hydrocodone (From VICODIN) (Intermediate, SEVERE HALLUCINATIONS 07/05/16) hydromorphone (From DILAUDID) (Intermediate, SEVERE HALLUCINATIONS 07/05/16) morphine (Intermediate, WILD DREAMS, GI UPSET, SEVERE HALLUCINATIONS 07/05/16) oxycodone (From PERCOCET) (Intermediate, SEVERE HALLUCINATIONS 07/05/16) lactose (DIARRHEA 07/05/16) Pertinent Lab Results: Laboratory Tests 09/23 09/22 0710 0710 Hematology CBC w Diff NO MAN DIFF REQ NO MAN DIFF REQ WBC (4.8 - 10.8 /CUMM) 11.8 H 11.6 H RBC (4.70 - 6.10 /CUMM) 3.07 L 2.98 L Hgb (14.0 - 18.0 G/DL) 7.9 L 7.6 L Hct (42 - 52 %) 25.0 L 24.1 L MCV (80.0 - 94.0 FL) 81.5 81.2 MCH (27.0 - 31.0 PG) 25.6 L 25.6 L RDW (11.5 - 14.5 %) 21.9 H 21.7 H Plt Count (130 - 400 /CUMM) 264 248 MPV (7.4 - 10.4 FL) 7.5 7.4 Gran % (42.2 - 75.2 %) 75.7 H 74.2 Lymphocytes % (20.5 - 51.1 %) 14.9 L 17.1 L Monocytes % (1.7 - 9.3 %) 7.7 7.3 Eosinophils % (0 - 5 %) 1.4 1.1 Basophils % (0.0 - 2.0 %) 0.3 0.3 Absolute Granulocytes (1.4 - 6.5 /CUMM) 9.0 H 8.6 H Absolute Lymphocytes (1.2 - 3.4 /CUMM) 1.8 2.0 Absolute Monocytes (0.10 - 0.60 /CUMM) 0.9 H 0.8 H Absolute Eosinophils (0.0 - 0.7 /CUMM) 0.2 0.1 Absolute Basophils (0.0 - 0.2 /CUMM) 0 0 PUBS MCHC (33.0 - 37.0 G/DL) 31.5 L 31.5 L 09/21 0645 Hematology CBC w Diff NO MAN DIFF REQ WBC (4.8 - 10.8 /CUMM) 10.1 RBC (4.70 - 6.10 /CUMM) 3.07 L Hgb (14.0 - 18.0 G/DL) 7.8 L Hct (42 - 52 %) 25.0 L MCV (80.0 - 94.0 FL) 81.6 MCH (27.0 - 31.0 PG) 25.3 L RDW (11.5 - 14.5 %) 22.1 H Plt Count (130 - 400 /CUMM) 219 MPV (7.4 - 10.4 FL) 7.5 Gran % (42.2 - 75.2 %) 78.3 H Lymphocytes % (20.5 - 51.1 %) 13.6 L Monocytes % (1.7 - 9.3 %) 7.3 Eosinophils % (0 - 5 %) 0.6 Basophils % (0.0 - 2.0 %) 0.2 Absolute Granulocytes (1.4 - 6.5 /CUMM) 7.9 H Absolute Lymphocytes (1.2 - 3.4 /CUMM) 1.4 Absolute Monocytes (0.10 - 0.60 /CUMM) 0.7 H Absolute Eosinophils (0.0 - 0.7 /CUMM) 0.1 Absolute Basophils (0.0 - 0.2 /CUMM) 0 PUBS MCHC (33.0 - 37.0 G/DL) 31.0 L Disposition Summary Disposition Principal Diagnosis: 1. Acute blood loss anemia secondary to Abdominal wall hematoma resolving 2. Sinus tachycardia resolved Additional Diagnosis: 1. Bilateral lower extremity pitting edema due to diastolic congestive heart failure 2. Rheumatoid arthritis 3. Chronic respiratory failure at baseline oxygen Discharge Disposition: STR Discharge Instructions General Discharge Information Code Status: Full Code Patient's Diet: Heart healthy diet Patient's Activity: 1. As tolerated with PT Follow-Up Instructions/Appts: 1. Follow-up with primary care physician a week upon discharge 2. Follow-up with Dr. Rincon. Please call his office to make a follow-up appointment 3. FOllow up CBC on 09/27/16 4. Follow up with Dr. Sifuentes in 2 weeks to discuss about restarting Plavix Medications at Discharge Discharge Medications: Stop taking the following medications: Clopidogrel Bisulfate (Plavix) 75 MG TABLET ORAL DAILY Cefuroxime Axetil (Cefuroxime) 250 MG TABLET ORAL TWICE DAILY Qty = 7 Prednisone (Prednisone) 10 MG TABLET ORAL DAILY Qty = 5 Continue taking these medications: Prednisone (Prednisone) 20 MG TABLET 1 Tablet ORAL DAILY Instructions: START FROM 09/23/16 THEN CONTINUE DAILY Comments: NOT GIVEN IN HOSPITAL Sertraline HCl (Sertraline HCl) 50 MG TABLET 1 Tablet ORAL DAILY Comments: Last Taken: 09/17/16 Time: 9:30 AM Aspirin (Ecotrin*) 325 MG TABLET.DR 1 Tablet ORAL DAILY Comments: Last Taken: 09/17/16 Time: 9:30 AM Potassium Chloride (Potassium Chloride) 10 MEQ TAB.ER.PRT 1 Tablet ORAL DAILY Comments: Last Taken: 09/17/16 Time: 9:30 AM Lansoprazole (Prevacid) 30 MG TAB.RAP.DR 1 Tablet ORAL DAILY Comments: NOT GIVEN IN HOSPTIAL Gabapentin (Neurontin) 300 MG CAPSULE 1 Capsule ORAL THREE TIMES DAILY Comments: Last Taken: 09/17/16 Time: 9:30 AM Alendronate Sodium (Fosamax) 70 MG TABLET 1 Tablet ORAL Q FRIDAY Instructions: in the morning, at least 30 minutes before the first food, beverage, or medication of the day Comments: NOT GIVEN IN HOSPITAL Rosuvastatin Calcium (Crestor) 40 MG TABLET 1 Tablet ORAL Every night Comments: NOT GIVEN IN HOSPITAL Multivitamin (Multiple Vitamins) 1 EACH TABLET 1 Tablet ORAL DAILY Comments: NOT GIVEN IN HOSPITAL Cyanocobalamin (Vitamin B-12) 1,000 MCG TABLET 1 Tablet ORAL DAILY Comments: NOT GIVEN IN HOSPTIAL Alprazolam (Alprazolam) 0.25 MG TABLET 1 Tablet ORAL Q12H as needed for ANXIETY Comments: NOT GIVEN IN HOSPITAL Levothyroxine Sodium (Levothyroxine Sodium) 50 MCG TABLET 1 Tablet ORAL DAILY Qty = 90 Comments: Last Taken: 09/17/16 Time: 6:00 AM Buspirone HCl (Buspirone HCl) 5 MG TABLET 1 Tablet ORAL THREE TIMES DAILY Qty = 90 Comments: Last Taken: 09/17/16 Time: 9:30 AM Tofacitinib Citrate (Xeljanz) 5 MG TABLET 1 Tablet ORAL TWICE DAILY Comments: Last Taken: 09/17/16 Time: 9:30 AM Albuterol Sulfate (Proair Hfa) 90 MCG HFA.AER.AD 2 Puff Inhale through mouth Q4H as needed for RESPIRATORY Comments: NOT GIVEN IN HOSPITAL Cyclobenzaprine HCl (Cyclobenzaprine HCl) 5 MG TABLET 1 Tablet ORAL DAILY Qty = 90 Comments: Last Taken: 09/17/16 Time: 9:30 AM Metoprolol Succ XL (Toprol XL) 25 MG TAB 25 Milligram ORAL DAILY Qty = 60 Comments: Last Taken: 09/17/16 Time: 11:00 AM Ramipril (Ramipril) 10 MG CAPSULE 1 Capsule ORAL DAILY Qty = 90 Copies To: REINALDO MARQUES,ANTONI Barron; JOHNY MARQUES,CLIFF Mckinney
--- NOTE | 2016-09-23 11:40 | RADIOLOGY REPORT ---
EXAMINATION: XR PORTABLE CHEST CLINICAL INFORMATION: Hypoxia on ambulation in a patient with CHF. Presumptive diagnosis of CHF. COMPARISON: The chest dated 09/18/2016. Chest x-ray dated 09/15/2016 and 07/05/2016. TECHNIQUE: Portable AP semierect view of the chest was obtained. FINDINGS: The cardiomediastinal silhouette is enlarged with tortuosity of the aorta and great vessels again seen, unchanged. Low lung volumes are present with mild bibasilar subsegmental atelectatic changes, similar to the previous exam. No evidence of pulmonary edema or focal dense consolidation is noted. No significant effusion or pneumothorax is present. Bony structures are grossly unremarkable. IMPRESSION: Unchanged appearance of the chest with findings of mild volume loss and subsegmental atelectasis. No evidence of pulmonary edema.
[2016-09-23 13:00] VITALS: BP 180/70
--- NOTE | 2016-09-23 13:26 | PN- Cardiology ---
Subjective Subjective: * Patient feels well. No chest discomfort or shortness of breath. Right flank discomfort is minimal. * H/H stable at 7.9/25.0 Objective Vital Signs and I&Os Vital Signs Date Time Temp Pulse Resp B/P Pulse O2 O2 Flow FiO2 Ox Delivery Rate 09/23 1300 72 180/70 09/23 1111 Nasal 2.0L Cannula 09/23 0923 94 Nasal 2.0L Cannula 09/23 0805 97.8 79 17 176/84 96 Nasal 2.0L Cannula 09/23 0800 Nasal 1.0L Cannula 09/23 0758 12 174/84 09/23 0757 122 174/84 09/23 0000 Nasal 1.0L Cannula 09/22 2211 95 Nasal 2.0L Cannula 09/22 2130 120/86 09/22 1649 99.2 81 18 144/85 95 Nasal 2.0L Cannula 09/22 1600 Nasal 1.0L Cannula Intake & Output 09/23 1600 09/23 0800 09/23 0000 09/22 1600 09/22 0800 09/22 0000 Intake Total 100 600 480 600 Output Total 450 450 200 500 2 Balance -350 150 280 -500 598 Intake, Oral 100 600 480 600 Number 0 Bowel Movements Output, Other 2 Output, Urine 450 450 200 500 Physical Exam: General: WD/ obese male in NAD; alert and oriented x 3 Neck: no JVD, no carotid bruit heart: RRR w/o murmur Lungs: clear bilaterally with decreased air movement Extremities: minimal ankle edema bilaterally Assessment/Plan Assessment/Plan * This patient is s/p a large rectus sheath hematoma. I would continue aspirin at 81mg daily and hold off on the Plavix for the time being. He should follow up in the office in two weeks at which time we can reconsider his use of Plavix. At the present time there is no evidence of myocardial ischemia or decompensated CHF. It should be noted that this patient has been on chronic steroid therapy due to his severe arthritis and probably will not be tolerant of completely stopping it. Continue telemetry? No
[2016-09-23 16:27] VITALS: BP 142/80
== END 2016-09-23 18:00 | disposition home health service (06) | DRG 812 ==
LOC: ENRESERVDT → ENRESERVTM → ERH 16:52 → ERHI 20:12 → 1NO 20:12
PROVIDERS: Internal Medicine; Internal Medicine Endocrinology, Diabetes & Metabolism; Internal Medicine Hematology & Oncology; Physician Assistant Medical; ADMIT Internal Medicine
PROC: 30233N1 Transfusion of Nonautologous Red Blood Cells into Peripheral Vein, Percutaneous Approach (ICD-10-PCS; principal; 2016-09-19)
DX: D62 Acute posthemorrhagic anemia (principal); N17.9 Acute kidney failure, unspecified; J96.10 Chronic respiratory failure, unspecified whether with hypoxia or hypercapnia; E27.40 Unspecified adrenocortical insufficiency; S30.1XXA Contusion of abdominal wall, initial encounter; J44.9 Chronic obstructive pulmonary disease, unspecified; Z99.81 Dependence on supplemental oxygen; I10 Essential (primary) hypertension; I25.10 Atherosclerotic heart disease of native coronary artery without angina pectoris; Z95.5 Presence of coronary angioplasty implant and graft; M06.9 Rheumatoid arthritis, unspecified; E03.9 Hypothyroidism, unspecified; E78.5 Hyperlipidemia, unspecified; M85.80 Other specified disorders of bone density and structure, unspecified site; F41.8 Other specified anxiety disorders; X58.XXXA Exposure to other specified factors, initial encounter; Y93.9 Activity, unspecified; Y92.009 Unspecified place in unspecified non-institutional (private) residence as the place of occurrence of the external cause
CPT/HCPCS: 1NP; 36415; 74176; 81001; 82436; 86920; 87040; 87086; 93005; 93010; 96361; 96374; 96375; 97110-GO; 97116-GO; 97161-GP; 97530-GO; 99291; J0713; J1815; J1940; J2930; J3370; J7040; P9016

== ENCOUNTER 2016-10-13 05:56 | Emergency (ER) | payer OTHER ==
[~2016-10-13] VITALS: Ht 185.4 cm; Wt 99.8 kg
[~2016-10-13 05:56] MED LIST changes: +RAMIPRIL10 M1 PO
--- NOTE | 2016-10-13 06:29 | ED GI/GU/ABDOMINAL COMPLAINT ---
History of Present Illness General Chief Complaint: Male Genitourinary Problems Stated Complaint: GROIN PAIN WITH SKIN RASH Source: patient, old records Exam Limitations: no limitations Vital Signs & Intake/Output Vital Signs & Intake/Output Vital Signs Date Time Temp Pulse Resp B/P B/P Pulse O2 O2 Flow FiO2 Mean Ox Delivery Rate 10/13 0610 99.3 91 20 144/84 90 Room Air Allergies Coded Allergies: hydrocodone (From VICODIN) (Intermediate, SEVERE HALLUCINATIONS 07/05/16) hydromorphone (From DILAUDID) (Intermediate, SEVERE HALLUCINATIONS 07/05/16) morphine (Intermediate, WILD DREAMS, GI UPSET, SEVERE HALLUCINATIONS 07/05/16) oxycodone (From PERCOCET) (Intermediate, SEVERE HALLUCINATIONS 07/05/16) lactose (DIARRHEA 07/05/16) Reconcile Medications Albuterol Sulfate (Proair Hfa) 90 MCG HFA.AER.AD 2 PUF INH Q4H PRN RESPIRATORY (Reported) Alendronate Sodium (Fosamax) 70 MG TABLET 1 TAB PO Q FRIDAY OSTEOPOROSIS ( Reported) in the morning, at least 30 minutes before the first food, beverage, or medication of the day Alprazolam 0.25 MG TABLET 1 TAB PO Q12H PRN ANXIETY (Reported) Aspirin (Ecotrin*) 325 MG TABLET.DR 1 TAB PO DAILY HEART/BLOOD (Reported) Buspirone HCl 5 MG TABLET 1 TAB PO TID ANXIETY (Reported) Cyanocobalamin (Vitamin B-12) 1,000 MCG TABLET 1 TAB PO DAILY SUPPLEMENT ( Reported) Cyclobenzaprine HCl 5 MG TABLET 1 TAB PO DAILY MUSCLE SPASMS (Reported) Gabapentin (Neurontin) 300 MG CAPSULE 1 CAP PO TID NERVE PAIN (Reported) Lansoprazole (Prevacid) 30 MG TAB.RAP.DR 1 TAB PO DAILY GI (Reported) Levothyroxine Sodium 50 MCG TABLET 1 TAB PO DAILY THYROID (Reported) Metoprolol Succ XL (Toprol XL) 25 MG TAB 25 MG PO DAILY BLOOD PRESSURE Multivitamin (Multiple Vitamins) 1 EACH TABLET 1 TAB PO DAILY SUPPLEMENT ( Reported) Nystatin 1 BILLION UNIT POWDER.EA. 1 VENTURA TOP TID RASH Potassium Chloride 10 MEQ TAB.ER.PRT 1 TAB PO DAILY SUPPLEMENT (Reported) Prednisone 20 MG TABLET 1 TAB PO DAILY RA (Reported) START FROM 09/23/16 THEN CONTINUE DAILY Ramipril 10 MG CAPSULE 1 CAP PO DAILY HTN (Reported) Rosuvastatin Calcium (Crestor) 40 MG TABLET 1 TAB PO QPM CHOLESTEROL ( Reported) Sertraline HCl 50 MG TABLET 1 TAB PO DAILY MENTAL HEALTH (Reported) Tofacitinib Citrate (Xeljanz) 5 MG TABLET 1 TAB PO BID rheumatoid arthritis ( Reported) Valacyclovir HCl (Valtrex) 1,000 MG TABLET 1 TAB PO TID SHINGLES Triage Note: PT TO ED WITH COMPLAINTS OF SKIN IRRITATION TO RIGHT UPPER THIGH, GROIN AND SCROTUM AREAS. PT STATES THAT THE AREA IS ENLARGED WITH BOILS AND REDNESS. PT ALSO COMPLAINS OF DIFFICULTY WITH URINATION SINCE THE ONSET OF THESE SYMPTOMS FRIDAY NIGHT, WELL DRIBBLING URINE. Triage Nurses Notes Reviewed? yes HPI: Patient noticed yesterday that he had a painful rash in his right groin. The rash and pain spreads onto the shaft of the penis on the right side. There are no fevers or chills. The pain is a burning sensation and is constant. He rates it as a 7 out of 10. There is no radiation. Patient states that he is only urinating small amounts. He was seen by his visiting nurse who do not know if it was a fungal rash or if it was shingles. Past History Travel History Traveled to [place] past 21 day No Medical History Any Pertinent Medical History? see below for history Neurological: peripheral neuropathy EENT: CATARACTS REMOVED Cardiovascular: CAD (s/p ST elevation [place]), hypertension, hyperlipidemia, myocardial infarction, non-ST patient [place], status post angioplasty/stent x 3 in 2006 Respiratory: bronchitis, COPD, pneumonia Gastrointestinal: GERD (minimal), lactose intolerance, 10/27/2014: ERCP WITH ES/ CBD STONE EXTRACTION Hepatic: NONE Renal: ACUTE RENAL FAILURE- RESOLVED. 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 FH: CVA (cerebrovascular accident) SISTER, , Age 71; Cause: Multiple sclerosis. FH: brain cancer SISTER, , Age 55; Cause: Brain cancer. FATHER ( of a myocardial infarction in his 60's). , Age 63; Cause: Myocardial infarct. SISTER ( of multiple sclerosis). Hx Contributory? No Review of Systems Review of Systems Constitutional: Reports: no symptoms. EENTM: Reports: no symptoms. Respiratory: Reports: no symptoms. Cardiovascular: Reports: no symptoms. GI: Reports: no symptoms. Genitourinary: Reports: see HPI. Musculoskeletal: Reports: no symptoms. Skin: Reports: see HPI, rash. Neurological/Psychological: Reports: no symptoms. Hematologic/Endocrine: Reports: no symptoms. Immunologic/Allergic: Reports: no symptoms. All Other Systems: Reviewed and Negative Physical Exam Physical Exam General Appearance: well developed/nourished, alert, awake, moderate distress Head: atraumatic, normal appearance Eyes: Bilateral: PERRL, EOMI. Ears, Nose, Throat, Mouth: hearing grossly normal, moist mucous membrane Neck: normal inspection, supple, full range of motion, normal alignment Respiratory: normal breath sounds, chest non-tender, no respiratory distress, lungs clear Cardiovascular: regular rate/rhythm, normal peripheral pulses Gastrointestinal: normal bowel sounds, soft, non-tender, no organomegaly Male Genitals: ERYTHEMA WITH VESICULAR RASH TO HIS RIGHT INNER THIGH ON THE SCROTUM AND SHAFT OF THE PENIS. rASH STOPS AT THE MIDLINE. Extremities: normal range of motion Neurologic/Psych: no motor/sensory deficits, awake, alert, oriented x 3, normal mood/affect Skin: rash Core Measures ACS in differential dx? No Severe Sepsis Present: No Septic Shock Present: No Progress Differential Diagnosis: ZOSTER VERSUS POSSIBLE INFECTION Plan of Care: Current Medications Sig/Luis Start time Last Medication Dose Stop Time Status Admin Nystatin 1 VENTURA ONCE ONE 10/13 629 UNVr (Mycostatin) 10/13 630 Valacyclovir HCl 1,000 MG ONCE ONE 10/13 629 UNVr (Valtrex) 10/13 630 Initial ED EKG: none Departure Departure Disposition: HOME OR SELF CARE Condition: Stable Clinical Impression Primary Impression: Zoster Secondary Impressions: Fungal rash of trunk Referrals: JOHNY MARQUES,CLIFF Mckinney (PCP/Family) Additional Instructions: Take Valtrex as prescribed. Use powder as prescribed. Return if symptoms worsen. Departure Forms: Customer Survey General Discharge Information Prescriptions: Current Visit Scripts Valacyclovir HCl (Valtrex) 1 TAB PO TID #21 TAB Nystatin 1 VENTURA TOP TID 10 Days
[2016-10-13] MEDS ORDERED: NYSTATIN1 EAC8 TOP (06:37)
[2016-10-13] MEDS ORDERED: VALTREX1000 MG PO (06:37)
[2016-10-13 07:29] VITALS: BP 140/80
== END 2016-10-13 07:30 ==
LOC: ERH 05:56
DX: B02.9 Zoster without complications (principal); B36.9 Superficial mycosis, unspecified
CPT/HCPCS: J3490

== ENCOUNTER 2016-11-04 11:51 | Emergency (ER) | payer OTHER ==
[~2016-11-04] VITALS: Ht 185.4 cm; Wt 93.9 kg
[~2016-11-04 11:51] MED LIST changes: +NYSTATIN1 EAC8 TOP; +VALTREX1000 MG PO
--- NOTE | 2016-11-04 12:01 | ED GENERAL ADULT ---
History of Present Illness General Chief Complaint: Dizziness Stated Complaint: NEW MEDICATION CAUSING DIZZINESS Source: patient Exam Limitations: no limitations Vital Signs & Intake/Output Vital Signs & Intake/Output Vital Signs Date Time Temp Pulse Resp B/P B/P Pulse O2 O2 Flow FiO2 Mean Ox Delivery Rate 11/04 1700 98.6 97 20 153/72 96 Room Air 11/04 1442 98.2 100 18 153/72 95 Room Air 11/04 1320 Room Air 11/04 1154 98.5 115 16 130/82 94 Room Air ED Intake and Output 11/05 0000 11/04 1200 Intake Total Output Total Balance Patient 207 lb Weight Weight Reported by Patient Measurement Method Allergies Coded Allergies: hydrocodone (From VICODIN) (Intermediate, SEVERE HALLUCINATIONS 07/05/16) hydromorphone (From DILAUDID) (Intermediate, SEVERE HALLUCINATIONS 07/05/16) morphine (Intermediate, WILD DREAMS, GI UPSET, SEVERE HALLUCINATIONS 07/05/16) oxycodone (From PERCOCET) (Intermediate, SEVERE HALLUCINATIONS 07/05/16) lactose (DIARRHEA 07/05/16) Reconcile Medications Albuterol Sulfate (Proair Hfa) 90 MCG HFA.AER.AD 2 PUF INH Q4H PRN RESPIRATORY (Reported) Alendronate Sodium (Fosamax) 70 MG TABLET 1 TAB PO Q FRIDAY OSTEOPOROSIS ( Reported) in the morning, at least 30 minutes before the first food, beverage, or medication of the day Alprazolam 0.25 MG TABLET 1 TAB PO Q12H PRN ANXIETY (Reported) Aspirin (Ecotrin*) 325 MG TABLET.DR 1 TAB PO DAILY HEART/BLOOD (Reported) Buspirone HCl 5 MG TABLET 1 TAB PO TID ANXIETY (Reported) Cyanocobalamin (Vitamin B-12) 1,000 MCG TABLET 1 TAB PO DAILY SUPPLEMENT ( Reported) Cyclobenzaprine HCl 5 MG TABLET 1 TAB PO DAILY MUSCLE SPASMS (Reported) Gabapentin (Neurontin) 300 MG CAPSULE 1 CAP PO TID NERVE PAIN (Reported) Lansoprazole (Prevacid) 30 MG TAB.RAP.DR 1 TAB PO DAILY GI (Reported) Levothyroxine Sodium 50 MCG TABLET 1 TAB PO DAILY THYROID (Reported) Metoprolol Succ XL (Toprol XL) 25 MG TAB 25 MG PO DAILY BLOOD PRESSURE Multivitamin (Multiple Vitamins) 1 EACH TABLET 1 TAB PO DAILY SUPPLEMENT ( Reported) Nystatin 1 BILLION UNIT POWDER.EA. 1 VENTURA TOP TID RASH Potassium Chloride 10 MEQ TAB.ER.PRT 1 TAB PO DAILY SUPPLEMENT (Reported) Prednisone 20 MG TABLET 1 TAB PO DAILY RA (Reported) START FROM 09/23/16 THEN CONTINUE DAILY Ramipril 10 MG CAPSULE 1 CAP PO DAILY HTN (Reported) Rosuvastatin Calcium (Crestor) 40 MG TABLET 1 TAB PO QPM CHOLESTEROL ( Reported) Sertraline HCl 50 MG TABLET 1 TAB PO DAILY MENTAL HEALTH (Reported) Tofacitinib Citrate (Xeljanz) 5 MG TABLET 1 TAB PO BID rheumatoid arthritis ( Reported) Valacyclovir HCl (Valtrex) 1,000 MG TABLET 1 TAB PO TID SHINGLES Triage Note: 71 Triage Nurses Notes Reviewed? yes Onset: Abrupt Duration: day(s): Timing: recent history HPI: 11/04/16 12:53 pm 71-year-old man presents to the emergency department with several complaints. He says that he has a history of shingles approximately one month ago and was started on a new medication for which he's been increasing the dose. He says that the medication has not really helped and he developed severe dizziness in the last 12 hours and was so dizzy he almost fell over. He denies fever. He does admit to intermittent episodes of abdominal pain. But this was relieved with [place]. He denies any chest pain or shortness of breath but admits to a cough. He says that he has a past medical history of severe rheumatoid arthritis. Past History Travel History Traveled to [place] past 21 day No Medical History Any Pertinent Medical History? see below for history Neurological: peripheral neuropathy EENT: CATARACTS REMOVED Cardiovascular: CAD (s/p ST elevation DC), hypertension, hyperlipidemia, myocardial infarction, non-ST patient DC, status post angioplasty/stent x 3 in 2006 Respiratory: bronchitis, COPD, pneumonia Gastrointestinal: GERD (minimal), lactose intolerance, 10/27/2014: ERCP WITH ES/ CBD STONE EXTRACTION Hepatic: NONE Renal: ACUTE RENAL FAILURE- RESOLVED. 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 FH: CVA (cerebrovascular accident) SISTER, , Age 71; Cause: Multiple sclerosis. FH: brain cancer SISTER, , Age 55; Cause: Brain cancer. FATHER ( of a myocardial infarction in his 60's). , Age 63; Cause: Myocardial infarct. SISTER ( of multiple sclerosis). Hx Contributory? No Review of Systems Review of Systems Constitutional: Denies: fever. EENTM: Reports: no symptoms. Respiratory: Denies: short of breath. Cardiovascular: Denies: chest pain. GI: Reports: abdominal pain. Musculoskeletal: Reports: joint pain. Skin: Reports: rash. Neurological/Psychological: Denies: headache. Hematologic/Endocrine: Denies: bleeding. Physical Exam Physical Exam General Appearance: well developed/nourished, alert, awake, anxious, moderate distress Head: atraumatic, normal appearance Eyes: Bilateral: normal appearance, PERRL, EOMI. Ears, Nose, Throat: normal pharynx, normal ENT inspection Neck: normal inspection, supple Respiratory: normal breath sounds, chest non-tender, no respiratory distress Cardiovascular: regular rate/rhythm Peripheral Pulses: 4+ radial (R), 4+ radial (L) Gastrointestinal: soft, tenderness Back: decreased range of motion Extremities: pedal edema Neurologic/Psych: no motor/sensory deficits, awake, alert, oriented x 3 Skin: intact, rash (resolving zoster right groin) Comments: On physical examination was awake alert oriented 3. Heart is regular lungs were clear. He did have mild abdominal distention and some minimal epigastric tenderness. There is no rebound or guarding. Examination of the groin and the region revealed abrasions consistent with resolving zoster. No scrotal edema , no cellulitis Core Measures ACS in differential dx? No CVA/TIA Diagnosis: No Severe Sepsis Present: No Septic Shock Present: No Progress Differential Diagnoses I considered the following diagnoses in my evaluation of the patient: [Adverse drug reaction, cellulitis, Cookie's gangrene, renal colic, cholelithiasis, diverticulitis] Plan of Care: Orders Procedure Date/time Status TROPONIN LEVEL 11/04 1421 Complete EKG 11/04 1421 Active TROPONIN LEVEL 11/04 1256 Complete COMPREHENSIVE METABOLIC PANEL 11/04 1256 Complete CBC WITHOUT DIFFERENTIAL 11/04 1256 Complete EKG 11/04 1157 Active Laboratory Tests 11/04/16 1524: Troponin I 0.07 11/04/16 1314: Anion Gap 6, Estimated GFR > 60, BUN/Creatinine Ratio 27.5 H, Glucose 121 H, Calcium 7.6 L, Total Bilirubin 0.6, AST 27, ALT 25, Alkaline Phosphatase 78, Troponin I 0.07, Total Protein 5.6 L, Albumin 2.7 L, Globulin 2.9, Albumin/ Globulin Ratio 0.9 L, CBC w Diff NO MAN DIFF REQ, RBC 4.15 L, MCV 83.4, MCH 26.1 L, RDW 21.6 H, MPV 6.8 L, Gran % 71.0, Lymphocytes % 17.9 L, Monocytes % 10.8 H, Eosinophils % 0.1, Basophils % 0.2, Absolute Granulocytes 5.6, Absolute Lymphocytes 1.4, Absolute Monocytes 0.9 H, Absolute Eosinophils 0, Absolute Basophils 0, PUBS MCHC 31.3 L Initial ED EKG: NSR Repeat EKG: unchanged (st , pvc) Departure Departure Disposition: HOME OR SELF CARE Condition: Stable Clinical Impression Primary Impression: Abdominal pain Secondary Impressions: Adverse drug reaction, Renal colic, Shingles Referrals: JOHNY MARQUES,CLIFF Mckinney (PCP/Family) Departure Forms: Customer Survey General Discharge Information Comments CT IMPRESSION: 1. Decreasing size of a right rectus sheath hematoma relative to 09/18/2016. 2. Migration of a 5 mm stone from the proximal left ureter into the distal left ureter near the ureterovesicular junction, with mild left-sided hydroureter now visualized. No hydronephrosis. 3. Hepatic steatosis. Stable intrahepatic biliary air compatible with prior papillotomy. Nonspecific mild fat stranding in the periportal region. 4. Multiple thoracolumbar compression deformities. Numerous bilateral healed rib fractures. DICTATED BY: LISA STRANGE MD DATE/TIME DICTATED:11/04/161355 ELECTROTYPE MOLDER:ОЛЬГА DATE/TIME TRANSCRIBED:05/15/17 / 1356 CONFIDENTIAL, DO NOT COPY WITHOUT APPROPRIATE AUTHORIZATION. <Electronically signed in Other Vendor System> SIGNED BY: LISA STRANGE MD 11/04/16 8078 Patient had 2 negative troponins. Repeat EKG no significant changes. CT scan of the abdomen shows ureterolithiasis. Examination of the groin is no cellulitis. He does have resolving herpes zoster. He will stop the [place] Head CT and chest x-ray were negative. Critical Care Note Critical Care Note Critical Care Time: non-applicable
[2016-11-04 13:21] LABS: ABSOLUTE BASOPHIL COUNT 0 /CUMM (0.0-0.2); ABSOLUTE EOSINOPHIL COUNT 0 /CUMM (0.0-0.7); ABSOLUTE GRANULOCYTE CT 5.6 /CUMM (1.4-6.5); ABSOLUTE LYMPH COUNT 1.4 /CUMM (1.2-3.4); ABSOLUTE MONOCYTE COUNT 0.9 /CUMM (0.10-0.60); BASOPHIL % 0.2 % (0.0-2.0); EOSINOPHIL % 0.1 % (0-5); HEMATOCRIT 34.6 % (42-52); MEAN CORPUSCULAR HGB 26.1 PG (27.0-31.0); MEAN CORPUSCULAR HGB CONC 31.3 G/DL (33.0-37.0); MEAN CORPUSCULAR VOLUME 83.4 FL (80.0-94.0); MEAN PLATELET VOLUME 6.8 FL (7.4-10.4); PLATELET COUNT 258 /CUMM (130-400); RBC DISTRIBUTION WIDTH 21.6 % (11.5-14.5); RED BLOOD CELL CT 4.15 /CUMM (4.70-6.10); WHITE BLOOD CELL COUNT 7.9 /CUMM (4.8-10.8)
--- NOTE | 2016-11-04 14:03 | CT SCAN REPORT ---
EXAMINATION: CT HEAD WITHOUT CONTRAST CLINICAL INFORMATION: Evaluate for CVA COMPARISON: CT head dated 09/19/2016 TECHNIQUE: Contiguous axial imaging was performed from the skull base to vertex without intravenous administration of contrast. DLP: 694.39 mGy-cm FINDINGS: There is no CT evidence of acute intra-axial or extra-axial hemorrhage. No acute mass effect or midline shift. Prominence of the ventricles and sulci compatible with age-related atrophy. Periventricular and subcortical white matter low-attenuation consistent with microvascular ischemic disease. Small lacunar infarcts noted in the right internal capsule and or tiny lacunar infarcts bilateral external capsule. These were also seen on the previous examination with no significant interval change. No acute loss of chaudhary-white differentiation is appreciated. The mastoid air cells and visualized portions of the paranasal sinuses are well aerated. IMPRESSION: 1. No acute intracranial pathology. 2. Chronic lacunar infarcts. 3. Stable small vessel ischemic disease.
--- NOTE | 2016-11-04 14:06 | RADIOLOGY REPORT ---
EXAMINATION: XR PORTABLE CHEST CLINICAL INFORMATION: Cough COMPARISON: Chest x-rays most recent prior dated 09/23/2016 TECHNIQUE: Portable frontal view of the chest was obtained. FINDINGS: Prominence of the cardiomediastinal silhouette compatible with chronic change. Linear subsegmental atelectasis bilateral mid to lower lungs. Bilateral low lung volumes noted again. No acute airspace opacity. IMPRESSION: Low lung volumes. Subsegmental atelectasis bilateral lower lungs.
--- NOTE | 2016-11-04 14:18 | CT SCAN REPORT ---
EXAMINATION: CT ABDOMEN AND PELVIS WITHOUT CONTRAST CLINICAL INFORMATION: Abdominal pain COMPARISON: CT of the abdomen and pelvis from 09/18/2016 TECHNIQUE: Multidetector volumetric imaging was performed from the superior aspect of the liver through the pubic symphysis. Sagittal and coronal reformatted images were obtained on the technologist's workstation. DLP: 826 mGy-cm FINDINGS: LUNG BASES: Platelike opacity in both lung bases compatible with atelectasis. The heart size is normal. Coronary calcifications are visualized. No pericardial effusion. LIVER, GALLBLADDER, AND BILIARY TREE: There is diffuse hepatic steatosis. No evidence of discrete hepatic lesion. There is intrahepatic biliary air compatible with prior papillotomy, unchanged. There is been prior cholecystectomy. A small focus of air is seen within the extrahepatic biliary system, also stable. Mild nonspecific fat stranding in the periportal region. PANCREAS: Unremarkable. SPLEEN: Unremarkable. ADRENAL GLANDS: Unremarkable. KIDNEYS AND URETERS: Neither kidney demonstrates hydronephrosis. A previously noted 5 mm stone at the left ureteropelvic junction has migrated to the distal left ureter nearly at the ureterovesicular junction. There is mild asymmetric prominence of the left ureter suggesting some degree of mild hydroureter. No right-sided stones are visualized. BLADDER: Partially distended with mild wall thickening. The bladder diverticula are less conspicuous than on the prior study which may be related to degree of luminal distention. GASTROINTESTINAL TRACT: The colon is decompressed with scattered stool. Few colonic diverticula are visualized. There appears to be incompetence of the ileocecal valve with several air-filled loops of small bowel. There is a grouping of small bowel loops in the left side of the abdomen, some of which are slightly prominent. The appearance is fairly similar to the 06/25/2016 study. No definitive obstruction. No surrounding stranding. ABDOMINAL WALL: The hematoma within the right rectus sheath has decreased in size since 09/18/2016, currently measuring approximately 2.6 x 6.7 cm in maximal axial dimensions, previously 4.1 x 10.8 cm. Attenuation is also lower, compatible with a resolving hematoma. There is a fat-containing inguinal hernia on the left. There is diastases of the rectus musculature. LYMPH NODES: No adenopathy is visualized. VASCULAR: Aorta appears normal in caliber with scattered atherosclerotic calcification. PELVIC VISCERA: The prostate creates mild mass effect on the inferior aspect of the bladder. OSSEOUS STRUCTURES: There is hardware in the right proximal femur. There are multilevel compression deformities within the thoracolumbar spine, stable from 09/18/2016. There are degenerative changes of the SI joints. There are healed fractures involving the right fifth through 11th ribs and the left sixth through 11th ribs. No definitive new/acute osseous abnormality. There is a mild dextroconvex lumbar scoliosis. IMPRESSION: 1. Decreasing size of a right rectus sheath hematoma relative to 09/18/2016. 2. Migration of a 5 mm stone from the proximal left ureter into the distal left ureter near the ureterovesicular junction, with mild left-sided hydroureter now visualized. No hydronephrosis. 3. Hepatic steatosis. Stable intrahepatic biliary air compatible with prior papillotomy. Nonspecific mild fat stranding in the periportal region. 4. Multiple thoracolumbar compression deformities. Numerous bilateral healed rib fractures.
[2016-11-04 17:00] VITALS: BP 153/72
== END 2016-11-04 17:15 ==
LOC: ERH 11:51
PROVIDERS: Emergency Medicine
DX: T50.905A Adverse effect of unspecified drugs, medicaments and biological substances, initial encounter (principal); N23 Unspecified renal colic; B02.9 Zoster without complications; R10.9 Unspecified abdominal pain
CPT/HCPCS: 74176; 93005; 93010

== ENCOUNTER 2017-08-08 12:23 | Inpatient (IN) | payer OTHER ==
[~2017-08-08] VITALS: Ht 185.4 cm; Wt 96.2 kg
[~2017-08-08 12:23] MED LIST changes: +ACIDOPHILUS1 EACH PO; +ASPIRIN81 M4 PO; +AUGMENTIN XR 11 EACH PO; +CEPHALEXIN500 M3 PO; +CLINDAMYCIN HC300 M1 PO; +FUROSEMIDE20 M1 PO
--- NOTE | 2017-08-08 12:49 | ED DYSPNEA/ASTHMA COMPLAINT ---
History of Present Illness General Chief Complaint: Dyspnea (COPD, CHF, Other) Stated Complaint: LOW O2 SAT 75 AT [facility] 127 Source: patient, old records Exam Limitations: no limitations Vital Signs & Intake/Output Vital Signs & Intake/Output Vital Signs Date Time Temp Pulse Resp B/P B/P Pulse O2 O2 Flow FiO2 Mean Ox Delivery Rate 08/08 1537 98.8 112 22 149/92 90 Nasal 3.0L Cannula 08/08 1419 93 Nasal 3.0L Cannula 08/08 1407 99.1 114 22 131/80 93 Room Air 08/08 1313 93 Nasal 3.0L Cannula 08/08 1229 97.6 124 18 122/76 77 Room Air Allergies Coded Allergies: hydrocodone (From VICODIN) (Intermediate, SEVERE HALLUCINATIONS 07/05/16) hydromorphone (From DILAUDID) (Intermediate, SEVERE HALLUCINATIONS 07/05/16) morphine (Intermediate, WILD DREAMS, GI UPSET, SEVERE HALLUCINATIONS 07/05/16) oxycodone (From PERCOCET) (Intermediate, SEVERE HALLUCINATIONS 07/05/16) lactose (DIARRHEA 07/05/16) Reconcile Medications Albuterol Sulfate (Proair Hfa) 90 MCG HFA.AER.AD 2 PUF INH Q4H PRN RESPIRATORY (Reported) Alendronate Sodium (Fosamax) 70 MG TABLET 1 TAB PO Q FRIDAY OSTEOPOROSIS ( Reported) in the morning, at least 30 minutes before the first food, beverage, or medication of the day Aspirin (Aspirin*) 81 MG TAB.CHEW 1 TAB PO DAILY heart health (Reported) Atorvastatin Calcium 20 MG TABLET 1 TAB PO DAILY CHOLESTEROL (Reported) Buspirone HCl 5 MG TABLET 1 TAB PO TID ANXIETY (Reported) Cyanocobalamin (Vitamin B-12) 1,000 MCG TABLET 1 TAB PO DAILY SUPPLEMENT ( Reported) Cyclobenzaprine HCl 5 MG TABLET 1 TAB PO DAILY MUSCLE SPASMS (Reported) Gabapentin (Neurontin) 300 MG CAPSULE 1 CAP PO TID NERVE PAIN (Reported) Lactobacillus Acidophilus (Acidophilus) 1 EACH CAPSULE 1 CAP PO DAILY gut health . Lansoprazole (Prevacid) 30 MG TAB.RAP.DR 1 TAB PO DAILY GI (Reported) Levothyroxine Sodium 50 MCG TABLET 1 TAB PO DAILY AC THYROID (Reported) Metoprolol Succ XL (Toprol XL) 25 MG TAB 25 MG PO DAILY BLOOD PRESSURE Multivitamin (Multiple Vitamins) 1 EACH TABLET 1 TAB PO DAILY SUPPLEMENT ( Reported) Potassium Chloride (K-Tab ER) 10 MEQ TABLET.ER 1 TAB PO DAILY SUPPELEMENT ( Reported) Prednisone 20 MG TABLET 1 TAB PO DAILY RA (Reported) START FROM 09/23/16 THEN CONTINUE DAILY Ramipril 10 MG CAPSULE 1 CAP PO BID HTN (Reported) Sertraline HCl 50 MG TABLET 1 TAB PO DAILY MENTAL HEALTH (Reported) Triage Note: 72 YO MALE TO TRIAGE C/O LOW OXYGEN SATURATION. STATES HE ONLY WEARS OXYGEN AT NIGHTTIME. RA SATS 77-79% AT THIS TIME. STATES HE FEELS TIRED. DENIES COUGH, CONGESTION, CHEST PAIN. HR 120s. PT TAKEN TO ER ROOM 21 Triage Nurses Notes Reviewed? yes Onset: Gradual Duration: day(s): (2) Timing: recent history Severity: moderate Activities at Onset: none Prior Episodes/Possible Cause: occasional episodes Modifying Factors: Improves With: immobilization. Worsens With: movement. HPI: Patient is a 72-year-old male with history of COPD, CHF, hypertension, CAD , diabetes presenting to the emergency department chief complaint of bilateral eye swelling, generalized malaise and increasing shortness of breath worsening since yesterday evening. Patient reports extensive fatigue yesterday evening fell sleep earlier around 7 PM. THIS morning with worsening fatigue and generalized malaise and also had shortness of breath. Denies any associated chest pain. Denies any cough or congestion. Patient does admit to increased lower extremity edema over the past several months. He has not taken his Lasix over several months because it makes him urinate throughout the night and he does not like that. He did not tell his chief internal auditor or primary care physician that he stopped taking it Patient reports that he does feel like his heart is racing faster than normal since this morning. Denies recent travel. No recent surgeries. Denies history of blood clots. (Dasha Costello) Past History Travel History Traveled to [place] past 21 day No Medical History Any Pertinent Medical History? see below for history Neurological: peripheral neuropathy EENT: CATARACTS REMOVED Cardiovascular: CAD (s/p angioplasty), hypertension, hyperlipidemia, myocardial infarction, non-ST patient [place], status post angioplasty/stent x 3 in 2006 Respiratory: bronchitis, COPD, obstructive sleep apnea, pneumonia Gastrointestinal: GERD (minimal), lactose intolerance, 10/27/2014: ERCP WITH ES/ CBD STONE EXTRACTION C. 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 FH: CVA (cerebrovascular accident) SISTER, , Age 71; Cause: Multiple sclerosis. FH: brain cancer SISTER, , Age 55; Cause: Brain cancer. FATHER ( of a myocardial infarction in his 60's). , Age 63; Cause: Myocardial infarct. SISTER ( of multiple sclerosis). Hx Contributory? No (Dasha Costello) Review of Systems Review of Systems Constitutional: Reports: see HPI, malaise. Comments Review of systems: See HPI, All other systems negative. Constitutional, no chills fever or weight loss HEENT: No visual changes no sore throat no congestion Cardiovascular: No chest pain ,palpitation , orthopnea or ankle swelling Skin, no jaundice no rashes Respiratory: No cough sputum or hemoptysis GI: No nausea no vomiting : No dysuria No hematuria Muscle skeletal: no back pain, no neck pain, Neurologic: No numbness no confusion, no headaches Psych: No stress anxiety or depression,. Heme/endocrine: No bruising no bleeding no polyuria or polydipsia Immunology: No splenectomy or history of AIDS (Dasha Costello) Physical Exam Physical Exam General Appearance: no apparent distress, alert, awake, obese Respiratory: crackles, wheezing Comments: Obese person in no acute distress HEENT:Pupils equally round and reactive to light and accommodation. Nose is atraumatic. External auditory canal and Tympanic membranes clear. Pharynx normal. No swelling or edema. Eyelids appear edematous bilaterally, no erythema. No warmth to palpation over this area. No pharyngeal erythema. Clearing secretions without difficulty. Neck: Supple, no lymphadenopathy, normal range of motion without pain or tenderness Back: Nontender, no CVA tenderness. Full range of motion Cardiovascular:TACHY rate and rhythms Respiratory: Chest nontender. No respiratory distress.crackles at the bases to auscultation bilaterally, diffuse wheezing. Abdomen: Soft, nontender nondistended, no appreciable organomegaly. Normal bowel sounds. No ascites, no rebound or guarding, obese. Extremity: 3+ pitting edema in the lower extremities bilaterally, no calf tenderness to palpation, normal and equal pulses. Neuro: Alert oriented x3, motor sensory normal, cranial nerves II through XII grossly intact. Skin: No appreciable rash on exposed skin, skin is warm and dry. Psych: Mood and affect is normal, memory and judgment is normal. Core Measures ACS in differential dx? Yes CVA/TIA Diagnosis No Sepsis Present: No Sepsis Focused Exam Completed? No (Robby NIETO,Dasha) Progress Differential Diagnosis: asthma, AMI, bronchitis, costochondritis, CHF, COPD, musculoskeletal pain, pericarditis, pulmonary embolism, pneumonia Plan of Care: Orders Procedure Date/time Status Heart Healthy Diet 08/09 B Active Patient Data 08/08 1652 Active ED Holding Orders 08/08 1641 Active Admit to inpatient 08/08 1641 Active Vital Signs 08/08 1641 Active Code Status 08/08 1641 Active Intake & Output 08/08 1421 Active Add-on Test (ER Only) 08/08 1350 Active ARTERIAL BLOOD GAS (GEN) 08/08 1327 Complete RAPID VIRAL INFLUENZA A 08/08 1300 Complete D-DIMER 08/08 1250 Complete Telemetry/Callisthenics Instructor 08/08 1248 Active TROPONIN LEVEL 08/08 1248 Complete PARTIAL THROMBOPLASTIN TIME 08/08 1248 Complete PROTHROMBIN TIME 08/08 1248 Complete LACTIC ACID 08/08 1248 Complete COMPREHENSIVE METABOLIC PANEL 08/08 1248 Complete CBC WITHOUT DIFFERENTIAL 08/08 1248 Complete B-TYPE NATRIURETIC PEP (BNP) 08/08 1248 Complete EKG 08/08 1230 Active Laboratory Tests 08/08/17 1548: Lactic Acid Cancelled 08/08/17 1420: pH 7.36, pCO2 67 *H, pO2 71 L, HCO3 38 H, ABG O2 Sat (Measured) 93.0 L, Carboxyhemoglobin 1.1 L, O2 Concentration % 3L, O2 Delivery Method NC, Phlebotomy Draw Site RIGHT RADIAL 08/08/17 1250: Anion Gap 8, Estimated GFR > 60, BUN/Creatinine Ratio 32.2 H, Glucose 165 H, Lactic Acid 1.6, Calcium 7.9 L, Total Bilirubin 0.5, AST 21, ALT 31, Alkaline Phosphatase 74, Troponin I < 0.01, Ifa-T-Trspddsjwch Pept 182 H, Total Protein 5.6 L, Albumin 2.8 L, Globulin 2.8, Albumin/Globulin Ratio 1.0 L, PT 11.6, INR 1.11, APTT 29, D-Dimer High Sensitivty 412 H, CBC w Diff NO MAN DIFF REQ, RBC 4.27 L, MCV 84.5, MCH 26.8 L, MCHC 31.7 L, RDW 18.7 H, MPV 7.3 L, Gran % 79.3 H, Lymphocytes % 10.5 L, Monocytes % 8.3, Eosinophils % 1.8, Basophils % 0.1, Absolute Granulocytes 7.0 H, Absolute Lymphocytes 0.9 L, Absolute Monocytes 0.7 H, Absolute Eosinophils 0.2, Absolute Basophils 0 Microbiology 08/08 1412 NASOPHARYN: Influenza Virus A & B Rapid Smear - COMP Patient IV Lasix, breathing treatment an IV site Medrol for symptoms. Patient still desaturates upper 70s low 80s on room air. Patient afebrile, negative flu swab. No signs of pneumonia on x-ray. Patient reports mild relief with breathing treatment, resting comfortably. Diagnostic Imaging: Viewed by Me: Radiology Read. Discussed w/RAD: Radiology Read. Radiology Impression: PATIENT: SHAKIR KELLEY III PRESENT AGE: 72 PATIENT ACCOUNT NO: [id number] : 43 LOCATION: [facility] ORDERING PHYSICIAN: Dasha NIETO SERVICE DATE: 08/08/17 EXAM TYPE: CAT - CTA CHEST-PULMONARY EMBOLISM EXAMINATION: CT ANGIOGRAM OF THE CHEST WITH AND WITHOUT CONTRAST (CT PULMONARY ANGIOGRAM FOR PE) CLINICAL INFORMATION: sob, hypoxia, tachy COMPARISON: Chest x-ray 08/08/[address] chest 09/15/2016 , 09/15/2016 TECHNIQUE: Prior to contrast administration, noncontrast localization images were obtained. Subsequently, multidetector volumetric imaging was performed from the thoracic inlet to below the diaphragms following the administration of 125 mL Optiray 350 intravenous contrast. No contrast reaction reported. Sagittal, coronal, and MIP oblique sagittal reformatted images were obtained on the CT workstation, uploaded to PACS, and reviewed. Total exam dose- length product 457.69 mGy-cm. FINDINGS: QUALITY OF STUDY/CONTRAST BOLUS: Satisfactory PULMONARY ARTERIES: No central or segmental pulmonary emboli. THORACIC AORTA: No aneurysm or dissection. There is atherosclerotic vascular wall calcifications of aorta. There is coronary artery calcifications. LUNG: Coarse linear markings at dependent lung bilaterally of linear scarring and/or subsegmental atelectasis. No focal consolidation. Central bronchial airways are open. Asymmetric elevation of right diaphragm compared to left. PLEURA: No pleural effusion or pneumothorax. MEDIASTINUM: Normal heart size. No pericardial effusion. No hilar or mediastinal lymphadenopathy. No evidence of septal bowing or right heart strain. CHEST WALL/AXILLA: No axillary or internal mammary lymphadenopathy. OSSEOUS STRUCTURES: Degenerative spondylosis of spine with multilevel endplate spurring of the vertebrae. There is central depression of the endplates of multiple vertebrae. Anterior wedge compression deformity of multiple vertebrae, T3, T5, T6, T7, T9, T10, T11. UPPER ABDOMEN: Unremarkable. No reflux of contrast into the hepatic veins to suggest elevated right heart pressures. Status post cholecystectomy. IMPRESSION: 1. No evidence of pulmonary embolism. No acute change of the chest. VTE: negative DICTATED BY: Yosi Foster MD DATE/TIME DICTATED:08/08/171551 INSTRUCTIONAL SUPPORT TECHNICIAN:ОЛЬГА DATE/TIME TRANSCRIBED:08/08/171551 CONFIDENTIAL, DO NOT COPY WITHOUT APPROPRIATE AUTHORIZATION. <Electronically signed in Other Vendor System> SIGNED BY: Yosi Foster MD 08/08/17 1601, PATIENT: SHAKIR KELLEY III PRESENT AGE: 72 PATIENT ACCOUNT NO: [id number] : 43 LOCATION: [facility] ORDERING PHYSICIAN: Dasha NIETO SERVICE DATE: 08/08/17 EXAM TYPE: RAD - XRY-PORTABLE CHEST XRAY EXAMINATION: XR PORTABLE CHEST CLINICAL INFORMATION: Shortness of breath. Edema. Crackles. COMPARISON: Chest x-ray 03/20 TECHNIQUE: Portable frontal view of the chest was obtained. FINDINGS: Cardiac silhouette remains mildly enlarged. Low lung volumes. No lobar consolidation. Similar suspected scarring/atelectasis of the left midlung. Similar bronchovascular crowding. IMPRESSION: Stable examination demonstrating low lung volumes with atelectasis/scarring. Similar cardiomegaly. DICTATED BY: Rufino Pierson MD DATE/TIME DICTATED:08/08/171340 INSTRUCTIONAL SUPPORT TECHNICIAN:ОЛЬГА DATE/TIME TRANSCRIBED:08/08/171340 CONFIDENTIAL, DO NOT COPY WITHOUT APPROPRIATE AUTHORIZATION. <Electronically signed in Other Vendor System> SIGNED BY: Rufino Pierson MD 08/08/171346 Initial ED EKG: SINUS TACHYCARDIA AT 119 BPM Prior EKG: unchanged (Dasha Costello) Departure Departure Time of Disposition: 161 Disposition: STILL A PATIENT Condition: Stable Clinical Impression Primary Impression: COPD exacerbation Secondary Impressions: Hypoxia Referrals: Fran Tomlinson MD (PCP/Family) Departure Forms: Customer Survey General Discharge Information Admission Note Spoke With: Alley MARQUES,Sergio Documentation of Exam: Documentation of any treatments & extenuating circumstances including Concerns Regarding Discharge (functional status, medication knowledge or non-compliance, living conditions, etc.) that warrant an admission rather than observation: Patient requiring supplemental oxygen more than baseline, pulmonary consultation , cardiology consultation, medication management, discharge of the sinus harmful secondary to likely have worsening symptoms which could result in . (Dasha Costello) PA/DEBONER Co-Sign Statement Statement: ED Attending supervision documentation- [X] I saw and evaluated the patient. I have also reviewed all the pertinent lab results and diagnostic results. I agree with the findings and the plan of care as documented in the PA's/DEBONER's documentation. [X] I have reviewed the ED Record and agree with the PA's/DEBONER's documentation. [] Additions or exceptions (if any) to the PAs/DEBONER's note and plan are summarized below: [Admitted for COPD exacerbation and hypoxia. Nebulizers, IV steroids, IV antibiotics, pulmonary consultation] (Dash MARQUES,Rian Stone) Critical Care Note Critical Care Note Critical Care Time: 30-74 min (Dasha Costello)
[2017-08-08 13:19] LABS: ABSOLUTE BASOPHIL COUNT 0 /CUMM (0.0-0.2); ABSOLUTE EOSINOPHIL COUNT 0.2 /CUMM (0.0-0.7); ABSOLUTE LYMPH COUNT 0.9 /CUMM (1.2-3.4); ABSOLUTE MONOCYTE COUNT 0.7 /CUMM (0.10-0.60); BASOPHIL % 0.1 % (0.0-2.0); EOSINOPHIL % 1.8 % (0-5); GRANULOCYTE % 79.3 % (42.2-75.2); HEMATOCRIT 36.1 % (42-52); MEAN CORPUSCULAR HGB 26.8 PG (27.0-31.0); MEAN CORPUSCULAR HGB CONC 31.7 G/DL (33.0-37.0); MEAN CORPUSCULAR VOLUME 84.5 FL (80.0-94.0); MEAN PLATELET VOLUME 7.3 FL (7.4-10.4); PLATELET COUNT 270 /CUMM (130-400); RBC DISTRIBUTION WIDTH 18.7 % (11.5-14.5); RED BLOOD CELL CT 4.27 /CUMM (4.70-6.10); WHITE BLOOD CELL COUNT 8.9 /CUMM (4.8-10.8)
[2017-08-08 13:22] LABS: PT 11.6 SEC (9.4-12.5); PTT 29 SEC (25-37)
--- NOTE | 2017-08-08 13:47 | RADIOLOGY REPORT ---
EXAMINATION: XR PORTABLE CHEST CLINICAL INFORMATION: Shortness of breath. Edema. Crackles. COMPARISON: Chest x-ray 03/20/2017 TECHNIQUE: Portable frontal view of the chest was obtained. FINDINGS: Cardiac silhouette remains mildly enlarged. Low lung volumes. No lobar consolidation. Similar suspected scarring/atelectasis of the left midlung. Similar bronchovascular crowding. IMPRESSION: Stable examination demonstrating low lung volumes with atelectasis/scarring. Similar cardiomegaly.
[2017-08-08] MEDS ORDERED: K-TAB ER10 MEQ PO (15:20)
[2017-08-08] MEDS ORDERED: ATORVASTATIN CA20 M1 PO (15:21)
--- NOTE | 2017-08-08 16:07 | CT SCAN REPORT ---
EXAMINATION: CT ANGIOGRAM OF THE CHEST WITH AND WITHOUT CONTRAST (CT PULMONARY ANGIOGRAM FOR PE) CLINICAL INFORMATION: sob, hypoxia, tachy COMPARISON: Chest x-ray 08/08/[address] chest 09/15/2016 , 09/15/2016 TECHNIQUE: Prior to contrast administration, noncontrast localization images were obtained. Subsequently, multidetector volumetric imaging was performed from the thoracic inlet to below the diaphragms following the administration of 125 mL Optiray 350 intravenous contrast. No contrast reaction reported. Sagittal, coronal, and MIP oblique sagittal reformatted images were obtained on the CT workstation, uploaded to PACS, and reviewed. Total exam dose-length product 457.69 mGy-cm. FINDINGS: QUALITY OF STUDY/CONTRAST BOLUS: Satisfactory PULMONARY ARTERIES: No central or segmental pulmonary emboli. THORACIC AORTA: No aneurysm or dissection. There is atherosclerotic vascular wall calcifications of aorta. There is coronary artery calcifications. LUNG: Coarse linear markings at dependent lung bilaterally of linear scarring and/or subsegmental atelectasis. No focal consolidation. Central bronchial airways are open. Asymmetric elevation of right diaphragm compared to left. PLEURA: No pleural effusion or pneumothorax. MEDIASTINUM: Normal heart size. No pericardial effusion. No hilar or mediastinal lymphadenopathy. No evidence of septal bowing or right heart strain. CHEST WALL/AXILLA: No axillary or internal mammary lymphadenopathy. OSSEOUS STRUCTURES: Degenerative spondylosis of spine with multilevel endplate spurring of the vertebrae. There is central depression of the endplates of multiple vertebrae. Anterior wedge compression deformity of multiple vertebrae, T3, T5, T6, T7, T9, T10, T11. UPPER ABDOMEN: Unremarkable. No reflux of contrast into the hepatic veins to suggest elevated right heart pressures. Status post cholecystectomy. IMPRESSION: 1. No evidence of pulmonary embolism. No acute change of the chest. VTE: negative
--- NOTE | 2017-08-08 17:08 | History & Physical ---
Michael MARQUES,Zoe 08/08/17 8693: General Information and HPI Statement: I have seen and personally examined SHAKIR KELLEY III and documented this H&P. The patient is a 72 year old M who presented with a patient stated chief complaint of []. Source of Information: patient, old records Exam Limitations: no limitations History of Present Illness: Patient is a 72-year-old male presented with chief complaint of decreased saturation while checking the pulse oximetry by visiting nurse of about 63%. According to the patient he is having history of COPD and was using 2 L of oxygen at night since last couple of months and in daytime as needed. Since last couple of months he was having some facial swelling which got worse in the last 2-3 weeks. In the last week he went to an [employer] for around 4-5 days and afterward he was very tired and the last night he was feeling much tired in the morning he was feeling a little bit dizzy. His visiting nurse came to the home she checked pulse oximetry which was very low in range of 63% and heart rate was high about 125 and even blood pressure was high. She advised him to call Dr. Tomlinson. Dr. Tomlinson advised him to come back to ED. As a baseline he always had shortness of breath he cannot walk more than 10 feet and he usually uses walker. He is having swelling in the leg since couple of years. He is noncompliant with the medication and diet. He denies any palpitation, fever, chest pain, no shortness of breath, orthopnea. He visited Dr. Sifuentes around couple of months ago and he was saying that he was normal at that time. 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 Obesity hypoventilation syndrome Chronic bilateral lower extremity edema Rheumatoid arthritis on multiple immunosuppressant currently on prednisone 20 mg and following doctor at [facility] Adrenal insufficiency on chronic steroid therapy Anemia Hypothyroidism Osteopenia status post back surgery Anxiety Depression Allergies/Medications Allergies: Coded Allergies: hydrocodone (From VICODIN) (Intermediate, SEVERE HALLUCINATIONS 07/05/16) hydromorphone (From DILAUDID) (Intermediate, SEVERE HALLUCINATIONS 07/05/16) morphine (Intermediate, WILD DREAMS, GI UPSET, SEVERE HALLUCINATIONS 07/05/16) oxycodone (From PERCOCET) (Intermediate, SEVERE HALLUCINATIONS 07/05/16) lactose (DIARRHEA 07/05/16) Home Med list Albuterol Sulfate (Proair Hfa) 90 MCG HFA.AER.AD 2 PUF INH Q4H PRN RESPIRATORY (Reported) Alendronate Sodium (Fosamax) 70 MG TABLET 1 TAB PO Q FRIDAY OSTEOPOROSIS ( Reported) in the morning, at least 30 minutes before the first food, beverage, or medication of the day Aspirin (Aspirin*) 81 MG TAB.CHEW 1 TAB PO DAILY heart health (Reported) Atorvastatin Calcium 20 MG TABLET 1 TAB PO DAILY CHOLESTEROL (Reported) Buspirone HCl 5 MG TABLET 1 TAB PO TID ANXIETY (Reported) Cyanocobalamin (Vitamin B-12) 1,000 MCG TABLET 1 TAB PO DAILY SUPPLEMENT ( Reported) Cyclobenzaprine HCl 5 MG TABLET 1 TAB PO DAILY MUSCLE SPASMS (Reported) Gabapentin (Neurontin) 300 MG CAPSULE 1 CAP PO TID NERVE PAIN (Reported) Lactobacillus Acidophilus (Acidophilus) 1 EACH CAPSULE 1 CAP PO DAILY gut health . Lansoprazole (Prevacid) 30 MG TAB.RAP.DR 1 TAB PO DAILY GI (Reported) Levothyroxine Sodium 50 MCG TABLET 1 TAB PO DAILY AC THYROID (Reported) Metoprolol Succ XL (Toprol XL) 25 MG TAB 25 MG PO DAILY BLOOD PRESSURE Multivitamin (Multiple Vitamins) 1 EACH TABLET 1 TAB PO DAILY SUPPLEMENT ( Reported) Potassium Chloride (K-Tab ER) 10 MEQ TABLET.ER 1 TAB PO DAILY SUPPELEMENT ( Reported) Prednisone 20 MG TABLET 1 TAB PO DAILY RA (Reported) START FROM 09/23/16 THEN CONTINUE DAILY Ramipril 10 MG CAPSULE 1 CAP PO BID HTN (Reported) Sertraline HCl 50 MG TABLET 1 TAB PO DAILY MENTAL HEALTH (Reported) Past History Travel History Traveled to [place] past 21 day No Medical History Neurological: peripheral neuropathy EENT: CATARACTS REMOVED Cardiovascular: CAD (s/p angioplasty), hypertension, hyperlipidemia, myocardial infarction, non-ST patient RI, status post angioplasty/stent x 3 in 2006 Respiratory: bronchitis, COPD, obstructive sleep apnea, pneumonia Gastrointestinal: GERD (minimal), lactose intolerance, 10/27/2014: ERCP WITH ES/ CBD STONE EXTRACTION C. 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 FH: CVA (cerebrovascular accident) SISTER, , Age 71; Cause: Multiple sclerosis. FH: brain cancer SISTER, , Age 55; Cause: Brain cancer. FATHER ( of a myocardial infarction in his 60's). , Age 63; Cause: Myocardial infarct. SISTER ( of multiple sclerosis). Psychosocial History Who Do You Live With? self, rest of his family members live in the same house in adjacent apartment Services at Home: Home Health Aide, Oxygen Primary Language: Iranian Living Will? no Power of District Director/HCP? yes Name of POA/HCP: Pt's sonDandre Functional Ability ADLs Independent: dressing, eating, toileting, bathing. Ambulation: independent IADLs Independent: shopping, housework, finances, food prep, telephone, transportation , medication admin. Review of Systems Review of Systems Constitutional: Denies: no symptoms. Exam & Diagnostic Data Last 24 Hrs of Vital Signs/I&O Vital Signs Date Time Temp Pulse Resp B/P B/P Pulse O2 O2 Flow FiO2 Mean Ox Delivery Rate 08/08 1537 98.8 112 22 149/92 90 Nasal 3.0L Cannula 08/08 1419 93 Nasal 3.0L Cannula 08/08 1407 99.1 114 22 131/80 93 Room Air 08/08 1313 93 Nasal 3.0L Cannula 08/08 1229 97.6 124 18 122/76 77 Room Air Intake & Output 08/08 1600 08/08 0800 08/08 0000 Intake Total 0 Output Total Balance 0 Intake, IV 0 Patient 94.347 kg Weight Weight Reported by Patient Measurement Method Physical Exam General Appearance Alert, Oriented X3, Cooperative, No Acute Distress Skin generalized dryness of skin with hyper pigmentation HEENT Atraumatic, PERRLA, EOMI, swelling on face Neck Supple, No JVD Cardiovascular Normal S1, Normal S2 Lungs decreased air entry Abdomen Soft, No Tenderness, distended Extremities bilateral lower leg edema Last 24 Hrs of Labs/Kain: Laboratory Tests 08/08/17 1548: Lactic Acid Cancelled 08/08/17 1420: pH 7.36, pCO2 67 *H, pO2 71 L, HCO3 38 H, ABG O2 Sat (Measured) 93.0 L, Carboxyhemoglobin 1.1 L, O2 Concentration % 3L, O2 Delivery Method NC, Phlebotomy Draw Site RIGHT RADIAL 08/08/17 1250: Anion Gap 8, Estimated GFR > 60, BUN/Creatinine Ratio 32.2 H, Glucose 165 H, Lactic Acid 1.6, Calcium 7.9 L, Total Bilirubin 0.5, AST 21, ALT 31, Alkaline Phosphatase 74, Troponin I < 0.01, Kwt-X-Ndkedfltrkl Pept 182 H, Total Protein 5.6 L, Albumin 2.8 L, Globulin 2.8, Albumin/Globulin Ratio 1.0 L, PT 11.6, INR 1.11, APTT 29, D-Dimer High Sensitivty 412 H, CBC w Diff NO MAN DIFF REQ, RBC 4.27 L, MCV 84.5, MCH 26.8 L, MCHC 31.7 L, RDW 18.7 H, MPV 7.3 L, Gran % 79.3 H, Lymphocytes % 10.5 L, Monocytes % 8.3, Eosinophils % 1.8, Basophils % 0.1, Absolute Granulocytes 7.0 H, Absolute Lymphocytes 0.9 L, Absolute Monocytes 0.7 H, Absolute Eosinophils 0.2, Absolute Basophils 0 Microbiology 08/08 1412 NASOPHARYN: Influenza Virus A & B Rapid Smear - COMP Diagnostic Data EKG Results Heart rate 119, LA interval 156, QTc 439, regular rhythm. Assessment/Plan Assessment: Patient is a 72-year-old male presented with chief complaint of decreased saturation while checking the pulse oximetry by visiting nurse of about 63%. ED course -at the time of presentation patient was having saturation of 77-79%. He was very tired. Vital signs at the time of admission temperature 97.6, pulse 124, respiratory rate 18, blood pressure 122/76, SPO2 77% on room air. He was started on 3 L of oxygen with saturation of 93%. Blood workup showed hemoglobin 11.4, hematocrit 36.1, MCV 84.5, platelet count 270, serum sodium 144, potassium 3.7 chloride 97 carbonates at 38 creatinine 0.9 BUN 29, glucose 165 Calcium 7.9, proBNP 182, troponin I less than 0.01, albumin 2.8, PT/INR 11.6/ 1.11, d-dimer 412, Chest x-ray showed -Stable examination demonstrating low lung volumes with atelectasis/scarring. Similar cardiomegaly. CTA showed -No evidence of pulmonary embolism. No acute change of the chest. Assessment and plan patient is having history of coronary artery disease and baseline COPD he was on home oxygen. He is noncompliant with his medication including diet, oxygen and Lasix. He does not have any acute shortness of breath denies any fever chills. At the time of presentation he was having severe tachycardia along with hypoxemia. Chest x-ray did not show any evidence of acute pulmonary edema and CT was negative for the pulmonary embolism. We will admit the patient to telemetry floor and keep him on oxygen to keep saturation more than 90%. We will treat him as a COPD exacerbation Acute hypoxic and hypercarberic respiratory failure secondary to COPD acute exacerbation * Admitted to telemetry * oxygen inhalation to keep saturation more than 90% * Keep head end of the bed elevated * Inj methylprednisolone 40 mg IV 8 hourly * Tablet azithromycin 500 mg once a day for 3 days * We will obtain pulmonology consult and follow the recommendation Bilateral lower extremity edema * Strict intake output charting * Daily weight measurement * Stockings * Keep leg elevated Chronic rheumatoid arthritis * We will continue methylprednisone and will restart patient on tablet prednisone 20 mg at the time of discharge Spuriouse hypocalcemia -corrected calcium within the normal range (8.9) * Probability hypoalbuminemia causing low calcium level. * No intervention at this time Steroid-induced hyperglycemia * We will do fingerstick every 6 hourly * We will check HbA1c. CODE STATUS-full code DVT prophylaxis-ALPS Diet-carbohydrate 1 diet. As Ranked By This Provider Problem List: 1. Dyspnea 2. Rheumatoid arthritis 3. CAD (coronary artery disease) 4. COPD exacerbation Core Measures/Misc (03/09) Acute Coronary Syndrome ACS Diagnosis: No Congestive Heart Failure Congestive Heart Failure Diagnosis No Cerebrovascular Accident CVA/TIA Diagnosis: No VTE (View Protocol) VTE Risk Factors Age>40 No Mechanical VTE Prophylaxis d/t N/A MechProphylax Ordered No VTE Pharm Prophylaxis d/t NA PharmProphylax ordered Sepsis (View protocol) Sepsis Present: No Sergio Hager 08/08/17 1710: Attending MD Review Statement Attending Statement Attending MD Statement: examined this patient, discuss w/resident/PA/LEASE ATTENDANT, agreed w/resident/PA/LEASE ATTENDANT, discussed with family, reviewed EMR data (avail), discussed with nursing, discussed with case mgmt, reviewed images, amended to note Attending Assessment/Plan: 72-year-old pleasent gentleman with a PMHX of rheumatoid arthritis, maintained on prednisone , coronary artery disease, status post RI, hypertension, obesity hypoventilation syndrome/obstructive sleep apnea, maintained on 2 L of oxygen at night, hypothyroidism and venous insufficiency, with chronic lower extremity edema comes with shortness of breath and hypoxia on arrival. Patient recieved solumedrol in ER with improvement. Patient had CTA done in ER which suggestive of no acute changes/no evidence of pulmnary embolism. No chest pain no fever. labs and imaging results noted. Mild use of accessory muscles, able to apeak in full sentences. Patient admitted to telemetry monitoring for cont pulse oximetry for Acute on chronic hypercarbic respiratory failure with acute exacerbation with worsening obesity hypoventilation syndrom and h/o RA with restrictive lung disease. Patient started on iv steroids, abx, oxygen supplementation, bronchodilators. Obtain serial cadiac enzymes r/o RI. Pulmonary consult Dr Rincon. resume home meds gi/dvt prophylaxis full code.
[2017-08-08 21:20] VITALS: BP 158/88
[2017-08-09 05:07] LABS: ABSOLUTE BASOPHIL COUNT 0 /CUMM (0.0-0.2); ABSOLUTE EOSINOPHIL COUNT 0 /CUMM (0.0-0.7); ABSOLUTE GRANULOCYTE CT 7.9 /CUMM (1.4-6.5); ABSOLUTE MONOCYTE COUNT 0.2 /CUMM (0.10-0.60); BASOPHIL % 0.2 % (0.0-2.0); EOSINOPHIL % 0 % (0-5); GRANULOCYTE % 85.9 % (42.2-75.2); HEMATOCRIT 35.7 % (42-52); MEAN CORPUSCULAR HGB 26.4 PG (27.0-31.0); MEAN CORPUSCULAR HGB CONC 31.7 G/DL (33.0-37.0); MEAN CORPUSCULAR VOLUME 83.4 FL (80.0-94.0); MEAN PLATELET VOLUME 7.6 FL (7.4-10.4); PLATELET COUNT 268 /CUMM (130-400); RBC DISTRIBUTION WIDTH 17.9 % (11.5-14.5); RED BLOOD CELL CT 4.28 /CUMM (4.70-6.10); WHITE BLOOD CELL COUNT 9.2 /CUMM (4.8-10.8)
[2017-08-09 07:00] VITALS: BP 130/82
--- NOTE | 2017-08-09 07:50 | PN- Housestaff ---
Michale MARQUES,Zoe 08/09/17 0750: Subjective Follow-up For: COPD acute exacerbation Complaints: no complaints Tele-Events Since Last Visit: no any events Subjective: Patient is seen and examined at the bedside he does not have any active complaints. He was continuously requesting that if we want to add up the Lasix in the prescription, then we should start it early in the morning. Review of Systems Constitutional: Reports: no symptoms, weakness. Objective Last 24 Hrs of Vital Signs/I&O Vital Signs Date Time Temp Pulse Resp B/P B/P Pulse O2 O2 Flow FiO2 Mean Ox Delivery Rate 08/09 0929 96 Nasal 2.0L Cannula 08/09 0818 Nasal 3.0L Cannula 08/09 0700 99.2 86 18 130/82 93 Nasal 3.0L Cannula 08/08 2120 98.8 116 18 158/88 93 08/08 1930 93 Nasal 3.0L Cannula 08/08 1859 Nasal 2.0L Cannula 08/08 1842 98.2 115 22 136/78 91 Nasal 3.0L Cannula 08/08 1537 98.8 112 22 149/92 90 Nasal 3.0L Cannula 08/08 1419 93 Nasal 3.0L Cannula 08/08 1407 99.1 114 22 131/80 93 Room Air 08/08 1313 93 Nasal 3.0L Cannula 08/08 1229 97.6 124 18 122/76 77 Room Air Intake & Output 08/09 1600 08/09 0800 08/09 0000 Intake Total 111 401 Output Total 250 1775 Balance -139 -1374 Intake, IV 11 11 Intake, Oral 100 390 Number 1 Bowel Movements Output, Urine 250 1775 Patient 96.162 kg Weight Weight Reported by Patient Measurement Method Physical Exam General Appearance: Alert, Oriented X3, Cooperative, No Acute Distress Skin: hyperpigmented and dry. Cardiovascular: Normal S1, Normal S2 Lungs: bilateral basal creckles Abdomen: Soft, No Tenderness Neurological: Normal Speech Extremities: No Clubbing, No Cyanosis, bilateral lower leg edema with chronic arthritic changes Current Medications: Current Medications Sig/Luis Start time Last Medication Dose Route Stop Time Status Admin Albuterol Sulfate 3 ML BID 08/08 2200 AC 08/09 INH 0926 Albuterol Sulfate 3 ML ONCE ONE 08/08 1300 DC 08/08 INH 08/08 1301 1312 Azithromycin 500 MG DAILY@1830 17 1830 AC PO Azithromycin 0 .STK-MED ONE 08/08 1822 DC PO Azithromycin 500 MG DAILY 08/08 1815 DC 08/08 PO 1821 Enoxaparin Sodium 40 MG DAILY@08/09 1830 AC SC Enoxaparin Sodium 0 .STK-MED ONE 08/08 1822 DC SC Enoxaparin Sodium 40 MG DAILY 08/08 1812 DC 08/08 SC 1821 Furosemide 0 .STK-MED ONE 08/08 1456 DC IV Furosemide 40 MG ONCE ONE 08/08 1300 DC 08/08 IV 08/08 1301 1457 Ipratropium Steward 2.5 ML ONCE ONE 08/08 1300 DC 08/08 INH 08/08 1301 1313 Methylprednisolone 40 MG Q8 08/08 2200 AC 08/09 IV 0523 Methylprednisolone 0 .STK-MED ONE 08/08 1538 DC .ROUTE Methylprednisolone 125 MG ONCE ONE 08/08 1500 DC 08/08 IV 08/08 1501 1537 Last 24 Hrs of Lab/Kain Results Last 24 Hrs of Labs/Mics: Laboratory Tests 08/09/17 0418: Troponin I Cancelled 08/09/17 0418: Anion Gap 5, Estimated GFR > 60, BUN/Creatinine Ratio 31.1 H, Troponin I < 0.01 , CBC w Diff NO MAN DIFF REQ, RBC 4.28 L, MCV 83.4, MCH 26.4 L, MCHC 31.7 L, RDW 17.9 H, MPV 7.6, Gran % 85.9 H, Lymphocytes % 11.3 L, Monocytes % 2.6, Eosinophils % 0, Basophils % 0.2, Absolute Granulocytes 7.9 H, Absolute Lymphocytes 1.0 L, Absolute Monocytes 0.2, Absolute Eosinophils 0, Absolute Basophils 0 08/08/17 2234: Troponin I < 0.01 08/08/17 1548: Lactic Acid Cancelled 08/08/17 1420: pH 7.36, pCO2 67 *H, pO2 71 L, HCO3 38 H, ABG O2 Sat (Measured) 93.0 L, Carboxyhemoglobin 1.1 L, O2 Concentration % 3L, O2 Delivery Method NC, Phlebotomy Draw Site RIGHT RADIAL 08/08/17 1250: Anion Gap 8, Estimated GFR > 60, BUN/Creatinine Ratio 32.2 H, Glucose 165 H, Hemoglobin A1c Pending, Lactic Acid 1.6, Calcium 7.9 L, Total Bilirubin 0.5, AST 21, ALT 31, Alkaline Phosphatase 74, Troponin I < 0.01, Srw-L-Arewlwmtpha Pept 182 H, Total Protein 5.6 L, Albumin 2.8 L, Globulin 2.8, Albumin/ Globulin Ratio 1.0 L, PT 11.6, INR 1.11, APTT 29, D-Dimer High Sensitivty 412 H, CBC w Diff NO MAN DIFF REQ, RBC 4.27 L, MCV 84.5, MCH 26.8 L, MCHC 31.7 L, RDW 18.7 H, MPV 7.3 L, Gran % 79.3 H, Lymphocytes % 10.5 L, Monocytes % 8.3, Eosinophils % 1.8, Basophils % 0.1, Absolute Granulocytes 7.0 H, Absolute Lymphocytes 0.9 L, Absolute Monocytes 0.7 H, Absolute Eosinophils 0.2, Absolute Basophils 0 Microbiology 08/08 1412 NASOPHARYN: Influenza Virus A & B Rapid Smear - COMP Assessment/Plan Assessment: Patient is a 72-year-old male presented with chief complaint of decreased saturation while checking the pulse oximetry by visiting nurse of about 63%. Acute hypoxic and hypercarberic respiratory failure secondary to COPD acute exacerbation * Continue telemetry * oxygen inhalation to keep saturation more than 90% * Keep head end of the bed elevated * Inj methylprednisolone 40 mg IV 8 hourly * Tablet azithromycin 500 mg once a day for 3 days * We will follow pulmonology consult and recommendation Bilateral lower extremity edema * Strict intake output charting * Daily weight measurement * Stockings * Keep leg elevated Chronic rheumatoid arthritis * We will continue methylprednisone and will restart patient on tablet prednisone 20 mg at the time of discharge Spuriouse hypocalcemia -corrected calcium within the normal range (8.9) * Probability hypoalbuminemia causing low calcium level. * No intervention at this time Steroid-induced hyperglycemia * We will do fingerstick every 6 hourly * HbA1c 7.2 CODE STATUS-full code DVT prophylaxis-ALPS Diet-carbohydrate 1 diet. Problem List: 1. Hypoxia 2. COPD exacerbation Pain Ratin Pain Location: back Pain Goal: Remain pain free Pain Plan: pain medication as needed Tomorrow's Labs & Rationales: CBC, BEP for f/u Sergio Hager 08/09/17 1107: Attending MD Review Statement Attending Statement Attending MD Statement: examined this patient, discuss w/resident/PA/BRAKE SPECIALIST, agreed w/resident/PA/BRAKE SPECIALIST, discussed with family, reviewed EMR data (avail), discussed with nursing, discussed with case mgmt, reviewed images, amended to note Attending Assessment/Plan: Patient admitted to telemetry monitoring for cont pulse oximetry for Acute on chronic hypercarbic respiratory failure with acute exacerbation with worsening obesity hypoventilation syndrom and h/o RA with restrictive lung disease. Taper iv steroids, abx, oxygen supplementation, bronchodilators. serial cadiac enzymes negative for MS. Pulmonary consult Dr Rincon. resume home meds gi/dvt prophylaxis full code.
[2017-08-09 13:50] VITALS: BP 120/70
--- NOTE | 2017-08-09 20:13 | Cons- Pulmonary ---
General Information and HPI Consulting Request Date of Consult: 08/09/17 Requested By: Med team History of Present Illness: Patient is a 72-year-old male presented with chief complaint of decreased saturation while checking the pulse oximetry by visiting nurse of about 63%. According to the patient he is having history of COPD and was using 2 L of oxygen at night since last couple of months and in daytime as needed. Since last couple of months he was having some facial swelling which got worse in the last 2-3 weeks. In the last week he went to [place]5 [place] and afterward he was very tired and the last night he was feeling much tired in the morning he was feeling a little bit dizzy. His visiting nurse came to the home she checked pulse oximetry which was very low in range of 63% and heart rate was high about 125 and even blood pressure was high. She advised him to call Dr. Tomlinson. Dr. Tomlinson advised him to come back to ED. As a baseline he always had shortness of breath he cannot walk more than 10 feet and he usually uses walker. He is having swelling in the leg since couple of years. He is noncompliant with the medication and diet. He denies any palpitation, fever, chest pain, no shortness of breath, orthopnea. He visited Dr. Sifuentes around couple of months ago and he was saying that he was normal at that time. 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 Obesity hypoventilation syndrome Chronic bilateral lower extremity edema Rheumatoid arthritis on multiple immunosuppressant currently on prednisone 20 mg Adrenal insufficiency on chronic steroid therapy Anemia Hypothyroidism Osteopenia status post back surgery Anxiety Depression Allergies/Medications Allergies: Coded Allergies: hydrocodone (From VICODIN) (Intermediate, SEVERE HALLUCINATIONS 07/05/16) hydromorphone (From DILAUDID) (Intermediate, SEVERE HALLUCINATIONS 07/05/16) morphine (Intermediate, WILD DREAMS, GI UPSET, SEVERE HALLUCINATIONS 07/05/16) oxycodone (From PERCOCET) (Intermediate, SEVERE HALLUCINATIONS 07/05/16) lactose (DIARRHEA 07/05/16) Home Med List: Albuterol Sulfate (Proair Hfa) 90 MCG HFA.AER.AD 2 PUF INH Q4H PRN RESPIRATORY (Reported) Alendronate Sodium (Fosamax) 70 MG TABLET 1 TAB PO Q FRIDAY OSTEOPOROSIS ( Reported) in the morning, at least 30 minutes before the first food, beverage, or medication of the day Aspirin (Aspirin*) 81 MG TAB.CHEW 1 TAB PO DAILY heart health (Reported) Atorvastatin Calcium 20 MG TABLET 1 TAB PO DAILY CHOLESTEROL (Reported) Buspirone HCl 5 MG TABLET 1 TAB PO TID ANXIETY (Reported) Cyanocobalamin (Vitamin B-12) 1,000 MCG TABLET 1 TAB PO DAILY SUPPLEMENT ( Reported) Cyclobenzaprine HCl 5 MG TABLET 1 TAB PO DAILY MUSCLE SPASMS (Reported) Gabapentin (Neurontin) 300 MG CAPSULE 1 CAP PO TID NERVE PAIN (Reported) Lactobacillus Acidophilus (Acidophilus) 1 EACH CAPSULE 1 CAP PO DAILY gut health . Lansoprazole (Prevacid) 30 MG TAB.RAP.DR 1 TAB PO DAILY GI (Reported) Levothyroxine Sodium 50 MCG TABLET 1 TAB PO DAILY AC THYROID (Reported) Metoprolol Succ XL (Toprol XL) 25 MG TAB 25 MG PO DAILY BLOOD PRESSURE Multivitamin (Multiple Vitamins) 1 EACH TABLET 1 TAB PO DAILY SUPPLEMENT ( Reported) Potassium Chloride (K-Tab ER) 10 MEQ TABLET.ER 1 TAB PO DAILY SUPPELEMENT ( Reported) Prednisone 20 MG TABLET 1 TAB PO DAILY RA (Reported) START FROM 09/23/16 THEN CONTINUE DAILY Ramipril 10 MG CAPSULE 1 CAP PO BID HTN (Reported) Sertraline HCl 50 MG TABLET 1 TAB PO DAILY MENTAL HEALTH (Reported) Review of Systems Review of Systems Constitutional: Reports: see HPI. Past History Travel History Traveled to [place] past 21 day No Medical History Blood Transfusion Hx: Yes Neurological: peripheral neuropathy EENT: CATARACTS REMOVED Cardiovascular: CAD (s/p angioplasty), hypertension, hyperlipidemia, myocardial infarction, non-ST patient [place], status post angioplasty/stent x 3 in 2006 Respiratory: bronchitis, COPD, obstructive sleep apnea, pneumonia Gastrointestinal: GERD (minimal), lactose intolerance, 10/27/2014: ERCP WITH ES/ CBD STONE EXTRACTION C. 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 FH: CVA (cerebrovascular accident) SISTER, , Age 71; Cause: Multiple sclerosis. FH: brain cancer SISTER, , Age 55; Cause: Brain cancer. FATHER ( of a myocardial infarction in his 60's). , Age 63; Cause: Myocardial infarct. SISTER ( of multiple sclerosis). Psychosocial History Who Do You Live With? self, rest of his family members live in the same house in adjacent apartment Services at Home: Home Health Aide, Oxygen Primary Language: Czech Smoking Status: Never Smoked Living Will? no Power of Hand Gluer And Slicer/HCP? yes Name of POA/HCP: Pt's sonDandre Functional Ability ADLs Independent: dressing, eating, toileting, bathing. Ambulation: independent IADLs Independent: shopping, housework, finances, food prep, telephone, transportation , medication admin. Exam & Diagnostic Data Last 24 Hrs of Vital Signs/I&O Vital Signs Date Time Temp Pulse Resp B/P B/P Pulse O2 O2 Flow FiO2 Mean Ox Delivery Rate 08/09 1956 96 Nasal 2.0L Cannula 08/09 1600 Nasal 3.0L Cannula 08/09 1350 98.6 77 20 120/70 93 Nasal Cannula 08/09 0929 96 Nasal 2.0L Cannula 08/09 0818 Nasal 3.0L Cannula 08/09 0700 99.2 86 18 130/82 93 Nasal 3.0L Cannula 08/08 2120 98.8 116 18 158/88 93 Intake & Output 08/09 1600 08/09 0800 08/09 0000 Intake Total 420 111 401 Output Total 473 243 1177 Balance -530 139 -1374 Intake, IV 20 11 11 Intake, Oral 400 100 390 Number 1 Bowel Movements Output, Urine 451 907 1004 Patient 212 lb Weight Weight Reported by Patient Measurement Method Last 48 Hrs of Labs/Kain: Laboratory Tests 08/09/17417: Troponin I Cancelled 08/09/17417: Anion Gap 5, Estimated GFR > 60, BUN/Creatinine Ratio 31.1 H, Troponin I < 0.01 , CBC w Diff NO MAN DIFF REQ, RBC 4.28 L, MCV 83.4, MCH 26.4 L, MCHC 31.7 L, RDW 17.9 H, MPV 7.6, Gran % 85.9 H, Lymphocytes % 11.3 L, Monocytes % 2.6, Eosinophils % 0, Basophils % 0.2, Absolute Granulocytes 7.9 H, Absolute Lymphocytes 1.0 L, Absolute Monocytes 0.2, Absolute Eosinophils 0, Absolute Basophils 0 08/08/17 2234: Troponin I < 0.01 08/08/17 1548: Lactic Acid Cancelled 08/08/17 1420: pH 7.36, pCO2 67 *H, pO2 71 L, HCO3 38 H, ABG O2 Sat (Measured) 93.0 L, Carboxyhemoglobin 1.1 L, O2 Concentration % 3L, O2 Delivery Method NC, Phlebotomy Draw Site RIGHT RADIAL 08/08/17 1250: Anion Gap 8, Estimated GFR > 60, BUN/Creatinine Ratio 32.2 H, Glucose 165 H, Hemoglobin A1c Pending, Lactic Acid 1.6, Calcium 7.9 L, Total Bilirubin 0.5, AST 21, ALT 31, Alkaline Phosphatase 74, Troponin I < 0.01, Era-H-Uqegfxhxgbr Pept 182 H, Total Protein 5.6 L, Albumin 2.8 L, Globulin 2.8, Albumin/ Globulin Ratio 1.0 L, PT 11.6, INR 1.11, APTT 29, D-Dimer High Sensitivty 412 H, CBC w Diff NO MAN DIFF REQ, RBC 4.27 L, MCV 84.5, MCH 26.8 L, MCHC 31.7 L, RDW 18.7 H, MPV 7.3 L, Gran % 79.3 H, Lymphocytes % 10.5 L, Monocytes % 8.3, Eosinophils % 1.8, Basophils % 0.1, Absolute Granulocytes 7.0 H, Absolute Lymphocytes 0.9 L, Absolute Monocytes 0.7 H, Absolute Eosinophils 0.2, Absolute Basophils 0 Microbiology 08/08 1412 NASOPHARYN: Influenza Virus A & B Rapid Smear - COMP Assessment/Plan Impression/Plan: General Appearance Alert, Oriented X3, Cooperative, No Acute Distress Skin generalized dryness of skin with hyper pigmentation HEENT Atraumatic, PERRLA, EOMI, swelling on face Neck Supple, No JVD Cardiovascular Normal S1, Normal S2 Lungs decreased air entry Abdomen Soft, No Tenderness, distended Extremities bilateral lower leg edema CT chest LUNG: Coarse linear markings at dependent lung bilaterally of linear scarring and/or subsegmental atelectasis. No focal consolidation. Central bronchial airways are open. Asymmetric elevation of right diaphragm compared to left. PLEURA: No pleural effusion or pneumothorax. MEDIASTINUM: Normal heart size. No pericardial effusion. No hilar or mediastinal lymphadenopathy. No evidence of septal bowing or right heart strain. CHEST WALL/AXILLA: No axillary or internal mammary lymphadenopathy. OSSEOUS STRUCTURES: Degenerative spondylosis of spine with multilevel endplate spurring of the vertebrae. There is central depression of the endplates of multiple vertebrae. Anterior wedge compression deformity of multiple vertebrae, T3, T5, T6, T7, T9, T10, T11. UPPER ABDOMEN: Unremarkable. No reflux of contrast into the hepatic veins to suggest elevated right heart pressures. Status post cholecystectomy. IMPRESSION: 1. No evidence of pulmonary embolism. No acute change of the chest. 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
[2017-08-09 23:00] VITALS: BP 158/88
[2017-08-10 07:00] VITALS: BP 138/98
[2017-08-10 07:45] LABS: ABSOLUTE BASOPHIL COUNT 0 /CUMM (0.0-0.2); ABSOLUTE EOSINOPHIL COUNT 0 /CUMM (0.0-0.7); ABSOLUTE GRANULOCYTE CT 11.7 /CUMM (1.4-6.5); ABSOLUTE LYMPH COUNT 1.2 /CUMM (1.2-3.4); ABSOLUTE MONOCYTE COUNT 0.8 /CUMM (0.10-0.60); BASOPHIL % 0.3 % (0.0-2.0); EOSINOPHIL % 0 % (0-5); GRANULOCYTE % 84.8 % (42.2-75.2); HEMATOCRIT 36.1 % (42-52); MEAN CORPUSCULAR HGB 26.5 PG (27.0-31.0); MEAN CORPUSCULAR HGB CONC 31.9 G/DL (33.0-37.0); MEAN PLATELET VOLUME 7.6 FL (7.4-10.4); PLATELET COUNT 329 /CUMM (130-400); RBC DISTRIBUTION WIDTH 18.2 % (11.5-14.5); RED BLOOD CELL CT 4.35 /CUMM (4.70-6.10); WHITE BLOOD CELL COUNT 13.8 /CUMM (4.8-10.8)
--- NOTE | 2017-08-10 08:56 | PN- Housestaff ---
Jenny MARQUES,[facility] 08/10/17 0856: Subjective Follow-up For: COPD exacerbation Tele-Events Since Last Visit: Normal sinus rhythm Heart rate is 79-96. Subjective: Patient sitting comfortably in chair, denies any chest pain, shortness of breath or palpitations. States she wouldn't want to go home earlier this afternoon. Review of Systems Constitutional: Reports: no symptoms. EENTM: Reports: no symptoms. Cardiovascular: Reports: no symptoms. Respiratory: Reports: no symptoms. Gastrointestinal: Reports: no symptoms. Genitourinary: Reports: no symptoms. Musculoskeletal: Reports: no symptoms. Skin: Reports: no symptoms. Neurological/Psychological: Reports: no symptoms. Hematologic/Endocrine: Reports: no symptoms. Immunologic/Allergic: Reports: no symptoms. Objective Last 24 Hrs of Vital Signs/I&O Vital Signs Date Time Temp Pulse Resp B/P B/P Pulse O2 O2 Flow FiO2 Mean Ox Delivery Rate 08/10 1102 97 Nasal 2.0L Cannula 08/10 1034 100.0 08/10 0800 93 Nasal 3.0L Cannula 08/10 0700 98.2 92 18 138/98 96 08/10 0000 93 Nasal 3.0L Cannula 08/09 2300 98.5 71 20 158/88 94 08/09 1956 96 Nasal 2.0L Cannula 08/09 1600 Nasal 3.0L Cannula 08/09 1350 98.6 77 20 120/70 93 Nasal Cannula Intake & Output 08/10 1600 08/10 0800 08/10 0000 Intake Total 150 160 Output Total 300 Balance -150 160 Intake, IV 20 Intake, Oral 150 140 Output, Urine 300 Physical Exam General Appearance: Alert, Oriented X3, Cooperative, No Acute Distress Skin: No Rashes, No Breakdown Cardiovascular: Regular Rate, Normal S1, Normal S2 Lungs: Normal Air Movement Abdomen: Normal Bowel Sounds, Soft, No Tenderness Extremities: No Clubbing, No Cyanosis, No Edema Current Medications: Current Medications Sig/Luis Start time Last Medication Dose Route Stop Time Status Admin Albuterol Sulfate 3 ML BID 08/08 2199 AC 08/10 INH 1059 Azithromycin 500 MG DAILY@08/09 1830 AC 08/09 PO 1732 Enoxaparin Sodium 40 MG DAILY@08/09 1830 AC 08/09 SC 1732 Furosemide 20 MG DAILY 08/09 1152 AC 08/10 PO 0842 Insulin Aspart 0 TIDAC 08/09 1200 AC 08/10 SC 1148 Methylprednisolone 40 MG Q12 08/09 2200 DC 08/09 IV 08/10 0000 2105 Methylprednisolone 40 MG Q8 08/08 2200 DC 08/09 IV 1247 Prednisone 40 MG DAILY 08/10 1000 DC 08/10 PO 08/23 0959 0842 Last 24 Hrs of Lab/Kain Results Last 24 Hrs of Labs/Mics: Laboratory Tests 08/10/17 0645: Anion Gap 5, Estimated GFR > 60, BUN/Creatinine Ratio 35.0 H, CBC w Diff MAN DIFF ORDERED, RBC 4.35 L, MCV 83.0, MCH 26.5 L, MCHC 31.9 L, RDW 18.2 H, MPV 7.6, Gran % 84.8 H, Lymphocytes % 9.0 L, Monocytes % 5.9, Eosinophils % 0, Basophils % 0.3, Absolute Granulocytes 11.7 H, Absolute Lymphocytes 1.2, Absolute Monocytes 0.8 H, Absolute Eosinophils 0, Absolute Basophils 0, Platelet Estimate VERIFIED BY SMEAR, Polychromasia 1+, Anisocytosis 1+ Assessment/Plan Assessment: Patient is a 72-year-old male presented with chief complaint of decreased saturation while checking the pulse oximetry by visiting nurse of about 63%. Assessment/plan; Acute hypoxic and hypercarberic respiratory failure secondary to COPD acute exacerbation * Continue telemetry * oxygen inhalation to keep saturation more than 90% * Keep head end of the bed elevated * Continue prednisone 30 mg daily 3 days, after that should continue 20 mg daily. * Tablet azithromycin 500 mg once a day for 3 days(day 2) * Appreciate pulmonology recommendations. Bilateral lower extremity edema * Strict intake output charting * Daily weight measurement * Stockings * Keep leg elevated Chronic rheumatoid arthritis * Continue prednisone. Spuriouse hypocalcemia -corrected calcium within the normal range (8.9) * Probability hypoalbuminemia causing low calcium level. * No intervention at this time Steroid-induced hyperglycemia * We will do fingerstick every 6 hourly * HbA1c 7.2 CODE STATUS-full code DVT prophylaxis-ALPS Diet-carbohydrate 1 diet. Problem List: 1. COPD exacerbation Pain Ratin Pain Location: None Pain Goal: Remain pain free Pain Plan: None Tomorrow's Labs & Rationales: None Sergio Hager 08/10/17 1146: Attending MD Review Statement Attending Statement Attending MD Statement: examined this patient, discuss w/resident/PA/PATTERN CUTTER, agreed w/resident/PA/PATTERN CUTTER, discussed with family, reviewed EMR data (avail), discussed with nursing, discussed with case mgmt, reviewed images, amended to note Attending Assessment/Plan: Patient admitted to telemetry monitoring for cont pulse oximetry for Acute on chronic hypercarbic respiratory failure with acute copd exacerbation with worsening obesity hypoventilation syndrome and h/o RA with restrictive lung disease. PO steroids, abx, oxygen supplementation, bronchodilators. Serial cadiac enzymes negative for NE. Pulmonary consulted Dr Rincon. Patient clinically improved and now is he is back to baseline. Resume home meds, medically stable for discharge. Follow up o/p PCP in 3-5 days of dc, Pulmoanry in 1-2 weeks of dc.
--- NOTE | 2017-08-10 09:53 | PN- Pulmonary ---
Subjective HPI/Critical Care Issues: Much improved stable Back to baseline Objective Current Medications: Current Medications Sig/Luis Start time Last Medication Dose Route Stop Time Status Admin Albuterol Sulfate 3 ML BID 08/08 2199 AC 08/09 INH 1950 Azithromycin 500 MG DAILY@08/09 1830 AC 08/09 PO 1732 Enoxaparin Sodium 40 MG DAILY@18308/09 1830 AC 08/09 SC 1732 Furosemide 20 MG DAILY 08/09 1152 AC 08/10 PO 0842 Insulin Aspart 0 TIDAC 08/09 1200 AC 08/10 SC 0842 Methylprednisolone 40 MG Q12 08/09 2200 DC 08/09 IV 08/10 0000 2105 Methylprednisolone 40 MG Q8 08/08 220 DC 08/09 IV 1247 Prednisone 40 MG DAILY 08/10 1000 AC 08/10 PO 08/23 0959 0842 Vital Signs & I&O Last 24 Hrs of Vitals and I&O: Vital Signs Date Time Temp Pulse Resp B/P B/P Pulse O2 O2 Flow FiO2 Mean Ox Delivery Rate 08/10 0700 98.2 92 18 138/98 96 08/10 0000 93 Nasal 3.0L Cannula 08/09 2300 98.5 71 20 158/88 94 08/09 1956 96 Nasal 2.0L Cannula 08/09 1600 Nasal 3.0L Cannula 08/09 1350 98.6 77 20 120/70 93 Nasal Cannula Intake & Output 08/10 1600 08/10 0800 08/10 0000 Intake Total 150 160 Output Total 300 Balance -150 160 Intake, IV 20 Intake, Oral 150 140 Output, Urine 300 Impression/Plan Impression/Plan Impression/Plan: General Appearance Alert, Oriented X3, Cooperative, No Acute Distress Skin generalized dryness of skin with hyper pigmentation HEENT Atraumatic, PERRLA, EOMI, swelling on face Neck Supple, No JVD Cardiovascular Normal S1, Normal S2 Lungs decreased air entry Abdomen Soft, No Tenderness, distended Extremities bilateral lower leg edema CT chest IMPRESSION: 1. No evidence of pulmonary embolism. No acute change of the chest. VTE: negative IMPRESSION This is a 72-year-old man with a history of rheumatoid arthritis, maintained on prednisone and biological agent, coronary artery disease, status post [place], hypertension, obesity hypoventilation syndrome/obstructive sleep apnea, maintained on 2 L of oxygen at night, hypothyroidism and bilateral lower extremity venous insufficiency, with chronic lower extremity edema, previous cellulitis with ISSUES Resolved ACOPDE which has improved sig Recent fatigue prob due to cortisol insuff as he had not taken his prednisone Stable Chronic resp insuff with OHV with chronic hypercarbia Severe RA on high doses of steroids and hence immunosuppressed Sig 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
--- NOTE | 2017-08-10 10:30 | Patient Discharge Instructions ---
Discharge Instructions General Discharge Information You were seen/treated for: Acute COPD exacerbation Special Instructions: Please follow up with your PCP in a week Please follow up with in a week Diet Continue normal diet: Yes Recommended Diet: Heart Healthy Activity Full Activity/No Limits: No Activity Self Limited: Yes Acute Coronary Syndrome Inclusion Criteria At DC or during hospital stay patient has or had the following: ACS DIAGNOSIS No Discharge Core Measures Meds if any: Prescribed or Continued at Discharge Meds if any: NOT Prescribed or Continued at Discharge Congestive Heart Failure Inclusion Criteria At DC or during hospital stay patient has or had the following: CHF DIAGNOSIS No Discharge Core Measures Meds if any: Prescribed or Continued at Discharge Meds if any: NOT Prescribed or Continued at Discharge Cerebrovascular accident Inclusion Criteria At DC or during hospital stay patient has or had the following: CVA/TIA Diagnosis No Discharge Core Measures Meds if any: Prescribed or Continued at Discharge Meds if any: NOT Prescribed or Continued at Discharge Venous thromboembolism Inclusion Criteria VTE Diagnosis No VTE Type NONE VTE Confirmed by (Test) NONE Discharge Core Measures - Per Current guidelines, there needs to be overlap - treatment for the first 5 days of Warfarin therapy. - If discharged on Warfarin prior to 5 days of - overlap therapy, the patient will need to be - assessed for post discharge needs including - *Post discharge parental anticoagulation - *Warfarin and/or parental anticoagulation education - *Follow up date to check INR post discharge At least 5 days overlap therapy as Inpatient No Meds if any: Prescribed or Continued at Discharge Note: Overlap Therapy is Warfarin and Anticoagulant Meds if any: NOT Prescribed or Continued at Discharge
[2017-08-10] MEDS ORDERED: PREDNISONE20 M1 PO ×2 (10:32→12:11)
[2017-08-10] MEDS ORDERED: ZITHROMAX250 M2 PO ×2 (10:41→12:11)
== END 2017-08-10 12:40 | disposition home health service (06) | DRG 189 ==
LOC: ERH 12:23 → ERHI 16:41 → ENRESERV 17:29 → ENTRNSPT 18:44 → EDTRNSPT 18:49 → EDTRNSPTSTS 18:49 → 1NO 19:06 → CMPTRNSPT 19:13 → ENTRNSPT 08-10 12:27 → EDTRNSPT 08-10 12:31 → EDTRNSPTSTS 08-10 12:31 → 1NO 08-10 12:40 → CMPTRNSPT 08-10 12:44
PROVIDERS: Dermatology; Internal Medicine Adolescent Medicine; Physician Assistant
DX: J96.21 Acute and chronic respiratory failure with hypoxia (principal); E27.3 Drug-induced adrenocortical insufficiency; E27.40 Unspecified adrenocortical insufficiency; J44.1 Chronic obstructive pulmonary disease with (acute) exacerbation; G62.9 Polyneuropathy, unspecified; D64.9 Anemia, unspecified; E78.5 Hyperlipidemia, unspecified; I10 Essential (primary) hypertension; I25.10 Atherosclerotic heart disease of native coronary artery without angina pectoris; Z95.5 Presence of coronary angioplasty implant and graft; R60.9 Edema, unspecified; E03.9 Hypothyroidism, unspecified; M85.88 Other specified disorders of bone density and structure, other site; F41.9 Anxiety disorder, unspecified; F32.9 Major depressive disorder, single episode, unspecified; Z88.5 Allergy status to narcotic agent; Z91.011 Allergy to milk products; Z79.82 Long term (current) use of aspirin; Z79.52 Long term (current) use of systemic steroids; I25.2 Old myocardial infarction; G47.33 Obstructive sleep apnea (adult) (pediatric); M06.9 Rheumatoid arthritis, unspecified; K21.9 Gastro-esophageal reflux disease without esophagitis; Z90.49 Acquired absence of other specified parts of digestive tract; Z87.01 Personal history of pneumonia (recurrent); Z82.49 Family history of ischemic heart disease and other diseases of the circulatory system; Z82.3 Family history of stroke; Z99.81 Dependence on supplemental oxygen; Z91.14 Patient's other noncompliance with medication regimen; E83.51 Hypocalcemia; R73.9 Hyperglycemia, unspecified; K44.9 Diaphragmatic hernia without obstruction or gangrene; Z68.27 Body mass index [BMI] 27.0-27.9, adult; J96.02 Acute respiratory failure with hypercapnia
CPT/HCPCS: 1NP; 36592; 71045; 82436; 87804; 87804-59; 93005; 93010; 96374; 96375; J0456; J1650; J1940; J2920; J2930

== ENCOUNTER 2018-01-19 12:10 | Inpatient (IN) | payer OTHER ==
[~2018-01-19] VITALS: Ht 185.4 cm; Wt 93.7 kg
[~2018-01-19 12:10] MED LIST changes: +K-TAB ER10 MEQ PO; +ZITHROMAX250 M2 PO
[2018-01-19 14:05] LABS: ABSOLUTE BASOPHIL COUNT 0.1 /CUMM (0.0-0.2); ABSOLUTE EOSINOPHIL COUNT 0.1 /CUMM (0.0-0.7); ABSOLUTE GRANULOCYTE CT 9.3 /CUMM (1.4-6.5); ABSOLUTE LYMPH COUNT 1.8 /CUMM (1.2-3.4); BASOPHIL % 0.9 % (0.0-2.0); EOSINOPHIL % 1.1 % (0-5); GRANULOCYTE % 75.3 % (42.2-75.2); HEMATOCRIT 40.9 % (42-52); MEAN CORPUSCULAR HGB 26.9 PG (27.0-31.0); MEAN CORPUSCULAR HGB CONC 31.6 G/DL (33.0-37.0); MEAN CORPUSCULAR VOLUME 85.2 FL (80.0-94.0); MEAN PLATELET VOLUME 7.5 FL (7.4-10.4); PLATELET COUNT 276 /CUMM (130-400); RBC DISTRIBUTION WIDTH 17.3 % (11.5-14.5); RED BLOOD CELL CT 4.81 /CUMM (4.70-6.10); WHITE BLOOD CELL COUNT 12.4 /CUMM (4.8-10.8)
--- NOTE | 2018-01-19 14:13 | ULTRASOUND REPORT ---
EXAMINATION: DOPPLER VENOUS ULTRASOUND UPPER EXTREMITY, RIGHT CLINICAL INFORMATION: Pain, edema. COMPARISON: None. TECHNIQUE: Grayscale, Doppler and spectral analysis of the upper extremity and neck was performed. FINDINGS: There is no evidence for a deep venous thrombosis within the visualized upper extremity and neck veins. There is normal flow, compression and augmentation. Posterior to the elbow joint, there is an approximately 1.7 cm fluid collection with a small amount of internal debris. IMPRESSION: No evidence for right upper extremity deep venous thrombosis. 17 mm fluid collection posterior to the elbow corresponding to the palpable area.
[2018-01-19 14:19] LABS: PT 11.2 SEC (9.4-12.5); PTT 27 SEC (25-37)
[2018-01-19] MEDS ORDERED: VITAMIN C500 M7 PO (15:05)
[2018-01-19] MEDS ORDERED: AMITRIPTYLINE H25 M2 PO (15:07)
--- NOTE | 2018-01-19 15:50 | RADIOLOGY REPORT ---
EXAMINATION: XR CHEST CLINICAL INFORMATION: Patient or edema. Rule out CHF, pneumonia. COMPARISON: Chest x-ray dated 08/08/2017, 03/20/2017. CT scan of the chest dated 11/02/2017. TECHNIQUE: 2 views of the chest were obtained. FINDINGS: The cardiac silhouette is within normal limits in size. There is ectasia and tortuosity of the aorta is seen, similar to the prior exams. Low lung volumes are noted with chronic linear opacities in the mid and lower lungs bilaterally, similar to prior studies, likely due to chronic atelectasis or scarring. The central pulmonary arteries are slightly enlarged. No effusion or pulmonary edema is seen. No pneumothorax is noted. There is a dorsal kyphosis, diffuse osteopenia and several compression deformities in the mid and lower thoracic spine, unchanged. IMPRESSION: Unchanged appearance of the chest with chronic bilateral mid and lower lung atelectasis or scarring. No new superimposed focal or acute pulmonary process is seen.
--- NOTE | 2018-01-19 16:14 | ED GENERAL ADULT ---
History of Present Illness General Chief Complaint: Upper Extremity Problem Stated Complaint: SIB DR MCCLAIN S/P SWELLING OF R ARM Source: patient Exam Limitations: no limitations Vital Signs & Intake/Output Vital Signs & Intake/Output Vital Signs Date Time Temp Pulse Resp B/P B/P Pulse O2 O2 Flow FiO2 Mean Ox Delivery Rate 01/20 1600 94 Nasal 2.0L Cannula 01/20 1416 98.3 96 20 124/80 94 Nasal 2.0L Cannula 01/20 1030 99 94 Nasal 2.0L Cannula 01/20 0908 99 144/88 01/20 0908 99 144/88 01/20 0800 97 Nasal 2.0L Cannula 01/20 0756 98.4 99 20 144/88 97 Nasal 3.0L Cannula 01/20 0330 Nasal 2.0L Cannula 01/20 0116 99.2 76 18 156/98 93 Room Air 01/19 2243 97.6 111 22 138/76 95 Room Air 01/19 2002 98.7 93 20 148/92 97 Nasal 2.0L Cannula ED Intake and Output 01/20 0000 01/19 1200 Intake Total Output Total 725 Balance -725 Output, Urine 725 Patient 212 lb Weight Weight Reported by Patient Measurement Method Allergies Coded Allergies: hydrocodone (From VICODIN) (Intermediate, SEVERE HALLUCINATIONS 07/05/16) hydromorphone (From DILAUDID) (Intermediate, SEVERE HALLUCINATIONS 07/05/16) morphine (Intermediate, WILD DREAMS, GI UPSET, SEVERE HALLUCINATIONS 07/05/16) oxycodone (From PERCOCET) (Intermediate, SEVERE HALLUCINATIONS 07/05/16) lactose (DIARRHEA 07/05/16) Triage Note: PT TO ED WITH C/O WORSENING REDNESS, WARMTH AND SWELLING TO RIGHT UPPER EXTREMITY X 4 DAYS. DENIES INJURY. ALSO STATES HE IS SUPPOSED TO TAKE DAILY LASIX BUT OFTEN DOES NOT BC HE DOESNT WANT TO "PEE SO OFTEN." DENIES SOB. BLE EDEMA OBSERVED IN TRIAGE. Triage Nurses Notes Reviewed? yes Onset: Gradual Duration: day(s): Timing: recent history Injury Environment: home Severity: moderate HPI: 72YO MALE WITH hx of CHF, HTN, CAD, COPD presents to ED complaining of swelling and pain to right arm beginning two days ago. Patient states he had "half dollar " sized swelling to posterior elbow however he believes this has improved recently. Patient also reports worsening pedal edema over the past several days as well. He believes this edema prevents his motility, he is unable to ambulate without significant pain and discomfort. Patient admits to skipping doses of his Lasix as he is worried about urinary frequency. The patient denies chest pain, dyspnea, abdominal pain. (Paola NIETO,Alaina Mcrae) Reconcile Medications Alendronate Sodium (Fosamax) 70 MG TABLET 1 TAB PO Q FRIDAY OSTEOPOROSIS ( Reported) in the morning, at least 30 minutes before the first food, beverage, or medication of the day Amitriptyline HCl 25 MG TABLET 1 TAB PO QPM SLEEP (Reported) Ascorbic Acid (Vitamin C) 500 MG CAPSULE.ER 1 CAP PO DAILY VITAMIN SUPPORT ( Reported) Aspirin (Aspirin*) 81 MG TAB.CHEW 1 TAB PO DAILY heart health (Reported) Atorvastatin Calcium 20 MG TABLET 1 TAB PO DAILY CHOLESTEROL (Reported) Buspirone HCl 5 MG TABLET 1 TAB PO TID ANXIETY (Reported) Cyanocobalamin (Vitamin B-12) 1,000 MCG TABLET 1 TAB PO DAILY SUPPLEMENT ( Reported) Cyclobenzaprine HCl 5 MG TABLET 1 TAB PO DAILY MUSCLE SPASMS (Reported) Gabapentin (Neurontin) 300 MG CAPSULE 1 CAP PO TID NERVE PAIN (Reported) Lactobacillus Acidophilus (Acidophilus) 1 EACH CAPSULE 1 CAP PO DAILY gut health . Lansoprazole (Prevacid) 30 MG TAB.RAP.DR 1 TAB PO DAILY GI (Reported) Levothyroxine Sodium 50 MCG TABLET 1 TAB PO DAILY AC THYROID (Reported) Metoprolol Succ XL (Toprol XL) 25 MG TAB 25 MG PO DAILY BLOOD PRESSURE Multivitamin (Multiple Vitamins) 1 EACH TABLET 1 TAB PO DAILY SUPPLEMENT ( Reported) Potassium Chloride (K-Tab ER) 10 MEQ TABLET.ER 1 TAB PO DAILY SUPPELEMENT ( Reported) Prednisone 20 MG TABLET 1 TAB PO DAILY RA (Reported) START FROM 09/23/16 THEN CONTINUE DAILY Ramipril 10 MG CAPSULE 2 CAP PO DAILY HTN (Reported) Ramipril 10 MG CAPSULE 1 CAP PO BID HTN (Reported) Sertraline HCl 50 MG TABLET 1 TAB PO DAILY MENTAL HEALTH (Reported) (Juvenal MARQUES,Juliano Gonzalez) Past History Travel History Traveled to [place] past 21 day No Medical History Any Pertinent Medical History? see below for history Neurological: peripheral neuropathy EENT: CATARACTS REMOVED Cardiovascular: CAD (s/p angioplasty), hypertension, hyperlipidemia, myocardial infarction, non-ST patient [place], status post angioplasty/stent x 3 in 2006 Respiratory: bronchitis, COPD, obstructive sleep apnea, pneumonia Gastrointestinal: GERD (minimal), lactose intolerance, 10/27/2014: ERCP WITH ES/ CBD STONE EXTRACTION C. difficile Hepatic: CHOLECYSTECTOMY Renal: NONE Musculoskeletal: osteoarthritis, rheumatoid arthritis, R hip fracture S/P ORIF R COMMUTED HUMERUS FX Psychiatric: anxiety, depression Endocrine: adrenal insufficiency, hypothyroidism, obesity Blood Disorders: anemia Cancer(s): NONE REEL BLADE BENDER FURNACE TENDER/Reproductive: NONE History of MRSA: No History of VRE: Yes History of CDIFF: No Tetanus Vaccine: 01/05/16 Surgical History Surgical History: cholecystectomy, ORIF R hip status post back surgery status post ORIF of the right humerus Psychosocial History Who do you live with Patient/Self Services at Home Home Health Aide, Oxygen What is your primary language Faroese Tobacco Use: Never used Family History Family History, If Any: MOTHER, , Age 89; Cause: Old age. FH: CVA (cerebrovascular accident) SISTER, , Age 71; Cause: Multiple sclerosis. FH: brain cancer SISTER, , Age 55; Cause: Brain cancer. FATHER ( of a myocardial infarction in his 60's). , Age 63; Cause: Myocardial infarct. SISTER ( of multiple sclerosis). Hx Contributory? No (Alaina Shi) Review of Systems Review of Systems Constitutional: Reports: no symptoms. EENTM: Reports: no symptoms. Respiratory: Reports: no symptoms. Cardiovascular: Reports: see HPI. GI: Reports: no symptoms. Genitourinary: Reports: no symptoms. Musculoskeletal: Reports: see HPI. Skin: Reports: no symptoms. Neurological/Psychological: Reports: no symptoms. Hematologic/Endocrine: Reports: no symptoms. Immunologic/Allergic: Reports: no symptoms. All Other Systems: Reviewed and Negative (Alaina Shi) Physical Exam Physical Exam General Appearance: well developed/nourished, no apparent distress, alert, awake Head: atraumatic, normal appearance Eyes: Bilateral: normal appearance. Ears, Nose, Throat: hearing grossly normal Neck: normal inspection, supple, full range of motion Respiratory: normal breath sounds, no respiratory distress, lungs clear Cardiovascular: regular rate/rhythm Peripheral Pulses: 2+ radial (R), 2+ radial (L) Back: normal inspection, normal range of motion Extremities: right upper extremity with edema and tenderness of forearm, hand, and elbow, mild erythema and warmth lower extremities with 3+ pitting edema and mild erythema bilaterally Neurologic/Psych: awake, alert, oriented x 3 Skin: intact Core Measures ACS in differential dx? No CVA/TIA Diagnosis: No Sepsis Present: No Sepsis Focused Exam Completed? No (Paola NIETO,Alaina Mcrae) Progress Differential Diagnoses I considered the following diagnoses in my evaluation of the patient: [DVT, volume overload, anasarca, CHF] Plan of Care: Orders Procedure Date/time Status CBC WITHOUT DIFFERENTIAL 01/21 600 Active BASIC ELECTROLYTES PLUS BUN&CR 01/21 600 Active Heart Healthy Diet 01/20 B Active CULTURE,BODY FLUID 01/20 164 Active CYTOLOGY SPECIMEN 01/20 164 Active CRYSTAL ANALYSIS 01/20 164 Active BODY FLUID CELL COUNT 01/20 164 Active Change service to 01/20 731 Active Pathway - chart 01/20 0430 Active URINALYSIS 01/20 0429 Complete Weight 01/20 0305 Active Vital Signs 01/20 0305 Active Teach/Educate 01/20 0305 Active Pain Treatment and Response 01/20 0305 Active Nutritional Intake, Monitor 01/20 0305 Active Isolation 01/20 0305 Active Intake & Output 01/20 0305 Active Patient Care Conference 01/20 0305 Active Activity/Ambulation 01/20 0305 Active Pathway - chart 01/20 0055 Active Davison, Insertion/Removal/Asses 01/20 0055 Complete CULTURE,URINE 01/20 0055 Active ARTERIAL BLOOD GAS (GEN) 01/20 UNK Complete House Staff 01/20 UNK Active Lab Add-on Test 01/20 UNK Active Vital Signs 01/20 UNK Complete Intake & Output 01/20 UNK Active Elevate 01/20 UNK Active Activity/Ambulation 01/20 UNK Active MISSING MEDICATION FORM 01/20 UNK Active Patient Data 01/19 2301 Active Saline Lock 01/19 2215 Active Misc Message 01/19 2215 Active ED Holding Orders 01/19 2215 Active Admit to inpatient 01/19 2215 Active Vital Signs 01/19 2215 Active Code Status 01/19 2215 Active Intake & Output 01/19 1544 Complete Current Medications Sig/Luis Start time Last Medication Dose Stop Time Status Admin Amitriptyline HCl 25 MG QPM 01/20 2100 AC (Elavil 25 Mg. Tablet) Ampicillin Sodium/ 3,000 MG Q6 01/20 1800 AC Sulbactam Sodium (Unasyn) Sodium Chloride 100 ML (Normal Saline 0.9%) Aspirin 81 MG DAILY 01/20 0900 AC 01/20 (Aspirin) 0909 Atorvastatin Calcium 20 MG DAILY 01/20 0900 AC 01/20 (Lipitor) 0908 Buspirone HCl 5 MG TID 01/20 09 AC 01/20 (Buspar) 1438 Cyanocobalamin 1,000 MCG DAILY 01/20 0900 AC 01/20 (Vitamin B12) 0908 Cyclobenzaprine HCl 5 MG DAILY 01/20 0900 AC 01/20 (Flexeril 5MG Tab) 0908 Enoxaparin Sodium 40 MG DAILY 01/20 0900 AC 01/20 (Lovenox) 0909 Metoprolol Succinate 25 MG DAILY 01/20 0900 AC 01/20 (Toprol XL) 0908 Prednisone 20 MG DAILY 01/20 0900 AC 01/20 0908 Sertraline HCl 50 MG DAILY 01/20 0900 AC 01/20 (Zoloft) 0908 Levothyroxine Sodium 0.05 MG DAILY AC 01/20 0700 AC 01/20 (Synthroid) 0607 Omeprazole 40 MG DAILY AC 01/20 07 AC 01/20 (Prilosec) 0607 Acetaminophen 650 MG Q4P PRN 01/20 0430 AC 01/20 (Tylenol) 1438 Ketorolac 15 MG Q6P PRN 01/20 0430 AC 01/20 Tromethamine 1017 (Toradol) Lisinopril 40 MG BID 01/20 0108 AC 01/20 (Prinivil) 0908 Gabapentin 300 MG TID 01/20 0057 AC 01/20 (Neurontin) 1438 Laboratory Tests 01/20/18 1650: Fluid WBC Pending, Fld Total RBCs Counted Pending 01/20/18 0945: pH 7.50 H, pCO2 43, pO2 63 L, HCO3 33 H, ABG O2 Sat (Measured) 92.0 L, P-50 (Temp Corrected) N, Carboxyhemoglobin 1.5, O2 Concentration % .21, O2 Delivery Method RA, Phlebotomy Draw Site LEFT BRACHIAL 01/20/18 0520: Urine Color YEL, Urine Clarity CLEAR, Urine pH 8.5 H, Ur Specific [place] 1.015 , Urine Protein NEG, Urine Ketones NEG, Urine Nitrite NEG, Urine Bilirubin NEG, Urine Urobilinogen 4.0 H, Ur Leukocyte Esterase NEG, Ur Microscopic EXAM NOT REQUIRED, Urine Hemoglobin NEG, Urine Glucose NEG Microbiology 01/20 1647 BODY FLUID: Body Fluid Culture - ORD 01/20 164 BODY FLUID: Gram Stain - ORD 01/20 0055 URINE ROUT: Urine Culture - COLB Ultrasound rules out DVT of right upper extremity. Patient's lab show stable BNP, no evidence of overt CHF on chest x-ray. Labs show MILD LEUKOCYTOSIS AND ELEVATED ESR. The patient was seen and evaluated by Dr. Kohler. Patient has significant anasarca on exam, this limits his mobility at home. Admission for IV diuresis is appropriate in this patient. Spoke with case management who recommend full admit. Spoke with Dr. Wang regarding hospital admission. Diagnostic Imaging: Viewed by Me: Radiology Read, Ultrasound. Discussed w/RAD: Radiology Read, Ultrasound. Radiology Impression: PATIENT: SHAKIR KELLEY III PRESENT AGE: 72 PATIENT ACCOUNT NO: [id number] : 43 LOCATION: [facility] ORDERING PHYSICIAN: Livan NIETO SERVICE DATE: 01/19/18 EXAM TYPE : US - US-UNILATERAL VENOUS DOPPLER EXAMINATION: DOPPLER VENOUS ULTRASOUND UPPER EXTREMITY, RIGHT CLINICAL INFORMATION: Pain, edema. COMPARISON: None. TECHNIQUE: Grayscale, Doppler and spectral analysis of the upper extremity and neck was performed. FINDINGS: There is no evidence for a deep venous thrombosis within the visualized upper extremity and neck veins. There is normal flow, compression and augmentation. Posterior to the elbow joint, there is an approximately 1.7 cm fluid collection with a small amount of internal debris. IMPRESSION: No evidence for right upper extremity deep venous thrombosis. 17 mm fluid collection posterior to the elbow corresponding to the palpable area. DICTATED BY: Sterling Palomares MD DATE/TIME DICTATED:01/19/181402 COMPUTER EQUIPMENT INSTALLER:ОЛЬГА DATE/ TIME TRANSCRIBED:01/19/181402 CONFIDENTIAL, DO NOT COPY WITHOUT APPROPRIATE AUTHORIZATION. <Electronically signed in Other Vendor System> SIGNED BY: Sterling Palomares MD 01/19/18 1413 CXR Impression: PATIENT: SHAKIR KELLEY III PRESENT AGE: 72 PATIENT ACCOUNT NO: [id number] : 43 LOCATION: [facility] ORDERING PHYSICIAN: Alaina NIETO SERVICE DATE: 01/19/18 EXAM TYPE: RAD - XRY-CHEST XRAY, TWO VIEWS EXAMINATION: XR CHEST CLINICAL INFORMATION: Patient or edema. Rule out CHF, pneumonia. COMPARISON: Chest x-ray dated 08/08/2017, 2016. CT scan of the chest dated 11/02/2017. TECHNIQUE: 2 views of the chest were obtained. FINDINGS: The cardiac silhouette is within normal limits in size. There is ectasia and tortuosity of the aorta is seen, similar to the prior exams. Low lung volumes are noted with chronic linear opacities in the mid and lower lungs bilaterally, similar to prior studies, likely due to chronic atelectasis or scarring. The central pulmonary arteries are slightly enlarged. No effusion or pulmonary edema is seen. No pneumothorax is noted. There is a dorsal kyphosis, diffuse osteopenia and several compression deformities in the mid and lower thoracic spine, unchanged. IMPRESSION: Unchanged appearance of the chest with chronic bilateral mid and lower lung atelectasis or scarring. No new superimposed focal or acute pulmonary process is seen. DICTATED BY: Ny Butler MD DATE/TIME DICTATED:01/19/181541 COMPUTER EQUIPMENT INSTALLER:ОЛЬГА DATE/ TIME TRANSCRIBED:01/19/181541 CONFIDENTIAL, DO NOT COPY WITHOUT APPROPRIATE AUTHORIZATION. <Electronically signed in Other Vendor System> SIGNED BY: Ny Butler MD 01/19/18 6810 Initial ED EKG: sinus rhythm @89bpm, nonspecific ST changes Prior EKG: unchanged (11/02/17) (Paola NIETO,Alaina Mcrae) Departure Departure Disposition: STILL A PATIENT Condition: Stable Clinical Impression Primary Impression: Anasarca Referrals: Bushra MARQUES,Fran Mckinney (PCP/Family) Departure Forms: Customer Survey General Discharge Information Admission Note Spoke With: Jazmyne Wang MD Documentation of Exam: Documentation of any treatments & extenuating circumstances including Concerns Regarding Discharge (functional status, medication knowledge or non-compliance, living conditions, etc.) that warrant an admission rather than observation: [ Patient has significant anasarca requiring IV diuresis, limited mobility due to his anasarca, premature discharge medically unsafe] (Paola NIETO,Alaina Mcrae) PA/HOUSE MOVER Co-Sign Statement Statement: ED Attending supervision documentation- [X] I saw and evaluated the patient. I have also reviewed all the pertinent lab results and diagnostic results. I agree with the findings and the plan of care as documented in the PA's/HOUSE MOVER's documentation. [] I have reviewed the ED Record and agree with the PA's/HOUSE MOVER's documentation. [] Additions or exceptions (if any) to the PAs/HOUSE MOVER's note and plan are summarized below: [] I saw and personally examined the patient and I agree with the PAs evaluation, severe lower extremity edema consistent with anasarca, massive swelling of the right upper extremity secondary to overuse syndrome. The patient is having trouble ambulating. He has underlying COPD and is having difficulty breathing. Strongly consider admission. Hospitalist was paged to evaluate the patient in the ED. (Wayne Kohler DO) PA/HOUSE MOVER Co-Sign Statement Statement: ED Attending supervision documentation- [x] I saw and evaluated the patient. I have also reviewed all the pertinent lab results and diagnostic results. I agree with the findings and the plan of care as documented in the PA's/HOUSE MOVER's documentation. [] I have reviewed the ED Record and agree with the PA's/HOUSE MOVER's documentation. [] Additions or exceptions (if any) to the PAs/HOUSE MOVER's note and plan are summarized below: [] (Juvenal MARQUES,Juliano Gonzalez) Critical Care Note Critical Care Note Critical Care Time: non-applicable (Alaina Shi)
--- NOTE | 2018-01-19 23:20 | History & Physical ---
Nohemy Gilbert 01/19/18 4940: General Information and HPI MD Statement: I have seen and personally examined SHAKIR KELLEY III and documented this H&P. The patient is a 72 year old M who presented with a patient stated chief complaint of [right elbow swelling and worsening lower bilateral lower extremities swelling]. Source of Information: patient, old records Exam Limitations: no limitations History of Present Illness: 72-year-old gentleman with a history of severe rheumatoid arthritis currently on chronic prednisone previously on Tofancitinib,coronary artery disease, status post ND, hypertension, obesity hypoventilation syndrome/obstructive sleep apnea on 2 L nasal cannula at home, hypothyroidism, history of shingles, bilateral lower extremity venous insufficiency with chronic lower extremity edema right greater than left, recurrent lower extremity cellulitis that has responded to cefazolin in the past, with history of VRE in the urine, history of C. difficile in the past coming in for evaluation of right arm swelling. Patient noticed a small swelling in the back of his elbow on which progressively worsened to encompass his entire arm by Friday. Associated with sharp pain that radiated from his wrist down his elbow and is been having trouble grasping things. Denies any fever, chills, nausea, vomiting, abdominal pain, rash anywhere else, tick bites, trauma, decreased ROM or sensation. Patient has also not been taking his Lasix since the past 4 days as he does not wish to urinated frequently. Allergies/Medications Allergies: Coded Allergies: hydrocodone (From VICODIN) (Intermediate, SEVERE HALLUCINATIONS 07/05/16) hydromorphone (From DILAUDID) (Intermediate, SEVERE HALLUCINATIONS 07/05/16) morphine (Intermediate, WILD DREAMS, GI UPSET, SEVERE HALLUCINATIONS 07/05/16) oxycodone (From PERCOCET) (Intermediate, SEVERE HALLUCINATIONS 07/05/16) lactose (DIARRHEA 07/05/16) Home Med list Alendronate Sodium (Fosamax) 70 MG TABLET 1 TAB PO Q FRIDAY OSTEOPOROSIS ( Reported) in the morning, at least 30 minutes before the first food, beverage, or medication of the day Amitriptyline HCl 25 MG TABLET 1 TAB PO QPM SLEEP (Reported) Ascorbic Acid (Vitamin C) 500 MG CAPSULE.ER 1 CAP PO DAILY VITAMIN SUPPORT ( Reported) Aspirin (Aspirin*) 81 MG TAB.CHEW 1 TAB PO DAILY heart health (Reported) Atorvastatin Calcium 20 MG TABLET 1 TAB PO DAILY CHOLESTEROL (Reported) Buspirone HCl 5 MG TABLET 1 TAB PO TID ANXIETY (Reported) Cyanocobalamin (Vitamin B-12) 1,000 MCG TABLET 1 TAB PO DAILY SUPPLEMENT ( Reported) Cyclobenzaprine HCl 5 MG TABLET 1 TAB PO DAILY MUSCLE SPASMS (Reported) Gabapentin (Neurontin) 300 MG CAPSULE 1 CAP PO TID NERVE PAIN (Reported) Lactobacillus Acidophilus (Acidophilus) 1 EACH CAPSULE 1 CAP PO DAILY gut health . Lansoprazole (Prevacid) 30 MG TAB.RAP.DR 1 TAB PO DAILY GI (Reported) Levothyroxine Sodium 50 MCG TABLET 1 TAB PO DAILY AC THYROID (Reported) Metoprolol Succ XL (Toprol XL) 25 MG TAB 25 MG PO DAILY BLOOD PRESSURE Multivitamin (Multiple Vitamins) 1 EACH TABLET 1 TAB PO DAILY SUPPLEMENT ( Reported) Potassium Chloride (K-Tab ER) 10 MEQ TABLET.ER 1 TAB PO DAILY SUPPELEMENT ( Reported) Prednisone 20 MG TABLET 1 TAB PO DAILY RA (Reported) START FROM 09/23/16 THEN CONTINUE DAILY Ramipril 10 MG CAPSULE 2 CAP PO DAILY HTN (Reported) Ramipril 10 MG CAPSULE 1 CAP PO BID HTN (Reported) Sertraline HCl 50 MG TABLET 1 TAB PO DAILY MENTAL HEALTH (Reported) Compliance With Home Meds: POOR Past History Travel History Traveled to [place] past 21 day No Medical History Neurological: peripheral neuropathy EENT: CATARACTS REMOVED Cardiovascular: CAD (s/p angioplasty), hypertension, hyperlipidemia, myocardial infarction, non-ST patient ND, status post angioplasty/stent x 3 in 2006 Respiratory: bronchitis, COPD, obstructive sleep apnea, pneumonia Gastrointestinal: GERD (minimal), lactose intolerance, 10/27/2014: ERCP WITH ES/ CBD STONE EXTRACTION C. difficile Hepatic: CHOLECYSTECTOMY Renal: NONE Musculoskeletal: osteoarthritis, rheumatoid arthritis, R hip fracture S/P ORIF R COMMUTED HUMERUS FX Psychiatric: anxiety, depression Endocrine: adrenal insufficiency, hypothyroidism, obesity Blood Disorders: anemia Cancer(s): NONE COLLABORATIVE PHYSICIAN/Reproductive: NONE History of MRSA: No History of VRE: Yes History of CDIFF: No Tetanus Vaccine: 01/05/16 Surgical History Surgical History: cholecystectomy, ORIF R hip status post back surgery status post ORIF of the right humerus Past Family/Social History Family History Relations & Conditions if any MOTHER, , Age 89; Cause: Old age. FH: CVA (cerebrovascular accident) SISTER, , Age 71; Cause: Multiple sclerosis. FH: brain cancer SISTER, , Age 55; Cause: Brain cancer. FATHER ( of a myocardial infarction in his 60's). , Age 63; Cause: Myocardial infarct. SISTER ( of multiple sclerosis). Psychosocial History Who Do You Live With? self, rest of his family members live in the same house in adjacent apartment Services at Home: Home Health Aide, Oxygen Primary Language: Ukrainian Living Will? no Power of Steam Shovelman/HCP? yes Name of POA/HCP: Pt's sonDandre Functional Ability ADLs Independent: dressing, eating, toileting, bathing. Ambulation: independent IADLs Independent: shopping, housework, finances, food prep, telephone, transportation , medication admin. Review of Systems Review of Systems Constitutional: Reports: see HPI. Exam & Diagnostic Data Last 24 Hrs of Vital Signs/I&O Vital Signs Date Time Temp Pulse Resp B/P B/P Pulse O2 O2 Flow FiO2 Mean Ox Delivery Rate 01/20 0330 Nasal 2.0L Cannula 01/20 0116 99.2 76 18 156/98 93 Room Air 01/19 2243 97.6 111 22 138/76 95 Room Air 01/19 2002 98.7 93 20 148/92 97 Nasal 2.0L Cannula 01/19 1653 93 Nasal 2.0L Cannula 01/19 1652 98.4 94 17 150/68 90 Room Air 01/19 1219 97.7 95 17 142/92 93 Room Air Intake & Output 01/20 0800 01/20 0000 01/19 1600 Intake Total Output Total 725 Balance -725 Output, Urine 725 Patient 212 lb 212 lb Weight Weight Bed scale Reported by Patient Measurement Method Physical Exam General Appearance Alert, Oriented X3, Cooperative, No Acute Distress, morbidly obese HEENT Atraumatic, b/l cataract surgery Cardiovascular Regular Rate, Normal S1, Normal S2 Lungs Clear to Auscultation, Normal Air Movement Abdomen distended, pain on palpation in RUQ Last 24 Hrs of Labs/Kain: Laboratory Tests 01/19/18 1352: Anion Gap 6, Estimated GFR > 60, BUN/Creatinine Ratio 38.6 H, Glucose 92, Calcium 8.5, Total Bilirubin 0.6, AST 29, ALT 39, Alkaline Phosphatase 85, Troponin I < 0.01, C-Reactive Prot, Quant 5.4 H, [id number] Pept 175 H, Total Protein 6.4, Albumin 3.0 L, Globulin 3.4, Albumin/Globulin Ratio 0.9 L, PT 11.2, INR 1.03, APTT 27, CBC w Diff NO MAN DIFF REQ, RBC 4.81, MCV 85.2, MCH 26.9 L, MCHC 31.6 L, RDW 17.3 H, MPV 7.5, Gran % 75.3 H, Lymphocytes % 14.5 L, Monocytes % 8.2, Eosinophils % 1.1, Basophils % 0.9, Absolute Granulocytes 9.3 H, Absolute Lymphocytes 1.8, Absolute Monocytes 1.0 H, Absolute Eosinophils 0.1, Absolute Basophils 0.1, ESR Westergren 18 H Microbiology 01/20 0055 URINE ROUT: Urine Culture - ORD Diagnostic Data CXR Results SERVICE DATE: 01/19/18 EXAM TYPE: RAD - XRY-CHEST XRAY, TWO VIEWS FINDINGS: The cardiac silhouette is within normal limits in size. There is ectasia and tortuosity of the aorta is seen, similar to the prior exams. Low lung volumes are noted with chronic linear opacities in the mid and lower lungs bilaterally, similar to prior studies, likely due to chronic atelectasis or scarring. The central pulmonary arteries are slightly enlarged. No effusion or pulmonary edema is seen. No pneumothorax is noted. There is a dorsal kyphosis, diffuse osteopenia and several compression deformities in the mid and lower thoracic spine, unchanged. IMPRESSION: Unchanged appearance of the chest with chronic bilateral mid and lower lung atelectasis or scarring. No new superimposed focal or acute pulmonary process is seen. Other Results SERVICE DATE: 01/19/18 EXAM TYPE: US - US-UNILATERAL VENOUS DOPPLER FINDINGS: There is no evidence for a deep venous thrombosis within the visualized upper extremity and neck veins. There is normal flow, compression and augmentation. Posterior to the elbow joint, there is an approximately 1.7 cm fluid collection with a small amount of internal debris. IMPRESSION: No evidence for right upper extremity deep venous thrombosis. 17 mm fluid collection posterior to the elbow corresponding to the palpable area. Assessment/Plan Assessment: 72-year-old gentleman with a history of severe rheumatoid arthritis currently on chronic prednisone previously on Tofancitinib,coronary artery disease, STEMI, s /p with PCI/USHA ([facility]) LCx 04/2007 and subsequent PCI/USHA ([facility]) LAD , hypertension, adrenal insufficiency 2/2 chronic steroid, obesity hypoventilation syndrome/obstructive sleep apnea on 2 L nasal cannula at home,Chronic BP s/p multiple spinal surgeries, hypothyroidism, history of shingles, bilateral lower extremity venous insufficiency with chronic lower extremity edema right greater than left, recurrent lower extremity cellulitis, with history of VRE in the urine, history of C. difficile in the past coming in for evaluation of right arm swelling. Assessment: mono articular swelling with imaging significant for 17 mm fluid collection posterior to the elbow corresponding to the palpable area. Differentials septic arthritis va bursitis vs gout vs cellulitis Problem list: mono articular swelling will need to r/o septic joint non anion gap metabolic acidois- likely 2/2 metabolic compensation of chronic hypercarbia Chronic venous insufficiency managed on furosemide. Severe Rheumatoid Arthritis Hypothyroidism Obesity hypoventilation/JESUS ALBERTO with chronic Hypercarbia Hypothyroidism Osteopenia status post back surgery Anxiety Depression plan: admit to general med floor, vital per protocol Ortho consult to see if fluid collection can be tapped. Will follow off antibiotics for now. will obtain ABG to see level of hypercarbia and and underlying acid base disorder, evaluate role for diamox. will hold off lasix for now as it can be a contributing factor. He recieved 20mg IV today. He will likely need further diuresis. Please inform his service attendant cafeteria Dr. Sifuentes of his admission will continue his home meds. Pain control with IV ketorlac for severe pain and tyelenol heart healthy diet full code As Ranked By This Provider Problem List: 1. Anasarca 2. Joint swelling Core Measures/Misc (03/09) Acute Coronary Syndrome ACS Diagnosis: No Congestive Heart Failure Congestive Heart Failure Diagnosis No Cerebrovascular Accident CVA/TIA Diagnosis: No VTE (View Protocol) VTE Risk Factors Age>40 No Mechanical VTE Prophylaxis d/t Medical Contraindication No VTE Pharm Prophylaxis d/t NA PharmProphylax ordered Sepsis (View protocol) Sepsis Present: No If YES complete Sepsis Event Note If YES complete Sepsis Event Note Jazmyne Wang MD 01/20/180: Core Measures/Misc (03/09) Sepsis (View protocol) If YES complete Sepsis Event Note If YES complete Sepsis Event Note Attending MD Review Statement Attending Statement Attending MD Statement: examined this patient, discuss w/resident/PA/MANUFACTURING QUALITY MANAGER, agreed w/resident/PA/MANUFACTURING QUALITY MANAGER Attending Assessment/Plan: This is a 72-year-old male with a history of morbid obesity presenting to the hospital with anasarca and monoarticular arthritis; differential diagnosis includes bursitis, septic arthritis, rheumatoid or gout. Patient will need a diagnostic and therapeutic arthrocentesis which can be done by orthopedic surgery or IR. Based on fluid studies results treatment will be determined. We will also obtain an ABG as patient has a [id number] gap metabolic acidosis likely secondary to chronic metabolic compensation due to chronic hypercapnia. Patient will also need a sleep study done upon discharge, I have explained the importance of compliance with a CPAP machine.
[2018-01-20] MEDS ORDERED: RAMIPRIL10 M1 PO (00:59)
[2018-01-20 01:16] VITALS: BP 156/98
[2018-01-20] MEDS ORDERED: TOPROL XL25 M1 PO (01:35)
--- NOTE | 2018-01-20 07:32 | PN- Housestaff ---
Triny Arias 01/20/18 0732: Subjective Follow-up For: right olecranon swelling Subjective: Patient was seen and exmained at bedside. He complains of severe 8/10 pain in his right elbow. He says the pain was at its worst yesterday, it is getting better. He also complains of severe pedal edema and is requesting something to relieve it. Review of Systems Constitutional: Reports: see HPI. Objective Last 24 Hrs of Vital Signs/I&O Vital Signs Date Time Temp Pulse Resp B/P B/P Pulse O2 O2 Flow FiO2 Mean Ox Delivery Rate 01/23 1352 97.2 89 20 130/60 92 Room Air 01/23 0835 78 137/77 01/23 0834 78 137/77 01/23 0800 97 Nasal 2.0L Cannula 01/23 0646 97.6 78 20 135/77 97 Nasal 2.0L Cannula 01/23 0000 Nasal 2.0L Cannula 01/22 2233 98.5 98 18 155/84 95 Nasal 2.0L Cannula 01/22 2119 98 155/84 Intake & Output 01/23 1600 01/23 0800 01/23 0000 Intake Total 890 300 600 Output Total Balance 890 300 600 Intake, IV 150 300 Intake, Oral 740 600 Number 1 Bowel Movements Patient 212 lb Weight Weight Bed scale Measurement Method Physical Exam General Appearance: Alert, Oriented X3, Cooperative, Moderate Distress Assessment/Plan Assessment: 72-year-old gentleman with a history of severe rheumatoid arthritis currently on chronic prednisone previously on Tofancitinib,coronary artery disease, STEMI, s /p with PCI/USHA ([facility]) LCx 04/2007 and subsequent PCI/USHA ([facility]) LAD , hypertension, adrenal insufficiency 2/2 chronic steroid, obesity hypoventilation syndrome/obstructive sleep apnea on 2 L nasal cannula at home,Chronic BP s/p multiple spinal surgeries, hypothyroidism, history of shingles, bilateral lower extremity venous insufficiency with chronic lower extremity edema right greater than left, recurrent lower extremity cellulitis, with history of VRE in the urine, history of C. difficile in the past is admitted to the floor for the evaluation of right elbow swelling. The swelling in the elbow with imaging significant for 17 mm fluid collection posterior to the elbow corresponding to the palpable area. He also has a 3+ bilateral pedal edema. Problem list: 1. Olecranon bursitis 2. non anion gap metabolic acidois 3.Chronic venous insufficiency 4.Severe Rheumatoid Arthritis 5.Hypothyroidism 6.Obesity hypoventilation/JESUS ALBERTO with chronic Hypercarbia 7.Hypothyroidism 8.Osteopenia status post back surgery 9.Anxiety 10.Depression PLAN: 1. Right Elbow Swelling -Right elbow swelling appears to be essentialy similar in size -Pain stilla 01/30 -Ortho consult requested. will follow up on the recommendations -ID consult requested. We will follow Recs 2. Obesity hypoventilation syndrome -Trend BP -ABG if he develops respiratory distress 3. Pedal edema -The patient had 3+ pedal edema this morning -We would try to manage it with foot elevation -We are holding off on Lasix for now to avoid contraction alkalosis DVT prophylaxis subcutaneous heparin Heart healthy diet CODE STATUS full code Problem List: 1. Rheumatoid arthritis 2. Diabetes 3. GERD (gastroesophageal reflux disease) 4. Obesity hypoventilation syndrome 5. Post herpetic neuralgia 6. Swelling of elbow Pain Ratin Pain Location: right elbow and arm Pain Goal: Pain 4 or less Pain Plan: pathway Tomorrow's Labs & Rationales: cbc and bep Sergio Hager 01/20/18 1340: Attending MD Review Statement Attending Statement Attending MD Statement: examined this patient, discuss w/resident/PA/PARK INTERPRETIVE RANGER, agreed w/resident/PA/PARK INTERPRETIVE RANGER, discussed with family, reviewed EMR data (avail), discussed with nursing, discussed with case mgmt, reviewed images, amended to note Attending Assessment/Plan: 72-year-old gentleman with a history of severe rheumatoid arthritis currently on chronic prednisone previously on Tofancitinib,coronary artery disease, STEMI, s /p with PCI/USHA ([facility]) LCx 04/2007 and subsequent PCI/USHA ([facility]) LAD , hypertension, adrenal insufficiency 2/2 chronic steroid, obesity hypoventilation syndrome/obstructive sleep apnea on 2 L nasal cannula at home came with mono articular swelling with imaging significant for 17 mm fluid collection posteror to elbow. He c/o pain in elbow with decreased range of motion. ASSESSMENT: 1. Right arm cellulitis 2. Rheumatoid arthritis worsening. 3. R/o septic arthtitis. 4. B.l lower extremity edema. 5. JESUS ALBERTO with metabolic alkalosis. 6. As per PMH PLAN: - admit to general med floor - Ortho consult to see if fluid collection can be tapped. Start abx after tap done len. - Reassess diuresis in am - will continue his home meds. - Pain control - heart healthy diet - full code
--- NOTE | 2018-01-20 07:38 | Cons- Orthopedic ---
General Information and HPI Consulting Request Date of Consult: 01/20/18 Requested By: Jazmyne Wang MD Reason for Consult: Right upper extremity swelling Source of Information: patient History of Present Illness: 72yo male with a history of rheumatoid arthritis on prednisone, CAD status post KS, hypertension, JESUS ALBERTO on 2L O2, bilateral lower extremity venous insufficiency, and recurrent cellulitis presents for evaluation of right upper extremity pain and swelling. He reports increased pain and swelling in the right upper extremity, starting in his fingers in his hand. Over the past few days the swelling is gradually increased around the forearm and elbow. He notes a difference in the size of his right arm as compared to his left. Tenderness over the posterior elbow, worse with direct pressure. He denies fevers, however does report decreased appetite and malaise. Patient reports a prior history of right lower extremity cellulitis with associated pain. Allergies/Medications Allergies: Coded Allergies: hydrocodone (From VICODIN) (Intermediate, SEVERE HALLUCINATIONS 07/05/16) hydromorphone (From DILAUDID) (Intermediate, SEVERE HALLUCINATIONS 07/05/16) morphine (Intermediate, WILD DREAMS, GI UPSET, SEVERE HALLUCINATIONS 07/05/16) oxycodone (From PERCOCET) (Intermediate, SEVERE HALLUCINATIONS 07/05/16) lactose (DIARRHEA 07/05/16) Home Med List: Alendronate Sodium (Fosamax) 70 MG TABLET 1 TAB PO Q FRIDAY OSTEOPOROSIS ( Reported) in the morning, at least 30 minutes before the first food, beverage, or medication of the day Amitriptyline HCl 25 MG TABLET 1 TAB PO QPM SLEEP (Reported) Ascorbic Acid (Vitamin C) 500 MG CAPSULE.ER 1 CAP PO DAILY VITAMIN SUPPORT ( Reported) Aspirin (Aspirin*) 81 MG TAB.CHEW 1 TAB PO DAILY heart health (Reported) Atorvastatin Calcium 20 MG TABLET 1 TAB PO DAILY CHOLESTEROL (Reported) Buspirone HCl 5 MG TABLET 1 TAB PO TID ANXIETY (Reported) Cyanocobalamin (Vitamin B-12) 1,000 MCG TABLET 1 TAB PO DAILY SUPPLEMENT ( Reported) Cyclobenzaprine HCl 5 MG TABLET 1 TAB PO DAILY MUSCLE SPASMS (Reported) Gabapentin (Neurontin) 300 MG CAPSULE 1 CAP PO TID NERVE PAIN (Reported) Lactobacillus Acidophilus (Acidophilus) 1 EACH CAPSULE 1 CAP PO DAILY gut health . Lansoprazole (Prevacid) 30 MG TAB.RAP.DR 1 TAB PO DAILY GI (Reported) Levothyroxine Sodium 50 MCG TABLET 1 TAB PO DAILY AC THYROID (Reported) Metoprolol Succ XL (Toprol XL) 25 MG TAB 25 MG PO DAILY BLOOD PRESSURE Multivitamin (Multiple Vitamins) 1 EACH TABLET 1 TAB PO DAILY SUPPLEMENT ( Reported) Potassium Chloride (K-Tab ER) 10 MEQ TABLET.ER 1 TAB PO DAILY SUPPELEMENT ( Reported) Prednisone 20 MG TABLET 1 TAB PO DAILY RA (Reported) START FROM 09/23/16 THEN CONTINUE DAILY Ramipril 10 MG CAPSULE 2 CAP PO DAILY HTN (Reported) Ramipril 10 MG CAPSULE 1 CAP PO BID HTN (Reported) Sertraline HCl 50 MG TABLET 1 TAB PO DAILY MENTAL HEALTH (Reported) Current Medications: Current Medications Sig/Luis Start time Last Medication Dose Route Stop Time Status Admin Acetaminophen 650 MG Q4P PRN 01/20 043 AC PO Amitriptyline HCl 25 MG QPM 01/20 2100 AC PO Aspirin 81 MG DAILY 01/20 900 AC PO Atorvastatin Calcium 20 MG DAILY 01/20 900 AC PO Buspirone HCl 5 MG TID 01/20 900 AC PO Cyanocobalamin 1,000 MCG DAILY 01/20 900 AC PO Cyclobenzaprine HCl 5 MG DAILY 01/20 900 AC PO Enoxaparin Sodium 40 MG DAILY 01/20 900 AC SC Furosemide 0 .STK-MED ONE 01/19 193 DC IV Furosemide 20 MG ONCE ONE 01/190 DC 01/19 IV 01/19 1831 1941 Gabapentin 300 MG TID 01/20 0057 AC PO Ketorolac 15 MG Q6P PRN 01/20 043 AC Tromethamine IV Levothyroxine Sodium 0.05 MG DAILY AC 01/20 700 AC 01/20 PO 0607 Lisinopril 40 MG BID 01/20 0108 AC PO Metoprolol Succinate 25 MG DAILY 01/20 900 AC PO Omeprazole 40 MG DAILY AC 01/20 700 AC 01/20 PO 0607 Prednisone 20 MG DAILY 01/20 900 AC PO Sertraline HCl 50 MG DAILY 01/20 900 AC PO Past History Medical History Blood Transfusion Hx: Yes Neurological: peripheral neuropathy EENT: CATARACTS REMOVED Cardiovascular: CAD (s/p angioplasty), hypertension, hyperlipidemia, myocardial infarction, non-ST patient KS, status post angioplasty/stent x 3 in 2006 Respiratory: bronchitis, COPD, obstructive sleep apnea, pneumonia Gastrointestinal: GERD (minimal), lactose intolerance, 10/27/2014: ERCP WITH ES/ CBD STONE EXTRACTION C. 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 FH: CVA (cerebrovascular accident) SISTER, , Age 71; Cause: Multiple sclerosis. FH: brain cancer SISTER, , Age 55; Cause: Brain cancer. FATHER ( of a myocardial infarction in his 60's). , Age 63; Cause: Myocardial infarct. SISTER ( of multiple sclerosis). Psychosocial History Where Do You Live? Home Who Do You Live With? self, rest of his family members live in the same house in adjacent apartment Services at Home: Home Health Aide, Oxygen Primary Language: Wolof Smoking Status: Never Smoked Living Will? no Power of Electro Plater/HCP? yes Name of POA/HCP: Pt's son, Dandre Leyva Functional Ability ADLs Independent: dressing, eating, toileting, bathing. Ambulation: independent IADLs Independent: shopping, housework, finances, food prep, telephone, transportation , medication admin. Review of Systems Review of Systems: See HPI Exam & Diagnostic Data Vital Signs and I&O Vital Signs Date Time Temp Pulse Resp B/P B/P Pulse O2 O2 Flow FiO2 Mean Ox Delivery Rate 01/20 1600 94 Nasal 2.0L Cannula 01/20 1416 98.3 96 20 124/80 94 Nasal 2.0L Cannula 01/20 1030 99 94 Nasal 2.0L Cannula 01/20 0908 99 144/88 01/20 0908 99 144/88 01/20 0800 97 Nasal 2.0L Cannula 01/20 0756 98.4 99 20 144/88 97 Nasal 3.0L Cannula 01/20 0330 Nasal 2.0L Cannula 01/20 0116 99.2 76 18 156/98 93 Room Air 01/19 2243 97.6 111 22 138/76 95 Room Air 01/19 2002 98.7 93 20 148/92 97 Nasal 2.0L Cannula Intake & Output 01/20 1600 01/20 0800 01/20 0000 01/19 1600 01/19 0800 01/19 0000 Intake Total 730 Output Total 375 725 Balance 355 -725 Intake, IV 10 Intake, Oral 720 Output, Urine 375 725 Patient 212 lb 212 lb 212 lb Weight Weight Bed scale Bed scale Reported by Patient Measurement Method Physical Exam: Alert, oriented, in no acute distress. Patient sitting at bedside speaking with friend. Right upper extremity: Diffuse swelling noted of the right elbow, forearm, wrist, and hand. Several areas of superficial skin abrasions without purulent drainage or significant erythema. Intact elbow flexion extension and supination/pronation without pain. Intact wrist flexion extension with minimal discomfort. Intact finger flexion/extension and card cleaner; card cleaner strength and ability to make a full composite fist limited due to swelling in fingers. Sensation intact to light touch over right upper extremity in M/U/R nerve distributions. Tenderness to palpation over the posterior olecranon without obvious fluctuance. The bursa appears fluid-filled, however not tense. Imaging Results: Right upper extremity ultrasound (01/19/18): No evidence for right upper extremity deep venous thrombosis. 17 mm fluid collection posterior to the elbow corresponding to the palpable area. XR right elbow (01/20/18): 1. Mild diffuse osteopenia. 2. Minimal enthesopathy at the insertional site of the triceps tendon to the olecranon process. 3. Minimal new bone formation at the insertional site of the ulnar collateral ligament to the humerus. 4. No radiographic evidence of joint effusion. 5. Nonspecific soft tissue swelling, of uncertain etiology. Assessment/Plan Assessment/Plan 72-year-old male with multiple medical problems presents with right upper extremity swelling and pain, consistent with cellulitis. He does have increased fluid in the olecranon bursa, however no evidence of intra-articular involvement. He is currently afebrile with stable vital signs. Bedside aspiration of the right olecranon bursa was performed today. Cloudy thin fluid was removed; no gross purulence. 1. Follow-up labs (cell count, cultures) from fluid drawn off right olecranon bursa. 2. Pain control 3. Gentle compression and elevation of right upper extremity 4. Recommend antibiotic therapy for the initial treatment of cellulitis. We will continue to monitor. No indication for further surgical intervention at this time. If concern for further fluid collection/abscess, recommend advanced imaging and evaluation by interventional radiology for possible ultrasound- guided drainage. Consult Acknowledgment - Thank you for your consult request. Attending MD Review Statement Attending Statement Attending MD Statement: examined this patient, discuss w/resident/PA/[employer], reviewed EMR data (avail), discussed w/nursing, reviewed images
[2018-01-20 07:56] VITALS: BP 144/88
--- NOTE | 2018-01-20 09:49 | RADIOLOGY REPORT ---
EXAMINATION: XR ELBOW, RIGHT CLINICAL INFORMATION: 72-year-old male presented with right elbow swelling. COMPARISON: None TECHNIQUE: AP, lateral, and oblique views of the right elbow. FINDINGS: Mild diffuse osteopenia is noted involving all the visualized bones. The bony alignment is intact. The cortices are intact. Minimal enthesopathy is noted at the insertional site of the triceps tendon to the olecranon process. Minimal new bone formation is noted at the humeral insertion site of the ulnar collateral ligament. Nonspecific diffuse soft tissue swelling is noted predominantly involving the forearm and around the elbow, uncertain etiology. There is no definite joint effusion present. IMPRESSION: 1. Mild diffuse osteopenia. 2. Minimal enthesopathy at the insertional site of the triceps tendon to the olecranon process. 3. Minimal new bone formation at the insertional site of the ulnar collateral ligament to the humerus. 4. No radiographic evidence of joint effusion. 5. Nonspecific soft tissue swelling, of uncertain etiology.
[2018-01-20 14:16] VITALS: BP 124/80
[2018-01-20 23:09] VITALS: BP 116/73
[2018-01-21 07:09] VITALS: BP 147/81
[2018-01-21 07:52] LABS: ABSOLUTE BASOPHIL COUNT 0 /CUMM (0.0-0.2); ABSOLUTE EOSINOPHIL COUNT 0.1 /CUMM (0.0-0.7); ABSOLUTE GRANULOCYTE CT 7.6 /CUMM (1.4-6.5); ABSOLUTE MONOCYTE COUNT 0.9 /CUMM (0.10-0.60); BASOPHIL % 0.2 % (0.0-2.0); EOSINOPHIL % 0.9 % (0-5); GRANULOCYTE % 71.8 % (42.2-75.2); HEMATOCRIT 38.5 % (42-52); MEAN CORPUSCULAR HGB 26.5 PG (27.0-31.0); MEAN CORPUSCULAR HGB CONC 31.3 G/DL (33.0-37.0); MEAN CORPUSCULAR VOLUME 84.6 FL (80.0-94.0); MEAN PLATELET VOLUME 7.6 FL (7.4-10.4); PLATELET COUNT 273 /CUMM (130-400); RED BLOOD CELL CT 4.55 /CUMM (4.70-6.10); WHITE BLOOD CELL COUNT 10.6 /CUMM (4.8-10.8)
--- NOTE | 2018-01-21 11:44 | PN- Att Addend ---
Attending Addendum Attending Brief Note 72-year-old gentleman with multiple medical problems in past. He c/o pain in elbow with decreased range of motion. Orthopedics noted with tap of elbow joint, Xray elbow without joint effusion. Symptoms likely from bursitis and cellultiis. Swelling with overall slow improvement. Redness mild better. Afebrile. ASSESSMENT: 1. Right arm cellulitis possible bursitis 2. Rheumatoid arthritis worsening. 3. Ruled out septic arthtitis. 4. B.l lower extremity edema from chronic venous stasis 5. JESUS ALBERTO with metabolic alkalosis. 6. As per PMH PLAN: - Continue general medical floor - Ortho noted, on iv abx, ID consult. Prelim cultures growing gram positive cocci. - restart lasix low dose - will continue his home meds. - Pain control - heart healthy diet - full code . Admission Lab Results I reviewed the following labs: Laboratory Tests 01/21 01/20 0645 1650 Chemistry Sodium (137 - 145 mmol/L) 144 Potassium (3.5 - 5.1 mmol/L) 3.5 Chloride (98 - 107 mmol/L) 97 L Carbon Dioxide (22 - 30 mmol/L) 38 H Anion Gap (5 - 16) 9 BUN (9 - 20 mg/dL) 25 H Creatinine (0.7 - 1.2 mg/dL) 0.7 Estimated GFR (>60 ml/min) > 60 BUN/Creatinine Ratio (7 - 25 %) 35.7 H Hematology CBC w Diff NO MAN DIFF REQ WBC (4.8 - 10.8 /CUMM) 10.6 RBC (4.70 - 6.10 /CUMM) 4.55 L Hgb (14.0 - 18.0 G/DL) 12.0 L Hct (42 - 52 %) 38.5 L MCV (80.0 - 94.0 FL) 84.6 MCH (27.0 - 31.0 PG) 26.5 L MCHC (33.0 - 37.0 G/DL) 31.3 L RDW (11.5 - 14.5 %) 18.0 H Plt Count (130 - 400 /CUMM) 273 MPV (7.4 - 10.4 FL) 7.6 Gran % (42.2 - 75.2 %) 71.8 Lymphocytes % (20.5 - 51.1 %) 18.6 L Monocytes % (1.7 - 9.3 %) 8.5 Eosinophils % (0 - 5 %) 0.9 Basophils % (0.0 - 2.0 %) 0.2 Absolute Granulocytes (1.4 - 6.5 /CUMM) 7.6 H Absolute Lymphocytes (1.2 - 3.4 /CUMM) 2.0 Lymphocytes (%) 7 Absolute Monocytes (0.10 - 0.60 /CUMM) 0.9 H Absolute Eosinophils (0.0 - 0.7 /CUMM) 0.1 Absolute Basophils (0.0 - 0.2 /CUMM) 0 % Normal PMNs (%) 73 Misc Hematology Test (%) Other Body Source Fluid WBC (0 - 5 /CUMM) 86555 H Fld Total RBCs Counted (0 /CUMM) 03758 H Admission Meds I reviewed the following Meds: Current Medications Sig/Luis Start time Last Medication Dose Stop Time Status Admin Acetaminophen 650 MG Q4P PRN 01/20 0430 AC 01/20 (Tylenol) 1829 Amitriptyline HCl 50 MG QPM 01/21 2100 AC (Elavil 50 MG Tablet) Ampicillin Sodium/ 3,000 MG Q6 01/20 1800 AC 01/21 Sulbactam Sodium 0533 (Unasyn) Sodium Chloride 100 ML (Normal Saline 0.9%) Aspirin 81 MG DAILY 01/20 900 AC 01/21 (Aspirin) 0839 Atorvastatin Calcium 20 MG DAILY 01/20 900 AC 01/21 (Lipitor) 0839 Buspirone HCl 5 MG TID 01/20 900 AC 01/21 (Buspar) 0839 Cyanocobalamin 1,000 MCG DAILY 01/20 900 AC 01/21 (Vitamin B12) 0840 Cyclobenzaprine HCl 5 MG DAILY 01/20 09 AC 01/21 (Flexeril 5MG Tab) 0840 Enoxaparin Sodium 40 MG DAILY 01/20 09 AC 01/21 (Lovenox) 0837 Gabapentin 300 MG TID 01/20 0057 AC 01/21 (Neurontin) 0837 Ketorolac 15 MG Q6P PRN 01/20 0430 AC 01/20 Tromethamine 1703 (Toradol) Levothyroxine Sodium 0.05 MG DAILY AC 01/20 07 AC 01/21 (Synthroid) 0534 Lisinopril 40 MG BID 01/20 0108 AC 01/21 (Prinivil) 0839 Metoprolol Succinate 25 MG DAILY 01/20 0900 AC 01/21 (Toprol XL) 0838 Omeprazole 40 MG DAILY AC 01/20 0700 AC 01/21 (Prilosec) 0534 Prednisone 20 MG DAILY 01/20 0900 AC 01/21 0838 Sertraline HCl 50 MG DAILY 01/20 0900 AC 01/21 (Zoloft) 0838 Vancomycin HCl 1,000 MG ONCE ONE 01/21 1045 UNir Sodium Chloride 250 ML 01/21 1144 (Normal Saline 0.9%)
--- NOTE | 2018-01-21 13:11 | PN- Housestaff ---
GaryTriny 01/21/18 1310: Subjective Follow-up For: right elbow swelling Subjective: Patient was examined at bedside. He reports improvement in his pain from an 8 to a 6. He does complain of worsening numbness in the little finger of his right hand. He also feels that the swelling in his legs has been worsening. He reports that he slept well. He denies fever, chills, chest pain, palpitations or respiratory distress. Review of Systems Constitutional: Reports: see HPI. Objective Last 24 Hrs of Vital Signs/I&O Vital Signs Date Time Temp Pulse Resp B/P B/P Pulse O2 O2 Flow FiO2 Mean Ox Delivery Rate 01/22 0649 98.0 82 19 110/60 97 01/21 2148 98.4 98 19 154/80 95 Nasal 2.0L Cannula 01/21 2003 146/93 01/21 1410 97.7 84 20 118/56 93 Room Air Intake & Output 01/22 1600 01/22 0800 01/22 0000 Intake Total 350 360 Output Total 400 Balance -50 360 Intake, IV 110 120 Intake, Oral 240 240 Output, Urine 400 Patient 213 lb Weight Physical Exam General Appearance: Alert, Oriented X3, Cooperative, Moderate Distress Assessment/Plan Assessment: 72-year-old gentleman with a history of severe rheumatoid arthritis currently on chronic prednisone previously on Tofancitinib,coronary artery disease, STEMI, s /p with PCI/USHA ([facility]) LCx 04/2007 and subsequent PCI/USHA ([facility]) LAD , hypertension, adrenal insufficiency 2/2 chronic steroid, obesity hypoventilation syndrome/obstructive sleep apnea on 2 L nasal cannula at home,Chronic BP s/p multiple spinal surgeries, hypothyroidism, history of shingles, bilateral lower extremity venous insufficiency with chronic lower extremity edema right greater than left, recurrent lower extremity cellulitis, with history of VRE in the urine, history of C. difficile in the past is admitted to the [facility] floor for the evaluation of right elbow swelling. The swelling in the elbow with imaging significant for 17 mm fluid collection posterior to the elbow corresponding to the palpable area. He also complains of numbness in the little finger onohis right hand possibly due to ulnar nerve entrapment. He has BLE 3+ edema possibly due to Cardiac failure vs chronic venous insufficiency. Problem list: 1. Olecranon bursitis 2. non anion gap metabolic acidois 3.Chronic venous insufficiency 4.Severe Rheumatoid Arthritis 5.Hypothyroidism 6.Obesity hypoventilation/JESUS ALBERTO with chronic Hypercarbia 7.Hypothyroidism 8.Osteopenia status post back surgery 9.Anxiety 10.Depression PLAN: 1.Olecranon Bursitis -Right elbow swelling appears to be essentialy similar in size -Improvement in pain form 01/30 t0 11/30. -Ortho consult appreciated -Aspiration of fluid [place] [address] [place] an RBC: 74314. -Culture of the fluid is growing gram positive cocci -ID consult appreciated. We will follow Recs We will follow his numbness with periodic physical exams. 2. Obesity ventilation syndrome -Trend BP -ABG if he develops respiratory distress 3. Pedal edema -The patient had 3+ pedal edema this morning -We will try to manage it in a continuation, ambulation as tolerated, compression stockings -We will we will restart Lasix p.o. 20 mg 4. Postherpetic neuralgia -The patient complained of burning pain in the suprapubic region residual from an episode of shingles this June -We will increase his dose of amitriptyline to 50 mg DVT prophylaxis subcutaneous heparin Heart healthy diet CODE STATUS full code Problem List: 1. Rheumatoid arthritis 2. CAD (coronary artery disease) 3. HTN (hypertension) 4. History of adrenal insufficiency 5. Olecranon bursitis 6. Obesity hypoventilation syndrome 7. Anasarca Pain Ratin Pain Location: right arm Pain Goal: Pain 7 or less Pain Plan: pathway Tomorrow's Labs & Rationales: f/u blood cultures AlleySergio lopez 01/22/18 1125: Attending MD Review Statement Attending Statement Attending MD Statement: examined this patient, discuss w/resident/PA/CASING CREW, agreed w/resident/PA/CASING CREW, discussed with family, reviewed EMR data (avail), discussed with nursing, discussed with case mgmt, reviewed images, amended to note Attending Assessment/Plan: agree with above, rest see my addendum
[2018-01-21 14:10] VITALS: BP 118/56
--- NOTE | 2018-01-21 17:06 | Cons- Infect Disease ---
General Information and HPI Consulting Request Date of Consult: 01/21/18 Requested By: Sergio Hager MD Reason for Consult: Right olecranon bursa Source of Information: patient, old records History of Present Illness: This is a 72-year-old man with a history of hypertension, coronary artery disease, status post PR, obesity hypoventilation syndrome/obstructive sleep apnea, maintained on 2 L of oxygen nightly, hypothyroidism, rheumatoid arthritis , maintained on prednisone, chronic venous insufficiency, with recurrent right lower extremity cellulitis, and chronic right groin/right lower quadrant pain following an episode of shingles, admitted on January 19 with a four-day history of increasing swelling, pain and erythema of the right upper extremity from the wrist to the elbow with no history of trauma. On admission he was afebrile. Laboratory data revealed a white blood cell count of 12,000, BUN/creatinine 27 and 0.7, with normal liver enzymes, coags normal. Doppler of the right upper extremity was negative for DVT but revealed a 17 mm fluid collection posterior to the elbow. Chest x-ray was negative for any acute process. He was followed off antibiotics. On January 20 he underwent aspiration of the right olecranon bursa, yielding cloudy fluid, and he was begun on Unasyn. Today the bursal fluid was reported positive for scant growth of gram-positive cocci. He has remained afebrile since admission. His white blood cell count has decreased slightly today and he notes improvement in the right upper extremity swelling and pain. He does not report any trauma to the right upper extremity but does report leaning both elbows on his walker for a significant part of the day. Allergies/Medications Allergies: Coded Allergies: hydrocodone (From VICODIN) (Intermediate, SEVERE HALLUCINATIONS 07/05/16) hydromorphone (From DILAUDID) (Intermediate, SEVERE HALLUCINATIONS 07/05/16) morphine (Intermediate, WILD DREAMS, GI UPSET, SEVERE HALLUCINATIONS 07/05/16) oxycodone (From PERCOCET) (Intermediate, SEVERE HALLUCINATIONS 07/05/16) lactose (DIARRHEA 07/05/16) Home Med List: Alendronate Sodium (Fosamax) 70 MG TABLET 1 TAB PO Q FRIDAY OSTEOPOROSIS ( Reported) in the morning, at least 30 minutes before the first food, beverage, or medication of the day Amitriptyline HCl 25 MG TABLET 1 TAB PO QPM SLEEP (Reported) Ascorbic Acid (Vitamin C) 500 MG CAPSULE.ER 1 CAP PO DAILY VITAMIN SUPPORT ( Reported) Aspirin (Aspirin*) 81 MG TAB.CHEW 1 TAB PO DAILY heart health (Reported) Atorvastatin Calcium 20 MG TABLET 1 TAB PO DAILY CHOLESTEROL (Reported) Buspirone HCl 5 MG TABLET 1 TAB PO TID ANXIETY (Reported) Cyanocobalamin (Vitamin B-12) 1,000 MCG TABLET 1 TAB PO DAILY SUPPLEMENT ( Reported) Cyclobenzaprine HCl 5 MG TABLET 1 TAB PO DAILY MUSCLE SPASMS (Reported) Gabapentin (Neurontin) 300 MG CAPSULE 1 CAP PO TID NERVE PAIN (Reported) Lactobacillus Acidophilus (Acidophilus) 1 EACH CAPSULE 1 CAP PO DAILY gut health . Lansoprazole (Prevacid) 30 MG TAB.RAP.DR 1 TAB PO DAILY GI (Reported) Levothyroxine Sodium 50 MCG TABLET 1 TAB PO DAILY AC THYROID (Reported) Metoprolol Succ XL (Toprol XL) 25 MG TAB 25 MG PO DAILY BLOOD PRESSURE Multivitamin (Multiple Vitamins) 1 EACH TABLET 1 TAB PO DAILY SUPPLEMENT ( Reported) Potassium Chloride (K-Tab ER) 10 MEQ TABLET.ER 1 TAB PO DAILY SUPPELEMENT ( Reported) Prednisone 20 MG TABLET 1 TAB PO DAILY RA (Reported) START FROM 09/23/16 THEN CONTINUE DAILY Ramipril 10 MG CAPSULE 2 CAP PO DAILY HTN (Reported) Ramipril 10 MG CAPSULE 1 CAP PO BID HTN (Reported) Sertraline HCl 50 MG TABLET 1 TAB PO DAILY MENTAL HEALTH (Reported) Past History Travel History Traveled to [place] past 21 day No Medical History Blood Transfusion Hx: Yes Neurological: peripheral neuropathy EENT: CATARACTS REMOVED Cardiovascular: CAD (s/p angioplasty), hypertension, hyperlipidemia, myocardial infarction, non-ST patient PR, status post angioplasty/stent x 3 in 2006 Respiratory: bronchitis, COPD, obstructive sleep apnea, pneumonia Gastrointestinal: GERD (minimal), lactose intolerance, 10/27/2014: ERCP WITH ES/ CBD STONE EXTRACTION C. difficile Renal: NONE Musculoskeletal: osteoarthritis, rheumatoid arthritis, R hip fracture S/P ORIF R COMMUTED HUMERUS FX Psychiatric: anxiety, depression Endocrine: adrenal insufficiency, hypothyroidism, obesity Blood Disorders: anemia Cancer(s): NONE RIVETER PNEUMATIC/Reproductive: NONE History of MRSA: No History of VRE: No History of CDIFF: No Isolation History: Standard Tetanus Vaccine: 01/05/16 Surgical History Surgical History: cholecystectomy, ORIF R hip status post back surgery status post ORIF of the right humerus Family History Relations & Conditions If Any: MOTHER, , Age 89; Cause: Old age. FH: CVA (cerebrovascular accident) SISTER, , Age 71; Cause: Multiple sclerosis. FH: brain cancer SISTER, , Age 55; Cause: Brain cancer. FATHER ( of a myocardial infarction in his 60's). , Age 63; Cause: Myocardial infarct. SISTER ( of multiple sclerosis). Psychosocial History Where Do You Live? Home Who Do You Live With? self, rest of his family members live in the same house in adjacent apartment Services at Home: Home Health Aide, Oxygen Primary Language: Brazilian Smoking Status: Never Smoked Living Will? no Power of Economics Department Chair/HCP? yes Name of POA/HCP: Pt's sonDandre Functional Ability ADLs Independent: dressing, eating, toileting, bathing. Ambulation: independent IADLs Independent: shopping, housework, finances, food prep, telephone, transportation , medication admin. Review of Systems Review of Systems All Other Systems: Reviewed and Negative Exam & Diagnostic Data Last 24 Hrs of Vital Signs/I&O Vital Signs Date Time Temp Pulse Resp B/P B/P Pulse O2 O2 Flow FiO2 Mean Ox Delivery Rate 01/21 1410 97.7 84 20 118/56 93 Room Air 01/21 0839 84 147/81 01/21 0838 84 147/81 01/21 0800 95 Nasal 2.0L Cannula 01/21 0709 97.9 84 20 147/81 95 Nasal 2.0L Cannula 01/21 0000 Nasal 2.0L Cannula 01/20 2309 98.1 89 20 116/73 96 Nasal 2.0L Cannula 01/20 2143 90 120/70 Intake & Output 01/21 1600 01/21 0800 08 0000 Intake Total 890 260 370 Output Total 300 200 Balance 890 -40 170 Intake, IV 150 140 130 Intake, Oral 740 120 240 Number 1 Bowel Movements Output, Urine 300 200 Patient 210 lb Weight Physical Exam Other Physical Findings: He is awake and alert in no acute distress. He is afebrile. Skin reveals no rash. HEENT exam is negative. Neck is supple with no adenopathy. Lungs are clear. Heart regular rhythm with no murmur. Abdomen is soft, tenderness on the right lower quadrant/groin, with no guarding or rebound, with positive bowel sounds. Back no CVA tenderness. Extremities right elbow swelling, with normal range of motion, with mild erythema and edema of the right forearm, minimally tender to palpation; 1+ edema both lower extremities. Neuro is without focality. Last 24 Hours of Lab Results: Laboratory Tests 01/21 0645 Chemistry Sodium (137 - 145 mmol/L) 144 Potassium (3.5 - 5.1 mmol/L) 3.5 Chloride (98 - 107 mmol/L) 97 L Carbon Dioxide (22 - 30 mmol/L) 38 H Anion Gap (5 - 16) 9 BUN (9 - 20 mg/dL) 25 H Creatinine (0.7 - 1.2 mg/dL) 0.7 Estimated GFR (>60 ml/min) > 60 BUN/Creatinine Ratio (7 - 25 %) 35.7 H Hematology CBC w Diff NO MAN DIFF REQ WBC (4.8 - 10.8 /CUMM) 10.6 RBC (4.70 - 6.10 /CUMM) 4.55 L Hgb (14.0 - 18.0 G/DL) 12.0 L Hct (42 - 52 %) 38.5 L MCV (80.0 - 94.0 FL) 84.6 MCH (27.0 - 31.0 PG) 26.5 L MCHC (33.0 - 37.0 G/DL) 31.3 L RDW (11.5 - 14.5 %) 18.0 H Plt Count (130 - 400 /CUMM) 273 MPV (7.4 - 10.4 FL) 7.6 Gran % (42.2 - 75.2 %) 71.8 Lymphocytes % (20.5 - 51.1 %) 18.6 L Monocytes % (1.7 - 9.3 %) 8.5 Eosinophils % (0 - 5 %) 0.9 Basophils % (0.0 - 2.0 %) 0.2 Absolute Granulocytes (1.4 - 6.5 /CUMM) 7.6 H Absolute Lymphocytes (1.2 - 3.4 /CUMM) 2.0 Absolute Monocytes (0.10 - 0.60 /CUMM) 0.9 H Absolute Eosinophils (0.0 - 0.7 /CUMM) 0.1 Absolute Basophils (0.0 - 0.2 /CUMM) 0 Last 24 Hours of Kain Results: Right olecranon bursal fluid culture January 20 positive for scant growth of gram- positive cocci Urine culture January 20 pending Diagnostic Data Recent Imaging Findings: Doppler of the right upper extremity January 20 negative for DVT but reveals a 17 mm fluid collection posterior to the elbow Chest x-ray January 19 negative for any acute process X-ray of the right elbow January 20 mild diffuse osteopenia, with no joint effusion Assessment/Plan Assessment/Plan Impression: This is a 72-year-old man with a history of rheumatoid arthritis, maintained on prednisone, admitted on January 19 with a 4 day history of increasing swelling, pain and erythema of the right upper extremity from the wrist to the elbow, found to be afebrile with a mild leukocytosis, status post aspiration of the right olecranon bursa yesterday, yielding cloudy fluid, which is growing gram- positive cocci. His clinical presentation is consistent with a septic right olecranon bursitis. The most common organism in this setting is Staph aureus and, given his frequent hospitalizations, MRSA must certainly be considered. As he does report improvement and his temperatures and white blood cell count are normal, however, feel that he can be continued on Unasyn pending final cultures. Of interest he does report leaning on his walker for a significant part of the day, which is likely the cause of his bursitis. Suggestion: 1. Follow-up the final culture of the right olecranon bursal fluid 2. Would recommend elbow pads to prevent further episodes 3. Continue Unasyn pending above Consult Acknowledgment - Thank you for your consult request.
[2018-01-21 21:48] VITALS: BP 154/80
[2018-01-22 06:49] VITALS: BP 110/60
[2018-01-22 08:23] LABS: ABSOLUTE BASOPHIL COUNT 0 /CUMM (0.0-0.2); ABSOLUTE EOSINOPHIL COUNT 0.1 /CUMM (0.0-0.7); ABSOLUTE GRANULOCYTE CT 7.6 /CUMM (1.4-6.5); ABSOLUTE LYMPH COUNT 1.8 /CUMM (1.2-3.4); ABSOLUTE MONOCYTE COUNT 0.8 /CUMM (0.10-0.60); BASOPHIL % 0 % (0.0-2.0); EOSINOPHIL % 1.2 % (0-5); GRANULOCYTE % 73.5 % (42.2-75.2); HEMATOCRIT 37.2 % (42-52); MEAN CORPUSCULAR HGB 26.7 PG (27.0-31.0); MEAN CORPUSCULAR HGB CONC 31.5 G/DL (33.0-37.0); MEAN CORPUSCULAR VOLUME 84.7 FL (80.0-94.0); MEAN PLATELET VOLUME 7.5 FL (7.4-10.4); PLATELET COUNT 260 /CUMM (130-400); RED BLOOD CELL CT 4.39 /CUMM (4.70-6.10); WHITE BLOOD CELL COUNT 10.3 /CUMM (4.8-10.8)
--- NOTE | 2018-01-22 08:39 | PN- Housestaff ---
Freda Ariasi 01/22/18 0838: Subjective Follow-up For: right olecranon bursitis Subjective: Patient was examined at bedside today. That he slept better, had no events overnight. He says he is feeling much better now that he is on Lasix. The compression stockings have helped him with the swelling in his feet. However, he says the pain is essentially the same as yesterday. He states that he is able to move his arm more freely today. The patient is concerned about his dose of Lasix since it makes him feel better. He also was concerned about residual burning pain he has post having shingles. Showed him that we are monitoring his condition. Closely and are adjusting his medications day to day today in accordance with his condition. He denies fever, chills, palpitations, headache, nausea, vomiting. Review of Systems Constitutional: Reports: see HPI. Objective Last 24 Hrs of Vital Signs/I&O Vital Signs Date Time Temp Pulse Resp B/P B/P Pulse O2 O2 Flow FiO2 Mean Ox Delivery Rate 01/22 0848 82 110/60 01/22 0847 82 110/60 01/22 0800 97 Nasal 2.0L Cannula 01/22 0649 98.0 82 19 110/60 97 01/21 2148 98.4 98 19 154/80 95 Nasal 2.0L Cannula 01/21 2003 146/93 01/21 1410 97.7 84 20 118/56 93 Room Air Intake & Output 01/22 1600 01/22 0800 01/22 0000 Intake Total 350 360 Output Total 400 Balance -50 360 Intake, IV 110 120 Intake, Oral 240 240 Output, Urine 400 Patient 213 lb Weight Physical Exam General Appearance: Alert, Oriented X3, Cooperative, Mild Distress Cardiovascular: Regular Rate, Normal S1, Normal S2, No Murmurs Lungs: b/l decreased air entry Abdomen: Soft, some tenderness in the suprapubic area Extremities: edema ++, swelling above the elbow still not improved. ROM shirley as compared to yesterday though Assessment/Plan Assessment: 72-year-old gentleman with a history of severe rheumatoid arthritis currently on chronic prednisone previously on Tofancitinib,coronary artery disease, STEMI, s /p with PCI/USHA ([facility]) LCx 04/2007 and subsequent PCI/USHA ([facility]) LAD , hypertension, adrenal insufficiency 2/2 chronic steroid, obesity hypoventilation syndrome/obstructive sleep apnea on 2 L nasal cannula at home,Chronic BP s/p multiple spinal surgeries, hypothyroidism, history of shingles, bilateral lower extremity venous insufficiency with chronic lower extremity edema right greater than left, recurrent lower extremity cellulitis, with history of VRE in the urine, history of C. difficile in the past is admitted to the floor for the evaluation of right elbow swelling. The swelling in the elbow with imaging significant for 17 mm fluid collection posterior to the elbow corresponding to the palpable area. He also complains of numbness in the little finger onohis right hand possibly due to ulnar nerve entrapment. He has BLE 2+ edema possibly due to Cardiac failure vs chronic venous insufficiency, improving after leg elevation and compression stockings. Given the patient's immunocompromised status, he is at an increased risk of MRSA , warranting the need to start Vancomycin Q12 per ID. Problem list: 1. Olecranon bursitis 2. non anion gap metabolic acidois 3.Chronic venous insufficiency 4.Severe Rheumatoid Arthritis 5.Hypothyroidism 6.Obesity hypoventilation/JESUS ALBERTO with chronic Hypercarbia 7.Hypothyroidism 8.Osteopenia status post back surgery 9.Anxiety 10.Depression PLAN: 1.Olecranon Bursitis -Right elbow swelling appears to be essentialy similar in size -Pain is still 6/10 -Ortho consult appreciated -Aspiration of fluid [place] [address] [place] an RBC: 53855. -Culture of the fluid is growing gram positive cocci -ID input appreciated. We will discontinue Unasyn. We will start Vancomycin 1000mg Q12 pending cultures results. 2. Obesity ventilation syndrome -Trend BP -ABG if he develops respiratory distress 3. Pedal edema -The patient had 2+ pedal edema this morning -We will continue ambulation as tolerated, compression stockings -We will we will restart Lasix p.o. 20 mg 4. Postherpetic neuralgia -The patient complained of burning pain in the suprapubic region residual from an episode of shingles this June -We will continue Gabapentin 300 mg TID and amitriptyline 50 mg DVT prophylaxis subcutaneous heparin Heart healthy diet CODE STATUS full code Problem List: 1. Obesity hypoventilation syndrome 2. Olecranon bursitis 3. Joint swelling 4. Anasarca Pain Ratin Pain Location: right elbow Pain Goal: Pain 7 or less Pain Plan: pathway Tomorrow's Labs & Rationales: margarette Sergio Hager 01/22/18 1126: Attending MD Review Statement Attending Statement Attending MD Statement: examined this patient, discuss w/resident/PA/BILINGUAL SALES REPRESENTATIVE, agreed w/resident/PA/BILINGUAL SALES REPRESENTATIVE, discussed with family, reviewed EMR data (avail), discussed with nursing, discussed with case mgmt, reviewed images, amended to note Attending Assessment/Plan: 72 o/m with pmh as above is admitted here with septic olecranon bursitis with aspirate from elbow joint growing Grma positive cocci in immunocompromised patient. ID has been consutled and follow recommendations regarding abx at discharge and duration of abx. Patient c/o post herpetic neuralgia for which he is receiving gabapentin and now appeas to be controlled. He has b/l lower extremity edema in presence of JESUS ALBERTO/hyperventilation syndrome and moderate pulmoanry hyperstension RVSP 56mmhg ECHO 2015 + chronic venous stasis. His HCO3 is 33 today and tolerating low dose lasix. Contineu with low dose lasix at discharge. Anticipate dc planning soon on PO abx as C/S results come back. GI/ DVT prophyalxis full code. Has HHS at home which will be resumed at discharge. Case management on board.
--- NOTE | 2018-01-22 11:56 | PN- Infect Dx ---
Subjective Subjective: Afebrile on steroids. He still notes discomfort in the right elbow. Objective Last 24 Hrs of Vital Signs/I&O Vital Signs Date Time Temp Pulse Resp B/P B/P Pulse O2 O2 Flow FiO2 Mean Ox Delivery Rate 01/22 0848 82 110/60 01/22 0847 82 110/60 01/22 0649 98.0 82 19 110/60 97 01/21 2148 98.4 98 19 154/80 95 Nasal 2.0L Cannula 01/21 2003 146/93 01/21 1410 97.7 84 20 118/56 93 Room Air Intake & Output 01/22 1600 01/22 0800 01/22 0000 Intake Total 350 360 Output Total 400 Balance -50 360 Intake, IV 110 120 Intake, Oral 240 240 Output, Urine 400 Patient 213 lb Weight Physical Exam Other Physical Findings: He appears comfortable in no acute distress Extremities increased swelling of the right olecranon bursa, slightly warm and tender to palpation; swelling of the right forearm persist with mild erythema and tenderness Results Last 24 Hours of Lab Results: Laboratory Tests 01/22 0730 Chemistry Sodium (137 - 145 mmol/L) 141 Potassium (3.5 - 5.1 mmol/L) 3.5 Chloride (98 - 107 mmol/L) 106 Carbon Dioxide (22 - 30 mmol/L) 32 H Anion Gap (5 - 16) 3 L BUN (9 - 20 mg/dL) 22 H Creatinine (0.7 - 1.2 mg/dL) 0.6 L Estimated GFR (>60 ml/min) > 60 BUN/Creatinine Ratio (7 - 25 %) 36.7 H Hematology CBC w Diff NO MAN DIFF REQ WBC (4.8 - 10.8 /CUMM) 10.3 RBC (4.70 - 6.10 /CUMM) 4.39 L Hgb (14.0 - 18.0 G/DL) 11.7 L Hct (42 - 52 %) 37.2 L MCV (80.0 - 94.0 FL) 84.7 MCH (27.0 - 31.0 PG) 26.7 L MCHC (33.0 - 37.0 G/DL) 31.5 L RDW (11.5 - 14.5 %) 18.0 H Plt Count (130 - 400 /CUMM) 260 MPV (7.4 - 10.4 FL) 7.5 Gran % (42.2 - 75.2 %) 73.5 Lymphocytes % (20.5 - 51.1 %) 17.8 L Monocytes % (1.7 - 9.3 %) 7.5 Eosinophils % (0 - 5 %) 1.2 Basophils % (0.0 - 2.0 %) 0 Absolute Granulocytes (1.4 - 6.5 /CUMM) 7.6 H Absolute Lymphocytes (1.2 - 3.4 /CUMM) 1.8 Absolute Monocytes (0.10 - 0.60 /CUMM) 0.8 H Absolute Eosinophils (0.0 - 0.7 /CUMM) 0.1 Absolute Basophils (0.0 - 0.2 /CUMM) 0 Last 24 Hours of Kain Results: Right olecranon bursal culture January 20 positive for Staph aureus Urine culture January 20 negative Assessment/Plan ID Impression: Stable, with temperatures and white blood cell count remaining normal, on Unasyn , Day 2 of treatment for a septic right olecranon bursitis secondary to Staph aureus. He is clearly at increased risk for MRSA and, given his persistent swelling, his antibiotics can be adjusted pending final cultures. Suggestion: 1. Elevation of the right upper extremity 2. Follow-up final culture of the right olecranon bursal fluid 3. Discontinue Unasyn 4. Begin Vancomycin 1 g IV every 12 hours pending above
[2018-01-22 14:22] VITALS: BP 108/82
[2018-01-22 22:33] VITALS: BP 155/84
[2018-01-23 06:46] VITALS: BP 135/77
--- NOTE | 2018-01-23 07:29 | PN- Housestaff ---
See Addendum Triny Arias 01/23/18 0729: Subjective Follow-up For: right elbow olecranon bursitis Subjective: Patient was seen and examined at bedside today. He had a lot of oozing from swelling in his right arm. He is complaining that his pain is worse today. He, however states that the edema in his legs is getting better. He denies fever, chills, chest pain, nausea, vomiting shortness of breath or respiratory distress of any kind Review of Systems Constitutional: Reports: see HPI. Objective Last 24 Hrs of Vital Signs/I&O Vital Signs Date Time Temp Pulse Resp B/P B/P Pulse O2 O2 Flow FiO2 Mean Ox Delivery Rate 01/23 0835 78 137/77 01/23 0834 78 137/77 01/23 0800 97 Nasal 2.0L Cannula 01/23 0646 97.6 78 20 135/77 97 Nasal 2.0L Cannula 01/23 0000 Nasal 2.0L Cannula 01/22 2233 98.5 98 18 155/84 95 Nasal 2.0L Cannula 01/22 2119 98 155/84 01/22 1422 98.1 108 16 108/82 94 Nasal 2.0L Cannula Intake & Output 01/23 1600 01/23 0800 01/23 0000 Intake Total 300 600 Output Total Balance 300 600 Intake, IV 300 Intake, Oral 600 Patient 212 lb Weight Weight Bed scale Measurement Method Physical Exam General Appearance: Alert, Oriented X3, Cooperative, Moderate Distress Skin: No Significant Lesion, skin breakdown over the right arm with clear fluid oozing out Cardiovascular: Regular Rate, Normal S1, Normal S2 Lungs: b/l air entry decreased Abdomen: Soft Extremities: swelling on his right arm is about the same size, actively oozing clear fluid Assessment/Plan Assessment: 72-year-old gentleman with a history of severe rheumatoid arthritis currently on chronic prednisone previously on Tofancitinib,coronary artery disease, STEMI, s /p with PCI/USHA ([facility]) LCx 04/2007 and subsequent PCI/USHA ([facility]) LAD , hypertension, adrenal insufficiency 2/2 chronic steroid, obesity hypoventilation syndrome/obstructive sleep apnea on 2 L nasal cannula at home,Chronic BP s/p multiple spinal surgeries, hypothyroidism, history of shingles, bilateral lower extremity venous insufficiency with chronic lower extremity edema right greater than left, recurrent lower extremity cellulitis, with history of VRE in the urine, history of C. difficile in the past is admitted to the [facility] floor for the evaluation of right elbow swelling. The swelling in the elbow with imaging significant for 17 mm fluid collection posterior to the elbow corresponding to the palpable area. He also complains of numbness in the little finger onohis right hand possibly due to ulnar nerve entrapment. He has BLE 1+ edema resolving with Lasix and compression stockings. The swelling on his arm has skin breakdownand actively oozing clear fluid. Problem list: 1. Olecranon bursitis 2. non anion gap metabolic acidois 3.Chronic venous insufficiency 4.Severe Rheumatoid Arthritis 5.Hypothyroidism 6.Obesity hypoventilation/JESUS ALBERTO with chronic Hypercarbia 7.Hypothyroidism 8.Osteopenia status post back surgery 9.Anxiety 10.Depression PLAN: 1.Olecranon Bursitis -Right elbow swelling appears to be essentialy similar in size -Worsening of pain to 12/30 -Culture of the fluid is growing Staph aureus pending final c/s report -ID consult appreciated. Patient is Day 2 of Vancomycin pending final culture sensitivity. -We will consider a f/u ortho consult if the pain or discharge worsen 2. Obesity ventilation syndrome -Trend BP -ABG if he develops respiratory distress 3. Pedal edema -The patient had 1+ pedal edema this morning -We will continue to manage it with compression stockings and Lasix 20mg 4. Postherpetic neuralgia -The patient complained of burning pain in the suprapubic region residual from an episode of shingles this June -He is responding well to his current medications DVT prophylaxis subcutaneous heparin Heart healthy diet CODE STATUS full code Problem List: 1. Obesity hypoventilation syndrome 2. Olecranon bursitis 3. Joint swelling 4. Anasarca 5. Rheumatoid arthritis 6. Post herpetic neuralgia Pain Ratin Pain Location: right arm and elbow Pain Goal: Pain 4 or less Pain Plan: pathway Tomorrow's Labs & Rationales: cbc and bep Sergio Hager 01/23/18 1122: Attending MD Review Statement Attending Statement Attending MD Statement: examined this patient, discuss w/resident/PA/PRODUCT OWNER, agreed w/resident/PA/PRODUCT OWNER, discussed with family, reviewed EMR data (avail), discussed with nursing, discussed with case mgmt, reviewed images, amended to note Attending Assessment/Plan: 72 o/m with pmh as above is admitted here with septic olecranon bursitis with aspirate from elbow joint growing Grma positive cocci in immunocompromised patient. ID has been consutled and follow recommendations regarding abx at discharge and duration of abx. Overnight c/o swelling in right arm which had skin breakdown and slight ooze. Afebrile, absent leukocytosis. Patient c/o post herpetic neuralgia for which he is receiving gabapentin and now appeas to be controlled. He has b/l lower extremity edema in presence of JESUS ALBERTO/hyperventilation syndrome and moderate pulmoanry hyperstension RVSP 56mmhg ECHO 2015 + chronic venous stasis. Contineu with low dose lasix at discharge. Anticipate dc planning soon on PO abx as C/S results come back and ID recommendations. GI/DVT prophyalxis full code. Has HHS at home which will be resumed at discharge. Case management on board.
[2018-01-23 08:02] LABS: ABSOLUTE BASOPHIL COUNT 0 /CUMM (0.0-0.2); ABSOLUTE EOSINOPHIL COUNT 0.2 /CUMM (0.0-0.7); ABSOLUTE LYMPH COUNT 1.6 /CUMM (1.2-3.4); ABSOLUTE MONOCYTE COUNT 0.7 /CUMM (0.10-0.60); BASOPHIL % 0.2 % (0.0-2.0); GRANULOCYTE % 73.4 % (42.2-75.2); HEMATOCRIT 38.7 % (42-52); MEAN CORPUSCULAR HGB 26.8 PG (27.0-31.0); MEAN CORPUSCULAR HGB CONC 30.7 G/DL (33.0-37.0); MEAN CORPUSCULAR VOLUME 87.2 FL (80.0-94.0); MEAN PLATELET VOLUME 7.7 FL (7.4-10.4); PLATELET COUNT 257 /CUMM (130-400); RED BLOOD CELL CT 4.43 /CUMM (4.70-6.10); WHITE BLOOD CELL COUNT 9.6 /CUMM (4.8-10.8)
--- NOTE | 2018-01-23 12:25 | PN- Infect Dx ---
Subjective Subjective: Afebrile. He feels improved with decreased discomfort in the right upper extremity. Objective Last 24 Hrs of Vital Signs/I&O Vital Signs Date Time Temp Pulse Resp B/P B/P Pulse O2 O2 Flow FiO2 Mean Ox Delivery Rate 01/24 0835 78 137/77 01/23 0834 78 137/77 01/23 0800 97 Nasal 2.0L Cannula 01/23 0646 97.6 78 20 135/77 97 Nasal 2.0L Cannula 01/23 0000 Nasal 2.0L Cannula 01/22 2233 98.5 98 18 155/84 95 Nasal 2.0L Cannula 01/22 2119 98 155/84 01/22 1422 98.1 108 16 108/82 94 Nasal 2.0L Cannula Intake & Output 01/23 1600 01/23 0801/23 0000 Intake Total 300 600 Output Total Balance 300 600 Intake, IV 300 Intake, Oral 600 Patient 212 lb Weight Weight Bed scale Measurement Method Physical Exam Other Physical Findings: He appears comfortable in no acute distress Extremities decreased swelling of the right elbow and right forearm, with minimal erythema and tenderness Results Last 24 Hours of Lab Results: Laboratory Tests 01/24 652 Chemistry Sodium (137 - 145 mmol/L) 140 Potassium (3.5 - 5.1 mmol/L) 4.1 Chloride (98 - 107 mmol/L) 99 Carbon Dioxide (22 - 30 mmol/L) 39 H Anion Gap (5 - 16) 1 L BUN (9 - 20 mg/dL) 20 Creatinine (0.7 - 1.2 mg/dL) 0.7 Estimated GFR (>60 ml/min) > 60 BUN/Creatinine Ratio (7 - 25 %) 28.6 H Hematology CBC w Diff NO MAN DIFF REQ WBC (4.8 - 10.8 /CUMM) 9.6 RBC (4.70 - 6.10 /CUMM) 4.43 L Hgb (14.0 - 18.0 G/DL) 11.9 L Hct (42 - 52 %) 38.7 L MCV (80.0 - 94.0 FL) 87.2 MCH (27.0 - 31.0 PG) 26.8 L MCHC (33.0 - 37.0 G/DL) 30.7 L RDW (11.5 - 14.5 %) 18.0 H Plt Count (130 - 400 /CUMM) 257 MPV (7.4 - 10.4 FL) 7.7 Gran % (42.2 - 75.2 %) 73.4 Lymphocytes % (20.5 - 51.1 %) 16.7 L Monocytes % (1.7 - 9.3 %) 7.7 Eosinophils % (0 - 5 %) 2.0 Basophils % (0.0 - 2.0 %) 0.2 Absolute Granulocytes (1.4 - 6.5 /CUMM) 7.0 H Absolute Lymphocytes (1.2 - 3.4 /CUMM) 1.6 Absolute Monocytes (0.10 - 0.60 /CUMM) 0.7 H Absolute Eosinophils (0.0 - 0.7 /CUMM) 0.2 Absolute Basophils (0.0 - 0.2 /CUMM) 0 Last 24 Hours of Kain Results: Right olecranon bursa culture January 20 positive for Staph aureus sensitive to Oxacillin Assessment/Plan ID Impression: Stable, with temperatures and white blood cell count remaining normal, now on Vancomycin, Day 3 of treatment for a septic right olecranon bursitis secondary to Staph aureus. As the Staph aureus is sensitive to Oxacillin his antibiotics can be adjusted. Suggestion: 1. Elevation of the right upper extremity 2. Discontinue Vancomycin 3. Begin Oxacillin 2 g IV every 4 hours, with eventual change to Keflex 500 mg p.o. every 6 hours to complete a [address] Velazquez is covering over the weekend
[2018-01-23 13:52] VITALS: BP 130/60
--- NOTE | 2018-01-23 18:54 | PN- Orthopedic ---
Surgical Brief Attending Note Brief Attending Note: Patient seen and examined earlier today. He is resting comfortably in the bed. No complaints of fevers or increased pain; diminished swelling in the right upper extremity. His posterior elbow is less sore with only mild fluid accumulation. He does have a small skin tear over the anterior forearm, which is weeping serous fluid. Exam: Right upper extremity Improved swelling of the right elbow, forearm, and hand. Intact elbow range of motion 0-130; full pronation; supination to 45 No pain with active motion of the elbow Intact wrist flexion/extension and hand mat machine tender Sensation intact to light touch over the right hand. Palpable radial pulse. A/P: 72-year-old male with multiple medical problems presents with right upper extremity pain and swelling consistent with cellulitis and septic right olecranon bursitis. Status post aspiration of clear cloudy fluid from the right posterior olecranon bursa. He is currently on antibiotics for staph aureus. Plan for continuation of antibiotics per ID recommendations. 1. Continue elevation of the right upper extremity for edema control. 2. Encourage the patient to move the right upper extremity as tolerated to assist with edema control. 3. No indication for further operative intervention. We will continue antibiotic management of upper extremity bursitis and cellulitis. Please call with additional questions or concerns.
[2018-01-23 22:00] VITALS: BP 150/90
--- NOTE | 2018-01-24 05:14 | PN- Housestaff ---
Triny Arias 01/24/18 0514: Subjective Follow-up For: right olecranon septic bursitis Subjective: Patient was seen and examined at bedside. He reports an improvement in his pain from an 8/10 to a 5/10. He states he is looking forward to going home soon. He reports an improvement in his pedal edema and would want compression stockings at home as well. He denies fever, chills, nausea vomiting, chest pain, shortness of breath. Review of Systems Constitutional: Reports: see HPI. Objective Last 24 Hrs of Vital Signs/I&O Vital Signs Date Time Temp Pulse Resp B/P B/P Pulse O2 O2 Flow FiO2 Mean Ox Delivery Rate 01/24 06 98.0 78 18 128/88 95 Nasal 2.0L Cannula 01/23 2200 99.1 85 18 150/90 91 Room Air 01/23 2132 85 150/90 01/23 1352 97.2 89 20 130/60 92 Room Air 01/23 0835 78 137/77 01/23 0834 78 137/77 01/23 0800 97 Nasal 2.0L Cannula Intake & Output 01/24 0800 01/24 0000 01/23 1600 Intake Total 320 700 890 Output Total Balance 320 700 890 Intake, IV 200 150 Intake, Oral 120 700 740 Number 2 1 Bowel Movements Patient 214 lb Weight Weight Bed scale Measurement Method Physical Exam General Appearance: Alert, Oriented X3, Cooperative, Mild Distress Neck: Supple Cardiovascular: Regular Rate, Normal S1, Normal S2 Lungs: Clear to Auscultation Extremities: swelling in the elbow almost the same, ROM improved Assessment/Plan Assessment: 72-year-old gentleman with a history of severe rheumatoid arthritis currently on chronic prednisone previously on Tofancitinib,coronary artery disease, STEMI, s /p with PCI/USHA ([facility]) LCx 04/2007 and subsequent PCI/USHA ([facility]) LAD , hypertension, adrenal insufficiency 2/2 chronic steroid, obesity hypoventilation syndrome/obstructive sleep apnea on 2 L nasal cannula at home,Chronic BP s/p multiple spinal surgeries, hypothyroidism, history of shingles, bilateral lower extremity venous insufficiency with chronic lower extremity edema right greater than left, recurrent lower extremity cellulitis, with history of VRE in the urine, history of C. difficile in the past is admitted to the floor for the evaluation of right elbow swelling. She reported an improvement in his pain from an 8/10 to a 5/10. He is looking forward to going home soon Problem list: 1. Olecranon bursitis 2. non anion gap metabolic acidois 3.Chronic venous insufficiency 4.Severe Rheumatoid Arthritis 5.Hypothyroidism 6.Obesity hypoventilation/JESUS ALBERTO with chronic Hypercarbia 7.Hypothyroidism 8.Osteopenia status post back surgery 9.Anxiety 10.Depression PLAN: 1.Olecranon Bursitis -Right elbow swelling appears to be essentialy similar in size -Pain better from 8 on 10-5 and 10. -Culture of the fluid is growing Staph aureus pending final c/s report -ID consult appreciated. Vancomycin stopped. -Patient was started on Oxacillin 2000mg Q4 -We will consider a f/u ortho consult if the pain or discharge worsen 2. Obesity hypoventilation syndrome -Trend BP -ABG if he develops respiratory distress 3. Pedal edema -The patient had 1+ pedal edema this morning -We will continue to manage it with compression stockings and Lasix 20mg 4. Postherpetic neuralgia -The patient complained of burning pain in the suprapubic region residual from an episode of shingles this June -He is responding well to his current medications We are anticipating discharging the patient on Keflex 500 mg p.o. every 6 hours (per ID recommendation) to complete a 2 week course of antibiotics DVT prophylaxis subcutaneous heparin Heart healthy diet CODE STATUS full code Problem List: 1. Rheumatoid arthritis 2. Olecranon bursitis 3. Anasarca 4. Swelling of elbow Pain Ratin Pain Location: right elbow Pain Goal: Pain 4 or less Pain Plan: pathway Tomorrow's Labs & Rationales: cbc and bep Sergio Hager 01/24/18 1036: Attending MD Review Statement Attending Statement Attending MD Statement: examined this patient, discuss w/resident/PA/TITRATOR, agreed w/resident/PA/TITRATOR, discussed with family, reviewed EMR data (avail), discussed with nursing, discussed with case mgmt, reviewed images, amended to note Attending Assessment/Plan: Agree wtih above. Continue current care..
[2018-01-24 06:00] VITALS: BP 128/88
[2018-01-24 14:14] VITALS: BP 130/80
[2018-01-24 21:57] VITALS: BP 135/76
[2018-01-25 06:32] VITALS: BP 100/70
[2018-01-25 08:48] LABS: ABSOLUTE BASOPHIL COUNT 0 /CUMM (0.0-0.2); ABSOLUTE EOSINOPHIL COUNT 0.1 /CUMM (0.0-0.7); ABSOLUTE GRANULOCYTE CT 8.7 /CUMM (1.4-6.5); ABSOLUTE LYMPH COUNT 1.5 /CUMM (1.2-3.4); ABSOLUTE MONOCYTE COUNT 0.8 /CUMM (0.10-0.60); BASOPHIL % 0.3 % (0.0-2.0); GRANULOCYTE % 77.5 % (42.2-75.2); HEMATOCRIT 38.5 % (42-52); MEAN CORPUSCULAR HGB 26.4 PG (27.0-31.0); MEAN CORPUSCULAR HGB CONC 30.8 G/DL (33.0-37.0); MEAN CORPUSCULAR VOLUME 85.8 FL (80.0-94.0); MEAN PLATELET VOLUME 7.5 FL (7.4-10.4); PLATELET COUNT 261 /CUMM (130-400); RBC DISTRIBUTION WIDTH 17.8 % (11.5-14.5); RED BLOOD CELL CT 4.49 /CUMM (4.70-6.10); WHITE BLOOD CELL COUNT 11.2 /CUMM (4.8-10.8)
--- NOTE | 2018-01-25 11:07 | PN- Housestaff ---
Bacilio Wang 01/25/18 1057: Subjective Follow-up For: Right elbow swelling, non anion gap metabolic acidosis, chronic venous insufficiency. Complaints: pain scale (0-10) (Pain right elbow, Shortness of) Tele-Events Since Last Visit: Patient seen and examine on bed. He had shortness of breath last night and de- saturated to SaO2 93%. He is doing good compare to yesterday and endorse he is improving. He denies fever, chills, chest pain, palpitaion, constipation loose motion, weakness. Review of Systems Constitutional: Reports: see HPI. Objective Last 24 Hrs of Vital Signs/I&O Vital Signs Date Time Temp Pulse Resp B/P B/P Pulse O2 O2 Flow FiO2 Mean Ox Delivery Rate 01/25 0811 88 138/86 01/25 0810 88 138/86 01/25 0632 98.3 92 20 100/70 95 Nasal 2.0L Cannula 01/25 0000 94 Nasal 2.0L Cannula 01/24 2157 98.3 107 20 135/76 94 01/24 2053 135/76 01/24 1541 97 Nasal 2.0L Cannula 01/24 1414 97.8 92 18 130/80 93 Nasal 2.0L Cannula Intake & Output 01/25 1600 01/25 0800 01/25 0000 Intake Total 320 340 Output Total Balance 320 340 Intake, IV 200 220 Intake, Oral 120 120 Patient 218 lb Weight Weight Bed scale Measurement Method Physical Exam General Appearance: Alert, Oriented X3, Cooperative, Mild Distress Skin: Right elbow was tender, swollen, redness, Cardiovascular: Normal S1, Normal S2 Lungs: Normal Air Movement Extremities: B/L lower extremities swelling, edema, right limb more swollen compare to left limb. Assessment/Plan Assessment: 72 y of age man with PMH of RA, currently on prednisone, coronary artery disease, STEMI status post PCI, hypertension, adrenal insufficiency secondary to steroid use, prostatic neuralgia, obesity, hypoventilation syndrome/obstructive sleep apnea on 2 L of oxygen, multiple spinal surgeries, hypothyroidism, history of shingles, bilateral lower extremity venous insufficiency with chronic lower extremity edema, recurrent lower extremity cellulitis with history of VRE in urine, history of C. difficile colitis, previous hospital visit for evaluation of right arm swelling presented to emergency department with right elbow swelling. Problem list: -Right elbow swelling suspected olecranon bursitis -Non anion-gap metabolic acidosis -Chronic lower limbs venous insufficiency -Leukocytosis Plan: -Patient pain in right elbow is improving after starting antibiotic advised by ID specialist. Pain subsided, there is no redness, condition is improved. Culture of fluid is Streptococcus aureus and final culture report is pending. If his signs and symptoms aggravated orthopedic surgery and ID will be consulted again. -Continue medication for his other medical condition -Antibiotic will change to Keflex 500 mg per oral q6 after discharge to complete 2 week course of antibiotic. -Anicipated discharge soon. -DVT prophylaxis subcu heparin -Heart healthy diet -Full code Problem List: 1. Leucocytosis 2. Rheumatoid arthritis 3. Dyspnea 4. Respiratory failure Pain Ratin Pain Location: Right elbow Pain Goal: Remain pain free Pain Plan: Pain medication Tomorrow's Labs & Rationales: Sergio Eisenberg 01/25/18 1151: Attending MD Review Statement Attending Statement Attending MD Statement: examined this patient, discuss w/resident/PA/AIR CONDITIONING MECHANIC, agreed w/resident/PA/AIR CONDITIONING MECHANIC, discussed with family, reviewed EMR data (avail), discussed with nursing, discussed with case mgmt, reviewed images, amended to note Attending Assessment/Plan: Patient with swelling in his upper extrmeity around elbow joint which has not worsened. Patient is requring iv anitbiotics and need to complete course as per ID. Orthopedics follow up suggested no further acute intervention. Anticipate discharge soon.
[2018-01-25 15:15] VITALS: BP 150/68
[2018-01-25 22:12] VITALS: BP 138/80
--- NOTE | 2018-01-26 07:22 | PN- Housestaff ---
"Triny Arias 01/26/18 0722: Subjective Follow-up For: right olecranon septic bursitis Subjective: Patient was seen and examined at bedside. He is sleeping, and hard to be aroused. When he did wake up, he kept falling back to sleep in mid sentences. He has been having some shortness of breath since the past 2 days. He complained that he was short of breath at this time as well. He reports that the pain in his arm is progressively diminishing. He denies fever, chills, nausea, vomiting, headaches. Review of Systems Constitutional: Reports: see HPI. Objective Last 24 Hrs of Vital Signs/I&O Vital Signs Date Time Temp Pulse Resp B/P B/P Pulse O2 O2 Flow FiO2 Mean Ox Delivery Rate 01/26 1000 99 97 01/26 0950 95 110/72 01/26 0950 97 110/72 01/26 0800 Nasal 2.0L Cannula 01/26 0727 97.7 89 20 130/80 97 Nasal 2.0L Cannula 01/26 0000 Nasal 2.0L Cannula 01/25 2212 99.0 95 20 138/80 94 01/25 1600 96 Nasal 2.0L Cannula 01/25 1515 99.5 63 20 150/68 94 Room Air Intake & Output 01/26 1600 06 0800 01/26 0000 Intake Total 840 570 Output Total Balance 840 570 Intake, IV 360 330 Intake, Oral 480 240 Number 0 1 Bowel Movements Patient 209 lb Weight Weight Bed scale Measurement Method Physical Exam General Appearance: Oriented X3, Cooperative, Mild Distress, stuporous Skin: No Rashes Skin Temp/Moisture Exam: Warm/Dry Neck: Supple Cardiovascular: Regular Rate, Normal S2 Lungs: b/l decreased air entry Abdomen: Soft Extremities: swelling above the elbow improved, ROM greatly restored Assessment/Plan Assessment: 72-year-old gentleman with a history of severe rheumatoid arthritis currently on chronic prednisone previously on Tofancitinib,coronary artery disease, STEMI, s /p with PCI/USHA ([facility]) LCx 04/2007 and subsequent PCI/USHA ([facility]) LAD , hypertension, adrenal insufficiency 2/2 chronic steroid, obesity hypoventilation syndrome/obstructive sleep apnea on 2 L nasal cannula at home,Chronic BP s/p multiple spinal surgeries, hypothyroidism, history of shingles, bilateral lower extremity venous insufficiency with chronic lower extremity edema right greater than left, recurrent lower extremity cellulitis, with history of VRE in the urine, history of C. difficile in the past is admitted to the floor for the evaluation of right elbow swelling. The patient was stupurous and difficult to be aroused in the morning today. He had been alert and active since his admission, so this is a significant change from his baseline. The lethargy would probably due to hyperacarbia secondary to obesity hypoventillation syndrome vs medication induced vs JESUS ALBERTO or a combination of all of above. The patient was noddding off in midsentences. However, he was able to convey that the pain in his arm has been progressively diminishing with improved range of motion. On examination, the swelling in his elbow is significantly reduced. He had decreased B/L air entry. He has minimal pedal edema which is down from the 3+ pedal edema he had when he was first admitted. Problem list: 1. Olecranon bursitis (resolving|) 2. non anion gap metabolic acidois 3.Chronic venous insufficiency 4.Severe Rheumatoid Arthritis 5.Hypothyroidism 6.Obesity hypoventilation/JESUS ALBERTO with acutelly worsening Hypercarbia 7.Hypothyroidism 8.Osteopenia status post back surgery 9.Anxiety 10.Depression 1.Olecranon Bursitis(resolving) -Right elbow swelling is reduced with no active discharge -Pain better to about a 5/10 -Culture of the fluid is growing smith sensitive Staph aureus -Patient was started on Oxacillin 2000mg Q4 DAy 4 -We will follow ID recommendations regarding his antibiotics -Patient wants to have Rheumatology at [facility] who he folows regularly to be informed about his admisison. I would make the call later in the day to request an outpatient follow up on him. 2. Obesity hypoventilation syndrome with worsening hypercarbia - The patient has been reporting getting shortness of breath since the past 2 days. - He was stuporous in the morning today. - We sent out an ABG which came back as: pH:7.29 CO2:96 O2:85 Sat:96% on 2L O2 HCO3:46 -We would hold off on Amitryptilline and Cyclobenzaprine for now. We are reducing Gabapentin dose to 300mg once a day. -We are holding off on Lasix for now -We would start him on BiPAP stat and watch out for signs of respiratory distress -We will trend his BEP twice a day . 3. Pedal edema -The patient had 1+ pedal edema this morning -We will continue to manage it with compression stockings and leg elevation -We are holding off on Lasix as of now to not cause a contraction alkalosis. 4. Postherpetic neuralgia -The patient complained of burning pain in the suprapubic region residual from an episode of shingles this June -We are holding off on on Amitryptillne and cutting down on Gabapentin to 300mg once a day given his hypercarbia. We will re-evaluate his medicines and dose once he stabalizes DVT prophylaxis subcutaneous heparin Heart healthy diet CODE STATUS full code Problem List: 1. Olecranon bursitis, right elbow 2. Post herpetic neuralgia 3. Obesity hypoventilation syndrome 4. Hypersomnia 5. Hypercarbia Pain Ratin Pain Location: right elbow Pain Goal: Pain 4 or less Pain Plan: pathway Tomorrow's Labs & Rationales: cbc and bep, possible abg Sergio Hager 01/26/18 1032: Attending MD Review Statement Attending Statement Attending MD Statement: examined this patient, discuss w/resident/PA/NURSING EDUCATOR, agreed w/resident/PA/NURSING EDUCATOR, discussed with family, reviewed EMR data (avail), discussed with nursing, discussed with case mgmt, reviewed images, amended to note Attending Assessment/Plan: Patient admitted here with septic olecranon bursitis on iv abx developed neuropathic pain receiving pain meds gabapentin and amitryptilline + h/o JESUS ALBERTO on nocturnal oxygen developed marked lethargy this morning and found to have acute on chronic hypercarbic respiratory failure with PCO2 96 and ph 7.29. Patient immediately started on bipap. Hold off sedatives and consider reduction of pain meds. Inform community development director at [facility] about his admission. His swelling in right elbow has considerably imporved with arm elevation. Continue with abx for MSSA infection. Follow him clinically and his respiratory status. GI/dvt porphyalxis full code"
[2018-01-26 07:27] VITALS: BP 130/80
[2018-01-26 08:19] LABS: ABSOLUTE BASOPHIL COUNT 0 /CUMM (0.0-0.2); ABSOLUTE EOSINOPHIL COUNT 0.2 /CUMM (0.0-0.7); ABSOLUTE GRANULOCYTE CT 7.7 /CUMM (1.4-6.5); ABSOLUTE LYMPH COUNT 1.3 /CUMM (1.2-3.4); ABSOLUTE MONOCYTE COUNT 0.7 /CUMM (0.10-0.60); BASOPHIL % 0.2 % (0.0-2.0); EOSINOPHIL % 1.6 % (0-5); GRANULOCYTE % 78.6 % (42.2-75.2); HEMATOCRIT 37.7 % (42-52); MEAN CORPUSCULAR HGB 26.6 PG (27.0-31.0); MEAN CORPUSCULAR HGB CONC 30.8 G/DL (33.0-37.0); MEAN CORPUSCULAR VOLUME 86.4 FL (80.0-94.0); MEAN PLATELET VOLUME 7.2 FL (7.4-10.4); PLATELET COUNT 253 /CUMM (130-400); RBC DISTRIBUTION WIDTH 17.6 % (11.5-14.5); RED BLOOD CELL CT 4.36 /CUMM (4.70-6.10); WHITE BLOOD CELL COUNT 9.8 /CUMM (4.8-10.8)
--- NOTE | 2018-01-26 11:10 | PN- Infect Dx ---
Subjective Subjective: Afebrile on steroids without complaints. His ABG this morning revealed a respiratory acidosis with marked CO2 retention, requiring BiPAP. Objective Last 24 Hrs of Vital Signs/I&O Vital Signs Date Time Temp Pulse Resp B/P B/P Pulse O2 O2 Flow FiO2 Mean Ox Delivery Rate 01/26 1000 99 97 01/26 0950 95 110/72 01/26 0950 97 110/72 01/26 0800 Nasal 2.0L Cannula 01/26 0727 97.7 89 20 130/80 97 Nasal 2.0L Cannula 01/26 0000 Nasal 2.0L Cannula 01/25 2212 99.0 95 20 138/80 94 01/25 1600 96 Nasal 2.0L Cannula 01/25 1515 99.5 63 20 150/68 94 Room Air Intake & Output 01/26 1600 01/26 0801/26 0000 Intake Total 840 570 Output Total Balance 840 570 Intake, IV 360 330 Intake, Oral 480 240 Number 0 1 Bowel Movements Patient 209 lb Weight Weight Bed scale Measurement Method Physical Exam Other Physical Findings: He appears comfortable on BiPAP Lungs are clear Extremities decreased right upper extremity swelling, with minimal erythema and with good range of motion of the right elbow Results Last 24 Hours of Lab Results: Laboratory Tests 01/26 01/26 0942 0640 Blood Gas pH (7.35 - 7.45 PH) 7.29 *L pCO2 (35 - 45 TORR) 96 *H pO2 (80 - 100 TORR) 85 HCO3 (21 - 28 MEQ/L) 45 H ABG O2 Sat (Measured) (>96.0 %) 96.0 Carboxyhemoglobin (1.5 - 5.0 %) 0.2 L O2 Concentration % 2L O2 Delivery Method SD Hematology CBC w Diff NO MAN DIFF REQ WBC (4.8 - 10.8 /CUMM) 9.8 RBC (4.70 - 6.10 /CUMM) 4.36 L Hgb (14.0 - 18.0 G/DL) 11.6 L Hct (42 - 52 %) 37.7 L MCV (80.0 - 94.0 FL) 86.4 MCH (27.0 - 31.0 PG) 26.6 L MCHC (33.0 - 37.0 G/DL) 30.8 L RDW (11.5 - 14.5 %) 17.6 H Plt Count (130 - 400 /CUMM) 253 MPV (7.4 - 10.4 FL) 7.2 L Gran % (42.2 - 75.2 %) 78.6 H Lymphocytes % (20.5 - 51.1 %) 13.0 L Monocytes % (1.7 - 9.3 %) 6.6 Eosinophils % (0 - 5 %) 1.6 Basophils % (0.0 - 2.0 %) 0.2 Absolute Granulocytes (1.4 - 6.5 /CUMM) 7.7 H Absolute Lymphocytes (1.2 - 3.4 /CUMM) 1.3 Absolute Monocytes (0.10 - 0.60 /CUMM) 0.7 H Absolute Eosinophils (0.0 - 0.7 /CUMM) 0.2 Absolute Basophils (0.0 - 0.2 /CUMM) 0 Miscellaneous Phlebotomy Draw Site RIGHT RADIAL Last 24 Hours of Kain Results: No recent cultures Assessment/Plan ID Impression: Worsening respiratory status of concern, now on BiPAP. He remains afebrile with a normal white blood cell count on Oxacillin, Day 6 of treatment for a septic right olecranon bursitis secondary to Staph aureus, with significant improvement in his right upper extremity inflammation. Suggestion: 1. Pulmonary evaluation 2. Continue elevation of the right upper extremity 3. Continue Oxacillin, with eventual change to Keflex 500 mg p.o. every 6 hours to complete a 2 week course of antibiotics
[2018-01-26 14:03] VITALS: BP 116/74
--- NOTE | 2018-01-26 16:01 | Discharge Summary ---
Visit Information Visit Dates Admission Date: 01/19/18 Discharge Date: 01/27/2018 Hospital Course Course Attending Physician: Sergio Hager MD Primary Care Physician: Bushra MARQUES,Fran Mckinney Hospital Course: 72-year-old gentleman with a history of severe rheumatoid arthritis currently on chronic prednisone previously on Tofancitinib,coronary artery disease, status post SC, hypertension, obesity hypoventilation syndrome/obstructive sleep apnea on 2 L nasal cannula at home, hypothyroidism, history of shingles, bilateral lower extremity venous insufficiency with chronic lower extremity edema right greater than left, recurrent lower extremity cellulitis that has responded to cefazolin in the past, with history of VRE in the urine, history of C. difficile in the past was admitted and evaluated on the Gen Med floor for the evaluation and treatment of right arm swelling. Vitals were stable in the ED. Labs were significant for a lekocytosis of 12.4, positive CRP at 5.4. On ABG, his blood pH was 7.50 with a CO2 of pCO2 of 43. 1.Right Olecranion Septic Bursitis - The patient presented with painful right arm swelling with extremely limited ROM - An ultrasaound of the elbow revelaed a 17 mm fluid collection posterior to the elbow corresponding to the palpable area. -Ortho was consulted who did an diagnostic aspiration which was positive for smith -sensitive Staph aureus[place] [address] [place] [address]. -The patient was Unasyn 3g Q6 for 3 days. Vancomycin was added, given the patient's risk factors but was stopped following culture sensitivity results. -The patient was started on Oxacillin 2000mg Q4. -The swelling progressively improved and the ROM was restored to the patient's baseline over the course of his hospital stay. 2. Obesity Hypoventillation Syndrome - On admission, the ABG revealed pH of 7.50 with CO2 of 43. - Lasix was initially held for the fear of causing contraction alkalosis, was however restarted in the setting of worsening pedal edema -The patient was stupurous on the morning of O8/06. A repeat ABG revealed a pH of 7.29, pCO2 of 96. He improved on BiPAP the next day. -Amitrytilline and Cyclobenzaprine were temorarily held, to be re-started at discharge. Gabapentin was reduced from 300mg TID to 300mg once a day. 3. Pedal edema secondary to Chronic Venous Insuffuciency - The patient presented with a 3+ pedal edema upto the shins -The pedal edema improved with compression stockings, leg elevationa and Lasix. 4. 4. Postherpetic neuralgia -The patient complained of burning pain in the suprapubic region residual from an episode of shingles this June -We held off on Amitryptillne and cutting down on Gabapentin to 300mg once a day given his hypercarbia. Amitryptilline was re-started once the patient improved. The Gabapentin is still 300mg PO once a day. 5. We continued the patient on his home meds for Rhematoid arthritis, hypertension, hyperlipidemia, and hypothyroidism Allergies: Coded Allergies: hydrocodone (From VICODIN) (Intermediate, SEVERE HALLUCINATIONS 07/05/16) hydromorphone (From DILAUDID) (Intermediate, SEVERE HALLUCINATIONS 07/05/16) morphine (Intermediate, WILD DREAMS, GI UPSET, SEVERE HALLUCINATIONS 07/05/16) oxycodone (From PERCOCET) (Intermediate, SEVERE HALLUCINATIONS 07/05/16) lactose (DIARRHEA 07/05/16) Disposition Summary Disposition Principal Diagnosis: Right olecranon septic bursitis Additional Diagnosis: Obesity Hypoventillation Syndrome Post Herpetic Neuralgia Chronic Venous Insufficiency Discharge Disposition: home health services Discharge Instructions General Discharge Information Code Status: Full Code Patient's Diet: Heart Healthy Diet Patient's Activity: As tolerated Follow-Up Instructions/Appts: The patient would continue with his antibiotics to complete a 14 day course. He would follow up with Dr. Armstrong as an outpatient within a week of his discharge Medications at Discharge Discharge Medications: Continue taking these medications: Prednisone (Prednisone) 20 MG TABLET 1 Tablet ORAL DAILY Comments: Last Taken: 01/27/18 Time: 9:40 AM Sertraline HCl (Sertraline HCl) 50 MG TABLET 1 Tablet ORAL DAILY Comments: Last Taken: 01/27/18 Time: 9:40 AM Lansoprazole (Prevacid) 30 MG 1 Tablet ORAL DAILY Comments: NOT GIVEN IN HOSPITAL Alendronate Sodium (Fosamax) 70 MG TABLET 1 Tablet ORAL Q FRIDAY Instructions: in the morning, at least 30 minutes before the first food, beverage, or medication of the day Comments: NOT GIVEN IN HOSPITAL Multivitamin (Multiple Vitamins) 1 EACH TABLET 1 Tablet ORAL DAILY Comments: NOT GIVEN IN HOSPITAL Cyanocobalamin (Vitamin B-12) 1,000 MCG TABLET 1 Tablet ORAL DAILY Comments: Last Taken: 01/27/18 Time: 9:30 AM Levothyroxine Sodium (Levothyroxine Sodium) 50 MCG TABLET 1 Tablet ORAL DAILY BEFORE BREAKFAST Qty = 90 Comments: Last Taken: 01/27/18 Time: 5:30 AM Buspirone HCl (Buspirone HCl) 5 MG TABLET 1 Tablet ORAL THREE TIMES DAILY Qty = 90 Comments: Last Taken: 01/27/18 Time: 9:30 AM Cyclobenzaprine HCl (Cyclobenzaprine HCl) 5 MG TABLET 1 Tablet ORAL DAILY Qty = 90 Comments: NOT GIVEN IN HOSPITAL Metoprolol Succ XL (Toprol XL) 25 MG TAB 25 Milligram ORAL DAILY Qty = 60 Comments: Last Taken: 01/27/18 Time: 9:45 AM Aspirin (Aspirin*) 81 MG TAB.CHEW 1 Tablet ORAL DAILY Qty = 30 Comments: Last Taken: 01/27/18 Time: 9:45 AM Lactobacillus Acidophilus (Acidophilus) 1 EACH CAPSULE 1 Capsule ORAL DAILY Qty = 30 Instructions: . Comments: NOT GIVEN IN HOSPITAL Potassium Chloride (K-Tab ER) 10 MEQ TABLET.ER 1 Tablet ORAL DAILY Comments: NOT GIVEN IN HOSPITAL Atorvastatin Calcium (Atorvastatin Calcium) 20 MG TABLET 1 Tablet ORAL DAILY Qty = 90 Comments: Last Taken: 01/27/18 Time: 9:30 AM Ascorbic Acid (Vitamin C) 500 MG CAPSULE.ER 1 Capsule ORAL DAILY Comments: NOT GIVEN IN HOSPITAL Amitriptyline HCl (Amitriptyline HCl) 25 MG TABLET 1 Tablet ORAL Every night Qty = 90 Comments: NOT GIVEN IN HOSPITAL Ramipril (Ramipril) 10 MG CAPSULE 2 Capsule ORAL DAILY Comments: Last Taken: 01/27/18 Time: 9:45 AM Furosemide (Lasix) 40 MG TABLET 1 Tablet ORAL DAILY Qty = 30 Start taking the following new medications: Cephalexin (Keflex) 500 MG CAPSULE 500 Tablet ORAL EVERY SIX HOURS Qty = 28 No Refills Comments: NOT GIVEN IN HOSPITAL The following medications have been changed: Old: Gabapentin (Neurontin) 300 MG CAPSULE 1 Capsule ORAL THREE TIMES DAILY New: Gabapentin (Neurontin) 300 MG CAPSULE 1 Capsule ORAL DAILY Qty = 30 Comments: Last Taken: 01/26/18 Time: 9:30 PM Copies To: Bushra MARQUES,Fran Mckinney
[2018-01-26 21:25] VITALS: BP 124/68
--- NOTE | 2018-01-27 02:12 | Event Note ---
Event Note Event Note: S: Was paged by respiratory stating that patient is refusing Bipap, would like to speak with the doctor B: Mr Leyva is admitted for treatment of R elbow septic bursitis, currently HD7. This morning he was somnolent, lethargic, nodded off during conversation which was a change from his normal mentation. ABG was drawn which showed pH7.29 CO2: 96 O2:85 Sat:96% on 2L O2 HCO3:46; and he was placed on bipap in the am with better mentation. A: He is refusing bipap as he states it is claustrophobic and he does not want it on him. Lengthy discussion was had at bedside regarding risks and benefits of bipap, however patient still refused bipap. Pt has capacity to refuse, stated he would keep his nasal cannula on instead. We also discussed what would happen if pt decompensated, including use of bipap if patient no longer had capacity. Pt verbalized understanding. No signs of respiratory distress, 92% on 2L NC. R: Given patient capacity, will keep off BiPap for tonight. Patient adamantly denies that he has sleep apnea and has stated that he has spoken at length with [facility] Specialist Dr Rincon about this diagnosis several years ago. Nursing staff informed and instructed to page me if any signs of respiratory distress or difficulty arousing patient/change in mentation. Will avoid any sedating medications for this patient overnight. Will sign out to morning team regarding this event. Moreno Palm #[phone]
[2018-01-27 06:20] VITALS: BP 146/68
--- NOTE | 2018-01-27 07:15 | PN- Housestaff ---
"GaryFreda dawkinsi 01/[birth year]/1814: Subjective Follow-up For: right olecranon septic bursitis, obesity hypoventillation syndrome Subjective: The patient was seen and examined at bedside. He refused BiPAP last night inspite of extensive discssion with . In the morning today, the patient was awake and alert. He reports the pain in his elbow is completely resolved. There was minimal clear discharge over the night. He is stil denying BiPAP. He says he used the BiPAP yesterday because he was symptomatic but he feels much better today. He said that he originally had to use a similar machine because he apparently has obstructive sleep apnea. However, after repeated consultations with Drs. this concluded he neither sleep apnea, nor does he need to use a machine like that. He says he feels claustrophobic in the machine. He also states that he understands the risks if he does not use the machine. However, the ultimate decision regarding his health rests with him. Says he has a drive home today, and is looking forward to be discharged Review of Systems Constitutional: Reports: see HPI. Cardiovascular: Reports: see HPI. Objective Last 24 Hrs of Vital Signs/I&O Vital Signs Date Time Temp Pulse Resp B/P B/P Pulse O2 O2 Flow FiO2 Mean Ox Delivery Rate 01/27 0620 98.0 87 20 146/68 95 Nasal Cannula 01/27 0000 92 Nasal 2.0L Cannula 01/26 2131 98.3 102 20 124/68 08/ 2125 98.3 102 20 124/68 95 Nasal 2.0L Cannula 01/26 1411 93 BIPAP 01/26 1403 98.0 96 20 116/74 94 Nasal 2.0L Cannula 01/26 1400 96 93 01/26 1236 99 98 /06 1000 99 97 /06 0950 95 110/72 /06 0950 97 110/72 Intake & Output 01/27 1600 01/27 0800 01/27 0000 Intake Total 120 680 Output Total 400 Balance -280 680 Intake, IV 200 Intake, Oral 120 480 Output, Urine 400 Patient 207 lb Weight Weight Bed scale Measurement Method Physical Exam General Appearance: Alert, Oriented X3, Cooperative, No Acute Distress Skin: No Rashes Skin Temp/Moisture Exam: Warm/Dry Neck: Supple Cardiovascular: Regular Rate, Normal S1, Normal S2 Lungs: b/l decreased air entry Abdomen: Soft Extremities: swelling improved with complete mormonism of ROM Assessment/Plan Assessment: 72-year-old gentleman with a history of severe rheumatoid arthritis currently on chronic prednisone previously on Tofancitinib,coronary artery disease, STEMI, s /p with PCI/USHA ([facility]) LCx 04/2007 and subsequent PCI/USHA ([facility]) LAD , hypertension, adrenal insufficiency 2/2 chronic steroid, obesity hypoventilation syndrome/obstructive sleep apnea on 2 L nasal cannula at home,Chronic BP s/p multiple spinal surgeries, hypothyroidism, history of shingles, bilateral lower extremity venous insufficiency with chronic lower extremity edema right greater than left, recurrent lower extremity cellulitis, with history of VRE in the urine, history of C. difficile in the past is admitted to the floor for the evaluation of right elbow swelling. The patient is alert and awake in the morning today. This is most marked improvement from yesterday and he was lethargic and kpet nodding off in mid sentences. He has been refusing to use the BiPAP since last night. He says that the machine makes him claustrophobic, he understands the risks if he does not use that and that the ultimate decision regarding his health risks with him he refused to use. The patient does have an intact judgment and decision-making capacity. The pain in his elbow has resolved. There was minimal discharge from the elbow last night. Problem list: 1. Olecranon bursitis (resolving|) 2. non anion gap metabolic acidois 3.Chronic venous insufficiency 4.Severe Rheumatoid Arthritis 5.Hypothyroidism 6.Obesity hypoventilation/JESUS ALBERTO with acutelly worsening Hypercarbia 7.Hypothyroidism 8.Osteopenia status post back surgery 9.Anxiety 10.Depression 1.Olecranon Bursitis(resolving) -Right elbow swelling is reduced with minimal clear discharge -Pain completely resolved -Culture of the fluid grew smith sensitive Staph aureus -Patient was started on Oxacillin 2000mg Q4 DAy 5 - ID input appreciated. We will follow ID recommendations regarding his antibiotics -We can discharge the patient home on Keflex 500mg PO per ID 2. Obesity hypoventilation syndrome with worsening hypercarbia - The patient was alert and awake in the morning today. -Patient's ABG showed a state of respiratory acidois yesterday. -We would hold off on Amitryptilline and Cyclobenzaprine for now. We are reducing Gabapentin dose to 300mg once a day. -We are holding off on Lasix for now -Patient has been refusing BiPAP. -We will trend his BEP 3. Pedal edema -The patient had 1+ pedal edema this morning -We will continue to manage it with compression stockings and leg elevation -We are holding off on Lasix as of now to not cause a contraction alkalosis. 4. Postherpetic neuralgia -The patient complained of burning pain in the suprapubic region residual from an episode of shingles this June -We are holding off on on Amitryptillne and cutting down on Gabapentin to 300mg once a day given his hypercarbia. We will re-evaluate his medicines and dose once he stabalizes DVT prophylaxis subcutaneous heparin Heart healthy diet CODE STATUS full code Problem List: 1. Rheumatoid arthritis 2. HTN (hypertension) 3. Olecranon bursitis, right elbow 4. Hypercarbia 5. Swelling of elbow 6. Post herpetic neuralgia 7. Obesity hypoventilation syndrome 8. Acute respiratory acidosis Pain Ratin Pain Location: na Pain Goal: Pain 4 or less Pain Plan: pathway Tomorrow's Labs & Rationales: bep Sergio Hager 01/27/18 1004: Attending MD Review Statement Attending Statement Attending MD Statement: examined this patient, discuss w/resident/PA/FREIGHT SORTER, agreed w/resident/PA/FREIGHT SORTER, discussed with family, reviewed EMR data (avail), discussed with nursing, discussed with case mgmt, reviewed images, amended to note Attending Assessment/Plan: Patient wtih dramatic improvement s/p NIPPV intervention for hypercarbic respiratroy failure. He is aaox 3 oriented. His respiratroy status is stable. He is on room air without use of accessory muscles. Try to limit his sedative and pain meds known to cause lethargy and respiratory center depression. He will complete his abx course x 2 weeks for septic olecranon bursitis which is nearly resolved since admission. He is medically stable for discharge. He needs to follow up with PCP in 1-2 weeks of discharge. Follow up with his rn cvor at [facility] in 2 weeks of discharge."
[2018-01-27 08:36] LABS: ABSOLUTE BASOPHIL COUNT 0 /CUMM (0.0-0.2); ABSOLUTE EOSINOPHIL COUNT 0.2 /CUMM (0.0-0.7); ABSOLUTE GRANULOCYTE CT 7.9 /CUMM (1.4-6.5); ABSOLUTE LYMPH COUNT 1.9 /CUMM (1.2-3.4); ABSOLUTE MONOCYTE COUNT 0.8 /CUMM (0.10-0.60); BASOPHIL % 0.2 % (0.0-2.0); EOSINOPHIL % 1.6 % (0-5); GRANULOCYTE % 72.7 % (42.2-75.2); MEAN CORPUSCULAR HGB 26.6 PG (27.0-31.0); MEAN CORPUSCULAR HGB CONC 31.2 G/DL (33.0-37.0); MEAN CORPUSCULAR VOLUME 85.3 FL (80.0-94.0); MEAN PLATELET VOLUME 7.1 FL (7.4-10.4); PLATELET COUNT 289 /CUMM (130-400); RBC DISTRIBUTION WIDTH 17.3 % (11.5-14.5); RED BLOOD CELL CT 4.46 /CUMM (4.70-6.10); WHITE BLOOD CELL COUNT 10.9 /CUMM (4.8-10.8)
[2018-01-27] MEDS ORDERED: KEFLEX500 M1 PO ×3 (10:28→10:33)
--- NOTE | 2018-01-27 10:32 | PN- Infect Dx ---
Subjective Subjective: Afebrile on steroids without complaints Objective Last 24 Hrs of Vital Signs/I&O Vital Signs Date Time Temp Pulse Resp B/P B/P Pulse O2 O2 Flow FiO2 Mean Ox Delivery Rate 01/27 0944 68 142/80 01/27 0943 68 142/80 01/27 0620 98.0 87 20 146/68 95 Nasal Cannula 01/27 0000 92 Nasal 2.0L Cannula 01/26 2131 98.3 102 20 124/68 01/26 2125 98.3 102 20 124/68 95 Nasal 2.0L Cannula 01/26 1411 93 BIPAP 01/26 1403 98.0 96 20 116/74 94 Nasal 2.0L Cannula 01/26 1400 96 93 01/26 1236 99 98 Intake & Output 01/27 1600 01/27 0800 01/27 0000 Intake Total 120 680 Output Total 400 Balance -280 680 Intake, IV 200 Intake, Oral 120 480 Output, Urine 400 Patient 207 lb Weight Weight Bed scale Measurement Method Physical Exam Other Physical Findings: He appears comfortable, in no acute distress Lungs bibasilar crackles Heart regular rhythm without any murmur Extremities right forearm/elbow swelling persists, with seeping of some fluid, but with no erythema or tenderness Results Last 24 Hours of Lab Results: Laboratory Tests 01/27 710 Chemistry Sodium (137 - 145 mmol/L) 138 Potassium (3.5 - 5.1 mmol/L) 3.6 Chloride (98 - 107 mmol/L) 91 L Carbon Dioxide (22 - 30 mmol/L) 45 H Anion Gap (5 - 16) 2 L BUN (9 - 20 mg/dL) 22 H Creatinine (0.7 - 1.2 mg/dL) 0.9 Estimated GFR (>60 ml/min) > 60 BUN/Creatinine Ratio (7 - 25 %) 24.4 Hematology CBC w Diff NO MAN DIFF REQ WBC (4.8 - 10.8 /CUMM) 10.9 H RBC (4.70 - 6.10 /CUMM) 4.46 L Hgb (14.0 - 18.0 G/DL) 11.9 L Hct (42 - 52 %) 38.0 L MCV (80.0 - 94.0 FL) 85.3 MCH (27.0 - 31.0 PG) 26.6 L MCHC (33.0 - 37.0 G/DL) 31.2 L RDW (11.5 - 14.5 %) 17.3 H Plt Count (130 - 400 /CUMM) 289 MPV (7.4 - 10.4 FL) 7.1 L Gran % (42.2 - 75.2 %) 72.7 Lymphocytes % (20.5 - 51.1 %) 17.8 L Monocytes % (1.7 - 9.3 %) 7.7 Eosinophils % (0 - 5 %) 1.6 Basophils % (0.0 - 2.0 %) 0.2 Absolute Granulocytes (1.4 - 6.5 /CUMM) 7.9 H Absolute Lymphocytes (1.2 - 3.4 /CUMM) 1.9 Absolute Monocytes (0.10 - 0.60 /CUMM) 0.8 H Absolute Eosinophils (0.0 - 0.7 /CUMM) 0.2 Absolute Basophils (0.0 - 0.2 /CUMM) 0 Last 24 Hours of [place] Results: No recent cultures Assessment/Plan ID Impression: Stable, with temperatures remaining normal (on steroids) and white blood cell count minimally elevated, possibly secondary to steroids or hemoconcentration from Lasix, which has been discontinued, on Oxacillin, Day 7 of treatment for a septic right olecranon bursitis secondary to Staph aureus, with significant improvement in his right upper extremity inflammation. Suggestion: 1. Discontinue Oxacillin 2. Begin Keflex 500 mg p.o. every 6 hours for 1 more week
[2018-01-27] MEDS ORDERED: NEURONTIN300 M1 PO (10:37)
--- NOTE | 2018-01-27 10:41 | Patient Discharge Instructions ---
Discharge Instructions General Discharge Information You were seen/treated for: Infection of elbow joint Special Instructions: Please seek medical attention if your elbow swelling increases or you have pain Please complete the Antibiotic course Please follow up with Dr Armstrong (orthopedic) within 1-2 weeks Please follow up with your primary care doctor within 1 week Diet Continue normal diet: Yes Acute Coronary Syndrome Inclusion Criteria At DC or during hospital stay patient has or had the following: ACS DIAGNOSIS No Discharge Core Measures Meds if any: Prescribed or Continued at Discharge Meds if any: NOT Prescribed or Continued at Discharge Congestive Heart Failure Inclusion Criteria At DC or during hospital stay patient has or had the following: CHF DIAGNOSIS No Discharge Core Measures Meds if any: Prescribed or Continued at Discharge Meds if any: NOT Prescribed or Continued at Discharge Cerebrovascular accident Inclusion Criteria At DC or during hospital stay patient has or had the following: CVA/TIA Diagnosis No Discharge Core Measures Meds if any: Prescribed or Continued at Discharge Meds if any: NOT Prescribed or Continued at Discharge Venous thromboembolism Inclusion Criteria VTE Diagnosis No VTE Type NONE VTE Confirmed by (Test) NONE Discharge Core Measures - Per Current guidelines, there needs to be overlap - treatment for the first 5 days of Warfarin therapy. - If discharged on Warfarin prior to 5 days of - overlap therapy, the patient will need to be - assessed for post discharge needs including - *Post discharge parental anticoagulation - *Warfarin and/or parental anticoagulation education - *Follow up date to check INR post discharge At least 5 days overlap therapy as Inpatient No Meds if any: Prescribed or Continued at Discharge Note: Overlap Therapy is Warfarin and Anticoagulant Meds if any: NOT Prescribed or Continued at Discharge
[2018-01-27] MEDS ORDERED: LASIX40 M1 PO (10:46)
[2018-01-27 13:58] VITALS: BP 110/72
== END 2018-01-27 14:00 | disposition home health service (06) | DRG 549 ==
LOC: ERH 12:10 → 2NB 22:15 → ERHI 22:15 → ENRESERV 23:23 → 2NB 01-20 00:48 → 2NA 01-24 13:11 → ENPENDDIS 01-27 10:35 → 2NA 01-27 14:00 → ENTRNSPT 01-27 14:50 → EDTRNSPTSTS 01-27 15:11 → EDTRNSPT 01-27 15:11 → CMPTRNSPT 01-27 15:27
PROVIDERS: Hospitalist; Internal Medicine; Physician Assistant Medical; Student in an Organized Health Care Education/Training Program
DX: M00.021 Staphylococcal arthritis, right elbow (principal); E27.40 Unspecified adrenocortical insufficiency; E66.2 Morbid (severe) obesity with alveolar hypoventilation; E87.2 Acidosis; B02.29 Other postherpetic nervous system involvement; J44.9 Chronic obstructive pulmonary disease, unspecified; Z99.81 Dependence on supplemental oxygen; G62.9 Polyneuropathy, unspecified; E03.9 Hypothyroidism, unspecified; Z68.27 Body mass index [BMI] 27.0-27.9, adult; R06.89 Other abnormalities of breathing; I87.2 Venous insufficiency (chronic) (peripheral); B95.8 Unspecified staphylococcus as the cause of diseases classified elsewhere; I27.20 Pulmonary hypertension, unspecified; Z68.28 Body mass index [BMI] 28.0-28.9, adult; Z79.52 Long term (current) use of systemic steroids; I25.2 Old myocardial infarction
CPT/HCPCS: 2NAP; 2NBP; 87075; ERO; 36415; 36592; 71046; 73080-RT; 81003; 82436; 87086; 87147; 88305; 89060; 93005; 93010; 96374; J1650; J1885; J1940; J3370; J3490; J7040